=== PATIENT | female | born 1965 | race Caucasian/White ===

== ENCOUNTER → 2017-09-04 | Outpatient (CLI) | payer OTHER ==
[~2017-09-04] MED LIST: AMLO-114 PO; CALC-51 PO; CHLORTRIMETON PO; CINN1CAP2 PO; COEN1CAP28 PO; FLAX10007 PO; LISI-787 PO; MELATAB2 PO; MISCCAP80 PO
--- NOTE | 2017-09-04 15:34 | DIAGNOSTIC IMAGING REPORT ---
SCOLIOSIS STUDY CLINICAL HISTORY: Gait disorder. FINDINGS: AP and lateral views of the spine from a scoliosis study are correlated with abdominal CT dated 09/05/2016. The skeletal structures appear osteopenic. There is a mild superior endplate compression deformity of L2, which is unchanged from 09/05/2016. No retropulsed fragments are identified. Vertebral body height is otherwise maintained throughout the spine. Alignment is preserved. There is mild S-shaped thoracolumbar scoliosis. Thoracic dextrocurvature measures 11 degrees as calculated from the inferior endplate of T3 to the superior endplate of T7. Lumbar levocurvature measures approximate 7 degrees as measured from the inferior endplate of T11 to the superior endplate of L4. There is preservation of the cervical lordosis, the thoracic kyphosis, the lumbar lordosis, and the sacral kyphosis. Cholecystectomy clips are noted. The lungs are grossly clear as imaged. There is a nonobstructed abdominal bowel gas pattern. IMPRESSION: 1. A mild chronic superior endplate compression deformity of L2 is similar to previous. 2. Mild S-shaped thoracolumbar scoliosis as above. Electronically signed by: Jesus Conde M.D. 09/04/2017 3:32 PM Dictated Date/Time: 09/04/2017 3:28 PM
== END | disposition home or self-care (01) ==
LOC: C.RAD 14:46
PROVIDERS: ATTEND Physician Assistant
DX: R26.9 Unspecified abnormalities of gait and mobility (principal)

== ENCOUNTER 2017-11-02 21:52 | Emergency (ER) | payer OTHER ==
[~2017-11-02] VITALS: Ht 170.2 cm; Wt 86.7 kg
[~2017-11-02 21:52] MED LIST changes: -AMLO-114 PO; +AMLO10TA3 PO
[2017-11-02 21:55] VITALS: TEMP 36.3; Ht 170.2 cm; Wt 86.7 kg
[2017-11-02] MEDS ORDERED: CEFTRIAXONE SOD INJ 1 GM ADDVIAL IV STA (22:30)
[2017-11-02 22:43] LABS: BASO % 0.6 %; BASO ABS # 0.05 K/uL (0-0.2); EOS % 1.3 %; EOS ABS # 0.11 K/uL (0-0.5); HEMOGLOBIN 16.4 g/dL (12.0-16.0); IG# 0.05 K/uL (0.00-0.02); LYMPH % 33.6 %; LYMPH ABS # 2.78 K/uL (1.2-3.4); MEAN CELL VOLUME 101.7 fL (80-100); MEAN CORPUSCULAR HEMOGLOBIN 35.5 pg (25-34); MEAN CORPUSCULAR HGB CONC 34.9 g/dl (32-36); MEAN PLATELET VOLUME 10.1 fL (7.4-10.4); MONO % 8.2 %; MONO ABS # 0.68 K/uL (0.11-0.59); NEUT % 55.7 %; PLATELET COUNT 173 K/uL (130-400); RED CELL DISTRIBUTION WIDTH CV 13.1 % (11.5-14.5); RED CELL DISTRIBUTION WIDTH SD 48.2 fL (36.4-46.3); WHITE BLOOD COUNT 8.27 K/uL (4.8-10.8)
--- NOTE | 2017-11-02 23:00 | EMERGENCY ROOM VISIT NOTE ---
History First contact with patient: 22:17 Chief Complaint: OTHER COMPLAINT Stated Complaint: REDNESS AND SWELLING A RECENT CUT History of Present Illness The patient is a 52 year old female who presents to the Emergency Room with complaints of redness and swelling of her left elbow. The patient states that she fell one week ago and had a small laceration to the elbow. She cleaned the laceration out afterward. She states that over the past 3 days, she has had worsening redness and swelling of the elbow and surrounding area. She has full range of motion of the elbow. She rates the discomfort a 2/10. Her mother is a nurse and told her that she should come here due to infection. She denies any fevers/chills. Review of Systems A complete 10 point review of systems was reviewed with the patient with pertinent positives and negatives as per history of present illness. All else were negative. Past Medical/Surgical History Medical Problems: (1) Bronchitis (2) Diabetes (3) Hypertension Surgical Problems: (1) Previous section (2) S/P sinus surgery (3) S/P tonsillectomy Family History Cancer Diabetes mellitus Heart disease Hypertension Social History Smoking Status: Never Smoker Alcohol Use: occasionally Marital Status: Housing Status: lives with family Current/Historical Medications Scheduled Cephalexin Monohydrate (Keflex), 500 MG PO QID Cinnamon (Cinnamon), 500 MG PO BID Coenzyme Q10 (Ubidecarenone) (Co Q10), 50 MG PO DAILY Flaxseed (Linseed) (Flax Seed Oil), 1,000 MG PO BID Melatonin (Melatonin Maximum Strengt), 1 TAB PO HS Probiotic Product (Probiotic), 1 TAB PO QAM Sulfa/Trimethoprim (Bactrim Ds 800MG/160MG), 1 TAB PO BID [Calcium], 1,200 MG PO BID Scheduled PRN [Chlortrimeton], 1 TAB PO BID PRN for Seasonal Allergies Physical Exam Vital Signs Date Time Temp Pulse Resp B/P (MAP) Pulse Ox O2 Delivery O2 Flow Rate FiO2 11/02/17 23:30 78 20 130/72 98 Room Air 11/02/17 21:55 36.3 96 20 189/95 97 Room Air Physical Exam VITALS: Vitals are noted on the nurse's note and reviewed by myself. Vital signs stable. GENERAL: This is a 52-year-old female, in no acute distress, nondiaphoretic, well-developed well-nourished. SKIN: There is a small crusted 1 cm laceration over the left olecranon process. There is surrounding erythema which extends midway down the forearm. The olecranon bursa is slightly swollen and erythematous. There is no fluctuance. Patient has full range of motion of the elbow. HEART: Regular rate and rhythm without murmurs gallops or rubs. LUNGS: Clear to auscultation bilaterally without wheezes, rales or rhonchi. MUSCULOSKELETAL: Full range of motion of the left elbow. NEURO: Patient was alert and oriented to person place and time. Medical Decision & Procedures Laboratory Results 11/02/17 22:35 Red Blood Count 4.62, Mean Corpuscular Volume 101.7, Mean Corpuscular Hemoglobin 35.5, Mean Corpuscular Hemoglobin Concent 34.9, Mean Platelet Volume 10.1, Neutrophils (%) (Auto) 55.7, Lymphocytes (%) (Auto) 33.6, Monocytes (%) ( Auto) 8.2, Eosinophils (%) (Auto) 1.3, Basophils (%) (Auto) 0.6, Neutrophils # ( Auto) 4.60, Lymphocytes # (Auto) 2.78, Monocytes # (Auto) 0.68, Eosinophils # ( Auto) 0.11, Basophils # (Auto) 0.05 11/02/17 22:35 Test 11/02/17 22:35 White Blood Count 8.27 K/uL (4.8-10.8) Red Blood Count 4.62 M/uL (4.2-5.4) Hemoglobin 16.4 g/dL (12.0-16.0) Hematocrit 47.0 % (37-47) Mean Corpuscular Volume 101.7 fL (80-100) Mean Corpuscular Hemoglobin 35.5 pg (25-34) Mean Corpuscular Hemoglobin Concent 34.9 g/dl (32-36) Platelet Count 173 K/uL (130-400) Mean Platelet Volume 10.1 fL (7.4-10.4) Neutrophils (%) (Auto) 55.7 % Lymphocytes (%) (Auto) 33.6 % Monocytes (%) (Auto) 8.2 % Eosinophils (%) (Auto) 1.3 % Basophils (%) (Auto) 0.6 % Neutrophils # (Auto) 4.60 K/uL (1.4-6.5) Lymphocytes # (Auto) 2.78 K/uL (1.2-3.4) Monocytes # (Auto) 0.68 K/uL (0.11-0.59) Eosinophils # (Auto) 0.11 K/uL (0-0.5) Basophils # (Auto) 0.05 K/uL (0-0.2) RDW Standard Deviation 48.2 fL (36.4-46.3) RDW Coefficient of Variation 13.1 % (11.5-14.5) Immature Granulocyte % (Auto) 0.6 % Immature Granulocyte # (Auto) 0.05 K/uL (0.00-0.02) Anion Gap 10.0 mmol/L (3-11) Est Creatinine Clear Calc Drug Dose 75.8 ml/min Estimated GFR () 77.7 Estimated GFR (Non- 67.0 BUN/Creatinine Ratio 21.7 (10-20) Calcium Level 9.9 mg/dl (8.5-10.1) Medications Administered Medications (Trade) Dose Ordered Sig/Dominic Route Start Time Stop Time Status Last Admin Dose Admin Ceftriaxone Sodium (Rocephin Inj) 1 gm NOW STAT IV 11/02/17 22:30 11/02/17 22:31 DC 11/02/17 22:41 1 GM Trimethoprim/ Sulfamethoxazole (Septra Ds 800/ 160MG Tab) 1 tab NOW STAT PO 11/02/17 23:22 11/02/17 23:23 DC 11/02/17 23:25 1 TAB Medical Decision Differential diagnosis includes olecranon bursitis, cellulitis, abscess, septic joint, among others. The patient is a 52-year-old female who presents today complaining of elbow redness and swelling after a laceration. Labs revealed no leukocytosis or other significant findings. His exam is consistent with a mild olecranon bursitis with surrounding cellulitis. The patient was given a dose of Rocephin. She will be placed on Keflex and Bactrim. I gave her information for orthopedic follow-up and she may follow up as an outpatient. There is no evidence of a septic joint at this time. She has full range of motion of the elbow. The area of redness was outlined with a skin marker prior to discharge. She was instructed to return here with significantly worsening redness/ swelling, fevers, difficulty moving the elbow joint or other new/concerning symptoms. Based on the patient's presentation and work up, I feel the patient is stable for outpatient treatment. The patient was educated to return to the emergency department for any worsening of their current condition or new/concerning symptoms. She will follow up with orthopedics as needed. Medication Reconcilliation Current Medication List: was personally reviewed by me Blood Pressure Screening Patient's blood pressure: Normal blood pressure Impression Primary Impression: Olecranon bursitis, left elbow Additional Impression: Cellulitis of left elbow Departure Information Dispostion Home / Self-Care Condition GOOD Prescriptions Sulfa/Trimethoprim (Bactrim Ds 800MG/160MG) Tab 1 TAB PO BID for 10 Days, #20 TAB Prov: Karen Garcia PA-C 11/02/17 Cephalexin Monohydrate (Keflex) 500 Mg Cap 500 MG PO QID for 10 Days, #40 CAP Prov: Karen Garcia PA-C 11/02/17 Referrals Tommy Saab M.D. (PCP) Umair Fuentes D.O. Patient Instructions My [facility] Additional Instructions You were prescribed Keflex to be taken 4 times daily for 10 days. This is an antibiotic. All antibiotics have the potential to cause diarrhea. Stop this medication and contact a medical provider if you were to develop any significant adverse side effects including: wheezing, shortness of breath, passing out, vomiting, or a diffuse rash. Always take antibiotics as directed and COMPLETE the ENTIRE course regardless of the improvement of your symptoms. You were prescribed Bactrim to be taken twice daily for 10 days. This is an antibiotic. All antibiotics have the potential to cause diarrhea. Stop this medication and contact a medical provider if you were to develop any significant adverse side effects including: wheezing, shortness of breath, passing out, vomiting, or a diffuse rash. Always take antibiotics as directed and COMPLETE the ENTIRE course regardless of the improvement of your symptoms. For pain control, you can use the following [id number] medicines (if >12 yo): - Regular strength (325mg/tab) Tylenol (acetaminophen) 2 tabs every 4-6 hours as needed. Do not exceed 12 tablets in a 24 hour period. Avoid taking more than 4 grams (4000 mg) of Tylenol per day. This includes any other sources of acetaminophen you may take on a regular basis. - Regular strength (200 mg/tab) Advil (ibuprofen) 1-2 tabs every 4-6 hours as needed. Do not exceed a dose of 3200 mg per day. You may apply a warm compress to the elbow for relief. Contact orthopedics to schedule a follow-up appointment within one week. Return to the emergency department with worsening pain, worsening redness/ swelling, fevers, difficulty moving the elbow or any other new/concerning symptoms. Problem Qualifiers
[2017-11-02 23:04] LABS: CALCIUM 9.9 mg/dl (8.5-10.1); CREATININE 0.96 mg/dl (0.60-1.20); POTASSIUM 3.9 mmol/L (3.5-5.1)
[2017-11-02] MEDS ORDERED: SULFAMETHOXAZOLE/TRIMETHOPRIM DS 800/160MG TAB PO STA (23:22)
[2017-11-02] MEDS ORDERED: SULF800T23 PO (23:26)
[2017-11-02] MEDS ORDERED: CEPH500C PO (23:26)
[2017-11-02 23:30] VITALS: BP 130/72; PULSE 78; O2SAT 98
== END 2017-11-02 23:41 | disposition home or self-care (01) ==
LOC: C.EDB 21:53 → C.EDC 23:41
DX: M70.22 Olecranon bursitis, left elbow (principal); L03.90 Cellulitis, unspecified; E11.9 Type 2 diabetes mellitus without complications; I10 Essential (primary) hypertension; Z83.3 Family history of diabetes mellitus; Z82.49 Family history of ischemic heart disease and other diseases of the circulatory system

== ENCOUNTER 2023-04-21 20:41 | Inpatient (IN) ==
--- NOTE | 2023-04-21 22:26 | Emergency Department Note ---
Impression & Plan Acute confusion, Hyperglycemia, Hypomagnesemia ED Provider Note HISTORY OF PRESENT ILLNESS: Patient is a 57-year-old female presenting with episode of confusion. Family member at bedside helps provide history. Reports that the patient was reportedly having some slurred speech and confusion on the phone with her sons today. Her sons live a number of hours away and called him to check in on the patient. He went to her house this evening and found her to be very "discombobulated." He reports the patient was holding up her phone scratcher pretending it was her phone and was having difficulties checking her blood sugar on her home glucose monitor. Given her confusion, he brought her to the ER. On arrival, patient is reportedly back to her normal self. Denies any chest pain or shortness of breath. Denies any recent head injuries or chiropractic manipulation of her neck. Denies any abdominal pain, nausea or vomiting. Denies any recent dysuria or hematuria. She reports she feels back to her normal baseline at this time. She has a history of diabetes is on metformin and Lantus. She is amnestic to most of the events of this evening, but does report having intermittent episodes of confusion throughout the day. ROS: as above PHYSICAL EXAM: Constitutional: Patient appears in no acute distress. HENT: Head: Normocephalic and atraumatic. Eyes: EOMI, PERRL Mouth/Throat: Mucous membranes moist. Neck: Trachea midline. Neck supple. Cardiovascular: RRR, No murmurs, rubs or gallops. Intact distal pulses. Pulmonary/Chest: No respiratory distress. Breath sounds clear and equal bilaterally. No wheezes or rales. Abdominal: BS +. Abdomen soft, no tenderness, rebound or guarding. Musculoskeletal: No edema, tenderness or deformity noted. Skin: Warm and dry. No rash, erythema, pallor or cyanosis Psychiatric: Appropriate mood and affect for situation. Neurological: Alert and keenly responsive. Facies symmetric. Able to raise eyebrows, close eyes, smile, puff mouth, stick out tongue, move tongue left and right and raise palate symmetrically. Able to shrug shoulders. PERRLA. SILT to forehead below eye and at jawline. Can hear soft nose bilaterally. Good finger to nose. Strength 5/5 in bilateral upper and lower extremities. SILT throughout bilateral upper and lower extremities. MDM: - Vitals signs showed tachycardia. - History obtained via patient and patient's family member, given patient's amnesia to the afternoon events. Patient presents with confusion. Family reports that the patient had some slurred speech and confusion earlier today. Reports that she was not acting her normal self and was having difficulties checking her blood glucose. She has a history of diabetes. On arrival to the ER, the patient does not remember the events of the evening but remembers being more confused than normal. - Chronic conditions affecting care: DM-2; HTN - Differential diagnoses include, but are not limited to: Intracranial bleed vs mass; stroke; seizures; electrolyte abnormality; UTI; pneumonia; trauma; hypoglycemia/hyperglycemia - Order placed for continuous cardiac monitoring. At this time, monitor showed rate of 105 bpm with normal sinus rhythm, per my interpretation. - External medical records reviewed. - EKG reviewed by myself showed normal sinus rhythm. Rate tachycardic at 108. QTc 444. No acute ischemic changes. - Laboratory workup interpreted by myself showed normal WBC; normal sodium; normal potassium; elevated anion gap (14); normal creatinine; hyperglycemia (glucose 317); hypomagnesemia (Mg 1.5); normal troponin; negative procalcitonin - CXR negative for pneumonia, per my interpretation. - COVID negative - CT head wo contrast negative for acute intracranial pathology. - Patient given 1L NS, 5 units IV insulin and 1g IV magnesium in ER. - Discussion was had with psychiatric social worker about patient's case and need for admission. - Hospitalist, Dr. Anderson, consulted for admission. - [facility] ASSESSMENT AND PLAN: Diagnosis: hyperglycemia; elevated anion gap; hypomagnesemia; confusion Plan: admit Past Med/Surg History Medical History (Updated 04/22/23 @ 01:00 by Talisha Gasca MD) Diabetes Hypertension No significant past medical history Family History Other Family history non-contributory Social History Smoking Status: Never smoker Second Hand Exposure: No; Do You Dip or Chew Tobacco: No; Hx Alcohol Use: Yes Alcohol type: hard liquor Hx Substance Use: No Preferred Language: Peruvian Communication Ability: Impaired Logging Assistant Required: No Beliefs That Will Affect Care: None Current Living Situation: Family Feels Safe at Home: Yes Assistive Devices: None Allergies Allergies Allergy/AdvReac Type Severity Reaction Status Date / Time benzoyl peroxide Allergy Unknown SKIN RED Verified 10/11/18 22:53 AND IRRITATED No Known Drug Allergies Allergy Unknown NONE Verified 08/29/16 08:10 Home Meds Home Medications Medication Instructions Recorded Confirmed calcium carbonate 500 mg calcium 500 mg PO TID 10/11/18 10/11/18 (1,250 mg) tablet (Calcium 500) cholestyramine (with sugar) 4 gram 4 g PO BID 10/11/18 10/11/18 oral powder chromium picolinate 1,000 mcg 1,000 mcg PO DAILY 10/11/18 10/11/18 tablet cinnamon bark 500 mg capsule 500 mg PO DAILY 10/11/18 10/11/18 (Cinnamon) lactobacillus combination no.4 3 3,000 mmu cells PO DAILY 10/11/18 10/11/18 billion cell capsule (Probiotic) magnesium 250 mg tablet 250 mg PO DAILY 10/11/18 10/11/18 melatonin 10 mg tablet 10 mg PO HS PRN Sleep 10/11/18 10/11/18 mirtazapine 7.5 mg tablet 7.5 mg PO DAILY 10/11/18 10/11/18 omega 0-keo-rtd-fish oil 1,000 mg 1,000 mg PO DAILY 10/11/18 10/11/18 (120 mg-180 mg) capsule (Fish Oil) ondansetron 8 mg disintegrating 8 mg PO DAILY 10/11/18 10/11/18 tablet simethicone 80 mg chewable tablet 80 mg PO BID PRN Gi Upset 10/11/18 10/11/18 Previous Rx's Medication Instructions Recorded blood sugar diagnostic #10 ea 10/18/18 folic acid 1 mg tablet 1 mg PO QAM #30 tabs 10/18/18 insulin aspart U-100 100 unit/mL 5 unit (0.05 mL) SC AC #1 pen 10/18/18 (3 mL) subcutaneous pen (Novolog FlexPen U-100 Insulin aspart) insulin glargine 100 unit/mL (3 20 units (0.2 mL) subcut BID #15 mL 10/18/18 mL) subcutaneous pen lancets #50 ea 10/18/18 loratadine 10 mg tablet (Allergy 10 mg PO QAM PRN Allergy Symptoms 10/18/18 Relief (loratadine)) #10 tabs metformin 500 mg tablet 500 mg PO BIDM #30 tabs 10/18/18 (Glucophage) multivitamin (Daily-Breanna tablet) 1 tab PO QAM #30 tabs 10/18/18 nitrofurantoin 100 mg PO BID #9 caps 10/18/18 monohydrate/macrocrystals 100 mg capsule pantoprazole 40 mg tablet,delayed 40 mg PO QAM #30 tabs 10/18/18 release pen needle, diabetic 29 gauge #90 ea 10/18/18 thiamine HCl (vitamin B1) 100 mg 100 mg PO QAM #30 tabs 10/18/18 tablet (Vitamin B-1) Results & Data (ED) Vital Signs Vital Signs - 24 hr 04/21/23 20:53 04/21/23 22:47 04/21/23 23:05 Temperature 37.1 C Temperature Source Temporal Artery Scan Pulse Rate 131 H 108 H Pulse Rate [Apical] 116 H Pulse Rate from SpO2 Sensor 110 H Pulse Rhythm [Apical] Regular Respiratory Rate 18 18 12 Respiratory Effort / Characteristics Non-Labored Spontaneous Non-Labored Spontaneous Respiratory Depth Normal Normal Respiratory Pattern Regular Regular Blood Pressure 128/84 Blood Pressure [Right Arm] 131/91 Blood Pressure Mean 98 Blood Pressure Mean [Right Arm] 104 Blood Pressure Position Sitting Pulse Oximetry 94 95 96 Oxygen Delivery Method Room Air Room Air Sepsis Recent Fever Within 48 Hours No Sepsis New/Unexplained Change in Mental Status N/A Sepsis Action Taken by Nursing No Action Required 04/21/23 23:10 04/21/23 23:29 04/21/23 23:30 Temperature Temperature Source Pulse Rate 119 H 111 H 104 H Pulse Rate [Apical] Pulse Rate from SpO2 Sensor 119 H 104 H Pulse Rhythm [Apical] Respiratory Rate 15 14 13 Respiratory Effort / Characteristics Respiratory Depth Respiratory Pattern Blood Pressure 132/96 Blood Pressure [Right Arm] Blood Pressure Mean 108 Blood Pressure Mean [Right Arm] Blood Pressure Position Pulse Oximetry 98 96 Oxygen Delivery Method Sepsis Recent Fever Within 48 Hours Sepsis New/Unexplained Change in Mental Status Sepsis Action Taken by Nursing Laboratory Data 04/21/23 23:02 04/21/23 23:02 Lab Results 06/16/23 06/16/23 06/16/23 Range/Units 20:55 23:02 23:02 WBC 7.20 (4.8-10.8) K/ul RBC 4.68 (4.20-5.40) M/uL Hgb 16.1 H (12.0-16.0) g/dl Hct 44.4 (37.0-47.0) % MCV 94.9 (80.0-100.0) fL MCH 34.4 H (25.0-34.0) pg MCHC 36.3 H (32.0-36.0) g/dL RDW Std Deviation 41.1 (36.4-46.3) fL RDW Coeff of Eli 11.8 (11.5-14.5) % Plt Count 206 (130-400) K/uL MPV 10.0 (9.4-12.4) fL Immature Gran % (Auto) 0.7 % Neut % (Auto) 64.9 % Lymph % (Auto) 28.8 % [place] % (Auto) 4.0 % Eos % (Auto) 1.0 % Baso % (Auto) 0.6 % Neut # (Auto) 4.68 (1.40-6.50) K/uL Lymph # (Auto) 2.07 (1.2-3.4) K/uL [place] # (Auto) 0.29 (0.11-0.59) K/uL Eos # (Auto) 0.07 (0-0.50) K/uL Baso # (Auto) 0.04 (0-0.2) K/uL Immature Gran # (Auto) 0.05 (0.01-0.20) K/uL Sodium 141 (136-145) mmol/L Potassium 3.8 (3.5-5.1) mmol/L Chloride 104 (98-107) mmol/L Carbon Dioxide 23 (21-32) mmol/L Anion Gap 14 H (3-11) BUN 12 (6-23) mg/dl Creatinine 0.64 (0.6-1.2) mg/dl Est Cr Clr Drug Dosing 93.8 ml/min Est GFR ( Amer) 113.2 ml/min Est GFR (Non-Af Amer) 97.7 ml/min BUN/Creatinine Ratio 18.8 (10-20) Glucose 317 H* (70-99(Fasting)) mg/dl POC Glucose 294 H (70-99) mg/dl Calcium 9.7 (8.6-10.3) mg/dl Magnesium 1.5 L (1.7-2.4) mg/dl Total Bilirubin 0.3 (0.2-1.0) mg/dl AST 19 (13-39) U/L ALT 40 (7-52) U/L Alkaline Phosphatase 118 H (34-104) U/L Troponin I High Sens 3.4 (0-14) pg/ml Total Protein 6.8 (6.0-8.3) gm/dl Albumin 4.2 (3.4-5.0) gm/dl Globulin 2.6 (2.5-4.0) gm/dl Albumin/Globulin Ratio 1.6 (0.9-2) Procalcitonin (0-0.5) ng/ml SARS-CoV-2 (PCR) (Negative) Influenza Type A (PCR) (Neg) Influenza Type B (PCR) (Neg) RSV (RT-PCR) (Neg) 04/21/23 04/21/23 04/22/23 Range/Units 23:02 23:02 00:37 WBC (4.8-10.8) K/ul RBC (4.20-5.40) M/uL Hgb (12.0-16.0) g/dl Hct (37.0-47.0) % MCV (80.0-100.0) fL MCH (25.0-34.0) pg MCHC (32.0-36.0) g/dL RDW Std Deviation (36.4-46.3) fL RDW Coeff of Eli (11.5-14.5) % Plt Count (130-400) K/uL MPV (9.4-12.4) fL Immature Gran % (Auto) % Neut % (Auto) % Lymph % (Auto) % [place] % (Auto) % Eos % (Auto) % Baso % (Auto) % Neut # (Auto) (1.40-6.50) K/uL Lymph # (Auto) (1.2-3.4) K/uL [place] # (Auto) (0.11-0.59) K/uL Eos # (Auto) (0-0.50) K/uL Baso # (Auto) (0-0.2) K/uL Immature Gran # (Auto) (0.01-0.20) K/uL Sodium (136-145) mmol/L Potassium (3.5-5.1) mmol/L Chloride (98-107) mmol/L Carbon Dioxide (21-32) mmol/L Anion Gap (3-11) BUN (6-23) mg/dl Creatinine (0.6-1.2) mg/dl Est Cr Clr Drug Dosing ml/min Est GFR ( Amer) ml/min Est GFR (Non-Af Amer) ml/min BUN/Creatinine Ratio (10-20) Glucose (70-99(Fasting)) mg/dl POC Glucose 282 H (70-99) mg/dl Calcium (8.6-10.3) mg/dl Magnesium (1.7-2.4) mg/dl Total Bilirubin (0.2-1.0) mg/dl AST (13-39) U/L ALT (7-52) U/L Alkaline Phosphatase (34-104) U/L Troponin I High Sens (0-14) pg/ml Total Protein (6.0-8.3) gm/dl Albumin (3.4-5.0) gm/dl Globulin (2.5-4.0) gm/dl Albumin/Globulin Ratio (0.9-2) Procalcitonin < 0.05 (0-0.5) ng/ml SARS-CoV-2 (PCR) NEGATIVE (Negative) Influenza Type A (PCR) Negative (Neg) Influenza Type B (PCR) Negative (Neg) RSV (RT-PCR) Negative (Neg) 04/22/23 Range/Units 01:08 WBC (4.8-10.8) K/ul RBC (4.20-5.40) M/uL Hgb (12.0-16.0) g/dl Hct (37.0-47.0) % MCV (80.0-100.0) fL MCH (25.0-34.0) pg MCHC (32.0-36.0) g/dL RDW Std Deviation (36.4-46.3) fL RDW Coeff of Eli (11.5-14.5) % Plt Count (130-400) K/uL MPV (9.4-12.4) fL Immature Gran % (Auto) % Neut % (Auto) % Lymph % (Auto) % [place] % (Auto) % Eos % (Auto) % Baso % (Auto) % Neut # (Auto) (1.40-6.50) K/uL Lymph # (Auto) (1.2-3.4) K/uL [place] # (Auto) (0.11-0.59) K/uL Eos # (Auto) (0-0.50) K/uL Baso # (Auto) (0-0.2) K/uL Immature Gran # (Auto) (0.01-0.20) K/uL Sodium (136-145) mmol/L Potassium (3.5-5.1) mmol/L Chloride (98-107) mmol/L Carbon Dioxide (21-32) mmol/L Anion Gap (3-11) BUN (6-23) mg/dl Creatinine (0.6-1.2) mg/dl Est Cr Clr Drug Dosing ml/min Est GFR ( Amer) ml/min Est GFR (Non-Af Amer) ml/min BUN/Creatinine Ratio (10-20) Glucose (70-99(Fasting)) mg/dl POC Glucose 219 H (70-99) mg/dl Calcium (8.6-10.3) mg/dl Magnesium (1.7-2.4) mg/dl Total Bilirubin (0.2-1.0) mg/dl AST (13-39) U/L ALT (7-52) U/L Alkaline Phosphatase (34-104) U/L Troponin I High Sens (0-14) pg/ml Total Protein (6.0-8.3) gm/dl Albumin (3.4-5.0) gm/dl Globulin (2.5-4.0) gm/dl Albumin/Globulin Ratio (0.9-2) Procalcitonin (0-0.5) ng/ml SARS-CoV-2 (PCR) (Negative) Influenza Type A (PCR) (Neg) Influenza Type B (PCR) (Neg) RSV (RT-PCR) (Neg) Administered Medications Magnesium Sulfate/Dextrose (Magnesium Sulfate / D5w) 1 gm in 100 mls @ 100 mls/hr IV NOW STA Stop: 04/22/23 01:33 Last Admin: 04/22/23 00:39 Dose: 100 mls/hr Documented By: TRACE Discontinued Medications Sodium Chloride (Nss 1000ml) 1,000 mls @ 999 mls/hr IV .Q1H1M ONE Stop: 04/22/23 01:15 Last Admin: 04/22/23 00:39 Dose: 999 mls/hr Documented By: TRACE Insulin Human Regular (Novolin-R Insulin Per Unit Charge) 5 units IV NOW STA Stop: 04/22/23 00:27 Last Admin: 04/22/23 00:37 Dose: 5 units Documented By: TRACE Co-signed By: CAROLA Magnesium Sulfate (Mag Sulfate 50% 1gm/2ml Vial) 1 gm IV ONCE ONE Stop: 04/22/23 00:17 Last Admin: 04/22/23 00:40 Dose: Not Given Documented By: TRACE Imaging Data Radiologist's Impression: Head CT 04/21/23 22:21 Exam(s): CT HEAD Without Contrast EXAM: CT Head Without Intravenous Contrast CLINICAL HISTORY: Reason for exam: episode of confusion. TECHNIQUE: Axial computed tomography images of the head/brain without intravenous contrast. Automated exposure control was utilized for the study. A dose lowering technique was utilized adhering to the principles of ALARA. COMPARISON: No relevant prior studies available. FINDINGS: No acute intracranial hemorrhage. No midline shift or mass effect. The territorial quinones-white matter differentiation is maintained throughout. Age-related cerebral volume loss. Periventricular and subcortical white matter hypoattenuation, consistent with chronic microangiopathy. The visualized orbits appear grossly unremarkable. The calvarium is intact. The visualized paranasal sinuses and mastoid air cells are grossly clear. IMPRESSION: No acute intracranial hemorrhage, midline shift, or mass effect. Electronically signed by: Kraig Wharton MD 04/22/23 00:42 AM Discharge Plan Visit Data Chief Complaint: Hyperglycemia Stated Complaint: HIGH BLOOD SUGAR, ED Provider: Talisha Gasca Discharge Problem: Acute confusion, Hyperglycemia, Hypomagnesemia Forms Stand Alone Forms: My [facility] [employer] Prescriptions Prescriptions: No Action ondansetron 8 mg tablet,disintegrating 8 mg PO DAILY calcium carbonate [Calcium 500] 500 mg calcium (1,250 mg) Tablet 500 mg PO TID magnesium 250 mg Tablet 250 mg PO DAILY simethicone 80 mg Tablet,Chewable 80 mg PO BID PRN (Reason: Gi Upset) cholestyramine (with sugar) 4 gram Powder 4 g PO BID mirtazapine 7.5 mg Tablet 7.5 mg PO DAILY cinnamon bark [Cinnamon] 500 mg Capsule 500 mg PO DAILY omega 5-ups-ves-fish oil [Fish Oil] 1,000 mg (120 mg-180 mg) Capsule 1,000 mg PO DAILY melatonin 10 mg Tablet 10 mg PO HS PRN (Reason: Sleep) chromium picolinate 1,000 mcg Tablet 1,000 mcg PO DAILY lactobacillus combination no.4 [Probiotic] 3 billion cell Capsule 3,000 mmu cells PO DAILY metformin [Glucophage] 500 mg Tablet 500 mg PO BIDM Qty: 30 0RF pantoprazole 40 mg Tablet,Delayed Release (Dr/Ec) 40 mg PO QAM Qty: 30 0RF loratadine [Allergy Relief (loratadine)] 10 mg Tablet 10 mg PO QAM PRN (Reason: Allergy Symptoms) Qty: 10 0RF insulin aspart U-100 [Novolog FlexPen U-100 Insulin] 100 unit/mL Insulin Pen 5 unit SC AC Qty: 1 0RF nitrofurantoin monohyd/m-cryst 100 mg Capsule 100 mg PO BID Qty: 9 0RF insulin glargine 100 unit/mL (3 mL) insulin pen 20 units SQ BID Qty: 15 0RF multivitamin [Daily-Breanna] Tablet 1 tab PO QAM Qty: 30 0RF thiamine HCl (vitamin B1) [Vitamin B-1] 100 mg Tablet 100 mg PO QAM Qty: 30 0RF folic acid 1 mg Tablet 1 mg PO QAM Qty: 30 0RF (DME) pen needle, diabetic 29 gauge needle See Dose Instructions .ROUTE .MEDSUPPLY Qty: 90 0RF Dose Instruction: As directed Rx Instructions: As directed (DME) blood sugar diagnostic strip See Dose Instructions .ROUTE .MEDSUPPLY Qty: 10 0RF Dose Instruction: As directed Rx Instructions: As directed (DME) lancets misc See Dose Instructions .ROUTE .MEDSUPPLY Qty: 50 0RF Dose Instruction: As directed Rx Instructions: As directed Referrals Referrals: Tommy Saab MD [Primary Care Provider] -
[2023-04-21 23:18] LABS: Basophils # (auto) 0.04 K/uL (0-0.2); Basophils % (auto) 0.6 %; Eosinophils # (auto) 0.07 K/uL (0-0.50); Hematocrit (blood only) 44.4 % (37.0-47.0); Hemoglobin 16.1 g/dl (12.0-16.0); Immature Granulocytes # (auto) 0.05 K/uL (0.01-0.20); Immature Granulocytes % (auto) 0.7 %; Lymphocytes # (auto) 2.07 K/uL (1.2-3.4); Lymphocytes % (auto) 28.8 %; Mean Corpuscular Hemoglobin 34.4 pg (25.0-34.0); Mean Corpuscular Hgb Conc 36.3 g/dL (32.0-36.0); Mean Corpuscular Volume 94.9 fL (80.0-100.0); Monocytes # (auto) 0.29 K/uL (0.11-0.59); Neutrophils # (auto) 4.68 K/uL (1.40-6.50); Neutrophils % (auto) 64.9 %; Platelet Count 206 K/uL (130-400); RDW Coefficient of Variation 11.8 % (11.5-14.5); RDW Standard Deviation 41.1 fL (36.4-46.3); Red Blood Count 4.68 M/uL (4.20-5.40)
[2023-04-21 23:40] LABS: Albumin Globulin Ratio 1.6 (0.9-2); Albumin Level 4.2 gm/dl (3.4-5.0); BUN Creatinine Ratio 18.8 (10-20); Bilirubin,Total 0.3 mg/dl (0.2-1.0); Calcium 9.7 mg/dl (8.6-10.3); Creatinine Clr Calc Pharmacy 93.8 ml/min; Est GFR (African American) 113.2 ml/min; Est GFR (Non-African American) 97.7 ml/min; Globulin 2.6 gm/dl (2.5-4.0); Magnesium 1.5 mg/dl (1.7-2.4); Potassium 3.8 mmol/L (3.5-5.1); Total Protein 6.8 gm/dl (6.0-8.3); Troponin I High Sensitivity 3.4 pg/ml (0-14)
[2023-04-21 23:59] LABS: Influenza A virus by PCR Negative (Neg); Influenza B virus by PCR Negative (Neg); RSV by PCR Negative (Neg); SARS CoV2 RNA(COVID-19) Ceph NEGATIVE (Negative)
[2023-04-22] MEDS ORDERED: SODIUM CHLORIDE 0.9% 1000ML 1,000 ML IV ONE (00:15)
[2023-04-22] MEDS ORDERED: MAG SULFATE 50% 1GM/2ML VIAL IV ONE (00:16)
[2023-04-22] MEDS ORDERED: NovoLIN-R INSULIN PER UNIT CHARGE IV STA (00:26)
[2023-04-22] MEDS ORDERED: MAGNESIUM SULFATE / D5W 1 GM/100 ML BAG IV STA (00:34)
--- NOTE | 2023-04-22 00:43 | CT Scan Report ---
Exam(s): CT HEAD Without Contrast EXAM: CT Head Without Intravenous Contrast CLINICAL HISTORY: Reason for exam: episode of confusion. TECHNIQUE: Axial computed tomography images of the head/brain without intravenous contrast. Automated exposure control was utilized for the study. A dose lowering technique was utilized adhering to the principles of ALARA. COMPARISON: No relevant prior studies available. FINDINGS: No acute intracranial hemorrhage. No midline shift or mass effect. The territorial quinones-white matter differentiation is maintained throughout. Age-related cerebral volume loss. Periventricular and subcortical white matter hypoattenuation, consistent with chronic microangiopathy. The visualized orbits appear grossly unremarkable. The calvarium is intact. The visualized paranasal sinuses and mastoid air cells are grossly clear. IMPRESSION: No acute intracranial hemorrhage, midline shift, or mass effect. Electronically signed by: Kraig Wharton MD 04/22/23 00:42 AM
[2023-04-22] MEDS ORDERED: POTASSIUM CHLORIDE CRTAB 20 MEQ TABCR PO STA (01:16)
[2023-04-22] MEDS ORDERED: LANTUS PER UNIT CHARGE SQ STA ×2 (01:21→01:57)
[2023-04-22] MEDS ORDERED: LACTATED RINGER'S 1,000 ML IV ONE (01:23)
[2023-04-22 01:42] LABS: Base Excess VBG -0.2 mEq/L; HCO3 VBG 25 mmol/L; Oxygen Saturation VBG < 60.0 %; PCO2 VBG 44 mmHg (38-50); PO2 VBG 26 mmHg; pH VBG 7.37 (7.36-7.41)
[2023-04-22] MEDS ORDERED: MAGNESIUM SULFATE / D5W 1 GM/100 ML BAG IV ONE (01:45)
[2023-04-22 02:03] LABS: BUN Creatinine Ratio 19.3 (10-20); Calcium 8.9 mg/dl (8.6-10.3); Creatinine Clr Calc Pharmacy 105.3 ml/min; Est GFR (African American) 117.6 ml/min; Est GFR (Non-African American) 101.5 ml/min; Potassium 3.6 mmol/L (3.5-5.1)
[2023-04-22] MEDS ORDERED: THIAMINE HCL 100 MG in SYRINGE 9 ML IV STA (02:33)
--- NOTE | 2023-04-22 02:51 | History & Physical Report ---
Date of Service April 22, 2023 Assessment & Plan (1) Encephalopathy acute: Plan: Transient encephalopathy Patient mentation back to baseline after initial intervention at the ER. Multifactorial: Mild DKA, DM 2 insulin requiring, suboptimal control as of recent hemoglobin A1c of 13.6 at the February 2023 alcohol abuse as per records Home neuropsychotropic medications contributory HTN, slight elevated, patient not on maintenance medications Hypomagnesemia overwhelming anxiety hx mood disorder. Medical telemetry IVF Basal bolus insulin, ISS BG goal 1 10-1 40, carb count coverage Diabetic education consult Re: Poorly controlled DM2 DT precautions; JUSTO S if with signs of alcohol withdrawal Hold parameters for sedation confusion for neuropsychotropic medications Replace magnesium Psych consult re: overwhelming anxiety DVT prophylaxis. Lovenox subcu Full code Text document was generated using [employer] voice recognition software. It may contain grammatical or spelling errors. Kindly contact undersigned for clarification of any documentation item in question. History of Present Illness Chief Complaint: Confusion as per records Primary Care Provider: Tommy Saab MD History obtained from patient, family, and records. Medical history significant for hypertension, DM 2 insulin requiring, alcohol abuse as per records, mood disorder. Last confinement 2017 for DKA, newly diagnosed DM2 and alcoholic pancreatitis. Patient discharged on insulin and metformin home medications. Patient undergoing a lot of stress mostly from work the last few weeks. Denies suicidality. Having trouble sleeping. Patient noted to be confused and have slurred speech on the phone today. Last ETOH drink was yesterday. Patient denies headache, chest pain, SOB, abdominal pain. Does not check blood sugars daily despite insulin administration. Appetite not too good. BSG 300s upon arrival at the ER. IVF, IV insulin administered at the ER. Patient currently feeling much better and more awake. 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 Allergies Allergy/AdvReac Type Severity Reaction Status Date / Time benzoyl peroxide Allergy Unknown SKIN RED Verified 04/22/23 02:23 AND IRRITATED No Known Drug Allergies Allergy Unknown NONE Verified 04/22/23 02:23 Home Medications Medication Instructions Recorded Confirmed Type cinnamon bark 500 mg capsule 500 mg PO QAM 10/11/18 04/22/23 History (Cinnamon) lactobacillus combination no.4 3 3,000 mmu cells PO QAM 10/11/18 04/22/23 History billion cell capsule (Probiotic) magnesium 250 mg tablet 250 mg PO HS 10/11/18 04/22/23 History blood sugar diagnostic #10 ea 10/18/18 04/22/23 Rx lancets #50 ea 10/18/18 04/22/23 Rx pen needle, diabetic 29 gauge #90 ea 10/18/18 04/22/23 Rx azelastine 137 mcg (0.1 %) nasal 1 spray intranasal AMHS 04/22/23 04/22/23 History spray aerosol buspirone 10 mg tablet 10 mg PO TID 04/22/23 04/22/23 History calcium carbonate 600 mg-vitamin 1 tab PO DAILY 04/22/23 04/22/23 History D3 5 mcg (200 unit) tablet (Calcium 600 + D(3)) flaxseed oil 1,300 mg-omega 3,6,9 1 cap PO QAM 04/22/23 04/22/23 History 845 mg-117 mg-117 mg capsule gabapentin 300 mg capsule 900 mg PO HS 04/22/23 04/22/23 History insulin glargine 100 unit/mL (3 10 units subcut HS 04/22/23 04/22/23 History mL) subcutaneous pen loratadine 10 mg tablet (Allergy 10 mg PO QAM 04/22/23 04/22/23 History Relief (loratadine)) metformin 500 mg tablet,extended 2,000 mg PO QAM 04/22/23 04/22/23 History release 24 hr semaglutide 1 mg/dose (4 mg/3 mL) 1 mg subcut WK 04/22/23 04/22/23 History subcutaneous pen injector (Ozempic) zolpidem 5 mg tablet 5 mg PO HS 04/22/23 04/22/23 History Past Med/Surg History Medical History (Updated 04/22/23 @ 09:55 by Kurtis Anderson MD) Diabetes Hypertension No significant past medical history Family History Other Family history non-contributory Social History Smoking Status: Never smoker Second Hand Exposure: No; Do You Dip or Chew Tobacco: No; Hx Alcohol Use: Yes Alcohol type: other Hx Substance Use: No Preferred Language: Greenlandic Communication Ability: Effective Decision Support Manager Required: No Beliefs That Will Affect Care: None Current Living Situation: Alone Other Information That Helps Us Care for You: No Feels Safe at Home: Yes Safety Concerns: Feels Safe At This Time Assistive Devices: None Review of Systems Review of Systems: As per HPI, all other systems reviewed and negative Physical Exam Physical Exam: GENERAL: uncomfortable, slightly anxious, no respiratory distress, alcoholic fetor SKIN: Normal color, warm HEENT: [place] palpebral conjunctivae, no ptosis, dry buccal mucosa NECK : Supple, short neck, no tenderness CHEST : CTA, no tenderness HEART : Tachycardic, no obvious murmurs ABDOMEN: Some distention, no tenderness EXTREMITIES : No LE swelling/tenderness, no other conspicuous deformities noted NEUROLOGIC : Coherent, no facial asymmetry, gait and stance not assessed Results & Data Results & Data Vital Signs (Past 12 Hours) Vital Signs Temp Pulse Pulse Resp BP BP Pulse Ox 04/21/23 23:30 104 H 13 132/96 96 04/21/23 23:29 111 H 14 04/21/23 23:10 119 H 15 98 04/21/23 23:05 108 H 12 96 04/21/23 22:47 116 H 18 131/91 95 04/21/23 20:53 37.1 C 131 H 18 128/84 94 O2 Del Method 04/21/23 23:30 04/21/23 23:29 04/21/23 23:10 04/21/23 23:05 04/21/23 22:47 Room Air 04/21/23 20:53 Room Air Laboratory Results Laboratory Results WBC 7.20 K/ul (4.8-10.8) 04/21/23 23:02 RBC 4.68 M/uL (4.20-5.40) 04/21/23 23:02 Hgb 16.1 g/dl (12.0-16.0) H 04/21/23 23:02 Hct 44.4 % (37.0-47.0) 04/21/23 23:02 MCV 94.9 fL (80.0-100.0) 04/21/23 23:02 MCH 34.4 pg (25.0-34.0) H 04/21/23 23:02 MCHC 36.3 g/dL (32.0-36.0) H 04/21/23 23:02 RDW Std Deviation 41.1 fL (36.4-46.3) 04/21/23 23:02 RDW Coeff of Eli 11.8 % (11.5-14.5) 04/21/23 23: Plt Count 206 K/uL (130-400) 04/21/23 23:02 MPV 10.0 fL (9.4-12.4) 04/21/23 23:02 Immature Gran % (Auto) 0.7 % 04/21/23 23:02 Neut % (Auto) 64.9 % 04/21/23 23:02 Lymph % (Auto) 28.8 % 04/21/23 23:02 Ness % (Auto) 4.0 % 04/21/23 23:02 Eos % (Auto) 1.0 % 04/21/23 23:02 Baso % (Auto) 0.6 % 04/21/23 23:02 Neut # (Auto) 4.68 K/uL (1.40-6.50) 04/21/23 23:02 Lymph # (Auto) 2.07 K/uL (1.2-3.4) 04/21/23 23:02 Ness # (Auto) 0.29 K/uL (0.11-0.59) 04/21/23 23:02 Eos # (Auto) 0.07 K/uL (0-0.50) 04/21/23 23:02 Baso # (Auto) 0.04 K/uL (0-0.2) 04/21/23 23:02 Immature Gran # (Auto) 0.05 K/uL (0.01-0.20) 04/21/23 23:02 VBG pH 7.37 (7.36-7.41) 04/22/23 01:20 VBG pCO2 44 mmHg (38-50) 04/22/23 01:20 VBG pO2 26 mmHg 04/22/23 01:20 VBG HCO3 25 mmol/L 04/22/23 01:20 VBG O2 Saturation < 60.0 % 04/22/23 01:20 VBG Base Excess -0.2 mEq/L 04/22/23 01:20 Sodium 141 mmol/L (136-145) 04/22/23 01:34 Potassium 3.6 mmol/L (3.5-5.1) 04/22/23 01:34 Chloride 107 mmol/L (98-107) 04/22/23 01:34 Carbon Dioxide 25 mmol/L (21-32) 04/22/23 01:34 Anion Gap 9 (3-11) 04/22/23 01:34 BUN 11 mg/dl (6-23) 04/22/23 01:34 Creatinine 0.57 mg/dl (0.6-1.2) L 04/22/23 01:34 Est Cr Clr Drug Dosing 105.3 ml/min 04/22/23 01:34 Est GFR ( Amer) 117.6 ml/min 04/22/23 01:34 Est GFR (Non-Af Amer) 101.5 ml/min 04/22/23 01:34 BUN/Creatinine Ratio 19.3 (10-20) 04/22/23 01:34 Glucose 215 mg/dl (70-99(Fasting)) H 04/22/23 01:34 POC Glucose 219 mg/dl (70-99) H 04/22/23 01:08 Calcium 8.9 mg/dl (8.6-10.3) 04/22/23 01:34 Magnesium 1.5 mg/dl (1.7-2.4) L 04/21/23 23:02 Total Bilirubin 0.3 mg/dl (0.2-1.0) 04/21/23 23:02 AST 19 U/L (13-39) 04/21/23 23:02 ALT 40 U/L (7-52) 04/21/23 23:02 Alkaline Phosphatase 118 U/L (34-104) H 04/21/23 23:02 Ammonia 25.0 umol/L (18-72) 04/22/23 01:34 Troponin I High Sens 3.4 pg/ml (0-14) 04/21/23 23:02 Total Protein 6.8 gm/dl (6.0-8.3) 04/21/23 23:02 Albumin 4.2 gm/dl (3.4-5.0) 04/21/23 23:02 Globulin 2.6 gm/dl (2.5-4.0) 04/21/23 23:02 Albumin/Globulin Ratio 1.6 (0.9-2) 04/21/23 23:02 Procalcitonin < 0.05 ng/ml (0-0.5) 04/21/23 23:02 SARS-CoV-2 (PCR) NEGATIVE (Negative) 04/21/23 23:02 Influenza Type A (PCR) Negative (Neg) 04/21/23 23:02 Influenza Type B (PCR) Negative (Neg) 04/21/23 23:02 RSV (RT-PCR) Negative (Neg) 04/21/23 23:[address] 04/21/23 22:21 Exam(s): CT HEAD Without Contrast EXAM: CT Head Without Intravenous Contrast CLINICAL HISTORY: Reason for exam: episode of confusion. TECHNIQUE: Axial computed tomography images of the head/brain without intravenous contrast. Automated exposure control was utilized for the study. A dose lowering technique was utilized adhering to the principles of ALARA. COMPARISON: No relevant prior studies available. FINDINGS: No acute intracranial hemorrhage. No midline shift or mass effect. The territorial quinones-white matter differentiation is maintained throughout. Age-related cerebral volume loss. Periventricular and subcortical white matter hypoattenuation, consistent with chronic microangiopathy. The visualized orbits appear grossly unremarkable. The calvarium is intact. The visualized paranasal sinuses and mastoid air cells are grossly clear. IMPRESSION: No acute intracranial hemorrhage, midline shift, or mass effect. Electronically signed by: Kraig Wharton MD 04/22/23 00:42 AM Diagnostic Findings EKG as per my interpretation :Rate 110, sinus tachycardia, LAD, LAFB, no ischemia
[2023-04-22] MEDS ORDERED: ACETAMINOPHEN 500 MG TAB PO PRN (02:58)
[2023-04-22] MEDS ORDERED: PROMETHAZINE HCL 6.25 MG in SODIUM CHLORIDE 0.9% 50 ML IV PRN (02:58)
[2023-04-22 03:57] LABS: Appearance Urine Clear (Clear); Bacteria Urine Automated Negative (Negative); Bilirubin Urine Negative (Negative); Blood Urine Negative (Negative); Color Urine Yellow; Epithelial Cell Urine Auto 20-30 /lpf (0-5); Glucose Urine UA 3+ (Negative); Ketones Urine 2+ (Negative); Leukocyte Esterase Urine Negative (Negative); Nitrite Urine Negative (Negative); Protein Urine 1+ (Negative); RBC Urine Automated 0-4 /hpf (0-4); Specific Gravity Urine 1.029 (1.000-1.030); Urobilinogen Urine Negative (Negative); pH Urine 5.5 (4.5-7.5)
[2023-04-22 04:10] LABS: Calcium Oxalate Crystals Urine Present (None Prsent)
[2023-04-22 04:17] LABS: Amphetamines+Metham, Urine Neg (Neg); Barbiturates, Urine Neg (Neg); Benzodiazepine, Urine Neg (Neg); Cocaine, Urine Neg (Neg); MDMA (Ecstacy), Urine Neg (Neg); Methadone, Urine Neg (Neg); Opiate, Urine Neg (Neg); Phencyclidine, Urine Neg (Neg)
[2023-04-22] MEDS ORDERED: GLUCAGON FOR INJ 1 MG VIAL SQ PRN (04:54)
[2023-04-22] MEDS ORDERED: GLUCOSE 40% GEL 15 GM TUBE PO PRN (04:54)
[2023-04-22] MEDS ORDERED: ZOLPIDEM TARTRATE 5 MG TAB PO PRN (04:54)
[2023-04-22] MEDS ORDERED: CARBOHYDRATES FOR HYPOGLYCEMIA PO PRN (04:54)
[2023-04-22] MEDS ORDERED: DEXTROSE 50% 50 ML SYRINGE IV PRN (04:54)
[2023-04-22] MEDS ORDERED: LORazepam 2 MG/1 ML VIAL IV PRN (04:54)
[2023-04-22] MEDS ORDERED: GLUCOSE 10 TAB/TUBE PO PRN (04:54)
[2023-04-22] MEDS: INSULIN ASPART PER UNIT CHARGE SC SCH ×2 (05:30→11:34)
[2023-04-22 05:55] LABS: Basophils # (auto) 0.05 K/uL (0-0.2); Basophils % (auto) 0.5 %; Eosinophils # (auto) 0.09 K/uL (0-0.50); Hematocrit (blood only) 39.4 % (37.0-47.0); Hemoglobin 14.5 g/dl (12.0-16.0); Immature Granulocytes # (auto) 0.03 K/uL (0.01-0.20); Immature Granulocytes % (auto) 0.3 %; Lymphocytes # (auto) 2.54 K/uL (1.2-3.4); Mean Corpuscular Hemoglobin 34.7 pg (25.0-34.0); Mean Corpuscular Hgb Conc 36.8 g/dL (32.0-36.0); Mean Corpuscular Volume 94.3 fL (80.0-100.0); Mean Platelet Volume 9.9 fL (9.4-12.4); Monocytes % (auto) 7.4 %; Neutrophils # (auto) 6.01 K/uL (1.40-6.50); Neutrophils % (auto) 63.8 %; Platelet Count 185 K/uL (130-400); RDW Coefficient of Variation 11.8 % (11.5-14.5); RDW Standard Deviation 40.5 fL (36.4-46.3); Red Blood Count 4.18 M/uL (4.20-5.40); White Blood Count 9.42 K/ul (4.8-10.8)
[2023-04-22 06:08] LABS: BUN Creatinine Ratio 23.5 (10-20); Calcium 8.8 mg/dl (8.6-10.3); Creatinine Clr Calc Pharmacy 115.5 ml/min; Est GFR (Non-African American) 105.3 ml/min; Magnesium 1.7 mg/dl (1.7-2.4); Potassium 3.8 mmol/L (3.5-5.1)
[2023-04-22] MEDS: busPIRone 5 MG TAB PO SCH ×2 (08:05→13:35)
--- NOTE | 2023-04-22 08:57 | XRay Report ---
SINGLE VIEW CHEST CLINICAL HISTORY: Change in mental status. FINDINGS: An AP, portable, upright chest radiograph is compared to study dated 10/11/2018. The cardiom ediastinal silhouette is unremarkable noting atherosclerotic calcification of the thoracic aorta. Chr onic interstitial thickening is similar to previous. There is bibasilar scarring/atelectasis. No airs pace consolidation or large pleural effusion is identified. No pneumothorax is seen. The skeletal str uctures are osteopenic. The bony thorax is grossly intact. IMPRESSION: No active disease in the chest. ACT 112: Negative or not required by law. Electronically signed by: Jesus Conde M.D. 04/22/2023 8:56 AM
[2023-04-22] MEDS ORDERED: LORATADINE 10 MG TAB PO SCH (09:00)
[2023-04-22] MEDS ORDERED: MULTIVITAMIN TAB PO SCH (09:00)
[2023-04-22] MEDS ORDERED: FOLIC ACID 1 MG TAB PO SCH (09:00)
[2023-04-22] MEDS ORDERED: AZELASTINE HCL 0.1% NASAL 200 SPRAYS/27,400 MCG BTL SCH (09:00)
[2023-04-22] MEDS ORDERED: ADVANCED PROBIOTIC 1250 MG CAPSULE PO SCH (09:00)
[2023-04-22] MEDS ORDERED: ENOXAPARIN INJ 30 MG/0.3 ML SYR SQ SCH (09:00)
[2023-04-22] MEDS ORDERED: LANTUS PER UNIT CHARGE SQ SCH (09:00)
--- NOTE | 2023-04-22 13:18 | Electrocardiogram Report ---
Test Reason : Blood Pressure : / mmHG Vent. Rate : 108 BPM Atrial Rate : 108 BPM P-R Int : 156 ms QRS Dur : 090 ms QT Int : 332 ms P-R-T Axes : 053 -49 032 degrees QTc Int : 444 ms Sinus tachycardia Left axis deviation Inferior infarct , age undetermined Abnormal ECG When compared with ECG of 13-OCT-2018 06:14, Inferior infarct is now Present Confirmed by Hudson Ford ([id number]) on 04/22/2023 1:17:40 PM Referred By: REFERRED SELF Confirmed By:Hudson Ford
--- NOTE | 2023-04-22 14:16 | Discharge Summary ---
Date of Service April 22, 2023 Admission HPI Per Admitting Provider History obtained from patient, family, and records. Medical history significant for hypertension, DM 2 insulin requiring, alcohol abuse as per records, mood disorder. Last confinement 2017 for DKA, newly diagnosed DM2 and alcoholic pancreatitis. Patient discharged on insulin and metformin home medications. Patient undergoing a lot of stress mostly from work the last few weeks. Denies suicidality. Having trouble sleeping. Patient noted to be confused and have slurred speech on the phone today. Last ETOH drink was yesterday. Patient denies headache, chest pain, SOB, abdominal pain. Does not check blood sugars daily despite insulin administration. Appetite not too good. BSG 300s upon arrival at the ER. IVF, IV insulin administered at the ER. Patient currently feeling much better and more awake. 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 palpebral conjunctivae, no ptosis, dry buccal mucosa NECK : Supple, short neck, no tenderness CHEST : CTA, no tenderness HEART : Tachycardic, no obvious murmurs ABDOMEN: Some distention, no tenderness EXTREMITIES : No LE swelling/tenderness, no other conspicuous deformities noted NEUROLOGIC : Coherent, no facial asymmetry, gait and stance not assessed Principal Diagnosis Acute metabolic encephalopathy, multifactorial. Poorly controlled diabetes mellitus, noncompliance with diabetic management and follow-up. Ongoing alcohol abuse Discharge Exam GENERAL: Alert and oriented x3. NAD, on RA. HEENT: No pallor, no icterus. Pupils equal, round and reactive to light. Oral mucosa moist. NECK: No JVD, no neck masses. HEART: S1 and S2 heard. Regular rate and rhythm. No murmur, no gallop. RESPIRATORY SYSTEM: Normal AP diameter. No accessory muscle use. No wheezing, no crackles. ABDOMEN: Soft, bowel sounds present, nontender, no distention. CENTRAL NERVOUS SYSTEM: No facial droop. Speech is clear. Obeys simple commands. Moves extremities. EXTREMITIES: No edema, no erythema seen. Discharge Data Allergies Allergy/AdvReac Type Severity Reaction Status Date / Time benzoyl peroxide Allergy Unknown SKIN RED Verified 04/22/23 02:23 AND IRRITATED No Known Drug Allergies Allergy Unknown NONE Verified 04/22/23 02:23 Consultations 04/22/23 01:15 ED Decision to Admit Stat 04/22/23 09:42 Consult Behavioral Health Liaison Routine Ordered Studies 04/21/23 22:21 CT head/brain wo con Stat Hospital Course (1) Encephalopathy acute: (2) Hyperglycemia: (3) DKA (diabetic ketoacidoses): Plan 57-year-old lady who presented with confusion on the background of likely developing DKA, ongoing alcohol abuse, poorly controlled diabetes immediately regained her mentation back to her baseline at the ED. Patient was noted to be anxious but was calm during my bedside exam, she reports that she already spoke with psychiatric liaison and is looking to follow-up with psychiatry as an outpatient. Patient reports that she has missed several diabetic clinic appointments after her elevated A1c in February 2023, patient also states that she has not been measuring her fingerstick glucose as she was supposed to. Patient counseled in detail regarding incorporating healthy diet and exercise regimen in her lifestyle. Patient counseled in detail regarding importance of long-term management of insulin and how it affects multitude of health aspects. Patient agreeable to increase insulin and agreeable to use sliding scale. Patient states that she has used sliding scale in the past and is aware of the sliding scale and reports that she has all the kits to measure her fingerstick glucose at home and would only need NovoLog. Patient was counseled regarding alcohol cessation, states she will consider. Patient reports feeling fine/back to her baseline self and would like to go home. She is hemodynamically stable. Patient being discharged with following instruction at the point of discharge: Follow-up with your primary care physician within a week time and likely you will need labs CBC/CMP/magnesium/phosphorus. Follow-up with the diabetic clinic in 1 weeks upon discharge for close monitoring/long-term management of your diabetes. As discussed with you while in hospital, your A1c has been poorly controlled since last few months, recommend to maintain follow-up with diabetic clinic. Continue your Ozempic and metformin as prior. You can increase the Lantus to 12 units from current 10 units. Maintain carbohydrate consistent diet. Incorporate regular exercise regimen in your lifestyle as discussed in detail at bedside. Measure your fingerstick glucose before meals and before bedtime, and you will use the following sliding scale with NovoLog: Preprandial fingerstick blood glucose level units of NovoLog to be used before meals and at bedtime 61-150 0 151-200 3 201-250 5 251-300 8 301-350 10 351-400 12 >400 15 & contact diabetic clinic or your physician Please make sure that you are able to get your medications today by calling your pharmacy before you leave the hospital so that your treatment continuity is not broken. Home Health Attestation I certify that this patient is under my care and that I, or a physicians news assistant working with me, had a face to-face encounter that meets the home health [id number] encounter requirements with this patient. The encounter with the patient was in whole, or in part, for the following medical condition, which is the primary reason for home health care (list medical condition): I certify that, based on my findings, the following services are medically necessary home health services: My clinical findings support the need for the above services because: Further, I certify that my clinical findings support that this patient is homebound (i.e. absences from home require considerable and taxing effort and are for medical reasons or cheondoism services or infrequently or of short duration when for other reasons) because: Certification for Home Health Services: Based on the above findings, I certify that this patient is confined to the home and needs intermittent long-term care, physical therapy and/or speech therapy or continues to need occupational therapy. The patient is under my care, and I have initiated the establishment of the plan of care. This patient will be followed by a physician who will periodically review the plan of care. Total Time Total Time Spent Total Time Spent (In Minutes): 55 Discharge Plan Discharge Items Patient Disposition: Home - Self-Care Reason For Visit: HYPOMAGNESEMIA, TRANSIENT AMS Discharge Diagnosis: Acute metabolic encephalopathy History of poorly controlled diabetes mellitus type 2 Alcohol abuse Activity: Resume your previous activity Non-emergency contact: Primary Care Provider Call non-emergency contact if: you have any medication questions, your symptoms worsen and your temperature is above 101 Follow-up/Referrals: Tommy Saab MD [Primary Care Provider] - Diet: Carb Consistent or DM2 Addtl Attending Provider Instructions: Follow-up with your primary care physician within a week time and likely you will need labs CBC/CMP/magnesium/phosphorus. Follow-up with the diabetic clinic in 1 weeks upon discharge for close monitoring/long-term management of your diabetes. As discussed with you while in hospital, your A1c has been poorly controlled since last few months, recommend to maintain follow-up with diabetic clinic. Continue your Ozempic and metformin as prior. You can increase the Lantus to 12 units from current 10 units. Maintain carbohydrate consistent diet. Incorporate regular exercise regimen in your lifestyle as discussed in detail at bedside. Measure your fingerstick glucose before meals and before bedtime, and you will use the following sliding scale with NovoLog: Preprandial fingerstick blood glucose level units of NovoLog to be used before meals and at bedtime 61-150 0 151-200 3 201-250 5 251-300 8 301-350 10 351-400 12 >400 15 & contact diabetic clinic or your physician Please make sure that you are able to get your medications today by calling your pharmacy before you leave the hospital so that your treatment continuity is not broken. Pending Studies at Discharge: No Stand-Alone Forms: [facility] Medications and DC Order Prescriptions: New insulin aspart U-100 [Novolog U-100 Insulin aspart] 100 unit/mL Solution 5 unit SC ACHS Qty: 10 0RF folic acid 1 mg Tablet 1 mg PO QAM Qty: 30 0RF multivitamin with folic acid [Daily-Breanna (with folic acid)] 400 mcg Tablet 1 tab PO QAM Qty: 30 0RF thiamine HCl (vitamin B1) 100 mg Tablet 100 mg PO QAM Qty: 15 0RF Continued magnesium 250 mg Tablet 250 mg PO HS Probiotic 3 billion cell Capsule 3,000 mmu cells PO QAM (DME) pen needle, diabetic 29 gauge needle See Dose Instructions .ROUTE .MEDSUPPLY Qty: 90 0RF Dose Instruction: As directed Rx Instructions: As directed (DME) blood sugar diagnostic strip See Dose Instructions .ROUTE .MEDSUPPLY Qty: 10 0RF Dose Instruction: As directed Rx Instructions: As directed (DME) lancets misc See Dose Instructions .ROUTE .MEDSUPPLY Qty: 50 0RF Dose Instruction: As directed Rx Instructions: As directed gabapentin 300 mg capsule 900 mg PO HS Ozempic 1 mg/dose (4 mg/3 mL) pen injector 1 mg SUBCUT WK Rx Instructions: monday zolpidem 5 mg tablet 5 mg PO HS Rx Instructions: ordered as needed but takes every night calcium carbonate-vitamin D3 [Calcium 600 + D(3)] 600 mg-5 mcg (200 unit) Tablet 1 tab PO DAILY loratadine [Allergy Relief (loratadine)] 10 mg tablet 10 mg PO QAM metformin 500 mg tablet extended release 24 hr 2,000 mg PO QAM buspirone 10 mg tablet 10 mg PO TID azelastine 137 mcg (0.1 %) aerosol,spray 1 spray INTRANASAL AMHS Changed insulin glargine 100 unit/mL (3 mL) insulin pen 12 units SQ HS Qty: 15 0RF Discontinued cinnamon bark [Cinnamon] 500 mg Capsule 500 mg PO QAM flaxseed oil-omega 3,6,9 1,300 mg-845 mg -117 mg-117 mg Capsule 1 cap PO QAM Discharge Orders: Discharge Order (Routine); Ordered 04/22/23 Ordered By: Gladys Morris Admission Data Admit Date/Time: 04/22/23 02:54 Attending Provider: Gladys Morris Admit Provider: Kurtis Anderson Primary Care Provider: Tommy Saab Other Providers: Kurtis Anderson
[2023-04-22] MEDS ORDERED: GABAPENTIN 300 MG CAP PO SCH (21:00)
[2023-04-23] MEDS ORDERED: THIAMINE HCL 100 MG TAB PO SCH (09:00)
== END 2023-04-22 14:55 | disposition home or self-care (01) | DRG 637 ==
LOC: ED 20:41 → 1E 04-22 02:54

== ENCOUNTER 2023-12-20 16:35 | Inpatient (IN) ==
[2023-12-20 17:50] LABS: Basophils # (auto) 0.05 K/uL (0.00-0.20); Basophils % (auto) 0.5 %; Eosinophils % (auto) 1.1 %; Hematocrit (blood only) 44.4 % (37.0-47.0); Hemoglobin 15.1 g/dl (12.0-16.0); Immature Granulocytes # (auto) 0.03 K/uL (0.01-0.20); Immature Granulocytes % (auto) 0.3 %; Lymphocytes # (auto) 1.74 K/uL (1.20-3.40); Lymphocytes % (auto) 18.7 %; Mean Corpuscular Hemoglobin 34.8 pg (25.0-34.0); Mean Corpuscular Volume 102.3 fL (80.0-100.0); Mean Platelet Volume 10.3 fL (9.4-12.4); Monocytes # (auto) 0.62 K/uL (0.11-0.59); Monocytes % (auto) 6.7 %; Neutrophils # (auto) 6.75 K/uL (1.40-6.50); Neutrophils % (auto) 72.7 %; Platelet Count 176 K/uL (130-400); RDW Coefficient of Variation 13.2 % (11.5-14.5); RDW Standard Deviation 50.2 fL (36.4-46.3); Red Blood Count 4.34 M/uL (4.20-5.40); White Blood Count 9.29 K/ul (4.8-10.8)
[2023-12-20 17:59] LABS: Albumin Globulin Ratio 1.3 (0.9-2); Albumin Level 4.1 gm/dl (3.4-5.0); Bilirubin,Total 0.6 mg/dl (0.2-1.0); Calcium 9.8 mg/dl (8.6-10.3); Creatinine Clr Calc Pharmacy 110.5 ml/min; Est GFR (African American) 116.1 ml/min; Est GFR (Non-African American) 100.2 ml/min; Globulin 3.2 gm/dl (2.5-4.0); Potassium 3.1 mmol/L (3.5-5.1); Total Protein 7.3 gm/dl (6.0-8.3)
[2023-12-20 18:14] LABS: Partial Thromboplastin Ratio 1.1; Partial Thromboplastin Time 30 Seconds (21-31); Prothrombin Time 10.8 Seconds (9.0-12.0)
--- NOTE | 2023-12-20 19:07 | Emergency Department Note ---
Impression & Plan Infection of right foot, Diabetes ED Provider Note CHIEF COMPLAINT: Right foot infection HISTORY OF PRESENTING ILLNESS: This 58-year-old female patient presents to the emergency department for evaluation of pain, swelling, and redness of the right foot. The patient started with a blister to the right foot 6 days ago. She is not sure what started the blister. Was wearing her normal socks and shoes with no injury or trauma. The patient has a history of diabetes. Her blood sugars have been relatively stable despite the infection. Has mild seepage from the area. Denies any known fevers. She was seen by [facility] today and referred to the ER to rule out osteomyelitis or other significant infection. Has not been seen by anyone prior to today. She has not been on any antibiotics, but has been using OTC antibiotic ointment. Has to walk with a cane because of the pain. She rates her discomfort as 8/10. Took Naproxen last night without much improvement. Denies chest pain, SOB, abdominal pain, nausea, or vomiting. REVIEW OF SYSTEMS: See HPI for pertinent positives and pertinent negatives. ALLERGIES: Benzoyl peroxide MEDICATIONS: See below PAST MEDICAL HISTORY: See below PHYSICAL EXAM: VITALS: Vitals are noted on the nurse's note and reviewed by myself. GENERAL: Non toxic, no acute distress, non-diaphoretic. SKIN: The patient has erythema, edema, and warmth of the right foot extending up the right lower leg consistent with a cellulitis. The patient has significant ulceration and blistering to the dorsal and lateral aspect of the right foot. There is foul-smelling purulent discharge from the ulcerated areas as well. No obvious fluctuance or abscess to drain at this time. The infection does extend to the toes as well. The patient is significantly tender to palpation over the entire right foot and dorsal aspect of the right lower extremity. Capillary refill <2 sec. EYES: PERRLA. EOMI. Conjunctivae without injection, sclerae without icterus. NOSE: Patent without discharge. MOUTH: Mucous membranes moist. Uvula midline. Airway patent. NECK: Supple without nuchal rigidity. HEART: Regular rate and rhythm without murmurs gallops or rubs. LUNGS: Clear to auscultation bilaterally without wheezes, rales or rhonchi. No retractions or accessory muscle use. MUSCULOSKELETAL: See skin exam. The patient is significantly tender to palpation over the right foot, right ankle, and dorsal aspect of the right tib- fib secondary to the infection. Decreased range of motion of the toes of the right foot as well as the right ankle due to pain. The patient is barely able to place any weight on the right lower extremity due to pain. Peripheral pulses of the right foot were somewhat difficult to find due to the infection, but were present. NEURO: Patient was alert and oriented. Normal sensation to light and sharp touch of the right lower extremity no focal neurological deficits. DIFFERENTIAL DIAGNOSIS: Differential diagnosis includes cellulitis, abscess, diabetic ulcer, pressure ulcer, necrotizing fasciitis, osteomyelitis, septic arthritis, sepsis, or others. ED COURSE AND MEDICAL DECISION MAKING: MEDICATIONS GIVEN: 1 L normal saline solution bolus. Tylenol 1000 mg IV. Zosyn 4.5 g IV. INTERPRETATION OF LABS: I interpreted the labs with full lab results as below in the lab section of this note. White blood cell count normal at 9.29. Hemoglobin normal at 15.1. Platelet count normal at 176. Coags were normal. Potassium low at 3.1 and alk phos elevated at 142, but CMP otherwise without significant abnormalities. Lactate and procalcitonin were normal. Blood cultures are pending. Wound culture is pending. INTERPRETATION OF IMAGING: X-rays of the right foot were interpreted by myself as negative for any obvious acute abnormalities to the bony aspect of the right foot. Radiology report still pending. MRI of the right ankle and foot without contrast was reviewed by myself and read by radiology as below and shows extensive dorsal subcutaneous edema which is potentially secondary to cellulitis. No evidence of osteomyelitis. There was a partial-thickness interstitial tear of the flexor hallucis longus tendon. CONSULTATIONS: On-call hospitalist MDM SUMMARY: The patient was seen during a time of extreme volume and extreme acuity. Nursing triage protocols were initiated with IV lock, labs, and/or imaging studies conducted by protocol in the triage area. The patient was initially evaluated in a subwaiting room and then re-examined once they were taken back to an exam room. The patient has extensive cellulitis and ulceration of the right foot extending into the right ankle and right lower leg. The patient stated that she started with a blister 6 days ago and it has been getting progressively worse. She has a history of diabetes. Having difficulty ambulating due to the pain. White blood cell count was normal. Lactate and procalcitonin were normal. The remainder of the labs as above. Blood cultures and wound culture of the discharge are still pending. The patient was given 1 L normal saline solution bolus. She was medicated with Tylenol 1000 mg IV. She was given Zosyn 4.5 g IV. X-rays of the right foot as interpreted by myself are negative for obvious bony abnormalities, but radiology report is still pending. MRI of the right ankle and foot without contrast showed evidence for cellulitis, but no osteomyelitis. There was also a partial-thickness interstitial tear of the flexor hallucis longus tendon. The patient will require admission for IV antibiotics due to the extent of the infection. She may also require intervention by orthopedics and/or wound management. I spoke with the on-call hospitalist who agreed to admit the patient for further evaluation and treatment. Please refer to his dictation for further details. The patient's care was transferred in stable condition. DIAGNOSIS: Cellulitis and ulceration of the right foot and right lower extremity Diabetes Past Med/Surg History Medical History (Updated 12/21/23 @ 01:41 by Isaura Crawley PA-C) No significant past medical history Hypertension Diabetes Family History Other Family history non-contributory Social History Smoking Status: Never smoker Second Hand Exposure: No; Do You Dip or Chew Tobacco: No; Hx Alcohol Use: Yes Alcohol type: other Hx Substance Use: No Preferred Language: Korean Communication Ability: Effective Airport Screener Required: No Beliefs That Will Affect Care: None Current Living Situation: Alone Feels Safe at Home: Yes Assistive Devices: None Allergies Allergies Allergy/AdvReac Type Severity Reaction Status Date / Time benzoyl peroxide Allergy Unknown SKIN RED Verified 12/20/23 23:04 AND IRRITATED No Known Drug Allergies Allergy Unknown NONE Verified 12/20/23 23:04 Home Meds Home Medications Medication Instructions Recorded Confirmed lactobacillus combination no.4 3 3,000 mmu cells PO QAM 10/11/18 12/20/23 billion cell capsule (Probiotic) magnesium 250 mg tablet 250 mg PO HS 10/11/18 12/20/23 buspirone 10 mg tablet 10 mg PO TID 04/22/23 12/20/23 calcium carbonate 600 mg-vitamin 1 tab PO DAILY 04/22/23 12/20/23 D3 5 mcg (200 unit) tablet (Calcium 600 + D(3)) gabapentin 300 mg capsule 900 mg PO HS 04/22/23 12/20/23 metformin 500 mg tablet,extended 2,000 mg PO QAM 04/22/23 12/20/23 release 24 hr atorvastatin 20 mg tablet 20 mg PO HS 12/20/23 12/20/23 insulin aspart U-100 100 unit/mL 7 unit SC ACHS 12/20/23 12/20/23 subcutaneous solution (Novolog U-100 Insulin aspart) insulin glargine 100 unit/mL (3 30 units subcut HS 12/20/23 12/20/23 mL) subcutaneous pen lemborexant 10 mg tablet (Dayvigo) 10 mg PO HS 12/20/23 12/20/23 Previous Rx's Medication Instructions Recorded blood sugar diagnostic #10 ea 10/18/18 lancets #50 ea 10/18/18 pen needle, diabetic 29 gauge #90 ea 10/18/18 thiamine HCl (vitamin B1) 100 mg 100 mg PO QAM #15 tabs 04/22/23 tablet Results & Data (ED) Vital Signs Vital Signs - 24 hr 12/20/23 16:44 12/20/23 22:22 12/21/23 00:00 Temperature 36.9 C Temperature Source Temporal Artery Scan Pulse Rate 95 H Pulse Rate [Finger] 79 84 Respiratory Rate 19 18 18 Respiratory Effort / Characteristics Non-Labored Spontaneous Non-Labored Spontaneous Non-Labored Respiratory Depth Normal Normal Normal Respiratory Pattern Regular Blood Pressure 150/87 H Blood Pressure [Right Arm] 149/95 H Blood Pressure Mean 108 Blood Pressure Mean [Right Arm] 113 Blood Pressure Position [Right Arm] Semi-fowlers Pulse Oximetry 96 99 97 Oxygen Delivery Method Room Air Room Air Room Air Sepsis Recent Fever Within 48 Hours No Sepsis New/Unexplained Change in Mental Status No Sepsis Action Taken by Nursing No Action Required Laboratory Data 12/20/23 17:03 12/20/23 17:03 Lab Results 12/20/23 12/20/23 Range/Units 17:03 20:19 WBC 9.29 (4.8-10.8) K/ul RBC 4.34 (4.20-5.40) M/uL Hgb 15.1 (12.0-16.0) g/dl Hct 44.4 (37.0-47.0) % MCV 102.3 H (80.0-100.0) fL MCH 34.8 H (25.0-34.0) pg MCHC 34.0 (32.0-36.0) g/dL RDW Std Deviation 50.2 H (36.4-46.3) fL RDW Coeff of Eli 13.2 (11.5-14.5) % Plt Count 176 (130-400) K/uL MPV 10.3 (9.4-12.4) fL Immature Gran % (Auto) 0.3 % Neut % (Auto) 72.7 % Lymph % (Auto) 18.7 % [place] % (Auto) 6.7 % Eos % (Auto) 1.1 % Baso % (Auto) 0.5 % Neut # (Auto) 6.75 H (1.40-6.50) K/uL Lymph # (Auto) 1.74 (1.20-3.40) K/uL [place] # (Auto) 0.62 H (0.11-0.59) K/uL Eos # (Auto) 0.10 (0.00-0.50) K/uL Baso # (Auto) 0.05 (0.00-0.20) K/uL Immature Gran # (Auto) 0.03 (0.01-0.20) K/uL PT 10.8 (9.0-12.0) Seconds INR 1.0 (0.9-1.1) APTT 30 (21-31) Seconds PTT Ratio 1.1 Sodium 139 (136-145) mmol/L Potassium 3.1 L (3.5-5.1) mmol/L Chloride 101 (98-107) mmol/L Carbon Dioxide 28 (21-32) mmol/L Anion Gap 10 (3-11) BUN 11 (6-23) mg/dl Creatinine 0.58 L (0.6-1.2) mg/dl Est Cr Clr Drug Dosing 110.5 ml/min Est GFR ( Amer) 116.1 ml/min Est GFR (Non-Af Amer) 100.2 ml/min BUN/Creatinine Ratio 19.0 (10-20) Glucose 75 (70-99(Fasting)) mg/dl Lactate 1.3 (0.4-2.0) mmol/L Calcium 9.8 (8.6-10.3) mg/dl Total Bilirubin 0.6 (0.2-1.0) mg/dl AST 24 (13-39) U/L ALT 25 (7-52) U/L Alkaline Phosphatase 142 H (34-104) U/L Total Protein 7.3 (6.0-8.3) gm/dl Albumin 4.1 (3.4-5.0) gm/dl Globulin 3.2 (2.5-4.0) gm/dl Albumin/Globulin Ratio 1.3 (0.9-2) Procalcitonin 0.04 (0-0.5) ng/ml Administered Medications Discontinued Medications Sodium Chloride (Nss) 1,000 mls @ 999 mls/hr IV .Q1H1M ONE Stop: 12/20/23 20:24 Last Infusion: 12/21/23 00:09 Dose: Infused Documented By: Admin: 12/20/23 22:24 Dose: 999 mls/hr Documented By: Acetaminophen (Ofirmev) 1,000 mg in 100 mls @ 400 mls/hr IV NOW STA Stop: 12/20/23 19:38 Last Infusion: 12/20/23 22:41 Dose: Infused Documented By: Admin: 12/20/23 22:23 Dose: 400 mls/hr Documented By: Piperacillin Sod/Tazobactam Sod (Zosyn) 4.5 gm in 100 mls @ 200 mls/hr IV NOW ONE Stop: 12/20/23 19:53 Last Infusion: 12/21/23 00:08 Dose: Infused Documented By: Admin: 12/20/23 22:25 Dose: 200 mls/hr Documented By: Potassium Chloride (Potassium Chloride Crtab 20 Meq Tabcr) 40 meq PO NOW STA Stop: 12/20/23 23:02 Last Admin: 12/21/23 00:08 Dose: 40 meq Documented By: KERRIE Imaging Data Radiologist's Impression: Ankle MRI 12/20/23 19:24 Exam(s): MRI RIGHT ANKLE Without Contrast EXAM: MR Right Lower Extremity Without Intravenous Contrast, Ankle CLINICAL HISTORY: Reason for exam: eval osteomyelitis. TECHNIQUE: Multiplanar magnetic resonance images of the right ankle without intravenous contrast. COMPARISON: No relevant prior studies available. FINDINGS: There is no acute fracture or dislocation. There is no osteochondral lesion of the talar dome. There is a small tibiotalar joint effusion. There is no evidence of septic arthritis or acute osteomyelitis. Sinus tarsi appears normal. Achilles tendon and plantar aponeurosis are intact. Peroneal tendons and anterior extensor tendons are intact. There is a partial-thickness interstitial tear of the flexor hallucis longus tendon with fluid distending the region of tear. Flexor digitorum longus and tibialis posterior tendons are intact. Syndesmotic ligaments, lateral ankle ligaments, and deltoid ligament complex are intact. There is diffuse subcutaneous edema. IMPRESSION: 1. Diffuse subcutaneous edema, potentially cellulitis. 2. No evidence of acute osteomyelitis. 3. Partial-thickness interstitial tear of the flexor hallucis longus tendon. Electronically signed by: Kari Don M.D. 12/20/23 22:22 PM Foot MRI 12/20/23 19:24 Exam(s): MRI RIGHT FOOT Without Contrast EXAM: MR Right Lower Extremity Without Intravenous Contrast, Foot CLINICAL HISTORY: Reason for exam: eval osteomyelitis. TECHNIQUE: Multiplanar magnetic resonance images of the right foot without intravenous contrast. COMPARISON: No relevant prior studies available. FINDINGS: There is extensive dorsal subcutaneous edema. There are possible cutaneous blisters along the lateral aspects of the second and third toes. There is mild osteoarthritis of the first MTP joint. There is no fracture or dislocation. There are no characteristic marrow signal changes to suggest osteomyelitis. Visualized tendons appear unremarkable. Intrinsic muscles of the foot appear normal. IMPRESSION: 1. Extensive dorsal subcutaneous edema, potentially cellulitis. 2. No evidence of osteomyelitis. Electronically signed by: Kari Don M.D. 12/20/23 22:34 PM Discharge Plan Visit Data Chief Complaint: Infection Stated Complaint: RT FOOT INFECTION, SWOLLEN/RED, PAINFUL ED Provider: Priscilla Brooks ED Midlevel Provider: Isaura Crawley Discharge Problem: Infection of right foot, Diabetes Patient Disposition: Admitted As Inpatient Condition: Good Forms Stand Alone Forms: My [employer] Prescriptions Prescriptions: No Action magnesium 250 mg Tablet 250 mg PO HS Probiotic 3 billion cell Capsule 3,000 mmu cells PO QAM (DME) pen needle, diabetic 29 gauge needle See Dose Instructions .ROUTE .MEDSUPPLY Qty: 90 0RF Dose Instruction: As directed Rx Instructions: As directed (DME) blood sugar diagnostic strip See Dose Instructions .ROUTE .MEDSUPPLY Qty: 10 0RF Dose Instruction: As directed Rx Instructions: As directed (DME) lancets misc See Dose Instructions .ROUTE .MEDSUPPLY Qty: 50 0RF Dose Instruction: As directed Rx Instructions: As directed gabapentin 300 mg capsule 900 mg PO HS calcium carbonate-vitamin D3 [Calcium 600 + D(3)] 600 mg-5 mcg (200 unit) Tablet 1 tab PO DAILY metformin 500 mg tablet extended release 24 hr 2,000 mg PO QAM buspirone 10 mg tablet 10 mg PO TID thiamine HCl (vitamin B1) 100 mg Tablet 100 mg PO QAM Qty: 15 0RF Dayvigo 10 mg Tablet 10 mg PO HS insulin aspart U-100 [Novolog U-100 Insulin aspart] 100 unit/mL solution 7 unit SC ACHS insulin glargine 100 unit/mL (3 mL) insulin pen 30 units SQ HS atorvastatin 20 mg tablet 20 mg PO HS Referrals Referrals: Tommy Saab MD [Primary Care Provider] -
[2023-12-20] MEDS: ACETAMINOPHEN 1,000 MG/100 ML VIAL IV STA (22:23)
--- NOTE | 2023-12-20 22:23 | Magnetic Resonance Report ---
Exam(s): MRI RIGHT ANKLE Without Contrast EXAM: MR Right Lower Extremity Without Intravenous Contrast, Ankle CLINICAL HISTORY: Reason for exam: eval osteomyelitis. TECHNIQUE: Multiplanar magnetic resonance images of the right ankle without intravenous contrast. COMPARISON: No relevant prior studies available. FINDINGS: There is no acute fracture or dislocation. There is no osteochondral lesion of the talar dome. There is a small tibiotalar joint effusion. There is no evidence of septic arthritis or acute osteomyelitis. Sinus tarsi appears normal. Achilles tendon and plantar aponeurosis are intact. Peroneal tendons and anterior extensor tendons are intact. There is a partial-thickness interstitial tear of the flexor hallucis longus tendon with fluid distending the region of tear. Flexor digitorum longus and tibialis posterior tendons are intact. Syndesmotic ligaments, lateral ankle ligaments, and deltoid ligament complex are intact. There is diffuse subcutaneous edema. IMPRESSION: 1. Diffuse subcutaneous edema, potentially cellulitis. 2. No evidence of acute osteomyelitis. 3. Partial-thickness interstitial tear of the flexor hallucis longus tendon. Electronically signed by: Kari Don M.D. 12/20/23 22:22 PM
[2023-12-20] MEDS: SODIUM CHLORIDE 0.9% 1,000 ML IV ONE (22:24)
[2023-12-20] MEDS: PIPERACILLIN/TAZOBACTAM 4.5 GM/100 ML BAG IV ONE (22:25)
--- NOTE | 2023-12-20 22:35 | Magnetic Resonance Report ---
Exam(s): MRI RIGHT FOOT Without Contrast EXAM: MR Right Lower Extremity Without Intravenous Contrast, Foot CLINICAL HISTORY: Reason for exam: eval osteomyelitis. TECHNIQUE: Multiplanar magnetic resonance images of the right foot without intravenous contrast. COMPARISON: No relevant prior studies available. FINDINGS: There is extensive dorsal subcutaneous edema. There are possible cutaneous blisters along the lateral aspects of the second and third toes. There is mild osteoarthritis of the first MTP joint. There is no fracture or dislocation. There are no characteristic marrow signal changes to suggest osteomyelitis. Visualized tendons appear unremarkable. Intrinsic muscles of the foot appear normal. IMPRESSION: 1. Extensive dorsal subcutaneous edema, potentially cellulitis. 2. No evidence of osteomyelitis. Electronically signed by: Kari Don M.D. 12/20/23 22:34 PM
[2023-12-21] MEDS: POTASSIUM CHLORIDE CRTAB 20 MEQ TABCR PO STA (00:08)
--- NOTE | 2023-12-21 00:37 | History & Physical Report ---
Date of Service December 21, 2023 Assessment & Plan (1) Infection of right foot: Plan: 58-year-old female with past medical history significant for chronic pancreatitis, type 2 diabetes, hyperlipidemia, obstructive sleep apnea, hypertension, chronic insomnia presents with right foot infection. Patient states she noticed pain in the right foot last . And on last Monday she noticed a big blister on the right foot which eventually popped up. And she has open wound in the right foot. And some erythema surrounding. Having pain while ambulating. Denies any fevers. No injury to the foot. Currently resting comfortably and hemodynamically stable. Denies any chest pain or shortness of breath ,no nausea or vomiting. No abdominal pain. No headache. No dizziness. She has chronic runny nose. No sore throat or cough. Appetite is okay. No dif ficulty swallowing. Normal bowel and bladder movements. Right foot infection Had a big blister which popped up No injury Diabetes MRI scan no osteomyelitis Empirically started on Zosyn and Doxy Wound care Ortho consult for MRI ankle findings Monitor for response Diabetes Continue home Lantus Sliding scale Will monitor Sleep apnea CPAP Hyperlipidemia On statin Insomnia On Dayvigo DVT prophylaxis Lovenox Disposition Medical floor Full code History of Present Illness Chief Complaint: Right foot infection Primary Care Provider: Tommy Saab MD 58-year-old female with past medical history significant for chronic pancre atitis, type 2 diabetes, hyperlipidemia, obstructive sleep apnea, hypertension, chronic insomnia presents with right foot infection. Patient states she noticed pain in the right foot last . And on last Monday she noticed a big blister on the right foot which eventually popped up. And she has open wound in the right foot. And some erythema surrounding. Having pain while ambulating. Denies any fevers. No injury to the foot. Currently resting comfortably and hemodynamically stable. Denies any chest pain or shortness of breath ,no nausea or vomiting. No abdominal pain. No headache. No dizziness. She has chronic runny nose. No sore throat or cough. Appetite is okay. No difficulty swallowing. Normal bowel and bladder movements. Past medical history. As mentioned above Past surgical history. . Colonoscopy. EGD with endoscopic ultrasound. Tonsillectomy. Cataracts bilateral. Sinus surgery. Uterine fibroid embolization. Social history. . No smoking. Alcohol occasional. No drug use. Family history. Mother had arthritis. Skin cancer. Father had skin cancer. Colon cancer. Diabetes. Parkinsonism. Brother has arthritis. Allergies Allergy/AdvReac Type Severity Reaction Status Date / Time benzoyl peroxide Allergy Unknown SKIN RED Verified 12/20/23 23:04 AND IRRITATED No Known Drug Allergies Allergy Unknown NONE Verified 12/20/23 23:04 Home Medications Medication Instructions Recorded Confirmed Type lactobacillus combination no.4 3 3,000 mmu cells PO QAM 10/11/18 12/20/23 History billion cell capsule (Probiotic) magnesium 250 mg tablet 250 mg PO HS 10/11/18 12/20/23 History blood sugar diagnostic #10 ea 10/18/18 12/20/23 Rx lancets #50 ea 10/18/18 12/20/23 Rx pen needle, diabetic 29 gauge #90 ea 10/18/18 12/20/23 Rx buspirone 10 mg tablet 10 mg PO TID 04/22/23 12/20/23 History calcium carbonate 600 mg-vitamin 1 tab PO DAILY 04/22/23 12/20/23 History D3 5 mcg (200 unit) tablet (Calcium 600 + D(3)) gabapentin 300 mg capsule 900 mg PO HS 04/22/23 12/20/23 History metformin 500 mg tablet,extended 2,000 mg PO QAM 04/22/23 12/20/23 History release 24 hr thiamine HCl (vitamin B1) 100 mg 100 mg PO QAM #15 tabs 04/22/23 12/20/23 Rx tablet atorvastatin 20 mg tablet 20 mg PO HS 12/20/23 12/20/23 History insulin aspart U-100 100 unit/mL 7 unit SC ACHS 12/20/23 12/20/23 History subcutaneous solution (Novolog U-100 Insulin aspart) insulin glargine 100 unit/mL (3 30 units subcut HS 12/20/23 12/20/23 History mL) subcutaneous pen lemborexant 10 mg tablet (Dayvigo) 10 mg PO HS 12/20/23 12/20/23 History Past Med/Surg History Medical History (Updated 12/21/23 @ 01:41 by Iasura Crawley PA-C) No significant past medical history Hypertension Diabetes Family History Other Family history non-contributory Social History Smoking Status: Never smoker Second Hand Exposure: Yes (as child); Do You Dip or Chew Tobacco: No; Hx Alcohol Use: Yes Alcohol type: wine and hard liquor Hx Substance Use: No Preferred Language: [place] Communication Ability: Effective Luggage Attendant Required: No Beliefs That Will Affect Care: None Current Living Situation: Alone Other Information That Helps Us Care for You: No Feels Safe at Home: Yes Safety Concerns: Feels Safe At This Time Assistive Devices: Cane and CPAP Assistive Devices Comment: cane with patient Review of Systems Review of Systems: All systems reviewed & are unremarkable except as noted in HPI & below Physical Exam Physical Exam: General- Not in distress Head- atraumatic Eyes- PERRL. ENT- oropharynx clear Neck- supple, no JVD. Lungs- clear to auscultation no wheezing or crackles. Heart- regular rhythm; no murmur, no gallop. Abdomen- normal bowel sounds, soft, nontender, no distension. Extremities- right foot open wound seen involving most of the mid to lateral aspect of right foot dorsal aspect Neuro- alert, oriented x 3; PERRL, no facial palsy; no dysarthria; moves extremities. Skin- warm & dry Results & Data Results & Data Vital Signs (Past 12 Hours) Vital Signs Temp Pulse Pulse Resp BP BP Pulse Ox 12/20/23 22:22 79 18 149/95 H 99 12/20/23 16:44 36.9 C 95 H 19 150/87 H 96 O2 Del Method 12/20/23 22:22 Room Air 12/20/23 16:44 Room Air Diagnostic Findings Laboratory Results WBC 9.29 K/ul (4.8-10.8) 12/20/23 17:03 RBC 4.34 M/uL (4.20-5.40) 12/20/23 17:03 Hgb 15.1 g/dl (12.0-16.0) 12/20/23 17:03 Hct 44.4 % (37.0-47.0) 12/20/23 17:03 MCV 102.3 fL (80.0-100.0) H 12/20/23 17:03 MCH 34.8 pg (25.0-34.0) H 12/20/23 17:03 MCHC 34.0 g/dL (32.0-36.0) 12/20/23 17:03 RDW Std Deviation 50.2 fL (36.4-46.3) H 12/20/23 17:03 RDW Coeff of Eli 13.2 % (11.5-14.5) 12/20/23 17:03 Plt Count 176 K/uL (130-400) 12/20/23 17:03 MPV 10.3 fL (9.4-12.4) 12/20/23 17:03 Immature Gran % (Auto) 0.3 % 12/20/23 17:03 Neut % (Auto) 72.7 % 12/20/23 17:03 Lymph % (Auto) 18.7 % 12/20/23 17:03 [place] % (Auto) 6.7 % 12/20/23 17:03 Eos % (Auto) 1.1 % 12/20/23 17:03 Baso % (Auto) 0.5 % 12/20/23 17:03 Neut # (Auto) 6.75 K/uL (1.40-6.50) H 12/20/23 17:03 Lymph # (Auto) 1.74 K/uL (1.20-3.40) 12/20/23 17:03 [place] # (Auto) 0.62 K/uL (0.11-0.59) H 12/20/23 17:03 Eos # (Auto) 0.10 K/uL (0.00-0.50) 12/20/23 17:03 Baso # (Auto) 0.05 K/uL (0.00-0.20) 12/20/23 17:03 Immature Gran # (Auto) 0.03 K/uL (0.01-0.20) 12/20/23 17:03 PT 10.8 Seconds (9.0-12.0) 12/20/23 17:03 INR 1.0 (0.9-1.1) 12/20/23 17:03 APTT 30 Seconds (21-31) 12/20/23 17:03 PTT Ratio 1.1 12/20/23 17:03 Sodium 139 mmol/L (136-145) 12/20/23 17:03 Potassium 3.1 mmol/L (3.5-5.1) L 12/20/23 17:03 Chloride 101 mmol/L (98-107) 12/20/23 17:03 Carbon Dioxide 28 mmol/L (21-32) 12/20/23 17:03 Anion Gap 10 (3-11) 12/20/23 17:03 BUN 11 mg/dl (6-23) 12/20/23 17:03 Creatinine 0.58 mg/dl (0.6-1.2) L 12/20/23 17:03 Est Cr Clr Drug Dosing 110.5 ml/min 12/20/23 17:03 Est GFR ( Amer) 116.1 ml/min 12/20/23 17:03 Est GFR (Non-Af Amer) 100.2 ml/min 12/20/23 17:03 BUN/Creatinine Ratio 19.0 (10-20) 12/20/23 17:03 Glucose 75 mg/dl (70-99(Fasting)) 12/20/23 17:03 Lactate 1.3 mmol/L (0.4-2.0) 12/20/23 20:19 Calcium 9.8 mg/dl (8.6-10.3) 12/20/23 17:03 Total Bilirubin 0.6 mg/dl (0.2-1.0) 12/20/23 17:03 AST 24 U/L (13-39) 12/20/23 17:03 ALT 25 U/L (7-52) 12/20/23 17:03 Alkaline Phosphatase 142 U/L (34-104) H 12/20/23 17:03 Total Protein 7.3 gm/dl (6.0-8.3) 12/20/23 17:03 Albumin 4.1 gm/dl (3.4-5.0) 12/20/23 17:03 Globulin 3.2 gm/dl (2.5-4.0) 12/20/23 17:03 Albumin/Globulin Ratio 1.3 (0.9-2) 12/20/23 17:03 Procalcitonin 0.04 ng/ml (0-0.5) 12/20/23 20:19 Impressions Ankle MRI 12/20/23 19:24 Exam(s): MRI RIGHT ANKLE Without Contrast EXAM: MR Right Lower Extremity Without Intravenous Contrast, Ankle CLINICAL HISTORY: Reason for exam: eval osteomyelitis. TECHNIQUE: Multiplanar magnetic resonance images of the right ankle without intravenous contrast. COMPARISON: No relevant prior studies available. FINDINGS: There is no acute fracture or dislocation. There is no osteochondral lesion of the talar dome. There is a small tibiotalar joint effusion. There is no evidence of septic arthritis or acute osteomyelitis. Sinus tarsi appears normal. Achilles tendon and plantar aponeurosis are intact. Peroneal tendons and anterior extensor tendons are intact. There is a partial-thickness interstitial tear of the flexor hallucis longus tendon with fluid distending the region of tear. Flexor digitorum longus and tibialis posterior tendons are intact. Syndesmotic ligaments, lateral ankle ligaments, and deltoid ligament complex are intact. There is diffuse subcutaneous edema. IMPRESSION: 1. Diffuse subcutaneous edema, potentially cellulitis. 2. No evidence of acute osteomyelitis. 3. Partial-thickness interstitial tear of the flexor hallucis longus tendon. Electronically signed by: Kari Don M.D. 12/20/23 22:22 PM Foot MRI 12/20/23 19:24 Exam(s): MRI RIGHT FOOT Without Contrast EXAM: MR Right Lower Extremity Without Intravenous Contrast, Foot CLINICAL HISTORY: Reason for exam: eval osteomyelitis. TECHNIQUE: Multiplanar magnetic resonance images of the right foot without intravenous contrast. COMPARISON: No relevant prior studies available. FINDINGS: There is extensive dorsal subcutaneous edema. There are possible cutaneous blisters along the lateral aspects of the second and third toes. There is mild osteoarthritis of the first MTP joint. There is no fracture or dislocation. There are no characteristic marrow signal changes to suggest osteomyelitis. Visualized tendons appear unremarkable. Intrinsic muscles of the foot appear normal. IMPRESSION: 1. Extensive dorsal subcutaneous edema, potentially cellulitis. 2. No evidence of osteomyelitis. Electronically signed by: Kari Don M.D. 12/20/23 22:34 PM Code Status & VTE Plan VTE Prophylaxis Plan VTE Prophylaxis will be ordered: Yes
[2023-12-21] MEDS ORDERED: GLUCOSE 10 TAB/TUBE PO PRN (02:10)
[2023-12-21] MEDS ORDERED: CARBOHYDRATES FOR HYPOGLYCEMIA PO PRN (02:10)
[2023-12-21] MEDS ORDERED: GLUCOSE 40% GEL 15 GM TUBE PO PRN (02:10)
[2023-12-21] MEDS ORDERED: POLYETHYLENE (MIRALAX) 17 GM PACK PO PRN (02:10)
[2023-12-21] MEDS ORDERED: GLUCAGON FOR INJ 1 MG VIAL SQ PRN (02:10)
[2023-12-21] MEDS ORDERED: DEXTROSE 50% 50 ML SYRINGE IV PRN (02:10)
[2023-12-21] MEDS: SODIUM CHLORIDE 0.9% 1,000 ML IV SCH (02:55)
[2023-12-21] MEDS: traMADol HCL 50 MG TABLET PO PRN (02:55)
[2023-12-21] MEDS: GABAPENTIN 300 MG CAP PO SCH (03:54)
[2023-12-21] MEDS: DOXYCYCLINE HYCLATE 100 MG in DEXTROSE 5% MINI-B 100 ML IV SCH (03:54)
[2023-12-21] MEDS: ZOLPIDEM TARTRATE 5 MG TAB PO PRN (04:16)
[2023-12-21] MEDS: PIPERACILLIN/TAZOBACTAM 4.5 GM in DEXTROSE 5% MINI-B 100 ML IV SCH (05:41)
[2023-12-21 07:38] LABS: Basophils # (auto) 0.05 K/uL (0.00-0.20); Basophils % (auto) 0.6 %; Eosinophils # (auto) 0.12 K/uL (0.00-0.50); Eosinophils % (auto) 1.4 %; Hematocrit (blood only) 39.7 % (37.0-47.0); Hemoglobin 13.4 g/dl (12.0-16.0); Immature Granulocytes # (auto) 0.03 K/uL (0.01-0.20); Immature Granulocytes % (auto) 0.4 %; Lymphocytes % (auto) 26.2 %; Mean Corpuscular Hgb Conc 33.8 g/dL (32.0-36.0); Mean Corpuscular Volume 103.7 fL (80.0-100.0); Mean Platelet Volume 10.1 fL (9.4-12.4); Monocytes # (auto) 0.63 K/uL (0.11-0.59); Monocytes % (auto) 7.5 %; Neutrophils # (auto) 5.38 K/uL (1.40-6.50); Neutrophils % (auto) 63.9 %; Platelet Count 139 K/uL (130-400); RDW Coefficient of Variation 13.4 % (11.5-14.5); RDW Standard Deviation 51.2 fL (36.4-46.3); Red Blood Count 3.83 M/uL (4.20-5.40); White Blood Count 8.41 K/ul (4.8-10.8)
[2023-12-21 07:46] LABS: Estimated Average Glucose 146 mg/dl; Hemoglobin A1C 6.7 % (4.5-5.6)
--- NOTE | 2023-12-21 07:55 | XRay Report ---
XR foot RT 2V CLINICAL HISTORY: Redness COMPARISON: None FINDINGS: Alignment of the right foot is anatomic. Tarsometatarsal joints are intact. There is no ac ricky fracture. No bony erosions are present. Posterior and plantar calcaneal spurs are noted. There is moderate to severe osteoarthritis of the right first metatarsophalangeal joint. IMPRESSION: 1. No acute fractures within the right foot. 2. No evidence for acute osteomyelitis. 3. 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 ACT 112: Negative or not required by law. Electronically signed by: Reynold Corrigan M.D. 12/21/2023 7:54 AM
[2023-12-21 07:56] LABS: BUN Creatinine Ratio 17.2 (10-20); Calcium 8.9 mg/dl (8.6-10.3); Creatinine Clr Calc Pharmacy 110.1 ml/min; Est GFR (African American) 116.1 ml/min; Est GFR (Non-African American) 100.2 ml/min; Magnesium 1.5 mg/dl (1.7-2.4); Potassium 3.1 mmol/L (3.5-5.1)
[2023-12-21] MEDS: ADVANCED PROBIOTIC 1250 MG CAPSULE PO SCH (08:13)
[2023-12-21] MEDS: busPIRone 5 MG TAB PO SCH (08:13)
--- OUTSIDE RECORDS SUMMARY | 2023-12-21 08:13 | External Medical Summary | Summary of Care ---
Author Name Unknown Organization [facility] Address [address] [place] [address] Phone [phone] Care Team Providers Care Top Lift Trimmer Name Role Phone Tommy Saab MD Primary Care Provider [phone] Reason for Visit * Reason Comments Appointment Encounter Details Date Type Department Care Team (Late st Contact Info) Description 11/15/2023 6:10 PM [facility] Pharmacy, [place] [address] [place] [address] [facility] [address] [place] [address] Type 2 diabetes mellitus with hemoglobin A1c goal of less than 8.0% ([facility])* Allergies No known active allergiesdocumented as of this encounter (statuses as of 11/15/2023) Medications Medication Sig Dispensed Refills Start Date End Date Status Calcium Carbonate-Vitamin D 500-125 MG-UNIT Oral Tablet Take 1 Tab by mouth 2 times a day. 1 Tab 0 12/29/2016 Active coenzyme Q-10 100 MG Capsule Take 1 Capsule by mouth in the morning and 1 Capsule before bedtime. 1 Cap 0 12/29/2016 Active fish oil concentrate (OMEGA-3) 1000 MG CAPS Take 1 Capsule by mouth in the morning and 1 Capsule before bedtime. 1 Cap 0 12/29/2016 Active Probiotic Product (PROBIOTIC ADVANCED) CAPS Take 1 Cap by mouth once for 1 dose. 1 Cap 0 12/29/2016 Active ONETOUCH DELICA LANCETS 33G MISC Use to test blood sugar up to 4 times daily dx e11.9 100 Each 5 12/10/2018 Active CPAP every night at bedtime . 0 Active busPIRone HCl 10 MG Oral Tablet (Buspar) take 1 tablet by mouth three times a day 270 Tablet 3 02/06/2023 Active metFORMIN HCl ER 500 MG Oral Tablet Extended Release 24 Hour (Glucophage XR) take 2 tablets by mouth twice a day 360 Tablet 3 02/06/2023 Active Azelastine HCl 0.1 % Nasal Solution (Astelin) Administer 1 [place] into nostril in the morning and 1 [place] before bedtime. 30 mL 12 02/10/2023 Active Additional Information Patient not taking.Reported on 08/08/2023 Folic Acid 1 MG Oral Tablet Take 1 Tablet by mouth in the morning. 0 Active Solitario Multivitamin for Women Oral Tablet Take 1 Tablet by mouth in the morning. 0 Active Thiamine HCl 100 MG Oral Tablet (vitamin B-1) Take 1 Tablet by mouth in the morning. 0 Active Loratadine 10 MG Oral Tablet (Claritin) Take 1 Tablet by mouth in the morning. 0 Active Dexcom G7 SensorIndications:T ype 2 diabetes mellitus with hemoglobin A1c goal of less than 8.0% (HCC) Change sensor every 10 days 3 Each 3 04/25/2023 Active Additional Information Patient not taking.Reported on 08/08/2023 Atorvastatin Calcium 20 MG Oral Tablet (Lipitor)Indication s:Type 2 diabetes mellitus with hemoglobin A1c goal of less than 8.0% (HCC),Dyslipidemia, goal LDL below 70 Take 1 Tablet by mouth in the morning. 90 Tablet 3 05/01/2023 Active Gabapentin 300 MG Oral Capsule (Neurontin) take 3 capsule by mouth at bedtime 90 Capsule 3 05/23/2023 Active BD Pen Needle Guillermina U/F 32G X 4 MM (Insulin Pen Needle)Indications: Type 2 diabetes mellitus with hemoglobin A1c goal of less than 8.0% (HCC) Use with insulin 4 times daily 400 Each 3 05/31/2023 Active OneTouch Verio In Vitro Strip TEST BLOOD SUGARS BEFORE MEALS AND AT BEDTIME 400 Strip 3 07/29/2023 Active DayVigo 5 MG Oral Tablet (Lemborexant) Take 5 mg by mouth every night at bedtime. 30 Tablet 3 08/08/2023 Active Insulin Glargine Solostar 100 UNIT/ML Subcutaneous Solution Pen-injector (Basaglar KwikPen)Indications :Type 2 diabetes mellitus with hemoglobin A1c goal of less than 8.0% ([facility]) Inject 30 units under the skin once daily 30 mL 3 09/13/2023 Active Insulin Lispro (1 Unit Dial) 100 UNIT/ML Subcutaneous Solution Pen-injector (HumaLOG KwikPen)Indications :Type 2 diabetes mellitus with hemoglobin A1c goal of less than 8.0% ([facility]) Inject 7 units with breakfast and supper, and 5 units with snacks 30 mL 3 09/13/2023 Active documented as of this encounter (statuses as of 11/15/2023) Active Problems Problem Noted Date Diagnosed Date Dyslipidemia, goal LDL below 70 05/01/2023 FERNANDO (obstructive sleep apnea) 05/06/2019 Chronic insomnia 05/06/2019 Type 2 diabetes mellitus wit h hemoglobin A1c goal of less than 8.0% 11/25/2018 Chronic pancreatitis 09/01/2016 Essential hypertension with goal blood pressure less than 140/90 09/01/2016 documented as of this encounter (statuses as of 11/15/2023) Resolved Problems Problem Noted Date Diagnosed Date Resolved Date Reaction, situational, acute, to stress 05/06/2019 09/29/2020 Leg length discrepancy 04/11/201811/25 Elevated glucose 09/01/2016 11/25/2018 documented as of this encounter (statuses as of 11/15/2023) Immunizations Name Administration Dates Next Due PPD 09/28/2016 Pneumococcal Polysaccharide PPV23 (Pneumovax) 02/04/2019 Seasonal Influenza, PF, 6 M & above, IM , (FluLaval or Fluzone) 08/15/2023,09/23/2022,08/11/2021,07/29,10/14/2019,07/18/2018 TDAP (age 10 and older)(Boostrix) 12/29/2016 Zoster Vaccine Recombinant (Shingrix) 11/19/2018 ,07/18/2018 documented as of this encounter Social History Tobacco Use Types Packs/Day Years Used Date Smoking Tobacco: Never Smokeless Tobacco: Never Alcohol Use Standard Drinks/Week Comments Yes 0 (1 standard drink = 0.6 oz pur e alcohol) occasional PHQ-2 Answer Date Recorded PHQ Adult Total Score 0 02/10/2023 Hunger Vital Sign Answer Date Recorded Within the past 12 months, y ou worried that your food would run out before you got the money to buy more. Never true 05/05/20 23 Within the past 12 months, t he food you bought just didn't last and you didn't have money to get more. Never true 05/05/2023 Sex and Gender Information Value Date Recorded Sex Assigned at Not on file Gender Identity Not on file Sexual Orientation Not on file Job Start Date Occupation Industry Not on file Not on file Not on file documented as of this encounter Progress Notes * Eleni Azar PHARM Tech - 11/15/2023 10:37 AM EST Patient Phone Numbers Spoke with patient to schedule [facility] appointment for diabetes management. Appointment scheduled as noted below. 12/15/2023 Thank you, Eleni Azar Metal Caster [facility] ([facility]) [phone] 11/15/2023,10:38 AM documented in this encounter Plan of Treatment Upcoming Encounters Date Type Department Care Team (Late st Contact Info) Description 12/05/2023 1:20 PM EST Office Visit [facility] [address] [facility] [place] [id number] Natali Hadley, [address] [facility] [place] [address] 12/15/2023 2:30 PM EST Pharmacy Pharmacy, [place] [address] [address] [place], [facility] [address] [address] 08/22/2024 2:30 PM EDT Imaging Radiology [address] [facility] [place] [address] Scheduled Procedures Name Priority Associated Diagnoses Date/Ti me COLONOSCOPY FLEXIBLE PROXIMA L DIAGNOSTIC Recall Encounter for screening colonoscopy Health Maintenance Due Date Last Done Comments HIV Screening 1978 Hepatitis C Screening 1981 HPV/Co-Test 1993 Cologuard 2008 Fecal Occult Blood Test 2008 Sigmoidoscopy 2008 Pneumococcal Vaccine: Pediatrics (0 to 5 Years) and At-Risk Patients (6 to 64 Years) (2 - PCV) 02/05/2020 02/04/2019 Diabetic Eye Exam 02/16/2022 02/16/2021 Diabetic Foot Exam 03/24/2022 03/24/2021, 02/04/2019 Cervical Cancer Screening 05/06/2023 Pap Smear 05/06/2023 05/06/2020, 12/08, 04/24/2002, Additional history exists COVID-19 Vaccine (3 - season) 2023 03/04/2021, 02/11/2021 Hepatitis B (1 of 3 - Risk 3-dose series) 2023 HbA1c 12/01/2023 05/31/2023, 04/0 03/2023, 09/07/2021, Additional history exists Albumin/Creatinine Ratio 02/09/2024 023, 03/17/2021, 08/19/2019 B-12 02/09/2024 02/08/2023, 03/06, 08/19/2019 GFR 02/09/2024 02/08/2023, 1112/2020, 03/17/2021, Additional history exists Depression Screening 02/11/2024 02/10/2023 Mammogram 08/21/2024 08/21/2023, 07/07, 07/13/2021, Additional history exists DTaP,Tdap,and Td Vaccines (2 - Td or Tdap) 12/29/2026 12/29/2016 Colonoscopy 02/28/2027 02/28/2017, 02/28/2017 Colorectal Cancer Screening 02/28/2027 Lipid Panel 02/09/2028 02/08/2023, 03/17/2021 Zoster Vaccines Completed 11/19/2018, 07/18/2018 Influenza Vaccine (FLU shot) Completed 08/2023, 09/23/2022, 08/11/2021, Additional history exists GARDASIL-HPV IMMUNIZATION SERIES Aged Out No longer eligible based on patient's age to complete this topic MENINGOCOCCAL (MENACTRA/MENVEO) Aged Out No longer eligible based on patient's age to complete this topic documented as of this encounter Medical Devices Implanted Type Area Irrigation Equipment Mechanic Device Identifier Shelf Expiration Date Model / Serial / Lot Lens 21.5 Mx60e - [id number] - [id number] Implanted:Qty: 1 on 08/14/2018 by Omer Hodges MD at OR [facility] Left: Eye [employer] 03/05/2021 [id number]-27.5 / [id number] / [id number] Lens 22.0 Mx60e - [id number] - [id number] Implanted:Qty: 1 on 08/30/2018 by Omer Hodges MD at OR [facility] Right: Eye [employer]OM[employer] 06/05/2021 [id number]-10.0 / [id number] / documented as of this encounter Visit Diagnoses Diagnosis Type 2 diabetes mellitus with hemoglobin A1c goal of less than 8.0% ([facility])- Primary documented in this encounter Advance Directives Documents on File Type Date Recorded Patient Braille Coder Expl anation Advance Directives and Livin g Will 10/24/2018 LIVING WILL Power of Fisheries Technician 10/24/2018 POWER OF A TTORNEY Latest Code Status on File Code Status Date Activated Date Inactivated Comments Full Code 08/30/2018 11:51 AM 08/30/2018 5:47 PM Th is order reflects the patients wishes and were consensually agreed upon. Code Status History Code Status Date Activated Date Inactivated Comments Full Code 08/14/2018 1:35 PM 08/14/2018 7:33 PM This order reflects the patients wishes and were consensually agreed upon. Care Teams Top Lift Trimmer Relationship Specialty Start Date End Date Tommy Saab MD [address] [place] [address] PCP - General Family Medicine 07/13/16 documented as of this encounter
--- OUTSIDE RECORDS SUMMARY | 2023-12-21 08:13 | External Medical Summary | Summary of Care ---
Author Name Unknown Organization [facility] Address [address] [place] [address] Phone [phone] Care Team Providers Care Junior Qa Analyst Name Role Phone Tommy Saab MD Primary Care Provider +1- [phone] Reason for Visit * Reason Onset Date Comments Letter Requests 10/27/2023 Encounter Details Date Type Department Care Team (Late st Contact Info) Description 10/27/2023 Telephone [facility] [address] [facility] [address] Natali Hadley DO [address] [facility][1][place] [address] Letter Requests Allergies No known active allergiesdocumented as of this encounter (statuses as of 10/27/2023) Medications Medication Sig Dispensed Refills Start Date [...] 0.1 % Nasal Solution (Astelin) Administer 1 [place] into nostril in the morning and 1 [place] before bedtime. 30 mL 12 02/10/2023 Active [...] hemoglobin A1c goal of less than 8.0% ([facility]) Inject 30 units under the skin once daily 30 mL 3 09/13/2023 Active Insulin Lispro (1 Unit Dial) 100 UNIT/ML Subcutaneous Solution Pen-injector (HumaLOG KwikPen)Indications :Type 2 diabetes mellitus with hemoglobin A1c goal of less than 8.0% (HCC) Inject 7 units with breakfast and supper, and 5 units with snacks 30 mL 3 09/13/2023 Active documented as of this encounter (statuses as of 10/27/2023) Active Problems Problem Noted Date Diagnosed Date Dyslipidemia, goal LDL below 70 05/01/2023 FERNANDO (obstructive sleep apnea) 05/06/2019 Chronic insomnia 05/06/2019 Type 2 diabetes mellitus wit h hemoglobin A1c goal of less than 8.0% 11/25/2018 Chronic pancreatitis 09/01/2016 Essential hypertension with goal blood pressure less than 140/90 09/01/2016 documented as of this encounter (statuses as of 10/27/2023) Resolved Problems Problem Noted Date Diagnosed Date Resolved Date Reaction, situational, acute, to stress 05/06/2019 09/29/2020 Leg length discrepancy 04/11/201811/25 Elevated glucose 09/01/2016 11/25/2018 documented as of this encounter (statuses as of 10/27/2023) Immunizations Name Administration Dates Next Due PPD [...] on file documented as of this encounter Miscellaneous Notes * Telephone Encounter - Ellen Marti LPN - 10/27/2023 9:50 AM EST Letter written has been mailed to the pt documented in this encounter Plan of Treatment Upcoming Encounters Date Type Department Care Team (Late st Contact Info) Description 11/10/2023 2:00 PM EST Office Visit Family [facility], [place] [address] [facility] [phone] Arelis Emery PA-C [address] [facility] [place] [address] 11/15/2023 6:10 PM EST Scheduled Telephone Pharmacy, [place] [address] [facility] [address] [facility] [address] [place] [address] 12/05/2023 1:20 PM EST Office Visit Sleep Disorders Ctr [facility] [address] [place] [phone] Natali Hadley DO [address] [place] [address] 08/22/2024 2:30 PM EDT Imaging Radiology [address], [place] [address] [place] [address] Scheduled Procedures Name Priority Associated Diagnoses Date/Ti [...] Additional history exists COVID-19 Vaccine (3 - 2022- season) 2023 03/04/2021, 02/11/2021 Hepatitis B (1 of 3 - Risk 3-dose series) 2023 HbA1c 12/01/2023 05/31/2023, 04/0 03/2023, 09/07/2021, Additional history exists Albumin/Creatinine Ratio 02/09/2024 023, 03/17/2021, 08/19/2019 B-12 02/09/2024 02/08/2023, 03/06, 08/19/2019 GFR 02/09/2024 02/08/2023, 11/0 12/2020, 03/17/2021, Additional history exists Depression Screening 02/11/2024 [...] this encounter Medical Devices Implanted Type Area Team Leader/Research Psychologist Device Identifier Shelf Expiration Date Model / Serial / Lot Lens 21.5 Mx60e - [id number] - [id number] Implanted:Qty: 1 on 08/14/2018 by Omer Hodges MD at OR [facility] Left: Eye [employer] LOMB 03/05/2021 [id number]-05.5 / [id number] / [id number] Lens 22.0 Mx60e - [id number] - [id number] Implanted:Qty: 1 on 08/30/2018 by Omer Hodges MD at OR [facility] Right: Eye [employer]USCH [employer] LOMB 06/05/2021 [id number]-69.0 / [id number] / documented as of this encounter Advance Directives Documents on File Type Date Recorded 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 Care Teams Junior Qa Analyst Relationship Specialty Start Date End Date Tommy Saab MD [address] [place] [facility] [place] [address] PCP - General Family Medicine 07/13/16 documented as of this encounter
--- OUTSIDE RECORDS SUMMARY | 2023-12-21 08:13 | External Medical Summary | Summary of Care ---
Author Name Unknown Organization [facility] Address [address] [place] [address] Phone [phone] Care Team Providers Care Director Clinical Applications Name Role Phone Tommy Saab MD Primary Care Provider +1- [phone] Reason for Visit * Reason Onset Date Comments Advice 11/08/2023 Encounter Details Date Type Department Care Team (Late st Contact Info) Description 11/08/2023 Telephone [facility] [address] [place] [address] Tommy Saab MD [address] [place] [address] Advice Allergies No known active allergiesdocumented as of [...] 0.1 % Nasal Solution (Astelin) Administer 1 [place] into nostril in the morning and 1 [place] before bedtime. 30 mL 12 02/10/2023 Active [...] goal of less than 8.0% (HCC) Inject 30 units under the skin once [...] above, IM , (FluLaval or Fluzone) 08/15/2023,09/23/2022,08/11/2021,07/29,10/14/2019,07/18/2018 Seasonal Influenza, Split, I IV3, With Preserve, Inj 11/10/2000 TDAP (age 10 and older)(Boostrix) 12/29/2016 Zoster [...] encounter Miscellaneous Notes * Telephone Encounter - Elvi Steen OSA - 11/15/2023 12:48 PM EST Scheduled. Patient's son chose as that is a day that has off. 11/15/2023 * Telephone Encounter - Adeline Main OSA - 11/08/2023 3:26 PM EST No Appointments Available Patient declined appointments?: No What Visit Type is needed? Acute If Acute Visit Type is needed, were surrounding clinics offered to patient (Yes/No)? N/A Was patient offered appointments with other available providers (Yes/No)? N/A See Call Details? (Yes or No): Yes documented in this encounter Plan of Treatment Upcoming Encounters Date Type Department Care Team (Late st Contact Info) Description 11/15/2023 6:10 PM EST Pharmacy Pharmacy, [place] [address] [place] [address] [address] [facility] [address] [facility] [place] [address] Type 2 diabetes mellitus with hemoglobin A1c goal of less than 8.0% (FORMER[facility])* 12/05/2023 1:20 PM EST Office Visit Sleep Disorders Ctr [facility] [address] [facility] [place] [phone] Natali Hadley, [address] [place] [address] 12/15/2023 2:30 PM EST Pharmacy Pharm[facility], [place] [address] [facility] [address] [facility] [address] [facility] [address] 12/25/2023 3:20 PM EST Office Visit Family Practice, [place] [address] [facility] [phone] Arelis Emery PA-C [address] [facility] [address] 08/22/2024 2:30 PM EDT Imaging Radiology [address] [place] [address] Scheduled Procedures Name Priority Associated Diagnoses Date/Ti [...] Risk 3-dose series) 2023 HbA1c 12/01/2023 05/31/2023, 03/2023, 09/07/2021, Additional history exists Albumin/Creatinine Ratio 02/09/2024 023, 03/17/2021, 08/19/2019 B-12 02/09/2024 02/08/2023, 03/06, 08/19/2019 GFR 02/09/2024 02/08/2023, 12/2020, 03/17/2021, Additional history exists Depression Screening [...] this encounter Medical Devices Implanted Type Area Secondary Social Studies Teacher Device Identifier Shelf Expiration Date Model / Serial / Lot Lens 21.5 Mx60e - [id number] - [id number] Implanted:Qty: 1 on 08/14/2018 by Omre Hodges MD at OR [facility] Left: Eye [employer]CH [employer] LOMB 03/05/2021 [id number]-39.5 / [id number] / [id number] Lens 22.0 Mx60e - [id number] - [id number] Implanted:Qty: 1 on 08/30/2018 by Omer Hodges MD at OR [facility] Right: Eye BAUSCH & LOMB 06/05/2021 [id number]-84.0 / [id number] / documented as of this encounter Advance Directives Documents on File Type Date Recorded Patient Camp Boss Expl anation Advance Directives and Livin g Will 10/24/2018 LIVING WILL Power of Remote Sensing Surveyor 10/24/2018 POWER OF A TTORNEY Latest Code [...] and were consensually agreed upon. Care Teams Director Clinical Applications Relationship Specialty Start Date End Date Tommy Saab MD [address] [place] [address] PCP - General Family Medicine 07/13/16 documented as of this encounter
--- OUTSIDE RECORDS SUMMARY | 2023-12-21 08:13 | External Medical Summary | Summary of Care ---
Author Name Unknown Organization [facility] Address [address] [place] [address] Phone [phone] Care Team Providers Care Cleaning And Maintenance Worker Name Role Phone Tommy Saab MD Primary Care Provider +1- [phone] Reason for Visit * Reason Onset Date Comments Advice 11/08/2023 Encounter Details Date Type Department Care Team (Late st Contact Info) Description 11/08/2023 Telephone [facility] [address] [place] [address] Tommy Saab MD [address] [place] [address] Advice Allergies No known active [...] 0.1 % Nasal Solution (Astelin) Administer 1 [place] into nostril in the morning and 1 [place] before bedtime. 30 mL 12 02/10/2023 Active [...] Description 11/15/2023 6:10 PM EST Pharmacy Pharmacy, [place] [address] [place] [address] [address] [facility] [address] [facility] [place] [address] Type 2 diabetes mellitus with hemoglobin A1c goal of less than 8.0% ([facility])* 12/05/2023 1:20 PM EST Office Visit Sleep Disorders Ctr [facility] [address] [facility] [place] [phone] Natali Hadley, [address] [place] [address] 12/15/2023 2:30 PM EST Pharmacy [facility] [place] [address] [facility] [address] [facility] [address] [facility] [address] 12/25/2023 3:20 PM EST Office Visit Family [facility], [place] [address] [facility] [phone] Arelis Emery PA-C [address] [facility] [address] 08/22/2024 2:30 PM EDT Imaging Radiology [address] [place] [address] Scheduled Procedures Name Priority Associated Diagnoses Date/Ti [...] this encounter Medical Devices Implanted Type Area Fisher Net Device Identifier Shelf Expiration Date Model / Serial / Lot Lens 21.5 Mx60e - [id number] - [id number] Implanted:Qty: 1 on 08/14/2018 by Omer Hodges MD at OR [facility] Left: Eye [employer]USCH [employer] LOMB 03/05/2021 [id number]-98.5 / [id number] / [id number] Lens 22.0 Mx60e - [id number] - [id number] Implanted:Qty: 1 on 08/30/2018 by Omer Hodges MD at OR [facility] Right: Eye BAUSCH & LOMB 06/05/2021 [id number]-84.0 / [id number] / documented as of this encounter Advance Directives Documents on File Type Date Recorded Patient Direct Of Real Estate Expl anation Advance Directives and Livin g Will 10/24/2018 LIVING WILL Power of Finish Carpenter 10/24/2018 POWER OF A TTORNEY Latest Code [...] and were consensually agreed upon. Care Teams Cleaning And Maintenance Worker Relationship Specialty Start Date End Date Tommy Saab MD [address] [place] [address] PCP - General Family Medicine 07/13/16 documented as of this encounter
--- OUTSIDE RECORDS SUMMARY | 2023-12-21 08:13 | External Medical Summary | Summary of Care ---
Author Name Unknown Organization [facility] Address [address] [place] [address] Phone [phone] Care Team Providers Care Neurology Epilepsy Physician Name Role Phone Tommy Saab MD Primary Care Provider [phone]- [phone] Reason for Visit * Reason Comments Follow Up Sleep Apnea Encounter Details Date Type Department Care Team (Late st Contact Info) Description 12/05/2023 1:20 PM EST Office Visit [facility] Disorders Ctr [facility] [place] [address] [facility] [phone] Natali Hadley DO [address] [facility], [place], [place] [address] FERNANDO (obstructive sleep apnea)*; Insomnia, unspecified type; Nocturnal hypoxemia; Inadequate sleep hygiene Allergies No known active allergiesdocumented as of this encounter (statuses as of 12/05/2023) Medications Medication Sig Dispensed Refills Start Date [...] 0.1 % Nasal Solution (Astelin) Administer 1 [place] into nostril in the morning and 1 [place] before bedtime. 30 mL 12 02/10/2023 Active Folic Acid 1 MG Oral Tablet Take [...] in the morning. 0 Active Dexcom G7 SensorIndications :Type 2 diabetes mellitus with hemoglobin A1c goal of less than 8.0% (HCC) Change sensor every 10 days 3 Each 3 04/25/2023 Active Atorvastatin Calcium 20 MG Oral Tablet (Lipitor)Indicati ons:Type 2 diabetes mellitus with hemoglobin A1c goal of less than 8.0% (HCC),Dyslipidemi a, goal LDL below 70 Take 1 Tablet by mouth in the morning. 90 Tablet 3 05/01/2023 Active Gabapentin 300 MG Oral Capsule (Neurontin) take 3 capsule by mouth at bedtime 90 Capsule 3 05/23/2023 Active Additional Information Patient not taking.Reported on 12/05/2023 BD Pen Needle Guillermina U/F 32G X 4 MM (Insulin Pen Needle)Indication s:Type 2 diabetes mellitus with hemoglobin A1c goal of less than 8.0% (HCC) Use with insulin 4 times daily 400 Each 3 05/31/2023 Active OneTouch Verio In Vitro Strip TEST BLOOD SUGARS BEFORE MEALS AND AT BEDTIME 400 Strip 3 07/29/2023 Active Insulin Glargine Solostar 100 UNIT/ML Subcutaneous Solution Pen-injector (Dolores Esparza)Indicatio ns:Type 2 diabetes mellitus with hemoglobin A1c goal of less than 8.0% (HCC) Inject 30 units under the skin once daily 30 mL 3 09/13/2023 Active Insulin Lispro (1 Unit Dial) 100 UNIT/ML Subcutaneous Solution Pen-injector (HumaLOG KwikPen)Indicatio ns:Type 2 diabetes mellitus with hemoglobin A1c goal of less than 8.0% (HCC) Inject 7 units with breakfast and supper, and 5 units with snacks 30 mL 3 09/13/2023 Active DayVigo 10 MG Oral Tablet (Lemborexant) Take 10 mg by mouth every night at bedtime. 60 Tablet 3 12/05/2023 Active DayVigo 5 MG Oral Tablet (Lemborexant) Take 5 mg by mouth every night at bedtime. 30 Tablet 3 08/08/2023 12/05/19 24 Discontinued documented as of this encounter (statuses as of 12/05/2023) Active Problems Problem Noted Date Diagnosed Date Dyslipidemia, goal LDL below 70 05/01/2023 FERNANDO (obstructive sleep apnea) 05/06/2019 Chronic insomnia 05/06/2019 Type 2 diabetes mellitus wit h hemoglobin A1c goal of less than 8.0% 11/25/2018 Chronic pancreatitis 09/01/2016 Essential hypertension with goal blood pressure less than 140/90 09/01/2016 documented as of this encounter (statuses as of 12/05/2023) Resolved Problems Problem Noted Date Diagnosed Date Resolved Date Reaction, situational, acute, to stress 05/06/2019 09/29/2020 Leg length discrepancy 04/11/201811/25 Elevated glucose 09/01/2016 11/25/2018 documented as of this encounter (statuses as of 12/05/2023) Immunizations Name Administration Dates Next Due PPD 09/28/2016 Pneumococcal Polysaccharide PPV23 (Pneumovax) 02/04/2019 Seasonal Influenza, PF, 6 M & above, IM , (FluLaval or Fluzone) 08/15/2023,09/23/2022,08/11/2021,07/29,10/14/2019,07/18/2018 TDAP (age 10 and older)(Boostrix) 12/29/2016 Zoster Vaccine Recombinant (Shingrix) 11/19/2018 ,07/18/2018 documented as of this encounter Social History Tobacco Use Types Packs/Day Years Used Date Smoking Tobacco: Never Smokeless Tobacco: Never Tobacco Cessation:Counseling Given: Not Answered Alcohol Use Standard Drinks/Week Comments Yes 0 [...] on file documented as of this encounter Last Filed Vital Signs Vital Sign Reading Time Taken Comments Blood Pressure 124/60 12/05/2023 1:32 PM EST Pulse 68 12/05/2023 1:32 PM EST Temperature 35.6 C (96 F) 12/05/2023 1:32 PM EST Respiratory Rate 16 12/05/2023 1:32 PM EST Oxygen Saturation 98% 12/05/2023 1:32 PM EST Inhaled Oxygen Concentration - - Weight 76.7 kg (169 lb) 12/05/2023 1:32 PM EST Height 171.5 cm (5' 7.5") 12/05/2023 1:32 PM EST Body Mass Index 26.08 12/05/2023 1:32 PM EST documented in this encounter Progress Notes * Natali Hadley, - 12/05/2023 1:49 PM EST Sleep Medicine Follow-Up Clinic Note HISTORY: Ms. Parris Gonzalez is a 58 year old female w/ a pmh of HTN or DM who is in clinic today for follow up of Obstructive Sleep Apnea and chronic insomnia. Since she was last seen, Ms. Gonzalez has been able to taper off of Ambien and start Dayvigo 5mg qhs with improvement in her sleep. Denies any unwanted side effects of Dayvigo. She has run out of gabapentin and feels without it she is no longer sleeping well through the night. She continues to sleep in the recliner much of the night. Her bedtime schedule also continues to be irregular which is related to her irregular work schedule. Home Sleep Apnea Test (HSAT) 12/04/18: CHANTELLE 5.3 O2 Stan 84 % <89% O2 5.6 mins Attempted treatments: Melatonin 10 ER - has not noted an improvement (has been on it for years) Gabapentin 600mg qhs - works to get her 5 hours of good sleep Doxepin 25mg - 1 week without improvement Remeron - 1 week without improvement Temazepam - no improvement Trazodone 100mg - no improvement Belsomra 10mg - no improvement Lunesta 3mg Amitriptyline 25mg Ambien 5mg - improvement but sleep maintenance in the latter part of sleep was an issue Ambien 6.25mg - ineffective CBT-I - not yet trialed because of connection issues Woodward Sleepiness Scale Question 12/05/2023 1:34 PM EST - Filed by Ellen Marti LPN What is the chance you will doze off in the following situation? Sitting and reading No chance of dozing Watching TV Slight chance of dozing Sitting inactive in a public place, such as a theater or meeting No chance of dozing As a passenger in a car for an hour without a break Slight chance of dozing Lying down to rest in the afternoon when circumstances permit No chance of dozing When sitting and talking to someone No chance of dozing When sitting quietly after lunch without alcohol No chance of dozing In a car, while stopped for a few minutes in traffic No chance of dozing Score (range: 0 - 24) 2 PAP Compliance: Report date: 09/08/23 to 12/02/23 % total days used: 16.7% % days used > 4 hours: 1.1% Average hours a day: 1 hours 54 mins Large leak: 2 min AHI: 3.5/hr 90% pressure: 9.5 cmH20 Equipment: DME Provider is Lemon 8-15 cmH20. Patient Active Problem List Diagnosis Code Chronic pancreatitis ([facility]) K86.1 Essential hypertension with goal blood pressure less than 140/90 I10 Type 2 diabetes mellitus with hemoglobin A1c goal of less than 8.0% ([facility]) E11.9 FERNANDO (obstructive sleep apnea) G47.33 Chronic insomnia F51.04 Dyslipidemia, goal LDL below 70 E78.5 Outpatient Medications Marked as Taking for the 12/05/23 encounter (Office Visit) with Natali Hadley, DO Medication Sig Insulin Glargine Solostar 100 UNIT/ML Subcutaneous Solution Pen-injector (Basaglar KwikPen) Inject 30 units under the skin once daily Insulin Lispro (1 Unit Dial) 100 UNIT/ML Subcutaneous Solution Pen-injector (HumaLOG KwikPen) Inject 7 units with breakfast and supper, and 5 units with snacks DayVigo 5 MG Oral Tablet (Lemborexant) Take 5 mg by mouth every night at bedtime. OneTouch Verio In Vitro Strip TEST BLOOD SUGARS BEFORE MEALS AND AT BEDTIME BD Pen Needle Guillermina U/F 32G X 4 MM (Insulin Pen Needle) Use with insulin 4 times daily Atorvastatin Calcium 20 MG Oral Tablet (Lipitor) Take 1 Tablet by mouth in the morning. Dexcom G7 Sensor Change sensor every 10 days Folic Acid 1 MG Oral Tablet Take 1 Tablet by mouth in the morning. Loratadine 10 MG Oral Tablet (Claritin) Take 1 Tablet by mouth in the morning. Solitario Multivitamin for Women Oral Tablet Take 1 Tablet by mouth in the morning. Thiamine HCl 100 MG Oral Tablet (vitamin B-1) Take 1 Tablet by mouth in the morning. Azelastine HCl 0.1 % Nasal Solution (Astelin) Administer 1 [place] into nostril in the morning and 1 [place] before bedtime. busPIRone HCl 10 MG Oral Tablet (Buspar) take 1 tablet by mouth three times a day metFORMIN HCl ER 500 MG Oral Tablet Extended Release 24 Hour (Glucophage XR) take 2 tablets by mouth twice a day CPAP every night at bedtime . ONETOUCH DELICA LANCETS 33G [facility] Use to test blood sugar up to 4 times daily dx e11.9 Calcium Carbonate-Vitamin D 500-125 MG-UNIT Oral Tablet Take 1 Tab by mouth 2 times a day. coenzyme Q-10 100 MG Capsule Take 1 Capsule by mouth in the morning and 1 Capsule before bedtime. fish oil concentrate (OMEGA-3) 1000 MG CAPS Take 1 Capsule by mouth in the morning and 1 Capsule before bedtime. Probiotic Product (PROBIOTIC ADVANCED) CAPS Take 1 Cap by mouth once for 1 dose. PHYSICAL EXAM: BP 124/60 | Pulse 68 | Temp 35.6 C (96 F) (Tympanic) | Resp 16 | Ht 1.715 m (5' 7.5") | Wt 76.7kg (169 lb) | SpO2 98% | BMI 26.08 kg/m | BSA 1.91 m Constitutional: Alert, oriented in no acute distress Skin: no markings on face where mask fits Chest: Normal respiratory effort at rest Neuro: Normal speech and comprehension Psych: Appropriate mood and affect ASSESSMENT/PLAN: Obstructive Sleep Apnea Chronic Insomnia w/ inadequate sleep hygiene Nocturnal Hypoxemia Encouraged continued use of PAP every night, all night and for naps. Either more the PAP to the recliner or set an alarm to awaken from the recliner and go to bed where the PAP is. Submit letter to HR/administration re: need for regular scheduling Increase Wakix from 5mg to 10mg qhs May consider addition of gabapentin if needed in future Strenuous exercise, which activates the sympathetic nervous system (adrenaline system) not only helps with weight loss, glucose, and mood, but also improves sleep quality, and upper respiratory muscle tone during sleep. Avoid driving, operating heavy machinery or engaging in any activity that requires full alertness if feeling sleepy, drowsy or otherwise impaired. Obtain overnight oximetry after PAP therapy tolerated and Obstructive Sleep Apnea adequately treated Consider referring for CBT-I when patient is at a more steady state with life transitions Follow-up with Sleep Medicine in 3 months. Natali Hadley DO I spent a total of 30-39 minutes (exact time 30 mins) on the date of service in preparation, delivery, and documentation of the care provided to Parris Gonzalez excluding any time spent in the performance of separately billed services. documented in this encounter Nursing Notes * Ellen Marti LPN - 12/05/2023 1:34 PM EST Chief Complaint Patient presents with Follow Up Sleep Apnea Cpap DME: [employer] Woodward Sleepiness Scale Question 12/05/2023 1:34 PM EST - Filed by Ellen Marti LPN What is the chance you will doze off in the following situation? Sitting and reading No chance of dozing Watching TV Slight chance of dozing Sitting inactive in a public place, such as a theater or meeting No chance of dozing As a passenger in a car for an hour without a break Slight chance of dozing Lying down to rest in the afternoon when circumstances permit No chance of dozing When sitting and talking to someone No chance of dozing When sitting quietly after lunch without alcohol No chance of dozing In a car, while stopped for a few minutes in traffic No chance of dozing Score (range: 0 - 24) 2 documented in this encounter Plan of Treatment Upcoming Encounters Date Type Department Care Team (Late st Contact Info) Description 12/15/2023 2:30 PM EST Pharmacy Pharmacy, [place] [address] [place] [address] [facility] [address] [place] [address] 12/25/2023 3:20 PM EST Office Visit [facility] [place] [address] [facility] [phone] Arelis Emery PA-C [address] [place] [address] 03/05/2024 3:00 PM EDT Office Visit Sleep Disorders Ctr [facility] [address] [place] [phone] Natali Hadley DO [address] [place] [address] 08/22/2024 2:30 PM EDT Imaging Radiology [address] [place] [address] Scheduled Procedures Name Priority Associated Diagnoses Date/Ti [...] 12/08, 04/24/2002, Additional history exists COVID-19 Vaccine ( season) 2023 03/04/2021, 02/11/2021 Hepatitis B (1 of 3 - Risk 3-dose series) 2023 HbA1c 12/01/2023 05/31/2023, 03/2023, 09/07/2021, Additional history exists Albumin/Creatinine Ratio 02/09/2024 023, 03/17/2021, 08/19/2019 B-12 02/09/2024 02/08/2023, 03/06, 08/19/2019 GFR 02/09/2024 02/08/2023, 12/2020, 03/17/2021, Additional history exists Depression Screening 02/11/2024 02/10/2023 Mammogram 08/21/2024 08/21/2023, 07/07, 07/22/2022, Additional history exists DTaP,Tdap,and Td Vaccines (2 [...] this encounter Medical Devices Implanted Type Area Core Analyst Device Identifier Shelf Expiration Date Model / Serial / Lot Lens 21.5 Mx60e - [id number] - [id number] Implanted:Qty: 1 on 08/14/2018 by Omer Hodges MD at OR [facility] Left: Eye [employer]OMB 03/05/2021 [id number]-17.5 / [id number] / [id number] Lens 22.0 Mx60e - [id number] - [id number] Implanted:Qty: 1 on 08/30/2018 by Omer Hodges MD at OR [facility] Right: Eye [employer]USCH & LOMB 06/05/2021 [id number]-89.0 / [id number] / documented as of this encounter Visit Diagnoses Diagnosis FERNANDO (obstructive sleep apnea)- Primary Obstructive sleep apnea (adult) (pediatric) Insomnia, unspecified type Nocturnal hypoxemia Hypoxemia Inadequate sleep hygiene Other specific disorder of sleep of nonorganic origin documented in this encounter Advance Directives Documents on File Type Date Recorded 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 Care Teams Neurology Epilepsy Physician Relationship Specialty Start Date End Date Tommy Saab MD [address] [place] [address] PCP - General Family Medicine 07/13/16 documented as of this encounter
[2023-12-21] MEDS: THIAMINE HCL 100 MG TAB PO SCH (08:14)
[2023-12-21] MEDS: CALCIUM 600MG + VIT D 400 IU TAB PO SCH (08:14)
--- OUTSIDE RECORDS SUMMARY | 2023-12-21 08:14 | External Medical Summary | Summary of Care ---
Author Name Unknown Organization [facility] Address [address] [place] [address] Phone [phone] Care Team Providers Care Robotics Testing Technician Name Role Phone Tommy Saab MD Primary Care Provider [phone]- [phone] Encounter Details Date Type Department Care Team (Late st Contact Info) Description 09/13/2023 Telephone [facility] [address] [place] [address] Tommy Saab MD [address] [place] [address] Allergies No known active allergiesdocumented as of this encounter (statuses as of 09/19/2023) Medications Medication Sig Dispensed Refills Start Date [...] 0.1 % Nasal Solution (Astelin) Administer 1 [place] into nostril in the morning and 1 [place] before bedtime. 30 mL 12 02/10/2023 Active [...] in the morning. 0 Active Dexcom G7 SensorIndications: Type 2 diabetes mellitus with hemoglobin A1c goal of less than 8.0% (HCC) Change sensor every 10 days 3 Each 3 04/25/2023 Active Additional Information Patient not taking.Reported on 08/08/2023 Atorvastatin Calcium 20 MG Oral Tablet (Lipitor)Indicatio ns:Type 2 diabetes mellitus with hemoglobin A1c goal of less than 8.0% (HCC),Dyslipidemia , goal LDL below 70 Take 1 Tablet by mouth in the morning. 90 Tablet 3 05/01/2023 Active Gabapentin 300 MG Oral Capsule (Neurontin) take 3 capsule by mouth at bedtime 90 Capsule 3 05/23/2023 Active BD Pen Needle Guillermina U/F 32G X 4 MM (Insulin Pen Needle)Indications :Type 2 diabetes mellitus with hemoglobin A1c [...] Solostar 100 UNIT/ML Subcutaneous Solution Pen-injector (Dolores Esparza)Indication s:Type 2 diabetes mellitus with hemoglobin A1c goal of less than 8.0% ([facility]) Inject 30 units under the skin once daily 30 mL 3 09/13/2023 Active Insulin Lispro (1 Unit Dial) 100 UNIT/ML Subcutaneous Solution Pen-injector (HumaLOG KwikPen)Indication s:Type 2 diabetes mellitus with hemoglobin A1c goal of less than 8.0% ([facility]) Inject 7 units with breakfast and supper, and 5 units with snacks 30 mL 3 09/13/2023 Active Insulin Aspart FlexPen 100 UNIT/ML Subcutaneous Solution Pen-injectorIndica tions:Type 2 diabetes mellitus with hemoglobin A1c goal of less than 8.0% ([facility]) Inject 7 units with breakfast and supper and 5 units with snacks 30 mL 5 08/18/2023 Discontinue d(End of Procedure) documented as of this encounter (statuses as of 09/19/2023) Active Problems Problem Noted Date Diagnosed Date Dyslipidemia, goal LDL below 70 05/01/2023 FERNANDO (obstructive sleep apnea) 05/06/2019 Chronic insomnia 05/06/2019 Type 2 diabetes mellitus wit h hemoglobin A1c goal of less than 8.0% 11/25/2018 Chronic pancreatitis 09/01/2016 Essential hypertension with goal blood pressure less than 140/90 09/01/2016 documented as of this encounter (statuses as of 09/19/2023) Resolved Problems Problem Noted Date Diagnosed Date Resolved Date Reaction, situational, acute, to stress 05/06/2019 09/29/2020 Leg length discrepancy 04/11/201811/25 Elevated glucose 09/01/2016 11/25/2018 documented as of this encounter (statuses as of 09/19/2023) Immunizations Name Administration Dates Next Due PPD 09/28/2016 Pneumococcal Polysaccharide PPV23 (Pneumovax) 02/04/2019 SEASONAL INFLUENZA, PF, 6 M & Above, IM , (FLULAVAL or FLUZONE) 08/15/2023,09/23/2022,08/11/2021,07/29,10/14/2019,07/18/2018 Seasonal Influenza, Split, I IV3, With [...] 02/10/2023 Hunger Vital Sign Answer Date Recorded Worried About Running Out of Food in the Last Ye ar Never true 10/14/2019 Ran Out of Food in the Last Year Never true 10/14/2019 Sex and Gender Information Value Date Recorded Sex Assigned at Not on file Gender Identity Not on file Sexual Orientation Not on file Job Start Date Occupation Industry Not on file Not on file Not on file documented as of this encounter Miscellaneous Notes * Telephone Encounter - Tommy Saab MD - 09/13/2023 3:19 PM EST Not in office today. Have not seen pt since February and not aware of need for leave of absence. Will review paperwork tomorrow - OV may be needed. * Telephone Encounter - Selena Washington LPN - 09/13/2023 3:17 PM EST On provider's desk * Telephone Encounter - Magda Conde - 09/13/2023 3:03 PM EST Paperwork was put in provider's mail bin on 09/13/23. * Telephone Encounter - Magda Conde - 09/13/2023 3:00 PM EST 09/13/23 Pt stopped by the javascript front end developer and dropped of paperwork from the [employer] for Medical Leave of Absence. When paperwork completed, please fax to [phone]. Pt does not need a copy of the paperwork. When paperwork is completed, it should also be sent to [facility] to be put in pts. Chart. Completed paperwork was successfully faxed to [facility] for the pt. The paperwork was also sent to [employer] to be put in the pts chart. documented in this encounter Plan of Treatment Upcoming Encounters Date Type Department Care Team (Late st Contact Info) Description 10/16/2023 3:00 PM EST Office Visit Pharmacy, [place] [address] [place] [address] [facility] [address] [place] [address] 11/10/2023 2:00 PM EST Office Visit [facility], [place] [address] [facility] [phone] Arelis Emery PA-C [address] [place] [address] 12/05/2023 1:20 PM EST Office Visit Sleep Disorders Ctr [facility] [address] [facility] [place] [phone] Natali Hadley DO [address] [place] [address] 08/22/2024 2:30 PM EDT Imaging Radiology [facility] [facility] [address] [facility] [place] [address] Scheduled Procedures Name Priority Associated Diagnoses Date/Ti [...] this encounter Medical Devices Implanted Type Area Backroom Associate Device Identifier Shelf Expiration Date Model / Serial / Lot Lens 21.5 Mx60e - [id number] - [id number] Implanted:Qty: 1 on 08/14/2018 by Omer Hodges MD at OR [facility] Left: Eye [employer]CH [employer] LOMB 03/05/2021 [id number]-60.5 / [id number] / [id number] Lens 22.0 Mx60e - [id number] - [id number] Implanted:Qty: 1 on 08/30/2018 by Omer Hodges MD at OR [facility] Right: Eye BAUSCH [employer] LOMB 06/05/2021 [id number]-56.0 / [id number] / documented as of this encounter Advance Directives Documents on File Type Date Recorded 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 Care Teams Robotics Testing Technician Relationship Specialty Start Date End Date Tommy Saab MD [address] [place] [address] PCP - General Family Medicine 07/13/16 documented as of this encounter
--- OUTSIDE RECORDS SUMMARY | 2023-12-21 08:14 | External Medical Summary | Summary of Care ---
Author Name Unknown Organization [facility] Address [address] [place] [address] Phone [phone] Care Team Providers Care Preventive Maintenance Engineer Name Role Phone Tommy Saab MD Primary Care Provider [phone]- [phone] Reason for Visit * Reason Comments Appointment No Show Encounter Details Date Type Department Care Team Description 08/14/2023 Pharmacy Pharmacy, [place] [address] [place] [address] [facility] [address] [place] [address] Type 2 diabetes mellitus with hemoglobin A1c goal of less than 8.0% ([facility])* Allergies No known active allergiesdocumented as of this encounter (statuses as of 08/14/2023) Medications Medication Sig Dispensed Refills Start Date [...] 0.1 % Nasal Solution (Astelin) Administer 1 [place] into nostril in the morning and 1 [place] before bedtime. 30 mL 12 02/10/2023 Active [...] by mouth in the morning. 0 Active Insulin Glargine 100 UNIT/ML Subcutaneous Solution (Lantus)Indication s:Type 2 diabetes mellitus with hemoglobin A1c goal of less than 8.0% (HCC) Inject 24 Units under the skin at bedtime. 1 Each 0 04/25/2023 Active Dexcom G7 SensorIndications: Type 2 diabetes [...] times daily 400 Each 3 05/31/2023 Active Insulin Aspart FlexPen 100 UNIT/ML Subcutaneous Solution Pen-injectorIndica tions:Type 2 diabetes mellitus with hemoglobin A1c goal of less than 8.0% ([facility]) Inject 5 units with each meal. MDD of 15 units daily 15 mL 5 06/07/2023 Active OneTouch Verio In Vitro Strip TEST BLOOD SUGARS BEFORE MEALS AND AT BEDTIME 400 Strip 3 07/29/2023 Active Ozempic (1 MG/DOSE) 4 MG/3ML Subcutaneous Solution Pen-injector (Semaglutide (1 MG/DOSE)) inject 1 milligram subcutaneously every week 3 mL 3 07/29/2023 Active DayVigo 5 MG Oral Tablet (Lemborexant) Take 5 mg by mouth every night at bedtime. 30 Tablet 3 08/08/2023 Active documented as of this encounter (statuses as of 08/14/2023) Active Problems Problem Noted Date Dyslipidemia, goal LDL below 70 05/01/20 FERNANDO (obstructive sleep apnea) 05/06/2019 Chronic insomnia 05/06/2019 Type 2 diabetes mellitus with hemoglobin A1c goal of less than 8.0% 11/25/2018 Chronic pancreatitis 09/01/2016 Essential hypertension with goal blood p ressure less than 140/90 09/01/2016 documented as of this encounter (statuses as of 08/14/2023) Resolved Problems Problem Noted Date Resolved Date Reaction, situational, acute, to stress 05/06/20 19 09/29/2020 Leg length discrepancy 04/11/2018 9 Elevated glucose 09/01/2016 11/25/2018 documented as of this encounter (statuses as of 08/14/2023) Immunizations Name Administration Dates Next Due PPD 09/28/2016 Pneumococcal Polysaccharide PPV23 (Pneumovax) 02/04/2019 SEASONAL INFLUENZA, PF, 6 M & Above, IM , (FLULAVAL or FLUZONE) 09/23/2022,08/11/2021,07/29/2020,10/14,07/18/2018 TDAP (age 10 and older)(Boostrix) 12/29/2016 Zoster Vaccine Recombinant (Shingrix) 11/19/2018 ,07/18/2018 documented as of this encounter Social History Tobacco Use Types Packs/Day Years Used Date Smoking Tobacco: Never Smokeless Tobacco: Never Alcohol Use Standard Drinks/Week Comments Yes 0 (1 standard drink = 0.6 oz pur e alcohol) occasional Food Insecurity Answer Date Recorded Within the past 12 months, y ou worried that your food would run out before you got money to buy more. Never true 10/14/2019 Within the past 12 months, t he food you bought just didn't last and you didn't have money to get more. Never true 10/14/2019 Sex Assigned at Date Recorded Not on file Job Start Date Occupation Industry Not on file Not on file Not on file documented as of this encounter Progress Notes * TENZIN Mcgarry - 08/14/2023 8:30 AM EDT Patient Phone Numbers Spoke with patient to schedule [facility] appointment for diabetes management. Appointment scheduled as noted below. 08/18/2023 Thank you, Lidia Hadley Management Recruiter [facility] 08/14/2023,8:30 AM documented in this encounter Plan of Treatment Upcoming Encounters Date Type Specialty Care Team Description 08/18/2023 Office Visit Pharmacy [place], [facility] [address] [place] [facility] [place] [id number] 08/21/2023 Imaging Radiology 12/05/2023 Office Visit Sleep Disorders Natali Hadley, DO [address] [place] [address] Scheduled Procedures Name Priority Associated Diagnoses Date/Ti me COLONOSCOPY FLEXIBLE PROXIMA L DIAGNOSTIC Recall Encounter for screening colonoscopy Health Maintenance Due Date Last Done Comments HIV Screening 1978 Hepatitis C Screening 1981 HPV/Co-Test 1993 Cologuard 2008 Fecal Occult Blood Test 2008 Sigmoidoscopy 2008 Pneumococcal Vaccine: Pediatrics (0 to 5 Years) and At-Risk Patients (6 to 64 Years) (2 - PCV) 02/05/2020 02/04/2019 DIABETES-EYE EXAM 02/16/2022 02/16/2021 Diabetic Foot Exam 03/24/2022 03/24/2021, 02/04/2019 Cervical Cancer Screening 05/06/2023 Pap Smear 05/06/2023 05/06/2020, 12/08, 04/24/2002, Additional history exists COVID-19 Vaccine ( season) 2023 03/04/2021, 02/11/2021 Influenza Vaccine (FLU shot) (#1) 2023 09/23/2022, 08/11/2021, 07/29/2020, Additional history exists Mammogram 07/22/2023 07/22/2022, 0 05/2021, 07/08/2020, Additional history exists HbA1c 12/01/2023 05/31/2023, 0 03/2023, 09/07/2021, Additional history exists Albumin/Creatinine Ratio 02/09/2024 023, 03/17/2021, 08/19/2019 B-12 02/09/2024 02/08/2023, 03/06, 08/19/2019 GFR 02/09/2024 02/08/2023, 12/2020, 03/17/2021, Additional history exists Depression Screening 02/11/2024 02/10/2023 DTaP,Tdap,and Td Vaccines (2 - Td or Tdap) 12/29/2026 12/29/2016 Colonoscopy 02/28/2027 02/28/2017, 02/28/2017 Colorectal Cancer Screening 02/28/2027 Lipid Panel 02/09/2028 02/08/2023, 03/17/2021 Zoster Vaccines Completed 11/19/2018, 07/18/2018 GARDASIL-HPV IMMUNIZATION SERIES Aged Out No longer eligible based on patient's age to complete this topic Hepatitis B Aged Out No longer eligi ble based on patient's age to complete this topic MENINGOCOCCAL (MENACTRA/MENVEO) Aged Out No longer eligible based on patient's age to complete this topic documented as of this encounter Medical Devices Implanted Type Area Ferry Operator Device Identifier Shelf Expiration Date Model / Serial / Lot Lens 21.5 Mx60e - [id number] - [id number] Implanted:Qty: 1 on 08/14/2018 by Omer Hodges MD at OR [facility] Left: Eye [employer] 03/05/2021 [id number]-56.5 / [id number] / [id number] Lens 22.0 Mx60e - [id number] - [id number] Implanted:Qty: 1 on 08/30/2018 by Omer Hodges MD at OR [facility] Right: Eye [employer]OMB 06/05/2021 [id number] / [id number] / documented as of this encounter Visit Diagnoses Diagnosis Type 2 diabetes mellitus with hemoglobin A1c goal of less than 8.0% ([facility])- Primary documented in this encounter Advance Directives Documents on File Type Date Recorded Patient Pie Cutter Expl anation Advance Directives and Livin g Will 10/24/2018 LIVING WILL Power of Extension Work Director 10/24/2018 POWER OF A TTORNEY Latest Code [...] and were consensually agreed upon. Care Teams Preventive Maintenance Engineer Relationship Specialty Start Date End Date Tommy Saab MD [address] [place], [place] [id number] PCP - General Family Medicine 07/13/16 documented as of this encounter
--- OUTSIDE RECORDS SUMMARY | 2023-12-21 08:14 | External Medical Summary | Summary of Care ---
Author Name Unknown Organization [facility] Address [address] [place] [address] Phone [phone] Care Team Providers Care Kosher Dietary Service Supervisor Name Role Phone Tommy Saab MD Primary Care Provider [phone]- [phone] Reason for Visit * Reason Comments Dosage Adjustment In Person (Anticoag Cl inic) Diabetes Follow-Up Encounter Details Date Type Department Care Team Description 08/18/2023 Office Visit Pharmacy, [address] [address] [facility] [address] [place], [place] [id number] Type 2 diabetes mellitus with hemoglobin A1c goal of less than 8.0% ([facility])* Allergies No known active allergiesdocumented as of this encounter (statuses as of 08/18/2023) Medications Medication Sig Dispensed Refills Start Date End Date Status Calcium Carbonate-Vitami n D 500-125 MG-UNIT Oral Tablet Take 1 Tab by mouth 2 times a day. 1 Tab 0 12/29/19 17 Active coenzyme Q-10 100 MG Capsule Take 1 Capsule by mouth in the morning and 1 Capsule before bedtime. 1 Cap 0 12/29/19 17 Active fish oil concentrate (OMEGA-3) 1000 MG CAPS Take 1 Capsule by mouth in the morning and 1 Capsule before bedtime. 1 Cap 0 12/29/19 17 Active Probiotic Product (PROBIOTIC ADVANCED) CAPS Take 1 Cap by mouth once for 1 dose. 1 Cap 0 12/29/19 Active ONETOUCH DELICA LANCETS 33G MISC Use to test blood sugar up to 4 times daily dx e11.9 100 Each 5 12/10/19 19 Active CPAP every night at bedtime . 0 Active busPIRone HCl 10 MG Oral Tablet (Buspar) take 1 tablet by mouth three times a day 270 Tablet 3 02/07/20 Active metFORMIN HCl ER 500 MG Oral Tablet Extended Release 24 Hour (Glucophage XR) take 2 tablets by mouth twice a day 360 Tablet 02/07/20 Active Azelastine HCl 0.1 % Nasal Solution (Astelin) Administer 1 [place] into nostril in the morning and 1 [place] before bedtime. 30 mL 12 02/11/20 Active Additional Information Patient not taking.Reported on [...] in the morning. 0 Active Dexcom G7 SensorIndication s:Type 2 diabetes mellitus with hemoglobin A1c goal of less than 8.0% (HCC) Change sensor every 10 days 3 Each 04/25/20 Active Additional Information Patient not taking.Reported on 08/08/2023 Atorvastatin Calcium 20 MG Oral Tablet (Lipitor)Indicat ions:Type 2 diabetes mellitus with hemoglobin A1c goal of less than 8.0% (HCC),Dyslipidem ia, goal LDL below 70 Take 1 Tablet by mouth in the morning. 90 Tablet 05/01/20 Active Gabapentin 300 MG Oral Capsule (Neurontin) take 3 capsule by mouth at bedtime 90 Capsule 05/23/20 Active BD Pen Needle Guillermina U/F 32G X 4 MM (Insulin Pen Needle)Indicatio ns:Type 2 diabetes mellitus with hemoglobin A1c goal of less than 8.0% (HCC) Use with insulin 4 times daily 400 Each 3 05/31/20 Active OneTouch Verio In Vitro Strip TEST BLOOD SUGARS BEFORE MEALS AND AT BEDTIME 400 Strip 07/29/20 Active DayVigo 5 MG Oral Tablet (Lemborexant) Take 5 mg by mouth every night at bedtime. 30 Tablet 3 08/08/20 Active Ozempic (2 MG/DOSE) 8 MG/3ML Subcutaneous Solution Pen-injector (Semaglutide (2 MG/DOSE))Indicat ions:Type 2 diabetes mellitus with hemoglobin A1c goal of less than 8.0% (HCC) Inject 2 mg under the skin once weekly. Dose increase 3 mL 11 08/18/20 Active Insulin Aspart FlexPen 100 UNIT/ML Subcutaneous Solution Pen-injectorIndi cations:Type 2 diabetes mellitus with hemoglobin A1c goal of less than 8.0% (HCC) Inject 7 units with breakfast and supper and 5 units with snacks 30 mL 5 08/18/20 Active Insulin Glargine 100 UNIT/ML Subcutaneous Solution (Lantus)Indicati ons:Type 2 diabetes mellitus with hemoglobin A1c goal of less than 8.0% (HCC) Inject 28 Units under the skin at bedtime. 30 mL 3 08/18/20 Active Insulin Glargine 100 UNIT/ML Subcutaneous Solution (Lantus)Indicati ons:Type 2 diabetes mellitus with hemoglobin A1c goal of less than 8.0% (HCC) Inject 24 Units under the skin at bedtime. 1 Each 0 04/25/20 23 023 Discontinued(Re fill) Insulin Aspart FlexPen 100 UNIT/ML Subcutaneous Solution Pen-injectorIndi cations:Type 2 diabetes mellitus with hemoglobin A1c goal of less than 8.0% (HCC) Inject 5 units with each meal. MDD of 15 units daily 15 mL 5 06/07/20 23 023 Discontinued(Re fill) Ozempic (1 MG/DOSE) 4 MG/3ML Subcutaneous Solution Pen-injector (Semaglutide (1 MG/DOSE)) inject 1 milligram subcutaneously every week 3 mL 3 07/29/20 23 023 Discontinued documented as of this encounter (statuses as of 08/18/2023) Active Problems Problem Noted Date Dyslipidemia, goal LDL below 70 05/01/20 FERNANDO (obstructive sleep apnea) 05/06/2019 Chronic insomnia 05/06/2019 Type 2 diabetes mellitus with hemoglobin A1c goal of less than 8.0% 11/25/2018 Chronic pancreatitis 09/01/2016 Essential hypertension with goal blood p ressure less than 140/90 09/01/2016 documented as of this encounter (statuses as of 08/18/2023) Resolved Problems Problem Noted Date Resolved Date Reaction, situational, acute, to stress 05/06/20 19 09/29/2020 Leg length discrepancy 04/11/2018 9 Elevated glucose 09/01/2016 11/25/2018 documented as of this encounter (statuses as of 08/18/2023) Immunizations Name Administration Dates Next Due PPD 09/28/2016 Pneumococcal Polysaccharide PPV23 (Pneumovax) 02/04/2019 SEASONAL INFLUENZA, PF, 6 M & Above, IM , (FLULAVAL or FLUZONE) 08/15/2023,09/23/2022,08/11/2021,07/29,10/14/2019,07/18/2018 TDAP (age 10 and older)(Boostrix) 12/29/2016 [...] as of this encounter Progress Notes * Kyung [place], [facility] - 08/18/2023 2:15 PM EDT Medication Therapy Disease [facility] - Diabetes Management Progress Note Parris Gonzalez, identified by name and date of , is a 58 year old female being seen for diabetesmanagement/education. Patient presents for return diabetic visit. DIABETES: Current diabetic medications: Metformin ER 2000 mg every morning Ozempic 1 mg weekly- Monday's Lantus 24 units daily Novolog 5 units before each meal eGFR > 90 mL/min as of 02/08/23 Medication Injection Site: Abdomen Lifestyle: Diet: unchanged Glucose Review/SMBG: Readings obtained from patient documented BG logbook Pre am Post am Pre Lunch Post Lunch Pre pm Post pm HS 207 189 218 125 184 146 173 192 102 192 321 194 117 115 220 226 203 136 164 337 178 217 297 109 203 148 314 137 215 162 160 165 149 162 117 110 152 174 184 116 195 227 247 141 153 134 182 140 159 104 132 168 Average 190 #DIV/0! #DIV/0! #DIV/0! 164 #DIV/0! #DIV/0! Hi 321 0 0 0 337 0 0 Lo 102 0 0 [phone] 0 0 0 159.375 0 0 Range 219 0 0 0 233 0 0 Hypoglycemia: Does your blood sugar go below 70 mg/dL? No Hyperglycemia symptoms present: none Recent Labs Units 05/31/23 1219 02/08/23 1631 09/07/21 1525 HEMOGLOBIN A1C - [facility] % 10.6* 13.6* 7.0* Recent Labs Units 02/08/23 1631 09/07/21 1525 ESTIMATED GLOMERULAR FILTRATION RATE - [facility] mL/min >90 >90 CREATININE - [facility] mg/dL 0.6 0.7 HYPERTENSION: Patient on ACEi/ARB: no, not indicated per UACR as of 02/08/23 BP Readings from Last 3 Encounters: 08/08/23 120/70 05/01/23 100/62 04/15/23 102/62 Blood pressure at goal: yes HYPERLIPIDEMIA: Patient is taking moderate or high intensity statin: yes HEALTH MAINTENANCE REVIEW: Health Maintenance Due Topic Date Due HIV Screening Never done Hepatitis C Screening Never done Pneumococcal Vaccine: Pediatrics (0 to 5 Years) and At-Risk Patients (6 to 64 Years) (2 - PCV) 02/05/2020 DIABETES-EYE EXAM 02/16/2022 Diabetic Foot Exam 03/24/2022 Cervical Cancer Screening 05/06/2023 COVID-19 Vaccine ( season) 2023 Mammogram 07/22/2023 ASSESSMENT & PLAN: ICD-10-CM 1. Type 2 diabetes mellitus with hemoglobin A1c goal of less than 8.0% (HCC) E11.9 Considerations: - hx of pancreatitis- patient reports has not had pancreatitis since had gallbladder out- Patient has been on GLP-1 for years without any issues. She is aware of s/sx of pancreatitis and prefers to continue on GLP-1 - Patient likes to make small changes at a time; Trulicity ineffective in the past so changed back to Ozempic. BG Readings - Blood sugars uncontrolled. Patient continues to have issues with dexcom sensor staying on. Suggested she try to wear it on her upper buttocks area, and then also use Skin Organ Tuner- sample provided. No low blood sugars reported. New invitation sent to patient to share dexcom data with clinic. Medications - Reviewed current regimen, patient is adherent to regimen. Agreeable to increase ozempic and insulin doses to provide better BG control. Scripts sents. Could consider jardiance, but would use extreme caution considering her low blood pressure. Still unable to get her novolog dose in with lunch time due to being at work. Diet, Exercise, Lifestyle - patient is doing everything in her control to keep her blood sugars down . Discussed with patient that she should continue with these efforts, as it will only help in addition to medications. Patient is agreeable to SMBG with Dexcom G7 time(s) daily. Patient aware to contact clinic if any hypoglycemia before next visit. MEDICATION CHANGES: yes, see below; preferred pharmacy: [facility] Medications: Metformin ER 2000 mg every morning INC Ozempic 2 mg weekly- Monday's INC Lantus 28 units daily INC Novolog 7 units with breakfast and supper, and 5 units with snacks eGFR > 90 mL/min as of 02/08/23 HEALTH MAINTENANCE INTERVENTIONS: Labs: ordered A1c Immunizations: Up to Date Foot Exam: due Eye Exam: due Annual Wellness Visit: N/A FOLLOW UP: Return to clinic in 5 weeks 09/13/2023 Kyung Mansfield RPh Clinical Pharmacist - Customer Professional Medication Therapy Management [facility] 08/18/2023, 2:15 PM documented in this encounter Plan of Treatment Upcoming Encounters Date Type Specialty Care Team Description 08/21/2023 Imaging Radiology 09/13/2023 Office Visit [facility] [address] [place] [id number] 12/05/2023 Office Visit Sleep Disorders Natali Hadley, DO [address] [place] [address] Scheduled Orders Name Type Priority Associated Diagnoses Orde r Schedule HEMOGLOBIN A1C Lab Routine Type 2 diabetes mellitus with hemoglobin A1c goal of less than 8.0% (HCC) Expected: 08/25/2023 (Approximate), Expires: 08/18/2024 Scheduled Procedures Name Priority Associated Diagnoses Date/Ti [...] COVID-19 Vaccine ( season) 2023 03/04/2021, 02/11/2021 Mammogram 07/22/2023 07/22/2022, 0905/2021, 07/08/2020, Additional history exists HbA1c 12/01/2023 05/31/2023, 040 03/2023, 09/07/2021, Additional history exists Albumin/Creatinine Ratio [...] this encounter Medical Devices Implanted Type Area Manager Inpatient Device Identifier Shelf Expiration Date Model / Serial / Lot Lens 21.5 Mx60e - [id number] - [id number] Implanted:Qty: 1 on 08/14/2018 by Omer Hodges MD at OR [facility] Left: Eye [employer]OM[employer] 03/05/2021 [id number] / [id number] / [id number] Lens 22.0 Mx60e - [id number] - [id number] Implanted:Qty: 1 on 08/30/2018 by Omer Hodges MD at OR [facility] Right: Eye BAUSCH [employer] LOMB 06/05/2021 [id number] / [id number] / documented as of this encounter Visit Diagnoses Diagnosis Type 2 diabetes mellitus with hemoglobin A1c goal of less than 8.0% (HCC)- Primary documented in this encounter Advance Directives Documents on File Type Date Recorded Patient Emotional Support Teacher Expl anation Advance Directives and Livin g Will 10/24/2018 LIVING WILL Power of Directional Survey Drafter 10/24/2018 POWER OF A TTORNEY Latest Code [...] and were consensually agreed upon. Care Teams Kosher Dietary Service Supervisor Relationship Specialty Start Date End Date Tommy Saab MD [address] [place] [facility] [place] [id number] PCP - General Family Medicine 07/13/16 documented as of this encounter
--- OUTSIDE RECORDS SUMMARY | 2023-12-21 08:14 | External Medical Summary | Summary of Care ---
Author Name Unknown Organization [facility] Address [address] [place] [address] Phone [phone] Care Team Providers Care Weaving Professor Name Role Phone Tommy Saab MD Primary Care Provider +1- [phone] Encounter Details Date Type Department Care Team (Late st Contact Info) Description 09/13/2023 Telephone [facility] [address] [place] [address] Tommy Saab MD [address] [place] [address] Allergies No known active allergiesdocumented as of this encounter (statuses as of 09/13/2023) Medications Medication Sig Dispensed Refills Start Date [...] 0.1 % Nasal Solution (Astelin) Administer 1 [place] into nostril in the morning and 1 [place] before bedtime. 30 mL 12 02/10/2023 Active [...] hemoglobin A1c goal of less than 8.0% ([facility]) Inject 30 units under the skin once daily 30 mL 3 09/13/2023 Active Insulin Lispro (1 Unit Dial) 100 UNIT/ML Subcutaneous Solution Pen-injector (HumaLOG KwikPen)Indication s:Type 2 diabetes mellitus with hemoglobin A1c goal of less than 8.0% ([facility]) Inject 7 units with breakfast and supper, and 5 units with snacks 30 mL 3 09/13/2023 Active Insulin Aspart FlexPen 100 UNIT/ML Subcutaneous Solution Pen-injectorIndica tions:Type 2 diabetes mellitus with hemoglobin A1c goal of less than 8.0% ([facility]) Inject 7 units with breakfast and supper and 5 units with snacks 30 mL 5 08/18/2023 Discontinue d(End of Procedure) documented as of this encounter (statuses as of 09/13/2023) Active Problems Problem Noted Date Diagnosed Date Dyslipidemia, goal LDL below 70 05/01/2023 FERNANDO (obstructive sleep apnea) 05/06/2019 Chronic insomnia 05/06/2019 Type 2 diabetes mellitus wit h hemoglobin A1c goal of less than 8.0% 11/25/2018 Chronic pancreatitis 09/01/2016 Essential hypertension with goal blood pressure less than 140/90 09/01/2016 documented as of this encounter (statuses as of 09/13/2023) Resolved Problems Problem Noted Date Diagnosed Date Resolved Date Reaction, situational, acute, to stress 05/06/2019 09/29/2020 Leg length discrepancy 04/11/201811/25 Elevated glucose 09/01/2016 11/25/2018 documented as of this encounter (statuses as of 09/13/2023) Immunizations Name Administration Dates Next Due PPD [...] encounter Miscellaneous Notes * Telephone Encounter - Selena Washington LPN - 09/13/2023 3:17 PM EST On provider's desk * Telephone Encounter - Magda Conde - 09/13/2023 3:03 PM EST Paperwork was put in provider's mail bin on 09/13/23. * Telephone Encounter - Magda Conde - 09/13/2023 3:00 PM EST 09/13/23 Pt stopped by the administrative assistant front desk and dropped of paperwork from the [employer] for Medical Leave of Absence. When paperwork completed, please fax to [phone]. Pt does not need a copy of the paperwork. When paperwork is completed, it should also be sent to [facility] to be put in pts. Chart. documented in this encounter Plan of Treatment Upcoming Encounters Date Type Department Care Team ([facility] st Contact Info) Description 10/16/2023 3:00 PM EST Office Visit Pharmacy [facility] Leta Hidalgo [place] [address] [facility] [address] [facility] [place] [address] 11/10/2023 2:00 PM EST Office Visit Family [facility] [place] [address] [facility] [place] [phone] Arelis Emery PA-C [address] [facility] [address] 12/05/2023 1:20 PM EST Office Visit Sleep Disorders Ctr [facility] [address] [place] [phone] Natali Hadley DO [address] [place] [address] 08/22/2024 2:30 PM EDT Imaging Radiology [facility] 1st [facility] [address] [facility] [place] [address] Scheduled Procedures Name Priority Associated Diagnoses Date/Ti [...] Risk 3-dose series) 2023 HbA1c 12/01/2023 05/31/2023, 040 03/2023, 09/07/2021, Additional history exists Albumin/Creatinine Ratio 02/09/2024 023, 03/17/2021, 08/19/2019 B-12 02/09/2024 02/08/2023, 03/06, 08/19/2019 GFR 02/09/2024 02/08/2023, 110 12/2020, 03/17/2021, Additional history exists Depression Screening [...] this encounter Medical Devices Implanted Type Area Telephonic Rn Device Identifier Shelf Expiration Date Model / Serial / Lot Lens 21.5 Mx60e - [id number] - [id number] Implanted:Qty: 1 on 08/14/2018 by Omer Hodges MD at OR [facility] Left: Eye BAUSCH & LOMB 03/05/2021 [id number]-45.5 / [id number] / [id number] Lens 22.0 Mx60e - [id number] - [id number] Implanted:Qty: 1 on 08/30/2018 by Omer Hodges MD at OR [facility] Right: Eye BAUSCH & LOMB 06/05/2021 [id number]-70.0 / [id number] / documented as of this encounter Advance Directives Documents on File Type Date Recorded Patient Labor Economist Expl jame Advance Directives and Alek christianson Will 10/24/2018 LIVING WILL Power of Care Technician 10/24/2018 POWER OF A TTORNEY Latest [...] and were consensually agreed upon. Care Teams Weaving Professor Relationship Specialty Start Date End Date Tommy Saab MD [address] [facility] [place] [address] PCP - General Family Medicine 07/13/16 documented as of this encounter
--- OUTSIDE RECORDS SUMMARY | 2023-12-21 08:14 | External Medical Summary | Summary of Care ---
Author Name Unknown Organization [facility] Address [address] [place] [address] Phone [phone] Care Team Providers Care Director Of Labor Relations Name Role Phone Tommy Saab MD Primary Care Provider +1- [phone] Encounter Details Date Type Department Care Team (Late st Contact Info) Description 09/13/2023 Telephone [facility] [address] [place] [address] Tommy Saab MD [address] [place] [address] Allergies No known active allergiesdocumented [...] 0.1 % Nasal Solution (Astelin) Administer 1 [place] into nostril in the morning and 1 [place] before bedtime. 30 mL 12 02/10/2023 Active [...] A1c goal of less than 8.0% ([facility]) Inject 30 units under the skin once daily 30 mL 3 09/13/2023 Active Insulin Lispro (1 Unit Dial) 100 UNIT/ML Subcutaneous Solution Pen-injector (HumaLOG KwikPen)Indication s:Type 2 diabetes mellitus with hemoglobin A1c goal of less than 8.0% ([facility]) Inject 7 units with breakfast and supper, and 5 units with snacks 30 mL 3 09/13/2023 Active Insulin Aspart FlexPen 100 UNIT/ML Subcutaneous Solution Pen-injectorIndica tions:Type 2 diabetes mellitus with hemoglobin A1c goal of less than 8.0% ([facility]) Inject 7 units with breakfast and [...] PM EST 09/13/23 Pt stopped by the front office clerk and dropped of paperwork from the [employer] for Medical Leave of Absence. When paperwork completed, please fax to [phone]. Pt does not need a copy of the paperwork. When paperwork is completed, it should also be sent to [facility] to be put in pts. Chart. documented in this encounter Plan of Treatment Upcoming Encounters Date Type Department Care Team (Late st Contact Info) Description 10/16/2023 3:00 PM EST Office [facility] [place] [address] [facility] [address] [place] [facility] [address] [place] [facility] [place] [address] 11/10/2023 2:00 PM EST Office Visit Family Practice, [place] [address] [facility] [phone] Arelis Emery PA-C [address] [facility] [address] 12/05/2023 1:20 PM EST Office Visit Sleep Disorders Ctr [facility] [address] [place] [address] Natali Hadley DO [address] [place] [address] 08/22/2024 2:30 PM EDT Imaging Radiology [address] [place] [address] Scheduled Procedures Name Priority Associated Diagnoses Date/Ti [...] this encounter Medical Devices Implanted Type Area Medical Clinic Manager Device Identifier Shelf Expiration Date Model / Serial / Lot Lens 21.5 Mx60e - [id number] - [id number] Implanted:Qty: 1 on 08/14/2018 by Omer Hodges MD at OR [facility] Left: Eye BAUSCH & LOMB 03/05/2021 [id number]-72.5 / [id number] / [id number] Lens 22.0 Mx60e - [id number] - [id number] Implanted:Qty: 1 on 08/30/2018 by Omer Hodges MD at OR [facility] Right: Eye BAUSCH & LOMB 06/05/2021 [id number]-82.0 / [id number] / documented as of this encounter Advance Directives Documents on File Type Date Recorded Patient Pcb Designer Expl anation Advance Directives and Livin g Will 10/24/2018 LIVING WILL Power of Software Engineer Web Applications 10/24/2018 POWER OF A TTORNEY Latest Code [...] were consensually agreed upon. Care Teams Director Of Labor Relations Relationship Specialty Start Date End Date Tommy Saab MD [address] [place] [facility] [place] [address] PCP - General Family Medicine 07/13/16 documented as of this encounter
--- OUTSIDE RECORDS SUMMARY | 2023-12-21 08:14 | External Medical Summary | Summary of Care ---
Author Name Unknown Organization [facility] Address [address] [place] [address] Phone [phone] Care Team Providers Care Shoe Cutter Name Role Phone Tommy Saab MD Primary Care Provider +1- [phone] Encounter Details Date Type Department Care Team (Late st Contact Info) Description 04/24/2023 Population Health External Data Unspecified Department Allergies No known active allergiesdocumented as of this encounter (statuses as of 09/18/2023) Medications Medication Sig Dispensed Refills Start Date [...] 0.1 % Nasal Solution (Astelin) Administer 1 [place] into nostril in the morning and 1 [place] before bedtime. 30 mL 12 02/10/2023 Active [...] by mouth in the morning. 0 Active documented as of this encounter (statuses as of 09/18/2023) Active Problems Problem Noted Date Diagnosed Date Dyslipidemia, goal LDL below 70 05/01/2023 FERNANDO (obstructive sleep apnea) 05/06/2019 Chronic insomnia 05/06/2019 Type 2 diabetes mellitus wit h hemoglobin A1c goal of less than 8.0% 11/25/2018 Chronic pancreatitis 09/01/2016 Essential hypertension with goal blood pressure less than 140/90 09/01/2016 documented as of this encounter (statuses as of 09/18/2023) Resolved Problems Problem Noted Date Diagnosed Date Resolved Date Reaction, situational, acute, to stress 05/06/2019 09/29/2020 Leg length discrepancy 04/11/201811/25 Elevated glucose 09/01/2016 11/25/2018 documented as of this encounter (statuses as of 09/18/2023) Immunizations Name Administration Dates Next Due PPD [...] on file documented as of this encounter Plan of Treatment Upcoming Encounters Date Type Department Care Team (Late st Contact Info) Description 10/16/2023 3:00 PM EST Office Visit Pharmacy, [place] [address] [place] [address] [place] [address] [place] [address] 11/10/2023 2:00 PM EST Office Visit [facility], [place] [address] [facility] [phone] Arelis Emery PA-C [address] [place] [address] 12/05/2023 1:20 PM EST Office Visit Sleep Disorders Ctr [facility] [address] [facility] [place] [address] Natali Hadley DO [address] [place] [address] 08/22/2024 2:30 PM EDT Imaging Radiology [facility] 1st [facility] [address] [place] [address] Scheduled Procedures Name Priority Associated Diagnoses Date/Ti [...] this encounter Medical Devices Implanted Type Area Data Services Developer Device Identifier Shelf Expiration Date Model / Serial / Lot Lens 21.5 Mx60e - [id number] - [id number] Implanted:Qty: 1 on 08/14/2018 by Omer Hodges MD at OR [facility] Left: Eye BAUSCH & LOMB 03/05/2021 [id number]-42.5 / [id number] / [id number] Lens 22.0 Mx60e - [id number] - [id number] Implanted:Qty: 1 on 08/30/2018 by Omer Hodges MD at OR [facility] Right: Eye BAUSCH & LOMB 06/05/2021 AM30W-55.0 / [id number] / documented as of this encounter Advance Directives Documents on File Type Date Recorded Patient Operating Room Aide Expl anation Advance Directives and Livin g Will 10/24/2018 LIVING WILL Power of Release And Technical Records Clerk 10/24/2018 POWER OF A TTORNEY Latest Code [...] and were consensually agreed upon. Care Teams Shoe Cutter Relationship Specialty Start Date End Date Tommy Saab MD [address] [place] [address] PCP - General Family Medicine 07/13/16 documented as of this encounter
--- OUTSIDE RECORDS SUMMARY | 2023-12-21 08:14 | External Medical Summary | Summary of Care ---
Author Name Unknown Organization [facility] Address [address] [place] [address] Phone [phone] Care Team Providers Care Tennis Ball Coverer Hand Name Role Phone Tommy Saab MD Primary Care Provider +1- [phone] Encounter Details Date Type Department Care Team (Late st Contact Info) Description 09/19/2023 Telephone [facility] [address] [place] [address] Tommy Saab MD [address] [place] [address] Allergies No known active allergiesdocumented as of this encounter (statuses as of 10/20/2023) Medications Medication Sig Dispensed Refills Start Date [...] 0.1 % Nasal Solution (Astelin) Administer 1 [place] into nostril in the morning and 1 [place] before bedtime. 30 mL 12 02/10/2023 Active [...] Solostar 100 UNIT/ML Subcutaneous Solution Pen-injector (Basaglar Isaias)Indications :Type 2 diabetes mellitus with hemoglobin A1c goal of less than 8.0% ([facility]) Inject 30 units under the skin once daily 30 mL 3 09/13/2023 Active Insulin Lispro (1 Unit Dial) 100 UNIT/ML Subcutaneous Solution Pen-injector (HumaLOG KwikPen)Indications :Type 2 diabetes mellitus with hemoglobin A1c goal of less than 8.0% ([facility]) Inject 7 units with breakfast and supper, and 5 units with snacks 30 mL 3 09/13/2023 Active documented as of this encounter (statuses as of 10/20/2023) Active Problems Problem Noted Date Diagnosed Date Dyslipidemia, goal LDL below 70 05/01/2023 FERNANDO (obstructive sleep apnea) 05/06/2019 Chronic insomnia 05/06/2019 Type 2 diabetes mellitus wit h hemoglobin A1c goal of less than 8.0% 11/25/2018 Chronic pancreatitis 09/01/2016 Essential hypertension with goal blood pressure less than 140/90 09/01/2016 documented as of this encounter (statuses as of 10/20/2023) Resolved Problems Problem Noted Date Diagnosed Date Resolved Date Reaction, situational, acute, to stress 05/06/2019 09/29/2020 Leg length discrepancy 04/11/201811/25 Elevated glucose 09/01/2016 11/25/2018 documented as of this encounter (statuses as of 10/20/2023) Immunizations Name Administration Dates Next Due PPD [...] Description 11/10/2023 2:00 PM EST Office Visit [facility] [address] [facility] [phone] Arelis Emery PA-C [address] [facility] [place] [address] 12/05/2023 1:20 PM EST Office Visit Sleep Disorders Ctr [facility] [address] [facility] [place] [address] Natali Hadley DO [address] [place] [address] 08/22/2024 2:30 PM EDT Imaging Radiology [address] [place] [address] Scheduled Procedures Name Priority Associated Diagnoses Date/Ti [...] this encounter Medical Devices Implanted Type Area Cnc Laser Operator Device Identifier Shelf Expiration Date Model / Serial / Lot Lens 21.5 Mx60e - [id number] - [id number] Implanted:Qty: 1 on 08/14/2018 by Omer Hodges MD at OR [facility] Left: Eye BAUSCH & LOMB 03/05/2021 [id number]-99.5 / [id number] / [id number] Lens 22.0 Mx60e - [id number] - [id number] Implanted:Qty: 1 on 08/30/2018 by Omer Hodges MD at OR [facility] Right: Eye BAUSCH & LOMB 06/05/2021 NV00K-10.0 / [id number] / documented as of this encounter Advance Directives Documents on File Type Date Recorded Patient Household Refrigerator Mechanic Expl anation Advance Directives and Livin g Will 10/24/2018 LIVING WILL Power of Fundraising Sale Representative 10/24/2018 POWER OF A TTORNEY Latest Code [...] and were consensually agreed upon. Care Teams Tennis Ball Coverer Hand Relationship Specialty Start Date End Date Tommy Saab MD [address] [place], [place] [phone] PCP - General Family Medicine 07/13/16 documented as of this encounter
--- OUTSIDE RECORDS SUMMARY | 2023-12-21 08:14 | External Medical Summary | Summary of Care ---
Author Name Unknown Organization [facility] Address [address] [place] [address] Phone [phone] Care Team Providers Care Captain/Check Airman Name Role Phone Tommy Saab MD Primary Care Provider +1- [phone] Encounter Details Date Type Department Care Team (Late st Contact Info) Description 05/05/2023 Population Health External Data Unspecified Department Allergies [...] 0.1 % Nasal Solution (Astelin) Administer 1 [place] into nostril in the morning and 1 [place] before bedtime. 30 mL 12 02/10/2023 Active [...] the morning. 90 Tablet 3 05/01/2023 Active documented as of this encounter (statuses [...] 10/16/2023 3:00 PM EST Office Visit Pharmacy, [place] [address] [place] [address] [facility] [address] [place] [address] 11/10/2023 2:00 PM EST Office Visit Family Practice, [place] [address] [facility] [place] [phone] Arelis Emery PA-C [address] [place] [address] 12/05/2023 1:20 PM EST Office Visit Sleep Disorders Ctr [facility] [address] [facility] [place] [phone] Natali Hadley DO [address] [place] [address] 08/22/2024 2:30 PM EDT Imaging Radiology [address] [place] [address] Scheduled Procedures Name Priority Associated Diagnoses Date/Ti [...] Risk 3-dose series) 2023 HbA1c 12/01/2023 05/31/2023, 0403/2023, 09/07/2021, Additional history exists Albumin/Creatinine Ratio 02/09/2024 [...] this encounter Medical Devices Implanted Type Area Respiratory Therapy Technician Device Identifier Shelf Expiration Date Model / Serial / Lot Lens 21.5 Mx60e - [id number] - [id number] Implanted:Qty: 1 on 08/14/2018 by Omer Hodges MD at OR [facility] Left: Eye BAUSCH & LOMB 03/05/2021 [id number]-77.5 / [id number] / [id number] Lens 22.0 Mx60e - [id number] - [id number] Implanted:Qty: 1 on 08/30/2018 by Omer Hodges MD at OR [facility] Right: Eye BAUSCH & LOMB 06/05/2021 JN83Q-78.0 / [id number] / documented as of this encounter Advance Directives Documents on File Type Date Recorded Patient Dinkey Engine Firer/Fireman Expl anation Advance Directives and Livin g Will 10/24/2018 LIVING WILL Power of Microelectronics Assembler 10/24/2018 POWER OF A TTORNEY Latest Code [...] and were consensually agreed upon. Care Teams Captain/Check Airman Relationship Specialty Start Date End Date Tommy Saab MD [address] [place] [address] PCP - General Family Medicine 07/13/16 documented as of this encounter
--- OUTSIDE RECORDS SUMMARY | 2023-12-21 08:14 | External Medical Summary | Summary of Care ---
Author Name Unknown Organization [facility] Address [address] [place] [address] Phone [phone] Care Team Providers Care Wool Brusher Name Role Phone Tommy Saab MD Primary Care Provider +1- [phone] Encounter Details Date Type Department Care Team (Late st Contact Info) Description 09/13/2023 Telephone [facility] [address] [place] [address] Tommy Saab MD [address] [place] [address] Allergies No known active allergiesdocumented [...] 0.1 % Nasal Solution (Astelin) Administer 1 [place] into nostril in the morning and 1 [place] before bedtime. 30 mL 12 02/10/2023 Active [...] hemoglobin A1c goal of less than 8.0% ([facility]) Inject 30 units under the skin once daily 30 mL 3 09/13/2023 Active Insulin Lispro (1 Unit Dial) 100 UNIT/ML Subcutaneous Solution Pen-injector (HumaLOG KwikPen)Indication s:Type 2 diabetes mellitus with hemoglobin A1c goal of less than 8.0% ([facility]) Inject 7 units with breakfast and supper, and 5 units with snacks 30 mL 3 09/13/2023 Active Insulin Aspart FlexPen 100 UNIT/ML Subcutaneous Solution Pen-injectorIndica tions:Type 2 diabetes mellitus with hemoglobin A1c goal of less than 8.0% ([facility]) Inject 7 units with breakfast and supper [...] EST 09/13/23 Pt stopped by the front desk associate and dropped of paperwork from the [employer] for Medical Leave of Absence. When paperwork completed, please fax to [phone]. Pt does not need a copy of the paperwork. When paperwork is completed, it should also be sent to [facility] to be put in pts. Chart. documented in this encounter Plan of Treatment Upcoming Encounters Date Type Department Care Team ([facility] st Contact Info) Description 10/16/2023 3:00 PM EST Office Visit Pharmacy [place] [facility] Leta Hidalgo [place] [address] [facility] [address] [facility] [place] [address] 11/10/2023 2:00 PM EST Office Visit Family [facility] [place] [address] [facility] [place] [phone] Arelis Emery PA-C [address] [facility] [address] 12/05/2023 1:20 PM EST Office Visit Sleep Disorders Ctr [facility] [address] [place] [phone] Natali Hadley DO [address] [place] [address] 08/22/2024 2:30 PM EDT Imaging Radiology [facility] [facility] [address] [facility] [place] [address] Scheduled Procedures Name Priority Associated Diagnoses Date/Ti [...] this encounter Medical Devices Implanted Type Area Ip Paralegal Device Identifier Shelf Expiration Date Model / Serial / Lot Lens 21.5 Mx60e - [id number] - [id number] Implanted:Qty: 1 on 08/14/2018 by Omer Hodges MD at OR [facility] Left: Eye BAUSCH & LOMB 03/05/2021 [id number]-44.5 / [id number] / [id number] Lens 22.0 Mx60e - [id number] - [id number] Implanted:Qty: 1 on 08/30/2018 by Omer Hodges MD at OR [facility] Right: Eye BAUSCH & LOMB 06/05/2021 NT70U-16.0 / [id number] / documented as of this encounter Advance Directives Documents on File Type Date Recorded Patient Digital Pre Press Operator Expl jame Advance Directives and Alek christianson Will 10/24/2018 LIVING WILL Power of Business Planning Director 10/24/2018 POWER OF A TTORNEY Latest [...] and were consensually agreed upon. Care Teams Wool Brusher Relationship Specialty Start Date End Date Tommy Saab MD [address] [facility] [place] [address] PCP - General Family Medicine 07/13/16 documented as of this encounter
--- OUTSIDE RECORDS SUMMARY | 2023-12-21 08:14 | External Medical Summary | Summary of Care ---
Author Name Unknown Organization [facility] Address [address] [place] [address] Phone [phone] Care Team Providers Care Associate Entertainment Editor Name Role Phone Tommy Saab MD Primary Care Provider [phone]- [phone] Reason for Visit * Reason Onset Date Comments Appointment 07/31/2023 Encounter Details Date Type Department Care Team Description 07/31/2023 Telephone Pharmacy Call Center [address] [facility] [place] [address] [facility] [address] [place] [address] Appointment Allergies No known active allergiesdocumented as of this encounter (statuses as of 07/31/2023) Medications Medication Sig Dispensed Refills Start Date [...] 0.1 % Nasal Solution (Astelin) Administer 1 Mcintosh into nostril in the morning and 1 Mcintosh before bedtime. 30 mL 12 02/10/2023 Active [...] Active Atorvastatin Calcium 20 MG Oral Tablet (Lipitor)Indicatio [...] with insulin 4 times daily 400 Each 05/31/2023 Active Zolpidem Tartrate 5 MG Oral Tablet (Ambien) take 1 tablet by mouth at bedtime if needed for sleep 30 TO 60 MINUTES PRIOR TO SLEEP 30 Tablet 2 06/01/2023 Active Insulin Aspart FlexPen 100 UNIT/ML Subcutaneous Solution Pen-injectorIndica tions:Type 2 diabetes mellitus with hemoglobin A1c goal of less than 8.0% ([facility]) Inject 5 units with each meal. MDD of 15 units daily 15 mL 5 06/07/2023 Active OneTouch Verio In Vitro Strip TEST BLOOD SUGARS BEFORE MEALS AND AT BEDTIME 400 Strip 3 07/29/2023 Active Ozempic (1 MG/DOSE) 4 MG/3ML Subcutaneous Solution Pen-injector (Semaglutide (1 MG/DOSE)) inject 1 milligram subcutaneously every week 3 mL 3 07/29/2023 Active documented as of this encounter (statuses as of 07/31/2023) Active Problems Problem Noted Date Dyslipidemia, goal LDL below 70 05/01/20 FERNANDO (obstructive sleep apnea) 05/06/2019 Chronic insomnia 05/06/2019 Type 2 diabetes mellitus with hemoglobin A1c goal of less than 8.0% 11/25/2018 Chronic pancreatitis 09/01/2016 Essential hypertension with goal blood p ressure less than 140/90 09/01/2016 documented as of this encounter (statuses as of 07/31/2023) Resolved Problems Problem Noted Date Resolved Date Reaction, situational, acute, to stress 05/06/20 19 09/29/2020 Leg length discrepancy 04/11/2018 9 Elevated glucose 09/01/2016 11/25/2018 documented as of this encounter (statuses as of 07/31/2023) Immunizations Name Administration Dates Next Due PPD 09/28/2016 Pneumococcal Polysaccharide PPV23 (Pneumovax) 02/04/2019 Seasonal Influenza, PF, 6 mo ns & Above, IM , (Flulaval) 09/23/2022,08/11/2021,07/29/2020,10/14,07/18/2018 TDAP (age 10 and older)(Boostrix) 12/29/2016 [...] encounter Miscellaneous Notes * Telephone Encounter - TENZIN Campos - 07/31/2023 11:02 AM EDT Patient Phone Numbers Attempted to reach pt, no answer / no VM, to schedule [facility] appointment for DM management. Jobbrer message sent - no Clinic will follow up again in 2 week(s). [Attempt # 1] Thank you, Harper [place] Attendant [facility] ([facility] (Formerly Telepharmacy) 07/31/2023, 11:02 AM documented in this encounter Plan of Treatment Upcoming Encounters Date Type Specialty Care Team Description 08/08/2023 Office Visit Sleep Disorders Natali Hadley, DO [address] [place] [address] 08/14/2023 Pharmacy Pharmacy [facility] [address] [place] [id number] 08/21/2023 Imaging Radiology Scheduled Procedures Name Priority Associated Diagnoses Date/Ti me COLONOSCOPY FLEXIBLE PROXIMA L DIAGNOSTIC Recall Encounter for screening colonoscopy Health Maintenance Due Date Last Done Comments Hepatitis B (1 of 3 - 3-dose series) 1963 HIV Screening 1978 Hepatitis C Screening 1981 HPV/Co-Test 1993 Cologuard 2008 Fecal Occult Blood Test 2008 Sigmoidoscopy 2008 Pneumococcal Vaccine: Pediatrics (0 to 5 Years) and At-Risk Patients (6 to 64 Years) (2 - PCV) 02/05/2020 02/04/2019 COVID-19 Vaccine (3 - Pfizer series) 04/29/2021 03/04/2021, 02/11/2021 DIABETES-EYE EXAM 02/16/2022 02/16/2021 Diabetic Foot Exam 03/24/2022 03/24/2021, 02/04/2019 Cervical Cancer Screening 05/06/2023 Pap Smear 05/06/2023 05/06/2020, 12/08, 04/24/2002, Additional history exists Influenza Vaccine (FLU shot) (#1) 2023 09/23/2022, [...] this encounter Medical Devices Implanted Type Area Surveyor Rod Helper Device Identifier Shelf Expiration Date Model / Serial / Lot Lens 21.5 Mx60e - [id number] - [id number] Implanted:Qty: 1 on 08/14/2018 by Omer Hodges MD at OR [facility] Left: Eye [employer]CH [employer] LOMB 03/05/2021 [id number]-81.5 / [id number] / [id number] Lens 22.0 Mx60e - [id number] - [id number] Implanted:Qty: 1 on 08/30/2018 by Omer Hodges MD at OR [facility] Right: Eye BAUSCH & LOMB 06/05/2021 [id number]-44.0 / [id number] / documented as of this encounter Advance Directives Documents on File Type Date Recorded Patient Leasing Machine Tender Expl anation Advance Directives and Livin g Will 10/24/2018 LIVING WILL Power of Revenue Liaison 10/24/2018 POWER OF A TTORNEY Latest Code [...] and were consensually agreed upon. Care Teams Associate Entertainment Editor Relationship Specialty Start Date End Date Tommy Saab MD [address] [place] [address] PCP - General Family Medicine 07/13/16 documented as of this encounter
--- OUTSIDE RECORDS SUMMARY | 2023-12-21 08:14 | External Medical Summary | Summary of Care ---
Author Name Unknown Organization [facility] Address [address] [place] [address] Phone [phone] Care Team Providers Care Bullet Maker Name Role Phone Tommy Saab MD Primary Care Provider [phone]- [phone] Reason for Visit * Reason Comments Dosage Adjustment In Person (Anticoag Cl inic) Diabetes Follow-Up Encounter Details Date Type Department Care Team (Late st Contact Info) Description 09/13/2023 2:00 PM EST Office Visit Pharmacy, [address] [address] [facility] [address] [place] [address] Type 2 diabetes mellitus with hemoglobin A1c goal of less than 8.0% ([facility])* Allergies No known active allergiesdocumented as of this encounter (statuses as of 09/13/2023) Medications Medication Sig Dispensed Refills Start Date End Date Status Calcium Carbonate-Vitami n D 500-125 MG-UNIT Oral Tablet Take 1 Tab by mouth 2 times a day. 1 Tab 0 7 Active coenzyme Q-10 100 MG Capsule Take 1 Capsule by mouth in the morning and 1 Capsule before bedtime. 1 Cap 0 7 Active fish oil concentrate (OMEGA-3) 1000 MG CAPS Take 1 Capsule by mouth in the morning and 1 Capsule before bedtime. 1 Cap 0 7 Active Probiotic Product (PROBIOTIC ADVANCED) CAPS Take 1 Cap by mouth once for 1 dose. 1 Cap 0 7 Active ONETOUCH DELICA LANCETS 33G MISC Use to test blood sugar up to 4 times daily dx e11.9 100 Each 5 9 Active CPAP every night at bedtime . 0 Active busPIRone HCl 10 MG Oral Tablet (Buspar) take 1 tablet by mouth three times a day 270 Tablet 3 3 Active metFORMIN HCl ER 500 MG Oral Tablet Extended Release 24 Hour (Glucophage XR) take 2 tablets by mouth twice a day 360 Tablet 3 3 Active Azelastine HCl 0.1 % Nasal Solution (Astelin) Administer 1 Harmony into nostril in the morning and 1 Harmony before bedtime. 30 mL 12 3 Active Additional Information Patient not taking.Reported on [...] sensor every 10 days 3 Each 3 3 Active Additional Information Patient not taking.Reported on 08/08/2023 Atorvastatin Calcium 20 MG Oral Tablet (Lipitor)Indicat ions:Type 2 diabetes mellitus with hemoglobin A1c goal of less than 8.0% (HCC),Dyslipidem ia, goal LDL below 70 Take 1 Tablet by mouth in the morning. 90 Tablet 3 3 Active Gabapentin 300 MG Oral Capsule (Neurontin) take 3 capsule by mouth at bedtime 90 Capsule 3 3 Active BD Pen Needle Guillermina U/F 32G X 4 MM (Insulin Pen Needle)Indicatio ns:Type 2 diabetes mellitus with hemoglobin A1c goal of less than 8.0% (HCC) Use with insulin 4 times daily 400 Each 3 3 Active OneTouch Verio In Vitro Strip TEST BLOOD SUGARS BEFORE MEALS AND AT BEDTIME 400 Strip 3 3 Active DayVigo 5 MG Oral Tablet (Lemborexant) Take 5 mg by mouth every night at bedtime. 30 Tablet 3 3 Active Insulin Glargine Solostar 100 UNIT/ML Subcutaneous Solution Pen-injector (Basaglar KwikPen)Indicati ons:Type 2 diabetes mellitus with hemoglobin A1c goal of less than 8.0% (HCC) Inject 30 units under the skin once daily 30 mL 3 3 Active Insulin Lispro (1 Unit Dial) 100 UNIT/ML Subcutaneous Solution Pen-injector (HumaLOG KwikPen)Indicati ons:Type 2 diabetes mellitus with hemoglobin A1c goal of less than 8.0% (HCC) Inject 7 units with breakfast and supper, and 5 units with snacks 30 mL 3 3 Active Ozempic (2 MG/DOSE) 8 MG/3ML Subcutaneous Solution Pen-injector (Semaglutide (2 MG/DOSE))Indicat ions:Type 2 diabetes mellitus with hemoglobin A1c goal of less than 8.0% (HCC) Inject 2 mg under the skin once weekly. Dose increase 3 mL 11 3 09/13/20 23 Discontinued(End of Procedure) Insulin Aspart FlexPen 100 UNIT/ML Subcutaneous Solution Pen-injectorIndi cations:Type 2 diabetes mellitus with hemoglobin A1c goal of less than 8.0% (HCC) Inject 7 units with breakfast and supper and 5 units with snacks 30 mL 5 3 09/13/20 23 Discontinued(End of Procedure) Insulin Glargine 100 UNIT/ML Subcutaneous Solution (Lantus)Indicati ons:Type 2 diabetes mellitus with hemoglobin A1c goal of less than 8.0% (HCC) Inject 28 Units under the skin at bedtime. 30 mL 3 3 09/13/20 23 Discontinued documented as of this encounter (statuses [...] this encounter Progress Notes * Kyung [place], [facility] - 09/13/2023 2:07 PM EST Patient does not currently have active insurance- no charging this visit Medication Therapy Disease Management Clinic - Diabetes Management Progress Note Parris Gonzalez, identified by name and date of , is a 58 year old female being seen for diabetesmanagement/education. Patient presents for return diabetic visit. DIABETES: Current diabetic medications: Metformin ER 2000 mg every morning INC Ozempic 2 mg weekly- Monday's INC Lantus 28 units daily INC Novolog 7 units with breakfast and supper, and 5 units with snacks eGFR > 90 mL/min as of 4/5/23 Medication Injection Site: Abdomen Lifestyle: Diet: unchanged Glucose Review/SMBG: Readings obtained from patient documented BG logbook Pre am Post am Pre Lunch Post Lunch Pre pm Post pm HS 255 123 152 157 81 239 205 112 106 109 164 108 122 178 142 235 230 152 106 189 115 94 112 285 148 117 153 164 304 122 Average 171 #DIV/0! #DIV/0! #DIV/0! 149 #DIV/0! 152 Hi 285 0 0 0 304 0 152 Lo 94 0 0 [address] 167[address]9167 0 0 0 142.154 0 152 Range 191 0 0 0 223 0 0 Hypoglycemia: Does your blood sugar go below 70 mg/dL? Yes, patient had an instance of severe hypoglycemia in which local EMT was called. Patient unable to discern how her blood sugar got so low- states that therewas nothing out of the ordinary that day Hyperglycemia symptoms present: none Recent Labs Units 05/31/23 1219 02/08/23 1631 HEMOGLOBIN A1C - [facility] % 10.6* 13.6* Recent Labs Units 02/08/23 1631 ESTIMATED GLOMERULAR FILTRATION RATE - [facility] mL/min >90 CREATININE - [facility] mg/dL 0.6 HYPERTENSION: Patient on ACEi/ARB: no, not indicated [...] to 64 Years) (2 - PCV) 02/05/2020 Diabetic Eye Exam 02/16/2022 Diabetic Foot Exam 03/24/2022 Cervical Cancer Screening 05/06/2023 COVID-19 Vaccine ( - 2022- season) 2023 Hepatitis B (1 of 3 - Risk 3-dose series) Never done ASSESSMENT & PLAN: ICD-10-CM 1. Type 2 diabetes mellitus with hemoglobin A1c goal of less than 8.0% (HCC) E11.9 Considerations: - hx of pancreatitis- patient reports has not had pancreatitis since had gallbladder out- Patient has been on GLP-1 for years without any issues. She is aware of s/sx of pancreatitis and prefers to continue on GLP-1 - Ozempic on backburner currently due to insurance - using coupons with Y[employer] made insulins BG Readings - Blood sugars uncontrolled. Improved averages overall. Patient continues to have issues and anxiety about dexcom falling off. She will continue with fingersticks for now- aware that [facility] may have cheapest option for blood sugar testing supplies. In regards to the instance of hypoglycemia, patient and MTM are unable to determine what might havecaused it. Patient notes that she was eating her usual amount that day, did not take a double dose of insulin, and was not more active than she is any other day. She is aware to contact MTM if this occurs again before next visit. We also reviewed the impact that stress can have on her blood sugars,as she had an instance of 397 after a stressful interaction with her spouse. Denies any symptoms ofhyperglycemia. She is due for an A1c, but currently does not have any active insurance, and so will not order it at this time. Medications - Reviewed current regimen, patient is adherent to regimen. She took her last dose of ozempic, and will be out until she is active again with insurance. Printed out coupons for patient to get yrn insulin for $35/month for basaglar and humalog. Made patient aware the [facility]. Will slightly increase basal insulin, as her AM sugars remain elevated above goal. Diet, Exercise, Lifestyle - No significant lifestyle changes since last visit. Discussed with patient. Patient is agreeable to SMBG 2-3 time(s) daily. Patient aware to contact clinic if any hypoglycemia before next visit. MEDICATION CHANGES: yes, see below; preferred pharmacy: [facility] Medications: Metformin ER 2000 mg every morning STOP Ozempic 2 mg weekly- Monday's due to cost INC Basaglar 30 units daily Humalog 7 units with breakfast and supper, and 5 units with snacks eGFR > 90 mL/min as of 02/08/23 HEALTH MAINTENANCE INTERVENTIONS: Labs: due for a1c Immunizations: due for pneumo Foot Exam: due Eye Exam: due Annual Wellness Visit: N/A FOLLOW UP: Return to clinic in 6 weeks 10/16/2023 Kyung Mansfield [facility] Clinical Pharmacist - Medical Office Secretary Medication Therapy Management Clinic 09/13/2023, 2:07 PM documented in this encounter Plan of Treatment Upcoming Encounters Date Type Department Care Team (Late st Contact Info) Description 10/16/2023 3:00 PM EST [facility] [place] [address] [facility] [address] [place] [address] [facility] [place] [address] 11/10/2023 2:00 PM EST Office Visit Family Practice, [place] [address] [facility] [phone] Arelis Emery [facility]-C [address] [facility] [address] 12/05/2023 1:20 PM EST Office Visit Sleep Disorders Ctr [facility] [address] [facility] [place] [address] Natali Hadley DO [address] [place] [address] 08/22/2024 2:30 PM EDT Imaging Radiology [address] [facility] [place] [address] Scheduled Procedures Name Priority Associated Diagnoses Date/Ti [...] this encounter Medical Devices Implanted Type Area Electrolysis Engineer Device Identifier Shelf Expiration Date Model / Serial / Lot Lens 21.5 Mx60e - [id number] - [id number] Implanted:Qty: 1 on 08/14/2018 by Omer Hodges MD at OR [facility] Left: Eye [employer] LOMB 03/05/2021 [id number] / [id number] / [id number] Lens 22.0 Mx60e - [id number] - [id number] Implanted:Qty: 1 on 08/30/2018 by Omer Hodges MD at OR [facility] Right: Eye BAUSCH & LOMB 06/05/2021 [id number]-74.0 / [id number] / documented as of this encounter Visit Diagnoses Diagnosis Type 2 diabetes mellitus with hemoglobin A1c goal of less than 8.0% ([facility])- Primary documented in this encounter Advance Directives Documents on File Type Date Recorded Patient Belt Sander Expl anation Advance Directives and Livin g Will 10/24/2018 LIVING WILL Power of Folder Machine Adjuster 10/24/2018 POWER OF A TTORNEY Latest Code [...] and were consensually agreed upon. Care Teams Bullet Maker Relationship Specialty Start Date End Date Tommy Saab MD [address] [place] [address] PCP - General Family Medicine 07/13/16 documented as of this encounter
--- OUTSIDE RECORDS SUMMARY | 2023-12-21 08:14 | External Medical Summary | Summary of Care ---
Author Name Unknown Organization [facility] Address [address] [place] [address] Phone [phone] Care Team Providers Care Ore Roaster Name Role Phone Tommy Saab MD Primary Care Provider [phone] Reason for Visit * Reason Onset Date Comments Follow Up Return FERNANDO. CPAP . Medication Administration 08/08/2023 Flu an d/or Pneumo Inj Medication Administration 08/15/2023 Flu an d/or Pneumo Inj Encounter Details Date Type Department Care Team Description 08/08/2023 Office Visit Sleep Disorders Ctr [facility] [address] [place] [phone] Natali Hadley DO [address] [place] [address] Need for prophylactic vaccination and inoculation against influenza*; FERNANDO (obstructive sleep apnea); Insomnia, unspecified type; Nocturnal hypoxemia; Inadequate sleep hygiene Allergies No known active allergiesdocumented as of this encounter (statuses as of 08/15/2023) Medications Medication Sig Dispensed Refills Start Date [...] 0.1 % Nasal Solution (Astelin) Administer 1 [place] into nostril in the morning and 1 [place] before bedtime. 30 mL 12 02/10/2023 Active [...] Active Insulin Glargine 100 UNIT/ML Subcutaneous Solution (Lantus)Indicatio ns:Type 2 diabetes mellitus with hemoglobin A1c goal of less than 8.0% (HCC) Inject 24 Units under the skin at bedtime. 1 Each 0 04/25/2023 Active Dexcom G7 SensorIndications :Type 2 diabetes mellitus with hemoglobin A1c goal of less than 8.0% (HCC) Change sensor every 10 days 3 Each 3 04/25/2023 Active Additional Information Patient not taking.Reported on 08/08/2023 Atorvastatin Calcium 20 MG Oral Tablet (Lipitor)Indicati [...] Insulin Aspart FlexPen 100 UNIT/ML Subcutaneous Solution Pen-injectorIndic ations:Type 2 diabetes mellitus with hemoglobin A1c goal [...] at bedtime. 30 Tablet 3 08/08/2023 Active Zolpidem Tartrate 5 MG Oral Tablet (Ambien) take 1 tablet by mouth at bedtime if needed for sleep 30 TO 60 MINUTES PRIOR TO SLEEP 30 Tablet 2 06/01/2023 08/08/20 23 Discontinu ed(Medicat ion/Dose Changed) documented as of this encounter (statuses as of 08/15/2023) Active Problems Problem Noted Date Dyslipidemia, goal LDL below 70 05/01/20 23 FERNANDO (obstructive sleep apnea) 05/06/2019 Chronic insomnia 05/06/2019 Type 2 diabetes mellitus with hemoglobin A1c goal of less than 8.0% 11/25/2018 Chronic pancreatitis 09/01/2016 Essential hypertension with goal blood p ressure less than 140/90 09/01/2016 documented as of this encounter (statuses as of 08/15/2023) Resolved Problems Problem Noted Date Resolved Date Reaction, situational, acute, to stress 05/06/20 19 09/29/2020 Leg length discrepancy 04/11/2018 9 Elevated glucose 09/01/2016 11/25/2018 documented as of this encounter (statuses as of 08/15/2023) Immunizations Name Administration Dates Next Due PPD [...] Sign Reading Time Taken Comments Blood Pressure 120/70 08/08/2023 1:51 PM EDT Pulse 82 08/08/2023 1:51 PM EDT Temperature 35.8 C (96.4 F) 08/08/2023 1:51 PM ED T Respiratory Rate 16 08/08/2023 1:51 PM EDT Oxygen Saturation 98% 08/08/2023 1:51 PM EDT Inhaled Oxygen Concentration - - Weight 77.2 kg (170 lb 3.1 oz) 08/08/2023 1:51 P M EDT Height 171.5 cm (5' 7.5") 08/08/2023 1:51 PM EDT Body Mass Index 26.26 08/08/2023 1:51 PM EDT documented in this encounter Patient Instructions * Patient Instructions* Natali Hadley, DO - 08/08/2023 2:00 PM EDT When you get the new sleep medication, don't take it with Ambien. For one week, take 1/2 tablet of Ambien then stop. Once you are done with the week of 2.5mg of Ambien, start your new medication and stop the Ambien. If you search in Google Scholar, you will find many articles explaining the dangers of zolpidem (Ambien); however, they often use the abbreviation of non- BzRAs to refer to the type of medication thatAmbien is (AKA Z-drugs). I will give you some salient excerpts from one such article. Review of Safety and Efficacy of Sleep Medicines in Older Adults Andra Saul PharmD, BCPS, CGP, Devin Killian PharmD, Maame Martin PharmD, Savana Spivey PharmD, Jonna Kirk PharmD, Monika Mei PharmD, BCACP and Savana Ramsay PharmD, BCPS [employer], 2016-09-06, Volume 38, Issue 11, Pages 2662-4650, Copyright 2016 "The future direction of insomnia treatment should have an emphasis on nonpharmacologic interventions, treating comorbid conditions, and focusing therapy on using benzodiazepines and non-BzRAs as last resorts." "Non-BzRAs are not benign agents. Evidence of harm according to observational studies has linked these medications with infrequent but serious adverse effects, including dementia, delirium, sleepwalking, serious injury, fractures, and increased cancer risk (zolpidem)." "The [place] [employer] 2015 Updated Beers Criteria for Potentially Inappropriate Medication Use in Older Adults strongly recommends avoiding non- BzRAs in elderly patients without consideration for duration of use due to their minimal efficacy in treating insomnia but significant risk for possible adverse effects." - The Beers Criteria speaks to the safety of medication used in the population over 65 yeas of age "The most frequent adverse events documented in postmarketing studies are headache, dizziness, drowsiness, nausea, and vomiting. 92 As long-term experience with zolpidem accumulated, more adverse effects were identified. There have been case reports of anterograde amnesia, hallucinations, and deliri um, along with unusual nighttime behaviors such as sleep-eating, sleep-sex, and sleep-driving." "Other potentially serious adverse effects associated with zolpidem in the older adult include balance impairment, memory impairment, driving impairment/motor vehicle crashes, increased risk of fracture, and higher risk of major injury requiring hospitalization." documented in this encounter Progress Notes * Samreen Paz LPN - 08/08/2023 1:55 PM EDT PRE - ADMINISTRATION DOCUMENTATION Are you experiencing any cold symptoms or fever? No Have you had Guillain-Huntley Syndrome (an illness that causes paralysis) within the last 6 weeks? No Have you had the flu shot in the past? YES Have you ever had a reaction to the flu shot? No Samreen Paz LPN, 08/08/2023 1:55 PM Immunization Administration Documentation Time Out Procedure Performed: Yes Patient Identified (Ask Name/Date of ): Yes Does the patient have a fever greater than 101 degrees today? No Patient allergic to latex? No VFC Stock: No Immunization(s) verified: Yes, Immunization Name: Flu, VIS Sheet(s) given: Yes Verified Side and Site: Yes Verified Shot(s) with Parent(s)/Patient: Yes * Natali Hadley DO - 08/08/2023 1:54 PM EDT Sleep Medicine Follow-Up Clinic Note HISTORY: Ms. Parris Gonzalez is a 57 year old female in clinic today for follow up of Obstructive Sleep Apnea, Nocturnal Hypoxemia, and chronic insomnia. Since Ms. Roper was last seen, she moved out of her home where her lives to her own apartment. She is pleased with this change overall. Just recently, she got a bed but has previously been sleeping in her chair without her PAP. She has had a change in her work schedule which makes keepinga regular sleep schedule difficult. In general, she's been taking her gabapentin and Ambien around [place] and going to sleep around 3-4 AM. Friend Sleepiness Scale Question 08/08/2023 1:55 PM EDT - Filed by Samreen Paz LPN What is the chance you will doze off in the following situation? Sitting and reading No chance of dozing Watching TV Moderate chance of dozing Sitting inactive in a [...] of dozing Score (range: 0 - 24) 3 Home Sleep Apnea Test (HSAT) 12/04/18: CHANTELLE 5.3 O2 Stan 84 % <89% O2 5.6 mins Insomnia Severity Index: 14.5 Attempted treatments: Melatonin 10 ER - has not noted an improvement (has been on it for years) Gabapentin 600mg qhs* - works to get her 5 hours of good sleep Doxepin 25mg - 1 week without improvement Remeron - 1 week without improvement Temazepam - no improvement Trazodone 100mg - no improvement Belsomra 10mg - no improvement Lunesta 3mg Amitriptyline 25mg Ambien 5mg* - improvement but sleep maintenance in the latter part of sleep was an issue Ambien 6.25mg - ineffective CBT-I - not yet trialed because of connection issues * Currently using PAP Compliance: Report date: 10/07/22 to 10/28/22 % total days used: 43% % days used > 4 hours: 10% Average hours a day: 2 hrs 16 mins Large leak: 42 sec AHI: 5.3/hr 90% pressure: 9.7 cmH20 Equipment: DME Provider is [employer] [id number] Sleep Schedule: Work nights: Bedtime Varies depending on work Awake Time/Alarm Varies depending on work Naps No Off days: Bedtime [place] meds Time to fall asleep 3-4 AM Awake Time/Alarm 7:30 AM Naps No Patient Active Problem List Diagnosis Code Chronic pancreatitis (HCC) K86.1 Essential hypertension with goal blood pressure less than 140/90 I10 Type 2 diabetes mellitus with hemoglobin A1c goal of less than 8.0% (HCC) E11.9 FERNANDO (obstructive sleep apnea) G47.33 Chronic insomnia F51.04 Dyslipidemia, goal LDL below 70 E78.5 Outpatient Medications Marked as Taking for the 08/08/23 encounter (Office Visit) with Natali Hadley, DO Medication Sig OneTouch Verio In Vitro Strip TEST BLOOD SUGARS BEFORE MEALS AND AT BEDTIME Ozempic (1 MG/DOSE) 4 MG/3ML Subcutaneous Solution Pen-injector (Semaglutide (1 MG/DOSE)) inject 1 milligram subcutaneously every week Insulin Aspart FlexPen 100 UNIT/ML Subcutaneous Solution Pen-injector Inject 5 units with each meal. MDD of 15 units daily Zolpidem Tartrate 5 MG Oral Tablet (Ambien) take 1 tablet by mouth at bedtime if needed for sleep 30 TO 60 MINUTES PRIOR TO SLEEP BD Pen Needle Guillermina U/F 32G X 4 MM (Insulin Pen Needle) Use with insulin 4 times daily Gabapentin 300 MG Oral Capsule (Neurontin) take 3 capsule by mouth at bedtime Atorvastatin Calcium 20 MG Oral Tablet (Lipitor) Take 1 Tablet by mouth in the morning. Insulin Glargine 100 UNIT/ML Subcutaneous Solution (Lantus) Inject 24 Units under the skin at bedtime. Loratadine 10 MG Oral Tablet (Claritin) Take 1 Tablet by mouth in the morning. Thiamine HCl 100 MG Oral Tablet (vitamin B-1) Take 1 Tablet by mouth in the morning. busPIRone HCl 10 MG Oral Tablet (Buspar) take 1 tablet by mouth three times a day metFORMIN HCl ER 500 MG Oral Tablet Extended Release 24 Hour (Glucophage XR) take 2 tablets by mouth twice a day CPAP every night at bedtime . ONETOUCH DELICA LANCETS 33G MISC Use to [...] once for 1 dose. PHYSICAL EXAM: BP 120/70 | Pulse 82 | Temp 35.8 C (96.4 F) (Tympanic) | Resp 16 | Ht 1.715 m (5' 7.5") | Wt 77.2 kg (170 lb 3.1 oz) | SpO2 98% | BMI 26.26 kg/m | BSA 1.92 m Constitutional: Alert, oriented in no acute distress Skin: no markings on face where mask fits Chest: Normal respiratory effort at rest Neuro: Normal speech and comprehension Psych: Appropriate mood and affect ASSESSMENT/PLAN: Obstructive Sleep Apnea Nocturnal Hypoxemia Chronic insomnia with suboptimal sleep hygiene Encouraged continued use of PAP every night, all night and for naps. If sleeping more in chair, move PAP to chair side Continue PAP at current setting until current DL can be reviewed (pt to drop off memory card) Work on keeping a more regular sleep schedule. Will write letter to employer about keeping regular work shifts Try DayVigo 5mg qhs. Will increase in future if insufficient improvement but no unwanted side effects Taper off Ambien by taking 1/2 pill for 1 week. Do not take Ambien and DayVigo together. Patient understands medication transition plan. Recommended routine cleaning and change of supplies as needed. Even a mild to moderate weight loss should result in significant improvement in the patients nocturnal respiratory events. Exercise should be undertaken daily, with respect given to any orthopedic limitations. Physical therapy or physical medicine consultation may be warranted. Strenuous exercise, which activates the sympathetic nervous [...] at a more steady state with life transitions. Follow-up with Sleep Medicine in 3 months. Natali Hadley DO I spent a total of 30-39 minutes (exact time 39 mins) on the date of service in preparation, delivery, and documentation of the care provided to Parris Gonzalez excluding any time spent in the performance of separately billed services. documented in this encounter Plan of Treatment Upcoming Encounters Date Type Specialty Care Team Description 08/18/2023 Office Visit Pharmacy [facility] [address] [facility] [place] [address] 08/21/2023 Imaging Radiology 12/05/2023 Office Visit Sleep Disorders Natali Hadley DO [address] [place] [address] Scheduled Procedures Name Priority Associated Diagnoses Date/Ti [...] season) 2023 03/04/2021, 02/11/2021 Mammogram 07/22/2023 07/22/2022, 09/0 05/2021, 07/08/2020, Additional history exists HbA1c 12/01/2023 05/31/2023, 04/0 03/2023, 09/07/2021, Additional history exists Albumin/Creatinine Ratio 02/09/2024 023, 03/17/2021, 08/19/2019 B-12 02/09/2024 02/08/2023, 1 12/2020, 08/19/2019 GFR 02/09/2024 02/08/2023, 11/0 12/2020, 03/17/2021, [...] this encounter Medical Devices Implanted Type Area Vending Machine Filler Device Identifier Shelf Expiration Date Model / Serial / Lot Lens 21.5 Mx60e - [id number] - [id number] Implanted:Qty: 1 on 08/14/2018 by Omer Hodges MD at OR [facility] Left: Eye [employer] 03/05/2021 [id number]-60.5 / [id number] / [id number] Lens 22.0 Mx60e - [id number] - [id number] Implanted:Qty: 1 on 08/30/2018 by Omer Hodges MD at OR [facility] Right: Eye [employer]OM[employer] 06/05/2021 [id number]-81.0 / [id number] / documented as of this encounter Visit Diagnoses Diagnosis Need for prophylactic vaccination and inoculation against influenza- Primary FERNANDO (obstructive sleep apnea) Obstructive sleep apnea (adult) (pediatric) Insomnia, unspecified type Nocturnal hypoxemia Hypoxemia Inadequate sleep hygiene Other specific disorder of sleep of nonorganic origin documented in this encounter Advance Directives Documents on File Type Date Recorded Patient Extruding Press Adjuster Expl anation Advance Directives and Livin g Will 10/24/2018 LIVING WILL Power of Recreation Program Specialist 10/24/2018 POWER OF A TTORNEY Latest Code [...] and were consensually agreed upon. Care Teams Ore Roaster Relationship Specialty Start Date End Date Tommy Saab MD [facility] [place] [address] PCP - General Family Medicine 07/13/16 documented as of this encounter
--- OUTSIDE RECORDS SUMMARY | 2023-12-21 08:14 | External Medical Summary | Summary of Care ---
Author Name Unknown Organization [facility] Address [address] [place] [address] Phone [phone] Care Team Providers Care Turn Supervisor Name Role Phone Tommy Saab MD Primary Care Provider [phone]- [phone] Reason for Visit * Reason Onset Date Comments Advice 09/06/2023 Encounter Details Date Type Department Care Team (Late st Contact Info) Description 09/06/2023 Telephone [facility] [address] [place] [address] Tommy Saab MD [address] [place] [address] Advice Allergies No known active allergiesdocumented as of this encounter (statuses as of 09/11/2023) Medications Medication Sig Dispensed Refills Start Date [...] 0.1 % Nasal Solution (Astelin) Administer 1 [place] into nostril in the morning and 1 [place] before bedtime. 30 mL 12 02/10/2023 Active [...] at bedtime. 30 Tablet 3 08/08/2023 Active Ozempic (2 MG/DOSE) 8 MG/3ML Subcutaneous Solution Pen-injector (Semaglutide (2 MG/DOSE))Indication s:Type 2 diabetes mellitus with hemoglobin A1c goal of less than 8.0% ([facility]) Inject 2 mg under the skin once weekly. Dose increase 3 mL 11 08/18/2023 Active Insulin Aspart FlexPen 100 UNIT/ML Subcutaneous Solution Pen-injectorIndicat ions:Type 2 diabetes mellitus with hemoglobin A1c goal of less than 8.0% ([facility]) Inject 7 units with breakfast and supper and 5 units with snacks 30 mL 5 08/18/2023 Active Insulin Glargine 100 UNIT/ML Subcutaneous Solution (Lantus)Indications :Type 2 diabetes mellitus with hemoglobin A1c goal of less than 8.0% ([facility]) Inject 28 Units under the skin at bedtime. 30 mL 3 08/18/2023 Active documented as of this encounter (statuses as of 09/11/2023) Active Problems Problem Noted Date Diagnosed Date Dyslipidemia, goal LDL below 70 05/01/2023 FERNANDO (obstructive sleep apnea) 05/06/2019 Chronic insomnia 05/06/2019 Type 2 diabetes mellitus wit h hemoglobin A1c goal of less than 8.0% 11/25/2018 Chronic pancreatitis 09/01/2016 Essential hypertension with goal blood pressure less than 140/90 09/01/2016 documented as of this encounter (statuses as of 09/11/2023) Resolved Problems Problem Noted Date Diagnosed Date Resolved Date Reaction, situational, acute, to stress 05/06/2019 09/29/2020 Leg length discrepancy 04/11/201811/25 Elevated glucose 09/01/2016 11/25/2018 documented as of this encounter (statuses as of 09/11/2023) Immunizations Name Administration Dates Next Due PPD [...] Telephone Encounter - Selena Washington LPN - 09/11/2023 3:30 PM EST faxed * Telephone Encounter - Tommy Saab MD - 09/06/2023 3:18 PM EDT Letter at my desk. Can also print med list, problem list. * Telephone Encounter - Jovana Mccartney OSA - 09/06/2023 3:04 PM EDT Parris says she has been kicked off medical assistance and the [facility] office needs a documentation of treatment plan , medication lost and diagnosis to get her bqak on [facility] [phone] fax [facility] Record #- [id number] documented in this encounter Plan of Treatment Upcoming Encounters Date Type Department Care Team (Late st Contact Info) Description 09/13/2023 2:00 PM EST [facility] [place] [address] [facility] [address] [facility] [address] [facility] [address] 11/10/2023 2:00 PM EST Office Visit [facility] [place] [address] [place] [phone] Arelis Emery PA-C [address] [place] [address] 12/05/2023 1:20 PM EST Office Visit Sleep Disorders Ctr [facility] [address] [place] [phone] Natali Hadley DO [address] [place] [address] 08/22/2024 2:30 PM EDT Imaging Radiology [address] [facility] [place] [address] Scheduled Procedures Name Priority Associated Diagnoses Date/Ti [...] this encounter Medical Devices Implanted Type Area Special Education Paraeducator Device Identifier Shelf Expiration Date Model / Serial / Lot Lens 21.5 Mx60e - [id number] - [id number] Implanted:Qty: 1 on 08/14/2018 by Omer Hodges MD at OR [facility] Left: Eye [employer] 03/05/2021 [id number]-47.5 / [id number] / [id number] Lens 22.0 Mx60e - [id number] - [id number] Implanted:Qty: 1 on 08/30/2018 by Omer Hodges MD at OR [facility] Right: Eye [employer]OM[employer] 06/05/2021 [id number]-08.0 / [id number] / documented as of this encounter Advance Directives Documents on File Type Date Recorded Patient Log Skidder Expl anation Advance Directives and Livin g Will 10/24/2018 LIVING WILL Power of Trenching Machine Operator 10/24/2018 POWER OF A TTORNEY Latest Code [...] and were consensually agreed upon. Care Teams Turn Supervisor Relationship Specialty Start Date End Date Tommy Saab MD [address] [facility] [place] [address] PCP - General Family Medicine 07/13/16 documented as of this encounter
--- OUTSIDE RECORDS SUMMARY | 2023-12-21 08:15 | External Medical Summary | Summary of Care ---
Author Name Unknown Organization [facility] Address [address] [place] [address] Phone [phone] Care Team Providers Care Forensic Computer Examiner Name Role Phone Tommy Saab MD Primary Care Provider [phone]- [phone] Reason for Visit * Reason Comments Appointment Encounter Details Date Type Department Care Team Description 07/04/2023 Pharmacy Pharmacy, [place] [address] [place], [place] [id number] [facility] [address] [place] [address] Type 2 diabetes mellitus with hemoglobin A1c goal of less than 8.0% ([facility])* Allergies No known active allergiesdocumented as of this encounter (statuses as of 07/04/2023) Medications Medication Sig Dispensed Refills Start Date [...] every night at bedtime . 0 Active OneTouch Verio In Vitro Strip TEST BLOOD SUGARS BEFORE MEALS AND AT BEDTIME 400 Strip 0 09/13/2022 Active busPIRone HCl 10 MG Oral Tablet (Buspar) take 1 tablet by mouth three times a day 270 Tablet 3 02/06/2023 Active metFORMIN HCl ER 500 MG Oral Tablet Extended Release 24 Hour (Glucophage XR) take 2 tablets by mouth twice a day 360 Tablet 3 02/06/2023 Active Azelastine HCl 0.1 % Nasal Solution (Astelin) Administer 1 [place] into nostril in the morning and 1 [place] before bedtime. 30 mL 12 02/10/2023 Active [...] times daily 400 Each 3 05/31/2023 Active Zolpidem Tartrate 5 MG Oral [...] units daily 15 mL 5 06/07/2023 Active Ozempic (1 MG/DOSE) 4 MG/3ML Subcutaneous Solution Pen-injector (Semaglutide (1 MG/DOSE)) inject 1 milligram subcutaneously every week 3 mL 0 07/03/2023 Active documented as of this encounter (statuses as of 07/04/2023) Active Problems Problem Noted Date Dyslipidemia, goal LDL below 70 05/01/20 FERNANDO (obstructive sleep apnea) 05/06/2019 Chronic insomnia 05/06/2019 Type 2 diabetes mellitus with hemoglobin A1c goal of less than 8.0% 11/25/2018 Chronic pancreatitis 09/01/2016 Essential hypertension with goal blood p ressure less than 140/90 09/01/2016 documented as of this encounter (statuses as of 07/04/2023) Resolved Problems Problem Noted Date Resolved Date Reaction, situational, acute, to stress 05/06/20 19 09/29/2020 Leg length discrepancy 04/11/2018 9 Elevated glucose 09/01/2016 11/25/2018 documented as of this encounter (statuses as of 07/04/2023) Immunizations Name Administration Dates Next Due PPD [...] encounter Progress Notes * TENZIN Mcgarry - 07/04/2023 9:27 AM EDT Patient Phone Numbers Spoke with patient to schedule [facility] appointment for diabetes management. Appointment scheduled as noted below. 07/26/2023 Thank you, Lidia Hadley Global Sourcing Manager [facility] ([facility]) 07/04/2023,9:27 AM documented in this encounter Plan of Treatment Upcoming Encounters Date Type Specialty Care Team Description 07/24/2023 Imaging Radiology 07/26/2023 Office Visit Pharmacy [facility] [address] [place] [address] [place] [address] 08/08/2023 Office Visit Sleep Disorders Natali Hadley, DO [address] [place] [address] Scheduled Procedures Name Priority Associated Diagnoses Date/Ti [...] 04/29/2021 03/04/2021, 02/11/2021 DIABETES-EYE EXAM 02/16/2022 02/16/2021 DIABETES-FOOT EXAM 03/24/2022 03/24/2021, 02/04/2019 Cervical Cancer Screening 05/06/2023 [...] 02/08/2023, 1112/2020, 03/17/2021, Additional history exists Depression Screening, Annual for Pts 12 and Over 02/11/2024 02/10/2023 DTaP,Tdap,and Td Vaccines (2 - [...] this encounter Medical Devices Implanted Type Area Adult Basic Education Teacher Device Identifier Shelf Expiration Date Model / Serial / Lot Lens 21.5 Mx60e - [id number] - [id number] Implanted:Qty: 1 on 08/14/2018 by Omer Hodges MD at OR [facility] Left: Eye [employer]OM[employer] 03/05/2021 [id number]-73.5 / [id number] / [id number] Lens 22.0 Mx60e - [id number] - [id number] Implanted:Qty: 1 on 08/30/2018 by Omer Hodges MD at OR [facility] Right: Eye BAUSCH [employer] LOMB 06/05/2021 [id number]-91.0 / [id number] / documented as of this encounter Visit Diagnoses Diagnosis Type 2 diabetes mellitus with hemoglobin A1c goal of less than 8.0% ([facility])- Primary documented in this encounter Advance Directives Documents on File Type Date Recorded Patient Supervisor Leaf Spring Fabrication Expl anation Advance Directives and Livin g Will 10/24/2018 LIVING WILL Power of Section Beamer 10/24/2018 POWER OF A TTORNEY Latest Code [...] and were consensually agreed upon. Care Teams Forensic Computer Examiner Relationship Specialty Start Date End Date Tommy Saab MD [address] [place] [address] PCP - General Family Medicine 07/13/16 documented as of this encounter
--- OUTSIDE RECORDS SUMMARY | 2023-12-21 08:15 | External Medical Summary | Summary of Care ---
Author Name Unknown Organization [facility] Address [address] [place] [address] Phone [phone] Care Team Providers Care Political Consultant Name Role Phone Rosio Avila MD Primary Care Provider [phone]- [phone] Reason for Visit * Reason Comments eRx-Medication Refill Encounter Details Date Type Department Care Team Description 07/03/[address] [id number] Rosio Avila MD [address] [place] [address] Allergies No known active allergiesdocumented as of this encounter (statuses as of 07/03/2023) Medications Medication Sig Dispensed Refills Start Date [...] 0.1 % Nasal Solution (Astelin) Administer 1 [place] into nostril in the morning and 1 [place] before bedtime. 30 mL 12 02/10/2023 Active [...] as of this encounter (statuses as of 07/03/2023) Active Problems Problem Noted Date Dyslipidemia, goal LDL below 70 05/01/20 FERNANDO (obstructive sleep apnea) 05/06/2019 Chronic insomnia 05/06/2019 Type 2 diabetes mellitus with hemoglobin A1c goal of less than 8.0% 11/25/2018 Chronic pancreatitis 09/01/2016 Essential hypertension with goal blood p ressure less than 140/90 09/01/2016 documented as of this encounter (statuses as of 07/03/2023) Resolved Problems Problem Noted Date Resolved Date Reaction, situational, acute, to stress 05/06/20 19 09/29/2020 Leg length discrepancy 04/11/2018 9 Elevated glucose 09/01/2016 11/25/2018 documented as of this encounter (statuses as of 07/03/2023) Immunizations Name Administration Dates Next Due PPD [...] encounter Miscellaneous Notes * Telephone Encounter - Kyung Mansfield [facility] - 07/03/2023 4:32 PM EDT Signed Prescriptions: Disp Refills Ozempic (1 MG/DOSE) 4 MG/3ML Subcutaneous *3 mL 0 Sig: inject 1 milligram subcutaneously every weekAuthorizing Provider: ROSIO AVILA User: KYUNG MANSFIELD documented in this encounter Plan of Treatment Upcoming Encounters Date Type Specialty Care Team Description 07/04/2023 Pharmacy Pharmacy [facility] [address] [place] [address] 07/24/2023 Imaging Radiology 08/08/2023 Office Visit Sleep Disorders Natali Hadley, DO [address] [place] [address] Scheduled Procedures Name Priority Associated Diagnoses Date/Ti [...] 07/29/2020, Additional history exists Mammogram 07/22/2023 07/22/2022, 090 05/2021, 07/08/2020, Additional history exists HbA1c 12/01/2023 05/31/2023, 04/0 03/2023, 09/07/2021, Additional history exists Albumin/Creatinine Ratio 02/09/2024 023, 03/17/2021, 08/19/2019 B-12 02/09/2024 02/08/2023, 051 12/2020, 08/19/2019 GFR 02/09/2024 02/08/2023, 1112/2020, 03/17/2021, Additional [...] this encounter Medical Devices Implanted Type Area Lawn Technician Device Identifier Shelf Expiration Date Model / Serial / Lot Lens 21.5 Mx60e - [id number] - [id number] Implanted:Qty: 1 on 08/14/2018 by Omer Hodges MD at OR [facility] Left: Eye BAUSCH [employer] LOMB 03/05/2021 [id number]-82.5 / [id number] / [id number] Lens 22.0 Mx60e - [id number] - [id number] Implanted:Qty: 1 on 08/30/2018 by Omer Hodges MD at OR [facility] Right: Eye BAUSCH [employer] LOMB 06/05/2021 [id number]-27.0 / [id number] / documented as of this encounter Advance Directives Documents on File Type Date Recorded 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 Care Teams Political Consultant Relationship Specialty Start Date End Date Rosio Avila MD [address] [place] [address] PCP - General Family Medicine 07/13/16 documented as of this encounter
--- OUTSIDE RECORDS SUMMARY | 2023-12-21 08:15 | External Medical Summary | Summary of Care ---
Author Name Unknown Organization [facility] Address [address] [place] [address] Phone [phone] Care Team Providers Care Oil Field Pipeline Supervisor Name Role Phone Rosio Avila MD Primary Care Provider [phone]- [phone] Reason for Visit * Reason Comments eRx-Medication Refill Encounter Details Date Type Department Care Team Description 07/28/2023 Refill Pharmacy, [address] [facility] [address] [place] [address] Allergies No known active allergiesdocumented as of this encounter (statuses as of 07/29/2023) Medications Medication Sig Dispensed Refills Start Date [...] 0.1 % Nasal Solution (Astelin) Administer 1 [place] into nostril in the morning and 1 [place] before bedtime. 30 mL 12 3 Active Folic Acid 1 MG Oral Tablet [...] the skin at bedtime. 1 Each 0 3 Active Dexcom G7 SensorIndication s:Type 2 diabetes mellitus with hemoglobin A1c goal of less than 8.0% ([facility]) Change sensor every 10 days 3 Each 3 3 Active Atorvastatin Calcium 20 MG Oral Tablet (Lipitor)Indicat [...] times daily 400 Each 3 3 Active Zolpidem Tartrate 5 MG Oral Tablet (Ambien) take 1 tablet by mouth at bedtime if needed for sleep 30 TO 60 MINUTES PRIOR TO SLEEP 30 Tablet 2 3 Active Insulin Aspart FlexPen 100 UNIT/ML Subcutaneous Solution Pen-injectorIndi cations:Type 2 diabetes mellitus with hemoglobin A1c goal of less than 8.0% ([facility]) Inject 5 units with each meal. MDD of 15 units daily 15 mL 5 3 Active OneTouch Verio In Vitro Strip TEST BLOOD SUGARS BEFORE MEALS AND AT BEDTIME 400 Strip 3 3 Active Ozempic (1 MG/DOSE) 4 MG/3ML Subcutaneous Solution Pen-injector (Semaglutide (1 MG/DOSE)) inject 1 milligram subcutaneously every week 3 mL 3 3 Active OneTouch Verio In Vitro Strip TEST BLOOD SUGARS BEFORE MEALS AND AT BEDTIME 400 Strip 0 2 07/29/20 23 Discontinued Ozempic (1 MG/DOSE) 4 MG/3ML Subcutaneous Solution Pen-injector (Semaglutide (1 MG/DOSE)) inject 1 milligram subcutaneously every week 3 mL 0 3 07/29/20 23 Discontinued documented as of this encounter (statuses as of 07/29/2023) Active Problems Problem Noted Date Dyslipidemia, goal LDL below 70 05/01/20 FERNANDO (obstructive sleep apnea) 05/06/2019 Chronic insomnia 05/06/2019 Type 2 diabetes mellitus with hemoglobin A1c goal of less than 8.0% 11/25/2018 Chronic pancreatitis 09/01/2016 Essential hypertension with goal blood p ressure less than 140/90 09/01/2016 documented as of this encounter (statuses as of 07/29/2023) Resolved Problems Problem Noted Date Resolved Date Reaction, situational, acute, to stress 05/06/20 19 09/29/2020 Leg length discrepancy 04/11/2018 9 Elevated glucose 09/01/2016 11/25/2018 documented as of this encounter (statuses as of 07/29/2023) Immunizations Name Administration Dates Next Due PPD [...] encounter Miscellaneous Notes * Telephone Encounter - Agusto Esteban RPh - 07/29/2023 1:44 PM EDTSigned Prescriptions: Disp Refills OneTouch Verio In Vitro Strip 400 St*3 Sig: TEST BLOOD SUGARS BEFORE MEALS AND AT BEDTIMEAuthorizing Provider: ROSIO AVILA User: AGUSTO ESTEBAN (1 MG/DOSE) 4 MG/3ML Subcutaneous *3 mL 3 Sig: inject 1 milligram subcutaneously every weekA uthorizing Provider: ROSIO AVILA User: AGUSTO ESTEBAN documented in this encounter Plan of Treatment Upcoming Encounters Date Type Specialty Care Team Description 08/08/2023 Office Visit Sleep Disorders Natali Hadley, DO [address] [place] [address] 08/21/2023 Imaging Radiology Scheduled Procedures Name Priority [...] 02/08/2023, 051 12/2020, 08/19/2019 GFR 02/09/2024 02/08/2023, 11/0 12/2020, [...] this encounter Medical Devices Implanted Type Area Silvering Applicator Device Identifier Shelf Expiration Date Model / Serial / Lot Lens 21.5 Mx60e - [id number] - [id number] Implanted:Qty: 1 on 08/14/2018 by Omer Hodges MD at OR [facility] Left: Eye BAUSCH & LOMB 03/05/2021 [id number]-85.5 / [id number] / [id number] Lens 22.0 Mx60e - [id number] - [id number] Implanted:Qty: 1 on 08/30/2018 by Omer Hodges MD at OR [facility] Right: Eye BAUSCH & LOMB 06/05/2021 [id number]-53.0 / [id number] / documented as of this encounter Advance Directives Documents on File Type Date Recorded 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 Care Teams Oil Field Pipeline Supervisor Relationship Specialty Start Date End Date Rosio Avila MD [address] [place] [address] PCP - General Family Medicine 07/13/16 documented as of this encounter
[2023-12-21] MEDS: ENOXAPARIN INJ 40 MG/0.4 ML SYR SQ SCH (08:17)
[2023-12-21] MEDS: INSULIN ASPART PER UNIT CHARGE SC SCH (08:17)
[2023-12-21] MEDS: oxyCODONE HCL IR 5 MG TAB (IMMEDIATE RELEASE) PO STA (16:46)
[2023-12-21] MEDS: ATORVASTATIN 20 MG TAB PO SCH (20:20)
[2023-12-21] MEDS: MAGNESIUM OXIDE 400 MG TAB PO SCH (20:20)
[2023-12-21] MEDS: LANTUS PER UNIT CHARGE SQ SCH (20:24)
[2023-12-21] MEDS ORDERED: GABAPENTIN 300 MG CAP PO SCH (21:00)
--- NOTE | 2023-12-21 21:20 | Orthopedic Consultation ---
Date of Consultation December 21, 2023 Assessment & Plan (1) Infection of right foot: Patient seen, evaluated, and treated. Reviewed MRI images and MRI findings. There is no gas, no osteomyelitis. Wound culture taken of right foot. After thorough evaluation of wound it was determined wound would be sharply debrided at bedside. Sharp, excisional debridement with out incident. Patient tolerated procedure well. See procedure noted below. Wound cleansed with Betadine followed by normal saline. Application of adaptic, Aquacel, Kerlix. Will continue to follow while Patient remains in house. Thank you for allowing me to participate in the care of this Patient. Today's procedure is an excisional debridement of deep tissue. There is a mild to moderate amount of serosanguineous exudate draining from the ulcer. The ulcer base is described as containing has pink granulation. Necrotic or devitalized t issue is estimated to be present in approximately 60% of the pressure ulcer bed. The ulcer has been exposed full-thickness tissue. I have informed the patient of the risks and benefit of this procedure and they have had the opportunity to ask questions. Appropriate consent has been obtained. The patient refused site marking. The area was prepped and draped in usual aseptic manner. The procedure was performed and a clean field. I debrided the wound sharply with a sterile #15 blade and necrotic tissue was excised down to and including subcutaneous tissue. Bleeding was minimal and hemostasis was achieved using pressure. The patient tolerated procedure and anesthesia well. Postprocedure no increased pain. History of Present Illness Attending Physician: Tono Austin MD History of Present Illness Patient is a pleasant 58-year-old female seen N384-1 for diabetic right foot infection. Patient has a past medical history significant for chronic pancreatitis, type 2 diabetes, hyperlipidemia, obstructive sleep apnea, hypertension, and chronic insomnia. Patient states she noticed pain in the right foot last . On last Monday she noticed a big blister on the right foot which eventually popped. This became an open wound in the right foot. Due to worsening in severity she presented to [facility] Emergency Department on 12/20/23. Allergies Allergy/AdvReac Type Severity Reaction Status Date / Time benzoyl peroxide Allergy Unknown SKIN RED Verified 12/20/23 23:04 AND IRRITATED No Known Drug Allergies Allergy Unknown NONE Verified 12/20/23 23:04 Home Medications Medication Instructions Recorded Confirmed Type lactobacillus combination no.4 3 3,000 mmu cells PO QAM 10/11/18 12/20/23 History billion cell capsule (Probiotic) magnesium 250 mg tablet 250 mg PO HS 10/11/18 12/20/23 History blood sugar diagnostic #10 ea 10/18/18 12/20/23 Rx lancets #50 ea 10/18/18 12/20/23 Rx pen needle, diabetic 29 gauge #90 ea 10/18/18 12/20/23 Rx buspirone 10 mg tablet 10 mg PO TID 04/22/23 12/20/23 History calcium carbonate 600 mg-vitamin 1 tab PO DAILY 04/22/23 12/20/23 History D3 5 mcg (200 unit) tablet (Calcium 600 + D(3)) gabapentin 300 mg capsule 900 mg PO HS 04/22/23 12/20/23 History metformin 500 mg tablet,extended 2,000 mg PO QAM 04/22/23 12/20/23 History release 24 hr thiamine HCl (vitamin B1) 100 mg 100 mg PO QAM #15 tabs 04/22/23 12/20/23 Rx tablet atorvastatin 20 mg tablet 20 mg PO HS 12/20/23 12/20/23 History insulin aspart U-100 100 unit/mL 7 unit SC [facility] 12/20/23 12/20/23 History subcutaneous solution (Novolog U-100 Insulin aspart) insulin glargine 100 unit/mL (3 30 units subcut HS 12/20/23 12/20/23 History mL) subcutaneous pen lemborexant 10 mg tablet (Dayvigo) 10 mg PO HS 12/20/23 12/20/23 History Patient History Medical History No significant past medical history Hypertension Diabetes Family History Other Family history non-contributory Social History Smoking Status: Never smoker Second Hand Exposure: Yes (as child); Do You Dip or Chew Tobacco: No; Hx Alcohol Use: Yes Alcohol type: wine and hard liquor Hx Substance Use: No Preferred Language: Sierra Leonean Communication Ability: Effective Barber Instructor Required: No Beliefs That Will Affect Care: None Current Living Situation: Alone Other Information That Helps Us Care for You: No Feels Safe at Home: Yes Safety Concerns: Feels Safe At This Time Assistive Devices: Cane Assistive Devices Comment: cane with patient Review of Systems Review of Systems: All systems reviewed & are unremarkable except as noted in HPI & below Physical Exam Constitutional: well developed, well nourished, cooperative and comfortable Eyes: normal visual reynolds by confrontation Neck: normal visual inspection Respiratory: normal respiratory effort Cardiovascular: Rate/Rhythm: regular rate and regular rhythm Vessels: posterior tibial pulses present and dorsalis pedis pulses present Musculoskeletal: Extremities: extremities normal to inspection Skin: + ulcer (Right foot full thickness wound ) Neurologic: moves all extremities Decreased epicritic sensation Psychiatric: Orientation: alert and oriented x 3 Results & Data Vital Signs (Past 12 Hours) Vital Signs Temp Pulse Resp BP Pulse Ox O2 Del Method 12/21/23 19:40 36.3 C L 69 18 136/87 97 Room Air 12/21/23 15:55 36.6 C 70 16 143/87 H 97 Room Air Diagnostic Findings [place], [place] [phone] Magnetic Resonance Report Patient: LU BLAKELY Admit Date: 12/20/23 MR#: [id number] Address1: [address] [facility] Acct ID:[id number] Address2: [address] Date: 1965 [facility] Zip: [place] [address] Age: 58 Location: ED Sex: F Room/Bed: Att Phy: Diagnosis: RT FOOT INFECTION, SWOLLEN/RED, PAINFUL Tamela Phy: Tommy Saab MD Service Date: 12/20/23 [facility] Phy: Interpreting Phy: Kari Don MDAdmit Phy: Ordering Phy: Isaura Crawley PA-C cc: ~ Exam(s): MRI RIGHT FOOT Without Contrast EXAM: MR Right Lower Extremity Without Intravenous Contrast, Foot CLINICAL HISTORY: Reason for exam: eval osteomyelitis. TECHNIQUE: Multiplanar magnetic resonance images of the right foot without intravenous contrast. COMPARISON: No relevant prior studies available. FINDINGS: There is extensive dorsal subcutaneous edema. There are possible cutaneous blisters along the lateral aspects of the second and third toes. There is mild osteoarthritis of the first MTP joint. There is no fracture or dislocation. There are no characteristic marrow signal changes to suggest osteomyelitis. Visualized tendons appear unremarkable. Intrinsic muscles of the foot appear normal. IMPRESSION: 1. Extensive dorsal subcutaneous edema, potentially cellulitis. 2. No evidence of osteomyelitis. Electronically signed by: Kari Don M.D. 12/20/23 22:34 PM Dictated: 12/20/232233 Transcribed: 12/20/232233 [facility] [phone] Magnetic Resonance Report Patient: LU BLAKELY Admit Date: 12/20/23 MR#: [id number] Address1: [address] [facility] Acct ID:[id number] Address2: [address] Date: 1965 [facility] Zip: [place] [address] Age: 58 Location: ED Sex: F Room/Bed: Att Phy: Diagnosis: RT FOOT INFECTION, SWOLLEN/RED, PAINFUL Tamela Phy: Tommy Saab MD Service Date: 12/20/23 [facility] Phy: Interpreting Phy: Kari Don MDAdmit Phy: Ordering Phy: Isaura Crawley PA-C cc: ~ Exam(s): MRI RIGHT ANKLE Without Contrast EXAM: MR Right Lower Extremity Without Intravenous Contrast, Ankle CLINICAL HISTORY: Reason for exam: eval osteomyelitis. TECHNIQUE: Multiplanar magnetic resonance images of the right ankle without intravenous contrast. COMPARISON: No relevant prior studies available. FINDINGS: There is no acute fracture or dislocation. There is no osteochondral lesion of the talar dome. There is a small tibiotalar joint effusion. There is no evidence of septic arthritis or acute osteomyelitis. Sinus tarsi appears normal. Achilles tendon and plantar aponeurosis are intact. Peroneal tendons and anterior extensor tendons are intact. There is a partial-thickness interstitial tear of the flexor hallucis longus tendon with fluid distending the region of tear. Flexor digitorum longus and tibialis posterior tendons are intact. Syndesmotic ligaments, lateral ankle ligaments, and deltoid ligament complex are intact. There is diffuse subcutaneous edema. IMPRESSION: 1. Diffuse subcutaneous edema, potentially cellulitis. 2. No evidence of acute osteomyelitis. 3. Partial-thickness interstitial tear of the flexor hallucis longus tendon. Electronically signed by: Kari Don M.D. 12/20/23 22:22 PM Dictated: 12/20/232221 Transcribed: 12/20/232221
[2023-12-22 07:34] LABS: Hemoglobin 12.7 g/dl (12.0-16.0); Mean Corpuscular Hemoglobin 35.6 pg (25.0-34.0); Mean Corpuscular Hgb Conc 34.3 g/dL (32.0-36.0); Mean Corpuscular Volume 103.6 fL (80.0-100.0); Mean Platelet Volume 10.4 fL (9.4-12.4); Platelet Count 127 K/uL (130-400); RDW Coefficient of Variation 13.2 % (11.5-14.5); RDW Standard Deviation 50.9 fL (36.4-46.3); Red Blood Count 3.57 M/uL (4.20-5.40); White Blood Count 6.44 K/ul (4.8-10.8)
[2023-12-22 08:06] LABS: BUN Creatinine Ratio 19.6 (10-20); Calcium 8.9 mg/dl (8.6-10.3); Creatinine Clr Calc Pharmacy 114.1 ml/min; Est GFR (African American) 117.5 ml/min; Est GFR (Non-African American) 101.3 ml/min; Magnesium 1.5 mg/dl (1.7-2.4); Phosphorus 3.5 mg/dl (2.5-4.9); Potassium 3.6 mmol/L (3.5-5.1)
--- NOTE | 2023-12-22 08:12 | Hospitalist Progress Note ---
Date of Service December 22, 2023 Assessment & Plan (1) Infection of right foot: Plan: 58 yo F with past medical history significant for chronic pancreatitis, type 2 diabetes, hyperlipidemia, obstructive sleep apnea, hypertension, chronic insomnia presents with right foot infection. Patient states she noticed pain in the right foot last . And on last Monday she noticed a big blister on the right foot which eventually popped up. And she has open wound in the right foot. And some erythema surrounding. Having pain while ambulating. Denies any fevers. No injury to the foot. Currently resting comfortably and hemodynamically stable. Denies any chest pain or shortness of breath ,no nausea or vomiting. No abdominal pain. No headache. No dizziness. She has chronic runny nose. No sore throat or cough. Appetite is okay. No difficulty sw allowing. Normal bowel and bladder movements. Right foot infection Diabetic foot infection/ulceration R foot cellulitis Had a big blister which popped up No injury Diabetes MRI scan no osteomyelitis Empirically started on Zosyn and Doxy Wound care wound cultx obtained - so far growing s. aureus / mssa Ortho consulted for MRI ankle findings - Dr. Garcia - pt now s/p debridement on 12/21 Monitor for response Diabetes mellitus type 2 Current A1c 6.7 % Continue home Lantus Sliding scale Will monitor Sleep apnea CPAP Hyperlipidemia On statin Insomnia On vigo DVT prophylaxis- Lovenox Disposition- Medical floor Full code Admission and Anticipated Discharge Date Admission Date: December 21, 2023 Subjective Pt seen in follow up of diabetic foot infection Laying in bed in [facility] Underwent debridement of foot w/ Dr. Garcia yesterday Sitting up in bed today, feeling well, overall says her foot feels much better No fevers chills chest pain shortness of breath, no abdominal pain nausea vomiting. Review of Systems Review of Systems: All systems reviewed & are unremarkable except as noted in Subjective Physical Exam Physical Exam: General- WD/WN F in NAD Head- atraumatic Eyes- PERRL. ENT- oropharynx clear Neck- supple, no JVD. Lungs- clear to auscultation no wheezing or crackles. Heart- regular rhythm; no murmur, no gallop. Abdomen- normal bowel sounds, soft, nontender, no distension. Extremities- right foot open wound seen involving most of the mid to lateral aspect of right foot dorsal aspect Neuro- alert, oriented x 3; PERRL, no facial palsy; no dysarthria; moves extremities. Skin- warm & dry Results & Data Results & Data Vital Signs (Past 12 Hours) Vital Signs Pulse Resp Pulse Ox FiO2 12/22/23 06:05 78 13 93 21 12/22/23 03:45 11 L 21 12/21/23 22:30 89 13 94 21 Laboratory Results 12/22/23 12/22/23 12/21/23 Range/Units 07:40 07:06 20:22 WBC 6.44 (4.8-10.8) K/ul RBC 3.57 L (4.20-5.40) M/uL Hgb 12.7 (12.0-16.0) g/dl Hct 37.0 (37.0-47.0) % MCV 103.6 H (80.0-100.0) fL MCH 35.6 H (25.0-34.0) pg MCHC 34.3 (32.0-36.0) g/dL RDW Std Deviation 50.9 H (36.4-46.3) fL RDW Coeff of Eil 13.2 (11.5-14.5) % Plt Count 127 L (130-400) K/uL MPV 10.4 (9.4-12.4) fL Sodium 138 (136-145) mmol/L Potassium 3.6 (3.5-5.1) mmol/L Chloride 105 (98-107) mmol/L Carbon Dioxide 26 (21-32) mmol/L Anion Gap 7 (3-11) BUN 11 (6-23) mg/dl Creatinine 0.56 L (0.6-1.2) mg/dl Est Cr Clr Drug Dosing 114.1 ml/min Est GFR ( Amer) 117.5 ml/min Est GFR (Non-Af Amer) 101.3 ml/min BUN/Creatinine Ratio 19.6 (10-20) Glucose 142 H (70-99(Fasting)) mg/dl POC Glucose 126 H 121 H (70-99) mg/dl Calcium 8.9 (8.6-10.3) mg/dl Phosphorus 3.5 (2.5-4.9) mg/dl Magnesium 1.5 L (1.7-2.4) mg/dl 12/21/23 12/21/23 Range/Units 16:30 11:29 WBC (4.8-10.8) K/ul RBC (4.20-5.40) M/uL Hgb (12.0-16.0) g/dl Hct (37.0-47.0) % MCV (80.0-100.0) fL MCH (25.0-34.0) pg MCHC (32.0-36.0) g/dL RDW Std Deviation (36.4-46.3) fL RDW Coeff of Eli (11.5-14.5) % Plt Count (130-400) K/uL MPV (9.4-12.4) fL Sodium (136-145) mmol/L Potassium (3.5-5.1) mmol/L Chloride (98-107) mmol/L Carbon Dioxide (21-32) mmol/L Anion Gap (3-11) BUN (6-23) mg/dl Creatinine (0.6-1.2) mg/dl Est Cr Clr Drug Dosing ml/min Est GFR ( Amer) ml/min Est GFR (Non-Af Amer) ml/min BUN/Creatinine Ratio (10-20) Glucose (70-99(Fasting)) mg/dl POC Glucose 153 H 183 H (70-99) mg/dl Calcium (8.6-10.3) mg/dl Phosphorus (2.5-4.9) mg/dl Magnesium (1.7-2.4) mg/dl Medications Administered Current Inpatient Medications Acetaminophen (Acetaminophen 325 Mg Tab) 650 mg PO Q4H PRN PRN Reason: pain/fever Stop: 01/20/24 02:09 Atorvastatin Calcium (Atorvastatin 20 Mg Tab) 20 mg PO HS [facility] Stop: 01/20/24 20:59 Last Admin: 12/21/23 20:20 Dose: 20 mg Buspirone HCl (Buspirone 5 Mg Tab) 10 mg PO TID [facility] Stop: 01/20/24 08:59 Last Admin: 12/21/23 20:20 Dose: 10 mg Calcium/Vitamin D (Calcium 600mg + Vit D 400 Iu Tab) 1 tab PO DAILY EARL Stop: 01/20/24 08:59 Last Admin: 12/21/23 08:14 Dose: 1 tab Dextrose (Dextrose 50% 50 Ml Syringe) 25 - 50 ml IV UD PRN; Protocol PRN Reason: Hypoglycemia Protocol Stop: 01/20/24 02:09 Enoxaparin Sodium (Enoxaparin Inj 40 Mg/0.4 Ml Syr) 40 mg SQ Q24H [facility] Stop: 01/20/24 08:59 Last Admin: 12/21/23 08:17 Dose: 40 mg Gabapentin (Gabapentin 300 Mg Cap) 900 mg PO HS [facility] Stop: 01/20/24 03:29 Last Admin: 12/21/23 20:20 Dose: 900 mg Glucagon (Glucagon For Inj 1 Mg Vial) 1 mg SQ UD PRN; Protocol PRN Reason: Hypoglycemia Protocol Stop: 01/20/24 02:09 Glucose (Glucose 40% Gel 15 Gm Tube) 15 - 30 gm PO UD PRN; Protocol PRN Reason: Hypoglycemia Protocol Stop: 01/20/24 02:09 Glucose (Glucose 10 Tab/Tube) 4 - 8 tab PO UD PRN; Protocol PRN Reason: Hypoglycemia Treatment Stop: 01/20/24 02:09 Piperacillin Sod/Tazobactam (Sod 4.5 gm/ Dextrose) 100 mls @ 25 mls/hr IV Q8H [facility]; Protocol Stop: 12/28/23 05:59 Last Admin: 12/22/23 05:01 Dose: 25 mls/hr Doxycycline Hyclate 100 mg/ (Dextrose) 100 mls @ 50 mls/hr IV Q12H [facility] Stop: 12/28/23 03:59 Last Infusion: 12/22/23 07:11 Dose: Infused Insulin Aspart (Insulin Aspart Per Unit Charge) 0 units SC ACHS [facility] Stop: 01/20/24 07:29 Last Admin: 12/21/23 20:25 Dose: Not Given Insulin Glargine (Lantus Per Unit Charge) 30 units SQ HS [facility] Stop: 01/20/24 20:59 Last Admin: 12/21/23 20:24 Dose: 30 units Lactobacillus Acidophilus (Advanced Probiotic 1250 Mg Capsule) 2 cap PO QAM [facility] Stop: 01/20/24 08:59 Last Admin: 12/21/23 08:13 Dose: 2 cap Magnesium Oxide (Magnesium Oxide 400 Mg Tab) 400 mg PO HS [facility] Stop: 01/20/24 20:59 Last Admin: 12/21/23 20:20 Dose: 400 mg Miscellaneous (Carbohydrates For Hypoglycemia ) 15 - 30 gm PO UD PRN PRN Reason: Hypoglycemia Protocol Stop: 01/20/24 02:09 Miscellaneous (Lemborexant [[place]]: Order Awaiting Action) 1 each N/A QS [facility] Stop: 01/20/24 07:59 Last Admin: 12/22/23 01:07 Dose: Not Given Polyethylene Glycol (Polyethylene (Miralax) 17 Gm Pack) 17 gm PO DAILY PRN PRN Reason: Constipation Stop: 01/20/24 02:09 Thiamine HCl (Thiamine Hcl 100 Mg Tab) 100 mg PO QAM [facility] Stop: 01/20/24 08:59 Last Admin: 12/21/23 08:14 Dose: 100 mg Tramadol HCl (Tramadol Hcl 50 Mg Tablet) 50 mg PO Q6H PRN PRN Reason: Mod-Sev Pain (Scale 4-10) Stop: 01/20/24 02:09 Last Admin: 12/22/23 05:11 Dose: 50 mg Zolpidem Tartrate (Zolpidem Tartrate 5 Mg Tab) 5 mg PO HS PRN PRN Reason: Sleep Stop: 01/20/24 03:59 Last Admin: 12/21/23 20:28 Dose: 5 mg
[2023-12-22] MEDS: ACETAMINOPHEN 325 MG TAB PO PRN (10:14)
[2023-12-22] MEDS: MAGNESIUM SULFATE / D5W 1 GM/100 ML BAG IV ONE (14:58)
--- NOTE | 2023-12-22 22:09 | Orthopedic Progress Note ---
Date of Service December 22, 2023 Assessment & Plan (1) Infection of right foot: Plan: Patient seen, evaluated, and treated. Reviewed wound culture, Staph with sensitives noted above. A thorough evaluation was done in detail. There is decreasing erythema. Wound cleansed with Betadine followed by normal saline. Application of adaptic, Aquacel, Kerlix. Will continue to follow while Patient remains in house. Thank you for allowing me to participate in the care of this Patient. Admission and Anticipated Discharge Date Admission Date: December 21, 2023 Subjective Patient seen and evaluated at bedside in [facility] ([place] Patient notes feeling much better and pain has decreased. She has no complaints. Physical Exam Constitutional: well developed, well nourished, cooperative and comfortable Eyes: normal visual reynolds by confrontation Neck: normal visual inspection Respiratory: normal respiratory effort Cardiovascular: Rate/Rhythm: regular rate and regular rhythm Vessels: posterior tibial pulses present and dorsalis pedis pulses present Musculoskeletal: Extremities: extremities normal to inspection Skin: + ulcer (Right foot full thickness wound ) Neurologic: moves all extremities Psychiatric: Orientation: alert and oriented x 3 Results & Data Vital Signs (Past 12 Hours) Vital Signs Temp Pulse Resp BP BP Pulse Ox O2 Del Method 12/22/23 19:21 36.8 C 80 17 141/76 H 97 Room Air 12/22/23 15:19 36.5 C 70 16 129/83 98 Room Air [place] [address] / Director: Rafa Mancia M.D. Clinical Laboratory Report Name: ZORALU Vito Acct: [id number] Status: AD[place] : 1965 [facility] [place] 12/21/23 Age: 58 Sex: F Dis Date: Loc: Medical/Surgical/Ortho [address] [place] [address]/Bed: [facility] Spec: [id number] Collected: 12/20/23 Received: 12/20/[address]: Isaura Crawley PA-C Source: Foot OV Order: Ordered: Aer/Juany Cult/Sm Procedure Result Verified Site Gram Stain Final 12/21/23-0756 Gram Stain Result Many Gram Positive Cocci Many Polys Aero/Juany Cult Preliminary 12/22/23-1220 Organism 1 Staphylococcus aureus Quantity Moderate Sens Sensitivities to Follow S aureus RX M.I.C. --- --------- Clindamycin S <=0.5 Daptomycin S <=0.5 Erythromycin S <=0.5 Oxacillin S <=0.25 Tetracycline S <=4 Trimeth/Sulfa S <=0.5/9.5 Vancomycin S 2 S = SENSITIVE I = INTERMEDIATE R = RESISTANT Name: LU BLAKELY : 1965 PAGE 1 Printed: 12/22/232213 END OF REPORT
[2023-12-23 06:56] LABS: Hematocrit (blood only) 37.1 % (37.0-47.0); Hemoglobin 12.8 g/dl (12.0-16.0); Mean Corpuscular Hemoglobin 35.4 pg (25.0-34.0); Mean Corpuscular Hgb Conc 34.5 g/dL (32.0-36.0); Mean Corpuscular Volume 102.5 fL (80.0-100.0); Mean Platelet Volume 10.3 fL (9.4-12.4); Platelet Count 138 K/uL (130-400); RDW Coefficient of Variation 12.8 % (11.5-14.5); RDW Standard Deviation 48.8 fL (36.4-46.3); Red Blood Count 3.62 M/uL (4.20-5.40); White Blood Count 6.95 K/ul (4.8-10.8)
[2023-12-23 07:33] LABS: BUN Creatinine Ratio 23.9 (10-20); Calcium 8.8 mg/dl (8.6-10.3); Creatinine Clr Calc Pharmacy 95.3 ml/min; Est GFR (African American) 110.7 ml/min; Est GFR (Non-African American) 95.5 ml/min; Magnesium 1.5 mg/dl (1.7-2.4); Potassium 3.7 mmol/L (3.5-5.1)
--- NOTE | 2023-12-23 08:40 | Hospitalist Progress Note ---
Date of Service December 23, 2023 Assessment & Plan (1) Infection of right foot: Plan: 58 yo F with past medical history significant for chronic pancreatitis, type 2 diabetes, hyperlipidemia, obstructive sleep apnea, hypertension, chronic insomnia presents with right foot infection. Patient states she noticed pain in the right foot last . And on last Monday she noticed a big blister on the right foot which eventually popped up. And she has open wound in the right foot. And some erythema surrounding. Having pain while ambulating. Denies any fevers. No injury to the foot. Currently resting comfortably and hemodynamically stable. Denies any chest pain or shortness of breath ,no nausea or vomiting. No abdominal pain. No headache. No dizziness. She has chronic runny nose. No sore throat or cough. Appetite is okay. No difficulty sw allowing. Normal bowel and bladder movements. Right foot infection Diabetic foot infection/ulceration R foot cellulitis Had a big blister which popped up No injury Diabetes MRI scan no osteomyelitis Empirically started on Zosyn and Doxy Wound care wound cultx obtained - so far growing S. aureus / mssa follow final cultx Ortho consulted for MRI ankle findings - Dr. Garcia - pt now s/p debridement on 12/21 Monitor for response Diabetes mellitus type 2 Current A1c 6.7 % Continue home Lantus Sliding scale Will monitor Sleep apnea CPAP Hyperlipidemia On statin Insomnia On vigo DVT prophylaxis- Lovenox Disposition- Medical floor Full code Admission and Anticipated Discharge Date Admission Date: December 21, 2023 Subjective Pt seen in follow up of diabetic foot infection Laying in bed in [facility] Underwent debridement of foot w/ Dr. Garcia Sitting up in bed today, feeling well, overall says her foot feels much better No fevers chills chest pain shortness of breath, no abdominal pain nausea vomiting. Review of Systems Review of Systems: All systems reviewed & are unremarkable except as noted in Subjective Physical Exam Physical Exam: General- WD/WN F in NAD Head- atraumatic Eyes- PERRL. ENT- oropharynx clear Neck- supple, no JVD. Lungs- clear to auscultation no wheezing or crackles. Heart- regular rhythm; no murmur, no gallop. Abdomen- normal bowel sounds, soft, nontender, no distension. Extremities- right foot open wound seen involving most of the mid to lateral aspect of right foot dorsal aspect Neuro- alert, oriented x 3; PERRL, no facial palsy; no dysarthria; moves extremities. Skin- warm & dry Results & Data Results & Data Vital Signs (Past 12 Hours) Vital Signs Temp Pulse Pulse Resp BP Pulse Ox O2 Del Method 12/23/23 07:05 36.6 C 68 17 120/78 94 Room Air 12/23/23 03:28 84 12 96 12/22/23 23:40 85 11 L 97 Laboratory Results 12/23/23 12/23/23 12/22/23 Range/Units 07:35 06:19 20:03 WBC 6.95 (4.8-10.8) K/ul RBC 3.62 L (4.20-5.40) M/uL Hgb 12.8 (12.0-16.0) g/dl Hct 37.1 (37.0-47.0) % MCV 102.5 H (80.0-100.0) fL MCH 35.4 H (25.0-34.0) pg MCHC 34.5 (32.0-36.0) g/dL RDW Std Deviation 48.8 H (36.4-46.3) fL RDW Coeff of Eli 12.8 (11.5-14.5) % Plt Count 138 (130-400) K/uL MPV 10.3 (9.4-12.4) fL Sodium 139 (136-145) mmol/L Potassium 3.7 (3.5-5.1) mmol/L Chloride 104 (98-107) mmol/L Carbon Dioxide 26 (21-32) mmol/L Anion Gap 9 (3-11) BUN 16 (6-23) mg/dl Creatinine 0.67 (0.6-1.2) mg/dl Est Cr Clr Drug Dosing 95.3 ml/min Est GFR ( Amer) 110.7 ml/min Est GFR (Non-Af Amer) 95.5 ml/min BUN/Creatinine Ratio 23.9 H (10-20) Glucose 131 H (70-99(Fasting)) mg/dl POC Glucose 126 H 157 H (70-99) mg/dl Calcium 8.8 (8.6-10.3) mg/dl Phosphorus 4.0 (2.5-4.9) mg/dl Magnesium 1.5 L (1.7-2.4) mg/dl 12/22/23 12/22/23 Range/Units 16:54 11:36 WBC (4.8-10.8) K/ul RBC (4.20-5.40) M/uL Hgb (12.0-16.0) g/dl Hct (37.0-47.0) % MCV (80.0-100.0) fL MCH (25.0-34.0) pg MCHC (32.0-36.0) g/dL RDW Std Deviation (36.4-46.3) fL RDW Coeff of Eli (11.5-14.5) % Plt Count (130-400) K/uL MPV (9.4-12.4) fL Sodium (136-145) mmol/L Potassium (3.5-5.1) mmol/L Chloride (98-107) mmol/L Carbon Dioxide (21-32) mmol/L Anion Gap (3-11) BUN (6-23) mg/dl Creatinine (0.6-1.2) mg/dl Est Cr Clr Drug Dosing ml/min Est GFR ( Amer) ml/min Est GFR (Non-Af Amer) ml/min BUN/Creatinine Ratio (10-20) Glucose (70-99(Fasting)) mg/dl POC Glucose 165 H 137 H (70-99) mg/dl Calcium (8.6-10.3) mg/dl Phosphorus (2.5-4.9) mg/dl Magnesium (1.7-2.4) mg/dl Medications Administered Current Inpatient Medications Acetaminophen (Acetaminophen 325 Mg Tab) 650 mg PO Q4H PRN PRN Reason: pain/fever Stop: 01/20/24 02:09 Last Admin: 12/22/23 10:14 Dose: 650 mg Atorvastatin Calcium (Atorvastatin 20 Mg Tab) 20 mg PO HS [facility] Stop: 01/20/24 20:59 Last Admin: 12/22/23 20:43 Dose: 20 mg Buspirone HCl (Buspirone 5 Mg Tab) 10 mg PO TID [facility] Stop: 01/20/24 08:59 Last Admin: 12/22/23 20:43 Dose: 10 mg Calcium/Vitamin D (Calcium 600mg + Vit D 400 Iu Tab) 1 tab PO DAILY [facility] Stop: 01/20/24 08:59 Last Admin: 12/22/23 08:10 Dose: 1 tab Dextrose (Dextrose 50% 50 Ml Syringe) 25 - 50 ml IV UD PRN; Protocol PRN Reason: Hypoglycemia Protocol Stop: 01/20/24 02:09 Enoxaparin Sodium (Enoxaparin Inj 40 Mg/0.4 Ml Syr) 40 mg SQ Q24H [facility] Stop: 01/20/24 08:59 Last Admin: 12/22/23 08:11 Dose: 40 mg Gabapentin (Gabapentin 300 Mg Cap) 900 mg PO HS [facility] Stop: 01/20/24 03:29 Last Admin: 12/22/23 20:43 Dose: 900 mg Glucagon (Glucagon For Inj 1 Mg Vial) 1 mg SQ UD PRN; Protocol PRN Reason: Hypoglycemia Protocol Stop: 01/20/24 02:09 Glucose (Glucose 40% Gel 15 Gm Tube) 15 - 30 gm PO UD PRN; Protocol PRN Reason: Hypoglycemia Protocol Stop: 01/20/24 02:09 Glucose (Glucose 10 Tab/Tube) 4 - 8 tab PO UD PRN; Protocol PRN Reason: Hypoglycemia Treatment Stop: 01/20/24 02:09 Piperacillin Sod/Tazobactam (Sod 4.5 gm/ Dextrose) 100 mls @ 25 mls/hr IV Q8H [facility]CLUDES [facility]; Protocol Stop: 12/28/23 05:59 Last Admin: 12/23/23 05:00 Dose: 25 mls/hr Doxycycline Hyclate 100 mg/ (Dextrose) 100 mls @ 50 mls/hr IV Q12H COUNT INCLUDES [facility] Stop: 12/28/23 03:59 Last Infusion: 12/23/23 07:32 Dose: Infused Magnesium Sulfate/Dextrose (Magnesium Sulfate / D5w) 1 gm in 100 mls @ 50 mls/hr IV ONE ONE Stop: 12/23/23 10:38 Insulin Aspart (Insulin Aspart Per Unit Charge) 0 units SC ACHS [facility] Stop: 01/20/24 07:29 Last Admin: 12/22/23 20:42 Dose: 1 units Insulin Glargine (Lantus Per Unit Charge) 30 units SQ HS COUNT [facility]CLUDES [facility] Stop: 01/20/24 20:59 Last Admin: 12/22/23 20:42 Dose: 30 units Lactobacillus Acidophilus (Advanced Probiotic 1250 Mg Capsule) 2 cap PO QAM [facility] Stop: 01/20/24 08:59 Last Admin: 02/16/24 08:11 Dose: 2 cap Magnesium Oxide (Magnesium Oxide 400 Mg Tab) 400 mg PO HS [facility] Stop: 01/20/24 20:59 Last Admin: 12/22/23 20:43 Dose: 400 mg Miscellaneous (Carbohydrates For Hypoglycemia ) 15 - 30 gm PO UD PRN PRN Reason: Hypoglycemia Protocol Stop: 01/20/24 02:09 Polyethylene Glycol (Polyethylene (Miralax) 17 Gm Pack) 17 gm PO DAILY PRN PRN Reason: Constipation Stop: 01/20/24 02:09 Thiamine HCl (Thiamine Hcl 100 Mg Tab) 100 mg PO QAM [facility] Stop: 01/20/24 08:59 Last Admin: 12/22/23 08:11 Dose: 100 mg Tramadol HCl (Tramadol Hcl 50 Mg Tablet) 50 mg PO Q6H PRN PRN Reason: Mod-Sev Pain (Scale 4-10) Stop: 01/20/24 02:09 Last Admin: 12/23/23 06:25 Dose: 50 mg Zolpidem Tartrate (Zolpidem Tartrate 5 Mg Tab) 5 mg PO HS PRN PRN Reason: Sleep Stop: 01/20/24 03:59 Last Admin: 12/22/23 20:42 Dose: 5 mg
[2023-12-23] MEDS: MAGNESIUM SULFATE / D5W 1 GM/100 ML BAG IV ONE (09:07)
--- NOTE | 2023-12-23 19:30 | Orthopedic Progress Note ---
Date of Service December 23, 2023 Assessment & Plan (1) Infection of right foot: Plan: Patient seen, evaluated, and treated. There is continuing decreasing erythema. There is demarcation of tissue however no intervention needed nor planned presently. Wound cleansed with Betadine followed by normal saline. Application of adaptic, Aquacel, Kerlix. Will continue to follow while Patient remains in house. Thank you for allowing me to participate in the care of this Patient. Admission and Anticipated Discharge Date Admission Date: December 21, 2023 Subjective Patient seen at bedside in [facility]. Her son Adolph is present who helps with history and care. No complaints per Patient. Physical Exam Constitutional: well developed, well nourished, cooperative and comfortable Eyes: normal visual reynolds by confrontation Neck: normal visual inspection Respiratory: normal respiratory effort Cardiovascular: Rate/Rhythm: regular rate and regular rhythm Vessels: posterior tibial pulses present and dorsalis pedis pulses present Musculoskeletal: Extremities: extremities normal to inspection Skin: + ulcer (Right foot full thickness wound ) Neurologic: moves all extremities Psychiatric: Orientation: alert and oriented x 3 Results & Data Vital Signs (Past 12 Hours) Vital Signs Temp Pulse Resp BP Pulse Ox O2 Del Method 12/23/23 15:51 37.2 C 66 17 115/72 97 Room Air
[2023-12-24 07:10] LABS: Hematocrit (blood only) 39.8 % (37.0-47.0); Hemoglobin 13.1 g/dl (12.0-16.0); Mean Corpuscular Hemoglobin 34.9 pg (25.0-34.0); Mean Corpuscular Hgb Conc 32.9 g/dL (32.0-36.0); Mean Corpuscular Volume 106.1 fL (80.0-100.0); Mean Platelet Volume 10.5 fL (9.4-12.4); Platelet Count 148 K/uL (130-400); RDW Coefficient of Variation 13.1 % (11.5-14.5); RDW Standard Deviation 51.7 fL (36.4-46.3); Red Blood Count 3.75 M/uL (4.20-5.40); White Blood Count 6.25 K/ul (4.8-10.8)
[2023-12-24 07:21] LABS: BUN Creatinine Ratio 26.2 (10-20); Calcium 9.1 mg/dl (8.6-10.3); Creatinine Clr Calc Pharmacy 98.3 ml/min; Est GFR (African American) 111.8 ml/min; Est GFR (Non-African American) 96.5 ml/min; Magnesium 1.6 mg/dl (1.7-2.4)
--- NOTE | 2023-12-24 09:28 | Hospitalist Progress Note ---
Date of Service December 24, 2023 Assessment & Plan (1) Infection of right foot: Plan: 58 yo F with past medical history significant for chronic pancreatitis, type 2 diabetes, hyperlipidemia, obstructive sleep apnea, hypertension, chronic insomnia presents with right foot infection. Patient states she noticed pain in the right foot last . And on last Monday she noticed a big blister on the right foot which eventually popped up. And she has open wound in the right foot. And some erythema surrounding. Having pain while ambulating. Denies any fevers. No injury to the foot. Currently resting comfortably and hemodynamically stable. Denies any chest pain or shortness of breath ,no nausea or vomiting. No abdominal pain. No headache. No dizziness. She has chronic runny nose. No sore throat or cough. Appetite is okay. No difficulty sw allowing. Normal bowel and bladder movements. Right foot infection Diabetic foot infection/ulceration R foot cellulitis Had a big blister which popped up No injury Diabetes MRI scan no osteomyelitis Empirically started on Zosyn and Doxy Wound care wound cultx obtained - so far growing S. aureus / mssa follow final cultx Ortho consulted for MRI ankle findings - Dr. Garcia - pt now s/p debridement on 12/21 Monitor for response Diabetes mellitus type 2 Current A1c 6.7 % Continue home Lantus Sliding scale Will monitor Sleep apnea CPAP Hyperlipidemia On statin Insomnia On vigo DVT prophylaxis- Lovenox Disposition- Medical floor Full code Admission and Anticipated Discharge Date Admission Date: December 21, 2023 Subjective Pt seen in follow up of diabetic foot infection Laying in bed in [facility] Underwent debridement of foot w/ Dr. Garcia Sitting up in bed today, feeling well, overall says her foot feels much better, however when she tries to walk it hurts a lot. No fevers chills chest pain shortness of breath, no abdominal pain nausea vomiting. Review of Systems Review of Systems: All systems reviewed & are unremarkable except as noted in Subjective Physical Exam Physical Exam: General- WD/WN F in NAD Head- atraumatic Eyes- PERRL. ENT- oropharynx clear Neck- supple, no JVD. Lungs- clear to auscultation no wheezing or crackles. Heart- regular rhythm; no murmur, no gallop. Abdomen- normal bowel sounds, soft, nontender, no distension. Extremities- right foot open wound seen involving most of the mid to lateral aspect of right foot dorsal aspect Neuro- alert, oriented x 3; PERRL, no facial palsy; no dysarthria; moves extremities. Skin- warm & dry Results & Data Results & Data Vital Signs (Past 12 Hours) Vital Signs Temp Pulse Pulse Resp BP Pulse Ox O2 Del Method 12/24/23 07:25 36.5 C 64 16 119/75 96 Room Air, CPAP 12/24/23 03:10 11 L 12/23/23 22:45 91 H 14 95 FiO2 12/24/23 07:25 12/24/23 03:10 21 12/23/23 22:45 21 Laboratory Results 12/24/23 12/24/23 12/23/23 Range/Units 07:55 05:47 20:36 WBC 6.25 (4.8-10.8) K/ul RBC 3.75 L (4.20-5.40) M/uL Hgb 13.1 (12.0-16.0) g/dl Hct 39.8 (37.0-47.0) % MCV 106.1 H (80.0-100.0) fL MCH 34.9 H (25.0-34.0) pg MCHC 32.9 (32.0-36.0) g/dL RDW Std Deviation 51.7 H (36.4-46.3) fL RDW Coeff of Eli 13.1 (11.5-14.5) % Plt Count 148 (130-400) K/uL MPV 10.5 (9.4-12.4) fL Sodium 140 (136-145) mmol/L Potassium 4.0 (3.5-5.1) mmol/L Chloride 104 (98-107) mmol/L Carbon Dioxide 31 (21-32) mmol/L Anion Gap 5 (3-11) BUN 17 (6-23) mg/dl Creatinine 0.65 (0.6-1.2) mg/dl Est Cr Clr Drug Dosing 98.3 ml/min Est GFR ( Amer) 111.8 ml/min Est GFR (Non-Af Amer) 96.5 ml/min BUN/Creatinine Ratio 26.2 H (10-20) Glucose 130 H (70-99(Fasting)) mg/dl POC Glucose 132 H 133 H (70-99) mg/dl Calcium 9.1 (8.6-10.3) mg/dl Phosphorus 4.0 (2.5-4.9) mg/dl Magnesium 1.6 L (1.7-2.4) mg/dl 12/23/23 12/23/23 Range/Units 16:40 11:39 WBC (4.8-10.8) K/ul RBC (4.20-5.40) M/uL Hgb (12.0-16.0) g/dl Hct (37.0-47.0) % MCV (80.0-100.0) fL MCH (25.0-34.0) pg MCHC (32.0-36.0) g/dL RDW Std Deviation (36.4-46.3) fL RDW Coeff of Eli (11.5-14.5) % Plt Count (130-400) K/uL MPV (9.4-12.4) fL Sodium (136-145) mmol/L Potassium (3.5-5.1) mmol/L Chloride (98-107) mmol/L Carbon Dioxide (21-32) mmol/L Anion Gap (3-11) BUN (6-23) mg/dl Creatinine (0.6-1.2) mg/dl Est Cr Clr Drug Dosing ml/min Est GFR ( Amer) ml/min Est GFR (Non-Af Amer) ml/min BUN/Creatinine Ratio (10-20) Glucose (70-99(Fasting)) mg/dl POC Glucose 269 H 155 H (70-99) mg/dl Calcium (8.6-10.3) mg/dl Phosphorus (2.5-4.9) mg/dl Magnesium (1.7-2.4) mg/dl Medications Administered Current Inpatient Medications Acetaminophen (Acetaminophen 325 Mg Tab) 650 mg PO Q4H PRN PRN Reason: pain/fever Stop: 01/20/24 02:09 Last Admin: 12/22/23 10:14 Dose: 650 mg Atorvastatin Calcium (Atorvastatin 20 Mg Tab) 20 mg PO HS [facility] Stop: 01/20/24 20:59 Last Admin: 12/23/23 20:55 Dose: 20 mg Buspirone HCl (Buspirone 5 Mg Tab) 10 mg PO TID [facility] Stop: 01/20/24 08:59 Last Admin: 02/18/24 08:29 Dose: 10 mg Calcium/Vitamin D (Calcium 600mg + Vit D 400 Iu Tab) 1 tab PO DAILY [facility] Stop: 01/20/24 08:59 Last Admin: 12/24/23 08:29 Dose: 1 tab Dextrose (Dextrose 50% 50 Ml Syringe) 25 - 50 ml IV UD PRN; Protocol PRN Reason: Hypoglycemia Protocol Stop: 01/20/24 02:09 Enoxaparin Sodium (Enoxaparin Inj 40 Mg/0.4 Ml Syr) 40 mg SQ Q24H [facility] Stop: 01/20/24 08:59 Last Admin: 12/24/23 08:29 Dose: 40 mg Gabapentin (Gabapentin 300 Mg Cap) 900 mg PO [facility] Stop: 01/20/24 03:29 Last Admin: 12/23/23 20:55 Dose: 900 mg Glucagon (Glucagon For Inj 1 Mg Vial) 1 mg SQ UD PRN; Protocol PRN Reason: Hypoglycemia Protocol Stop: 01/20/24 02:09 Glucose (Glucose 40% Gel 15 Gm Tube) 15 - 30 gm PO UD PRN; Protocol PRN Reason: Hypoglycemia Protocol Stop: 01/20/24 02:09 Glucose (Glucose 10 Tab/Tube) 4 - 8 tab PO UD PRN; Protocol PRN Reason: Hypoglycemia Treatment Stop: 01/20/24 02:09 Piperacillin Sod/Tazobactam (Sod 4.5 gm/ Dextrose) 100 mls @ 25 mls/hr IV Q8H [facility]; Protocol Stop: 12/28/23 05:59 Last Infusion: 12/24/23 08:36 Dose: Infused Doxycycline Hyclate 100 mg/ (Dextrose) 100 mls @ 50 mls/hr IV Q12H [facility] Stop: 12/28/23 03:59 Last Infusion: 12/24/23 06:56 Dose: Infused Magnesium Sulfate/Dextrose (Magnesium Sulfate / D5w) 1 gm in 100 mls @ 50 ml s/hr IV ONE ONE Stop: 12/24/23 11:25 Insulin Aspart (Insulin Aspart Per Unit Charge) 0 units SC [facility] Stop: 01/20/24 07:29 Last Admin: 12/24/23 08:30 Dose: 6 units Insulin Glargine (Lantus Per Unit Charge) 30 units SQ [facility] Stop: 01/20/24 20:59 Last Admin: 12/23/23 20:55 Dose: 30 units Lactobacillus Acidophilus (Advanced Probiotic 1250 Mg Capsule) 2 cap PO QAM [facility] Stop: 01/20/24 08:59 Last Admin: 12/24/23 08:29 Dose: 2 cap Magnesium Oxide (Magnesium Oxide 400 Mg Tab) 400 mg PO HS [facility] Stop: 01/20/24 20:59 Last Admin: 12/23/23 20:55 Dose: 400 mg Miscellaneous (Carbohydrates For Hypoglycemia ) 15 - 30 gm PO UD PRN PRN Reason: Hypoglycemia Protocol Stop: 01/20/24 02:09 Polyethylene Glycol (Polyethylene (Miralax) 17 Gm Pack) 17 gm PO DAILY PRN PRN Reason: Constipation Stop: 01/20/24 02:09 Thiamine HCl (Thiamine Hcl 100 Mg Tab) 100 mg PO QAM [facility] Stop: 01/20/24 08:59 Last Admin: 12/24/23 08:29 Dose: 100 mg Tramadol HCl (Tramadol Hcl 50 Mg Tablet) 50 mg PO Q6H PRN PRN Reason: Mod-Sev Pain (Scale 4-10) Stop: 01/20/24 02:09 Last Admin: 12/23/23 19:45 Dose: 50 mg Zolpidem Tartrate (Zolpidem Tartrate 5 Mg Tab) 5 mg PO HS PRN PRN Reason: Sleep Stop: 01/20/24 03:59 Last Admin: 12/23/23 20:55 Dose: 5 mg
[2023-12-24] MEDS: MAGNESIUM SULFATE / D5W 1 GM/100 ML BAG IV ONE (10:07)
[2023-12-25 07:51] LABS: Hematocrit (blood only) 38.5 % (37.0-47.0); Hemoglobin 13.3 g/dl (12.0-16.0); Mean Corpuscular Hemoglobin 36.1 pg (25.0-34.0); Mean Corpuscular Hgb Conc 34.5 g/dL (32.0-36.0); Mean Corpuscular Volume 104.6 fL (80.0-100.0); Mean Platelet Volume 10.4 fL (9.4-12.4); Platelet Count 167 K/uL (130-400); RDW Coefficient of Variation 12.8 % (11.5-14.5); RDW Standard Deviation 49.6 fL (36.4-46.3); Red Blood Count 3.68 M/uL (4.20-5.40); White Blood Count 6.87 K/ul (4.8-10.8)
[2023-12-25 08:18] LABS: BUN Creatinine Ratio 24.4 (10-20); Calcium 9.2 mg/dl (8.6-10.3); Creatinine Clr Calc Pharmacy 81.9 ml/min; Est GFR (African American) 95.8 ml/min; Est GFR (Non-African American) 82.6 ml/min; Magnesium 1.7 mg/dl (1.7-2.4); Phosphorus 3.6 mg/dl (2.5-4.9); Potassium 4.3 mmol/L (3.5-5.1)
--- NOTE | 2023-12-25 08:37 | Hospitalist Progress Note ---
Date of Service December 25, 2023 Assessment & Plan (1) Infection of right foot: Plan: 58 yo F with past medical history significant for chronic pancreatitis, type 2 diabetes, hyperlipidemia, obstructive sleep apnea, hypertension, chronic insomnia presents with right foot infection. Patient states she noticed pain in the right foot last . And on last Monday she noticed a big blister on the right foot which eventually popped up. And she has open wound in the right foot. And some erythema surrounding. Having pain while ambulating. Denies any fevers. No injury to the foot. Currently resting comfortably and hemodynamically stable. Right foot infection Diabetic foot infection/ulceration R foot cellulitis Had a big blister which popped up No injury Diabetes MRI scan no osteomyelitis Empirically started on Zosyn and Doxy Wound care wound cultx obtained - so far growing S. aureus / mssa follow final cultx Ortho consulted for MRI ankle findings - Dr. Garcia - pt now s/p debridement on 12/21 Monitor for response ID consulted Diabetes mellitus type 2 Current A1c 6.7 % Continue home Lantus Sliding scale Will monitor Sleep apnea CPAP Hyperlipidemia On statin Insomnia On Dayvigo DVT prophylaxis- Lovenox Disposition- Medical floor Full code Admission and Anticipated Discharge Date Admission Date: December 21, 2023 Subjective Pt seen in follow up of diabetic foot infection Laying in bed in [facility] Underwent debridement of foot w/ Dr. Garcia Sitting up in chair today, feeling well, overall says her foot feels much better, however when she tries to walk it hurts - says it hurts less to walk today. No fevers chills chest pain shortness of breath, no abdominal pain nausea vomiting. Review of Systems Review of Systems: All systems reviewed & are unremarkable except as noted in Subjective Physical Exam Physical Exam: General- WD/WN F in NAD Head- atraumatic Eyes- PERRL. ENT- oropharynx clear Neck- supple, no JVD. Lungs- clear to auscultation no wheezing or crackles. Heart- regular rhythm; no murmur, no gallop. Abdomen- normal bowel sounds, soft, nontender, no distension. Extremities- right foot open wound seen involving most of the mid to lateral aspect of right foot dorsal aspect Neuro- alert, oriented x 3; PERRL, no facial palsy; no dysarthria; moves extremities. Skin- warm & dry Results & Data Results & Data Vital Signs (Past 12 Hours) Vital Signs Temp Pulse Pulse Resp BP Pulse Ox O2 Del Method 12/25/23 08:05 36.6 C 63 16 104/66 96 Room Air 12/25/23 00:15 79 15 96 FiO2 12/25/23 08:05 12/25/23 00:15 21 Laboratory Results 12/25/23 12/25/23 12/24/23 Range/Units 07:14 07:04 20:41 WBC 6.87 (4.8-10.8) K/ul RBC 3.68 L (4.20-5.40) M/uL Hgb 13.3 (12.0-16.0) g/dl Hct 38.5 (37.0-47.0) % MCV 104.6 H (80.0-100.0) fL MCH 36.1 H (25.0-34.0) pg MCHC 34.5 (32.0-36.0) g/dL RDW Std Deviation 49.6 H (36.4-46.3) fL RDW Coeff of Eli 12.8 (11.5-14.5) % Plt Count 167 (130-400) K/uL MPV 10.4 (9.4-12.4) fL Sodium 139 (136-145) mmol/L Potassium 4.3 (3.5-5.1) mmol/L Chloride 103 (98-107) mmol/L Carbon Dioxide 32 (21-32) mmol/L Anion Gap 4 (3-11) BUN 19 (6-23) mg/dl Creatinine 0.78 (0.6-1.2) mg/dl Est Cr Clr Drug Dosing 81.9 ml/min Est GFR ( Amer) 95.8 ml/min Est GFR (Non-Af Amer) 82.6 ml/min BUN/Creatinine Ratio 24.4 H (10-20) Glucose 182 H (70-99(Fasting)) mg/dl POC Glucose 168 H 230 H (70-99) mg/dl Calcium 9.2 (8.6-10.3) mg/dl Phosphorus 3.6 (2.5-4.9) mg/dl Magnesium 1.7 (1.7-2.4) mg/dl 12/24/23 12/24/23 12/24/23 Range/Units 16:42 16:41 11:49 WBC (4.8-10.8) K/ul RBC (4.20-5.40) M/uL Hgb (12.0-16.0) g/dl Hct (37.0-47.0) % MCV (80.0-100.0) fL MCH (25.0-34.0) pg MCHC (32.0-36.0) g/dL RDW Std Deviation (36.4-46.3) fL RDW Coeff of Eli (11.5-14.5) % Plt Count (130-400) K/uL MPV (9.4-12.4) fL Sodium (136-145) mmol/L Potassium (3.5-5.1) mmol/L Chloride (98-107) mmol/L Carbon Dioxide (21-32) mmol/L Anion Gap (3-11) BUN (6-23) mg/dl Creatinine (0.6-1.2) mg/dl Est Cr Clr Drug Dosing ml/min Est GFR ( Amer) ml/min Est GFR (Non-Af Amer) ml/min BUN/Creatinine Ratio (10-20) Glucose (70-99(Fasting)) mg/dl POC Glucose 239 H 317 H* 226 H (70-99) mg/dl Calcium (8.6-10.3) mg/dl Phosphorus (2.5-4.9) mg/dl Magnesium (1.7-2.4) mg/dl Medications Administered Current Inpatient Medications Acetaminophen (Acetaminophen 325 Mg Tab) 650 mg PO Q4H PRN PRN Reason: pain/fever Stop: 01/20/24 02:09 Last Admin: 12/22/23 10:14 Dose: 650 mg Atorvastatin Calcium (Atorvastatin 20 Mg Tab) 20 mg PO HS [facility] Stop: 01/20/24 20:59 Last Admin: 12/24/23 20:22 Dose: 20 mg Buspirone HCl (Buspirone 5 Mg Tab) 10 mg PO TID [facility] Stop: 01/20/24 08:59 Last Admin: 12/24/23 20:22 Dose: 10 mg Calcium/Vitamin D (Calcium 600mg + Vit D 400 Iu Tab) 1 tab PO DAILY [facility] Stop: 01/20/24 08:59 Last Admin: 12/24/23 08:29 Dose: 1 tab Dextrose (Dextrose 50% 50 Ml Syringe) 25 - 50 ml IV UD PRN; Protocol PRN Reason: Hypoglycemia Protocol Stop: 01/20/24 02:09 Enoxaparin Sodium (Enoxaparin Inj 40 Mg/0.4 Ml Syr) 40 mg SQ Q24H [facility] Stop: 01/20/24 08:59 Last Admin: 12/24/23 08:29 Dose: 40 mg Gabapentin (Gabapentin 300 Mg Cap) 900 mg PO HS [facility] Stop: 01/20/24 03:29 Last Admin: 12/24/23 20:23 Dose: 900 mg Glucagon (Glucagon For Inj 1 Mg Vial) 1 mg SQ UD PRN; Protocol PRN Reason: Hypoglycemia Protocol Stop: 01/20/24 02:09 Glucose (Glucose 40% Gel 15 Gm Tube) 15 - 30 gm PO UD PRN; Protocol PRN Reason: Hypoglycemia Protocol Stop: 01/20/24 02:09 Glucose (Glucose 10 Tab/Tube) 4 - 8 tab PO UD PRN; Protocol PRN Reason: Hypoglycemia Treatment Stop: 01/20/24 02:09 Piperacillin Sod/Tazobactam (Sod 4.5 gm/ Dextrose) 100 mls @ 25 mls/hr IV Q8H [facility]; Protocol Stop: 12/28/23 05:59 Last Admin: 12/25/23 05:19 Dose: 25 mls/hr Doxycycline Hyclate 100 mg/ (Dextrose) 100 mls @ 50 mls/hr IV Q12H [facility] Stop: 12/28/23 03:59 Last Infusion: 12/25/23 05:22 Dose: Infused Insulin Aspart (Insulin Aspart Per Unit Charge) 0 units SC [facility] Stop: 01/20/24 07:29 Last Admin: 12/24/23 21:08 Dose: 3 units Insulin Glargine (Lantus Per Unit Charge) 30 units SQ HS [facility] Stop: 01/20/24 20:59 Last Admin: 12/24/23 21:08 Dose: 30 units Lactobacillus Acidophilus (Advanced Probiotic 1250 Mg Capsule) 2 cap PO QAM [facility] Stop: 01/20/24 08:59 Last Admin: 12/24/23 08:29 Dose: 2 cap Magnesium Oxide (Magnesium Oxide 400 Mg Tab) 400 mg PO HS [facility] Stop: 01/20/24 20:59 Last Admin: 02/18/24 20:23 Dose: 400 mg Miscellaneous (Carbohydrates For Hypoglycemia ) 15 - 30 gm PO UD PRN PRN Reason: Hypoglycemia Protocol Stop: 01/20/24 02:09 Polyethylene Glycol (Polyethylene (Miralax) 17 Gm Pack) 17 gm PO DAILY PRN PRN Reason: Constipation Stop: 01/20/24 02:09 Thiamine HCl (Thiamine Hcl 100 Mg Tab) 100 mg PO QAM [facility] Stop: 01/20/24 08:59 Last Admin: 12/24/23 08:29 Dose: 100 mg Tramadol HCl (Tramadol Hcl 50 Mg Tablet) 50 mg PO Q6H PRN PRN Reason: Mod-Sev Pain (Scale 4-10) Stop: 01/20/24 02:09 Last Admin: 12/24/23 14:32 Dose: 50 mg Zolpidem Tartrate (Zolpidem Tartrate 5 Mg Tab) 5 mg PO HS PRN PRN Reason: Sleep Stop: 01/20/24 03:59 Last Admin: 12/24/23 20:26 Dose: 5 mg
--- NOTE | 2023-12-25 16:07 | Infectious Disease Consult ---
Date of Service December 25, 2023 Telehealth Information I performed this visit using a real-time telehealth connection between my location and the patients location ([facility]). After connecting through interactive tele-video, patient was identified by name and date of and/or wristband check.Patient (or authorized healthcare sales representative advertising) was informed that this was a telemedicine visit and it was being conducted confidentially over secure lines. My office door was closed and no one else was present in the room with me.Patient (or authorized healthcare sales representative advertising) provided consent to proceed with the visit, expressed an understanding of privacy and security of the telemedicine visit, and gave permission to have a hospital sales representative advertising in the room in order to assist with the visit and to conduct portions of the visit, as needed. I informed the patient (or authorized healthcare sales representative advertising) that I reviewed their record and presented the opportunity for them to ask any questions regarding the visit today. The patient agreed to participate. Assessment & Plan (1) Infection of right foot: Plan: reviewed MRI findings, no evidence of osteomyelitis, plan noted from Podiatry no acute intervention at this time MSSA cellulitis/ SSTI: recommending tos witch IV zosyn to PO Augmentin 875/125mg BID for total of 14 days Infectious disease will stop following, please call us with any questions I was present during the entire telemedicine visit and I agree with the evaluation and plan Jasmyn Campuzano MD (2) Cellulitis of right foot due to methicillin-resistant Staphylococcus aureus: History of Present Illness History of Present Illness 58-year-old female with significant history of type 2 diabetes, hyperlipidemia, chronic pancreatitis, status sleep apnea, hypertension, chronic insomnia admitted with right foot infection with started as a blister and eventually popped the leading to wound in the right foot with surrounding erythema, patient admits pain while ambulating denies fever. Patient was evaluated by ortho, did not recommend any acute intervention Right foot cultures from 12/20, MSSA, blood cultures from 12/20 no growth Remained afebrile T-max 36.6 WBC 6.8. 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 Currently on Zosyn day 4 Allergies Allergy/AdvReac Type Severity Reaction Status Date / Time benzoyl peroxide Allergy Unknown SKIN RED Verified 12/20/23 23:04 AND IRRITATED No Known Drug Allergies Allergy Unknown NONE Verified 12/20/23 23:04 Home Medications Medication Instructions Recorded Confirmed Type lactobacillus combination no.4 3 3,000 mmu cells PO QAM 10/11/18 12/20/23 History billion cell capsule (Probiotic) magnesium 250 mg tablet 250 mg PO HS 10/11/18 12/20/23 History blood sugar diagnostic #10 ea 10/18/18 12/20/23 Rx lancets #50 ea 10/18/18 12/20/23 Rx pen needle, diabetic 29 gauge #90 ea 10/18/18 12/20/23 Rx buspirone 10 mg tablet 10 mg PO TID 04/22/23 12/20/23 History calcium carbonate 600 mg-vitamin 1 tab PO DAILY 04/22/23 12/20/23 History D3 5 mcg (200 unit) tablet (Calcium 600 + D(3)) gabapentin 300 mg capsule 900 mg PO HS 04/22/23 12/20/23 History metformin 500 mg tablet,extended 2,000 mg PO QAM 04/22/23 12/20/23 History release 24 hr thiamine HCl (vitamin B1) 100 mg 100 mg PO QAM #15 tabs 04/22/23 12/20/23 Rx tablet atorvastatin 20 mg tablet 20 mg PO HS 12/20/23 12/20/23 History insulin aspart U-100 100 unit/mL 7 unit SC ACHS 12/20/23 12/20/23 History subcutaneous solution (Novolog U-100 Insulin aspart) insulin glargine 100 unit/mL (3 30 units subcut HS 12/20/23 12/20/23 History mL) subcutaneous pen lemborexant 10 mg tablet (Dayvigo) 10 mg PO HS 12/20/23 12/20/23 History Patient History Medical History (Updated 12/25/23 @ 16:06 by Myla Mae MD) No significant past medical history Hypertension Diabetes Family History Other Family history non-contributory Social History Smoking Status: Never smoker Second Hand Exposure: Yes (as child); Do You Dip or Chew Tobacco: No; Hx Alcohol Use: Yes Alcohol type: wine and hard liquor Hx Substance Use: No Preferred Language: Cymro Communication Ability: Effective Gen[employer] Scientist Required: No Beliefs That Will Affect Care: None Current Living Situation: Alone Other Information That Helps Us Care for You: No Feels Safe at Home: Yes Safety Concerns: Feels Safe At This Time Assistive Devices: Cane Assistive Devices Comment: cane with patient Review of Systems All other ROS were negative Physical Exam physical examination limited Results & Data Vital Signs (Past 12 Hours) Vital Signs Temp Pulse Resp BP Pulse Ox O2 Del Method 12/25/23 08:05 36.6 C 63 16 104/66 96 Room Air Laboratory Results 12/20/23 22:19 Gram Stain - Final Foot Aerobic and Anaerobic Culture - Final Staphylococcus aureus 12/25/23 12/25/23 12/25/23 11:24 07:14 07:04 WBC 6.87 RBC 3.68 L Hgb 13.3 Hct 38.5 MCV 104.6 H MCH 36.1 H MCHC 34.5 RDW Std Deviation 49.6 H RDW Coeff of Eli 12.8 Plt Count 167 MPV 10.4 Sodium 139 Potassium 4.3 Chloride 103 Carbon Dioxide 32 Anion Gap 4 BUN 19 Creatinine 0.78 Est Cr Clr Drug Dosing 81.9 Est GFR ( Amer) 95.8 Est GFR (Non-Af Amer) 82.6 BUN/Creatinine Ratio 24.4 H Glucose 182 H POC Glucose 280 H 168 H Calcium 9.2 Phosphorus 3.6 Magnesium 1.7 12/24/23 12/24/23 12/24/23 20:41 16:42 16:41 WBC RBC Hgb Hct MCV MCH MCHC RDW Std Deviation RDW Coeff of Eli Plt Count MPV Sodium Potassium Chloride Carbon Dioxide Anion Gap BUN Creatinine Est Cr Clr Drug Dosing Est GFR ( Amer) Est GFR (Non-Af Amer) BUN/Creatinine Ratio Glucose POC Glucose 230 H 239 H 317 H* Calcium Phosphorus Magnesium Diagnostic Findings Reviewed MRI of the right foot: extensive dorsal subcutaneous edema, potential cellulitis no evidence of osteomyelitis x-ray of the foot: no fractures no evidence of acute osteomyelitis, 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 Medications Administered Home Medications Medication Instructions Recorded Confirmed Last Taken lactobacillus combination no.4 3 3,000 mmu cells PO QAM 10/11/18 12/20/23 04/21/23 billion cell capsule (Probiotic) magnesium 250 mg tablet 250 mg PO HS 10/11/18 12/20/23 04/20/23 blood sugar diagnostic #10 ea 10/18/18 12/20/23 Unknown lancets #50 ea 10/18/18 12/20/23 Unknown pen needle, diabetic 29 gauge #90 ea 10/18/18 12/20/23 Unknown buspirone 10 mg tablet 10 mg PO TID 04/22/23 12/20/23 04/21/23 11:30 calcium carbonate 600 mg-vitamin 1 tab PO DAILY 04/22/23 12/20/23 04/21/23 D3 5 mcg (200 unit) tablet (Calcium 600 + D(3)) gabapentin 300 mg capsule 900 mg PO HS 04/22/23 12/20/23 04/20/23 metformin 500 mg tablet,extended 2,000 mg PO QAM 04/22/23 12/20/23 04/21/23 release 24 hr thiamine HCl (vitamin B1) 100 mg 100 mg PO QAM #15 tabs 04/22/23 12/20/23 Unknown tablet atorvastatin 20 mg tablet 20 mg PO HS 12/20/23 12/20/23 Unknown insulin aspart U-100 100 unit/mL 7 unit SC ACHS 12/20/23 12/20/23 Unknown subcutaneous solution (Novolog U-100 Insulin aspart) insulin glargine 100 unit/mL (3 30 units subcut HS 12/20/23 12/20/23 Unknown mL) subcutaneous pen lemborexant 10 mg tablet (Dayvigo) 10 mg PO HS 12/20/23 12/20/23 Unknown Active Medications Generic Name Dose Route Start Last Admin Trade Name Freq PRN Reason Stop Dose Admin Acetaminophen 650 mg 12/21/23 02:10 12/22/23 10:14 Acetaminophen 325 Mg Tab PO 01/20/24 02:09 650 mg Q4H PRN Administration pain/fever Atorvastatin Calcium 20 mg 12/21/23 21:00 12/24/23 20:22 Atorvastatin 20 Mg Tab PO 01/20/24 20:59 20 mg HS EARL Administration Buspirone HCl 10 mg 12/21/23 09:00 12/25/23 14:29 Buspirone 5 Mg Tab PO 01/20/24 08:59 10 mg TID EARL Administration Calcium/Vitamin D 1 tab 12/21/23 09:00 12/25/23 09:39 Calcium 600mg + Vit D 400 Iu Tab PO 01/20/24 08:59 1 tab DAILY EARL Administration Enoxaparin Sodium 40 mg 12/21/23 09:00 12/25/23 09:38 Enoxaparin Inj 40 Mg/0.4 Ml Syr SQ 01/20/24 08:59 40 mg Q24H EARL Administration Gabapentin 900 mg 12/21/23 03:30 12/24/23 20:23 Gabapentin 300 Mg Cap PO 01/20/24 03:29 900 mg HS EARL Administration Piperacillin Sod/Tazobactam 100 mls @ 25 mls/hr 12/21/23 06:00 12/25/23 14:32 Sod 4.5 gm/ Dextrose IV 12/28/23 05:59 25 mls/hr Q8H EARL Administration Protocol Doxycycline Hyclate 100 mg/ 100 mls @ 50 mls/hr 12/21/23 04:00 12/25/23 05:22 Dextrose IV 12/28/23 03:59 Infused Q12H EARL Infusion Insulin Aspart 0 units 12/21/23 07:30 12/25/23 12:52 Insulin Aspart Per Unit Charge SC 01/20/24 07:29 6 units ACHS EARL Administration Insulin Glargine 30 units 12/21/23 21:00 12/24/23 21:08 Lantus Per Unit Charge SQ 01/20/24 20:59 30 units HS EARL Administration Lactobacillus Acidophilus 2 cap 12/21/23 09:00 12/25/23 09:39 Advanced Probiotic 1250 Mg Capsule PO 01/20/24 08:59 2 cap QAM EARL Administration Magnesium Oxide 400 mg 12/21/23 21:00 12/24/23 20:23 Magnesium Oxide 400 Mg Tab PO 01/20/24 20:59 400 mg HS EARL Administration Thiamine HCl 100 mg 12/21/23 09:00 12/25/23 09:39 Thiamine Hcl 100 Mg Tab PO 01/20/24 08:59 100 mg QAM EARL Administration Tramadol HCl 50 mg 12/21/23 02:10 12/24/23 14:32 Tramadol Hcl 50 Mg Tablet PO 01/20/24 02:09 50 mg Q6H PRN Administration Mod-Sev Pain (Scale 4-10) Zolpidem Tartrate 5 mg 12/21/23 04:00 12/24/23 20:26 Zolpidem Tartrate 5 Mg Tab PO 01/20/24 03:59 5 mg HS PRN Administration Sleep
--- NOTE | 2023-12-25 20:33 | Orthopedic Progress Note ---
Date of Service December 25, 2023 Assessment & Plan (1) Infection of right foot: Plan: Patient seen, evaluated, and treated. Excellent signs of healing noted. Wound cleansed with Betadine followed by normal saline. Application of adaptic, Aquacel, Kerlix. Will continue to follow while Patient remains in house. Thank you for allowing me to participate in the care of this Patient. Admission and Anticipated Discharge Date Admission Date: December 21, 2023 Subjective Patient seen at bedside resting comfortably in N384-1. She has no complaints and notes discomfort has greatly subsided. Physical Exam Constitutional: well developed, well nourished, cooperative and comfortable Eyes: normal visual reynolds by confrontation Neck: normal visual inspection Respiratory: normal respiratory effort Cardiovascular: Rate/Rhythm: regular rate and regular rhythm Vessels: posterior tibial pulses present and dorsalis pedis pulses present Musculoskeletal: Extremities: extremities normal to inspection Skin: + ulcer (Right foot full thickness wound ) Neurologic: moves all extremities Psychiatric: Orientation: alert and oriented x 3 Results & Data Vital Signs (Past 12 Hours) Vital Signs Temp Pulse Resp BP Pulse Ox O2 Del Method 12/25/23 16:01 36.9 C 67 16 104/66 98 Room Air
[2023-12-26 07:54] LABS: Hematocrit (blood only) 39.1 % (37.0-47.0); Hemoglobin 13.5 g/dl (12.0-16.0); Mean Corpuscular Hemoglobin 35.4 pg (25.0-34.0); Mean Corpuscular Hgb Conc 34.5 g/dL (32.0-36.0); Mean Corpuscular Volume 102.6 fL (80.0-100.0); Mean Platelet Volume 10.6 fL (9.4-12.4); Platelet Count 178 K/uL (130-400); RDW Coefficient of Variation 12.7 % (11.5-14.5); Red Blood Count 3.81 M/uL (4.20-5.40)
[2023-12-26 08:07] LABS: BUN Creatinine Ratio 32.8 (10-20); Calcium 9.5 mg/dl (8.6-10.3); Creatinine Clr Calc Pharmacy 95.3 ml/min; Est GFR (African American) 110.7 ml/min; Est GFR (Non-African American) 95.5 ml/min; Magnesium 1.7 mg/dl (1.7-2.4); Phosphorus 3.7 mg/dl (2.5-4.9); Potassium 4.2 mmol/L (3.5-5.1)
--- NOTE | 2023-12-26 12:21 | Hospitalist Progress Note ---
Date of Service December 26, 2023 Assessment & Plan (1) Infection of right foot: Plan: 58 yo F with past medical history significant for chronic pancreatitis, type 2 diabetes, hyperlipidemia, obstructive sleep apnea, hypertension, chronic insomnia presents with right foot infection. Patient states she noticed pain in the right foot last . And on last Monday she noticed a big blister on the right foot which eventually popped up. And she has open wound in the right foot. And some erythema surrounding. Having pain while ambulating. Denies any fevers. No injury to the foot. Currently resting comfortably and hemodynamically stable. Right foot infection Diabetic foot infection/ulceration R foot cellulitis Had a big blister which popped up No injury Diabetes MRI scan no osteomyelitis Empirically started on Zosyn and Doxy Wound care wound cultx obtained - positive for S. aureus / MSSA Ortho consulted for MRI ankle findings - Dr. Garcia - pt now s/p debridement on 12/21 12/26 discussed w/ Dr. Garcia today pt will need PT/OT and surgical shoe prior to DC ID consulted - plan to switch to PO augmentin on discharge Diabetes mellitus type 2 Current A1c 6.7 % Continue home Lantus Sliding scale Will monitor Sleep apnea CPAP Hyperlipidemia On statin Insomnia On Dayvigo DVT prophylaxis- Lovenox Disposition- Medical floor Full code Admission and Anticipated Discharge Date Admission Date: December 21, 2023 Subjective Pt seen in follow up of diabetic foot infection Sitting up in chair in [facility] Underwent debridement of foot w/ Dr. Garcia Feeling well, overall says her foot feels much better, however when she walks it's somewhat difficult. No fevers chills chest pain shortness of breath, no abdominal pain nausea vomiting. ID consulted - recommend switch to PO augmentin on DC Discussed w/Dr. Garcia today - will need PT/OT, will see pt this PM, possibly can plan for DC. PT/OT ordered Pt is w/o insurance and plans to stay with her son in [place] after discharge - would work for her better if discharged tomorrow. Await PT/OT recs Review of Systems Review of Systems: All systems reviewed & are unremarkable except as noted in Subjective Physical Exam Physical Exam: General- WD/WN F in NAD Head- atraumatic Eyes- PERRL. ENT- oropharynx clear Neck- supple, no JVD. Lungs- clear to auscultation no wheezing or crackles. Heart- regular rhythm; no murmur, no gallop. Abdomen- normal bowel sounds, soft, nontender, no distension. Extremities- right foot open wound seen involving most of the mid to lateral aspect of right foot dorsal aspect Neuro- alert, oriented x 3; PERRL, no facial palsy; no dysarthria; moves extremities. Skin- warm & dry Results & Data Results & Data Vital Signs (Past 12 Hours) Vital Signs Temp Pulse Pulse Resp BP Pulse Ox O2 Del Method 12/26/23 08:03 36.6 C 61 16 99/59 L 96 Room Air 12/26/23 04:27 59 L 12 99 12/26/23 00:42 54 L 17 99 FiO2 12/26/23 08:03 12/26/23 04:27 21 12/26/23 00:42 Laboratory Results 12/26/23 12/26/23 12/26/23 Range/Units 11:30 07:16 07:00 WBC 6.60 (4.8-10.8) K/ul RBC 3.81 L (4.20-5.40) M/uL Hgb 13.5 (12.0-16.0) g/dl Hct 39.1 (37.0-47.0) % MCV 102.6 H (80.0-100.0) fL MCH 35.4 H (25.0-34.0) pg MCHC 34.5 (32.0-36.0) g/dL RDW Std Deviation 48.0 H (36.4-46.3) fL RDW Coeff of Eli 12.7 (11.5-14.5) % Plt Count 178 (130-400) K/uL MPV 10.6 (9.4-12.4) fL Sodium 137 (136-145) mmol/L Potassium 4.2 (3.5-5.1) mmol/L Chloride 102 (98-107) mmol/L Carbon Dioxide 29 (21-32) mmol/L Anion Gap 6 (3-11) BUN 22 (6-23) mg/dl Creatinine 0.67 (0.6-1.2) mg/dl Est Cr Clr Drug Dosing 95.3 ml/min Est GFR ( Amer) 110.7 ml/min Est GFR (Non-Af Amer) 95.5 ml/min BUN/Creatinine Ratio 32.8 H (10-20) Glucose 242 H (70-99(Fasting)) mg/dl POC Glucose 254 H 227 H (70-99) mg/dl Calcium 9.5 (8.6-10.3) mg/dl Phosphorus 3.7 (2.5-4.9) mg/dl Magnesium 1.7 (1.7-2.4) mg/dl 12/25/23 12/25/23 Range/Units 20:48 16:28 WBC (4.8-10.8) K/ul RBC (4.20-5.40) M/uL Hgb (12.0-16.0) g/dl Hct (37.0-47.0) % MCV (80.0-100.0) fL MCH (25.0-34.0) pg MCHC (32.0-36.0) g/dL RDW Std Deviation (36.4-46.3) fL RDW Coeff of Eli (11.5-14.5) % Plt Count (130-400) K/uL MPV (9.4-12.4) fL Sodium (136-145) mmol/L Potassium (3.5-5.1) mmol/L Chloride (98-107) mmol/L Carbon Dioxide (21-32) mmol/L Anion Gap (3-11) BUN (6-23) mg/dl Creatinine (0.6-1.2) mg/dl Est Cr Clr Drug Dosing ml/min Est GFR ( Amer) ml/min Est GFR (Non-Af Amer) ml/min BUN/Creatinine Ratio (10-20) Glucose (70-99(Fasting)) mg/dl POC Glucose 216 H 226 H (70-99) mg/dl Calcium (8.6-10.3) mg/dl Phosphorus (2.5-4.9) mg/dl Magnesium (1.7-2.4) mg/dl Medications Administered Current Inpatient Medications Acetaminophen (Acetaminophen 325 Mg Tab) 650 mg PO Q4H PRN PRN Reason: pain/fever Stop: 01/20/24 02:09 Last Admin: 12/22/23 10:14 Dose: 650 mg Atorvastatin Calcium (Atorvastatin 20 Mg Tab) 20 mg PO HS EARL Stop: 01/20/24 20:59 Last Admin: 12/25/23 20:58 Dose: 20 mg Buspirone HCl (Buspirone 5 Mg Tab) 10 mg PO TID [facility] Stop: 01/20/24 08:59 Last Admin: 12/26/23 09:05 Dose: 10 mg Calcium/Vitamin D (Calcium 600mg + Vit D 400 Iu Tab) 1 tab PO DAILY [facility] Stop: 01/20/24 08:59 Last Admin: 12/26/23 09:05 Dose: 1 tab Dextrose (Dextrose 50% 50 Ml Syringe) 25 - 50 ml IV UD PRN; Protocol PRN Reason: Hypoglycemia Protocol Stop: 01/20/24 02:09 Enoxaparin Sodium (Enoxaparin Inj 40 Mg/0.4 Ml Syr) 40 mg SQ Q24H [facility] Stop: 01/20/24 08:59 Last Admin: 12/26/23 09:04 Dose: 40 mg Gabapentin (Gabapentin 300 Mg Cap) 900 mg PO [facility] Stop: 01/20/24 03:29 Last Admin: 12/25/23 20:59 Dose: 900 mg Glucagon (Glucagon For Inj 1 Mg Vial) 1 mg SQ UD PRN; Protocol PRN Reason: Hypoglycemia Protocol Stop: 01/20/24 02:09 Glucose (Glucose 40% Gel 15 Gm Tube) 15 - 30 gm PO UD PRN; Protocol PRN Reason: Hypoglycemia Protocol Stop: 01/20/24 02:09 Glucose (Glucose 10 Tab/Tube) 4 - 8 tab PO UD PRN; Protocol PRN Reason: Hypoglycemia Treatment Stop: 01/20/24 02:09 Piperacillin Sod/Tazobactam (Sod 4.5 gm/ Dextrose) 100 mls @ 25 mls/hr IV Q8H [facility]; Protocol Stop: 12/28/23 05:59 Last Infusion: 12/26/23 10:01 Dose: Infused Doxycycline Hyclate 100 mg/ (Dextrose) 100 mls @ 50 mls/hr IV Q12H [facility] Stop: 12/28/23 03:59 Last Infusion: 12/26/23 05:24 Dose: Infused Insulin Aspart (Insulin Aspart Per Unit Charge) 0 units SC [facility] Stop: 01/20/24 07:29 Last Admin: 12/26/23 09:02 Dose: 11 units Insulin Glargine (Lantus Per Unit Charge) 30 units SQ [facility] Stop: 01/20/24 20:59 Last Admin: 02/19/24 21:04 Dose: 30 units Lactobacillus Acidophilus (Advanced Probiotic 1250 Mg Capsule) 2 cap PO QAM [facility]AR[facility] Stop: 01/20/24 08:59 Last Admin: 12/26/23 09:06 Dose: 2 cap Magnesium Oxide (Magnesium Oxide 400 Mg Tab) 400 mg PO HS EARL Stop: 01/20/24 20:59 Last Admin: 12/25/23 20:59 Dose: 400 mg Miscellaneous (Carbohydrates For Hypoglycemia ) 15 - 30 gm PO UD PRN PRN Reason: Hypoglycemia Protocol Stop: 01/20/24 02:09 Polyethylene Glycol (Polyethylene (Miralax) 17 Gm Pack) 17 gm PO DAILY PRN PRN Reason: Constipation Stop: 01/20/24 02:09 Thiamine HCl (Thiamine Hcl 100 Mg Tab) 100 mg PO QAM [facility] Stop: 01/20/24 08:59 Last Admin: 12/26/23 09:05 Dose: 100 mg Tramadol HCl (Tramadol Hcl 50 Mg Tablet) 50 mg PO Q6H PRN PRN Reason: Mod-Sev Pain (Scale 4-10) Stop: 01/20/24 02:09 Last Admin: 12/25/23 16:45 Dose: 50 mg Zolpidem Tartrate (Zolpidem Tartrate 5 Mg Tab) 5 mg PO HS PRN PRN Reason: Sleep Stop: 01/20/24 03:59 Last Admin: 12/25/23 21:05 Dose: 5 mg
[2023-12-27 08:07] LABS: Hematocrit (blood only) 41.5 % (37.0-47.0); Hemoglobin 13.8 g/dl (12.0-16.0); Mean Corpuscular Hemoglobin 34.8 pg (25.0-34.0); Mean Corpuscular Hgb Conc 33.3 g/dL (32.0-36.0); Mean Corpuscular Volume 104.8 fL (80.0-100.0); Mean Platelet Volume 10.7 fL (9.4-12.4); Platelet Count 199 K/uL (130-400); RDW Coefficient of Variation 12.7 % (11.5-14.5); RDW Standard Deviation 49.1 fL (36.4-46.3); Red Blood Count 3.96 M/uL (4.20-5.40); White Blood Count 7.23 K/ul (4.8-10.8)
[2023-12-27 08:25] LABS: BUN Creatinine Ratio 31.1 (10-20); Calcium 9.6 mg/dl (8.6-10.3); Creatinine Clr Calc Pharmacy 86.3 ml/min; Est GFR (African American) 102.1 ml/min; Est GFR (Non-African American) 88.1 ml/min; Magnesium 1.7 mg/dl (1.7-2.4); Phosphorus 4.4 mg/dl (2.5-4.9); Potassium 3.8 mmol/L (3.5-5.1)
--- NOTE | 2023-12-27 13:52 | Discharge Summary ---
Date of Service December 27, 2023 Admission HPI Per Admitting Provider 58-year-old female with past medical history significant for chronic pancreatitis, type 2 diabetes, hyperlipidemia, obstructive sleep apnea, hypertension, chronic insomnia presents with right foot infection. Patient states she noticed pain in the right foot last . And on last Monday she noticed a big blister on the right foot which eventually popped up. And she has open wound in the right foot. And some erythema surrounding. Having pain while ambulating. Denies any fevers. No injury to the foot. Currently resting comfortably and hemodynamically stable. Denies any chest pain or shortness of breath ,no nausea or vomiting. No abdominal pain. No headache. No dizziness. She has chronic runny nose. No sore throat or cough. Appetite is okay. No difficulty swallowing. Normal bowel and bladder movements. Past medical history. As mentioned above Past surgical history. . Colonoscopy. EGD with endoscopic ultrasound. Tonsillectomy. Cataracts bilateral. Sinus surgery. Uterine fibroid embolization. Social history. . No smoking. Alcohol occasional. No drug use. Family history. Mother had arthritis. Skin cancer. Father had skin cancer. Colon cancer. Diabetes. Parkinsonism. Brother has arthritis. Admission Exam Per Admitting Provider General- Not in distress Head- atraumatic Eyes- PERRL. ENT- oropharynx clear Neck- supple, no JVD. Lungs- clear to auscultation no wheezing or crackles. Heart- regular rhythm; no murmur, no gallop. Abdomen- normal bowel sounds, soft, nontender, no distension. Extremities- right foot open wound seen involving most of the mid to lateral aspect of right foot dorsal aspect Neuro- alert, oriented x 3; PERRL, no facial palsy; no dysarthria; moves extremities. Skin- warm & dry Principal Diagnosis Infection of right foot Right foot cellulitis Discharge Exam General- WD/WN F in NAD Head- atraumatic Eyes- PERRL. ENT- oropharynx clear Neck- supple, no JVD. Lungs- clear to auscultation no wheezing or crackles. Heart- regular rhythm; no murmur, no gallop. Abdomen- normal bowel sounds, soft, nontender, no distension. Extremities- right foot open wound seen involving most of the mid to lateral aspect of right foot dorsal aspect on picture, on surgical shoe at bedside exam. Neuro- alert, oriented x 3; PERRL, no facial palsy; no dysarthria; moves extremities. Skin- warm & dry Discharge Data Allergies Allergy/AdvReac Type Severity Reaction Status Date / Time benzoyl peroxide Allergy Unknown SKIN RED Verified 12/20/23 23:04 AND IRRITATED No Known Drug Allergies Allergy Unknown NONE Verified 12/20/23 23:04 Consultations 12/20/23 22:55 ED Decision to Admit Stat 12/21/23 09:23 Consult Podiatry Routine 12/24/23 09:25 Consult Infectious Diseases Routine Ordered Studies 12/20/23 19:24 MRI Ankle [MR ankle RT wo con] Stat MRI Foot [MR foot RT w/o con] Stat Hospital Course (1) Infection of right foot: Per prior attending with addendum: 58 yo F with past medical history significant for chronic pancreatitis, type 2 diabetes, hyperlipidemia, obstructive sleep apnea, hypertension, chronic insomnia presents with right foot infection. Patient states she noticed pain in the right foot last . And on last Monday she noticed a big blister on the right foot which eventually popped up. And she has open wound in the right foot. And some erythema surrounding. Having pain while ambulating. Denies any fevers. No injury to the foot. Currently resting comfortably and hemodynamically stable. Right foot infection Diabetic foot infection/ulceration R foot cellulitis Had a big blister which popped up No injury Diabetes MRI scan no osteomyelitis Empirically started on Zosyn and Doxy Wound care wound cultx obtained - positive for S. aureus / MSSA Ortho consulted for MRI ankle findings - Dr. Garcia - pt now s/p debridement on 12/21 12/26 discussed w/ Dr. Garcia today pt will need PT/OT and surgical shoe prior to DC ID consulted - plan to switch to PO augmentin on discharge Diabetes mellitus type 2 Current A1c 6.7 % Continue home Lantus Sliding scale Will monitor Sleep apnea CPAP Hyperlipidemia On statin Insomnia On Dayvigo DVT prophylaxis- Lovenox Disposition- Medical floor Full code Addendum: Patient was seen and examined at bedside as a follow-up of right foot infection. Patient reports improving pain and discomfort in the right foot. Patient is hemodynamically stable and would like to go home. PT/OT evaluated, discussed with PT, okay to DC home. Patient is being discharged home with family support with following instruction at the point of discharge: Follow-up with your primary care physician within a week time and likely you will need labs CBC/CMP/magnesium/phosphorus. You will be discharged on antibiotic to complete the course of antibiotic. Probiotics will be added. Follow-up with cemetery counselor in 1 to 2 weeks time upon discharge. Take your medications as prescribed. Please make sure that you are able to get your medications today by calling your pharmacy before you leave the hospital so that your treatment continuity is not broken. Home Health Attestation I certify that this patient is under my care and that I, or a physicians pathologist assistant working with me, had a face to-face encounter that meets the home health [id number] encounter requirements with this patient. The encounter with the patient was in whole, or in part, for the following medical condition, which is the primary reason for home health care (list medical condition): I certify that, based on my findings, the following services are medically necessary home health services: My clinical findings support the need for the above services because: Further, I certify that my clinical findings support that this patient is homebound (i.e. absences from home require considerable and taxing effort and are for medical reasons or christian services or infrequently or of short duration when for other reasons) because: Certification for Home Health Services: Based on the above findings, I certify that this patient is confined to the home and needs intermittent long-term care, physical therapy and/or speech therapy or continues to need occupational therapy. The patient is under my care, and I have initiated the establishment of the plan of care. This patient will be followed by a physician who will periodically review the plan of care. Total Time Total Time Spent Total Time Spent (In Minutes): 45 Discharge Plan Discharge Items Patient Disposition: Home - Self-Care Reason For Visit: RIGHT FOOT INFECTION Discharge Diagnosis: Infection of right foot Right foot cellulitis Condition on Discharge: Good Activity: Resume your previous activity Activity Comment: Weight bearing as tolerated in surgical shoe. Bathing Comment: Keep dressing clean, dry, and intact. Weightbearing: Full weightbearing Weightbearing Comment: Weight bearing as tolerated in surgical shoe. Non-emergency contact: Primary Care Provider Call non-emergency contact if: you have any medication questions, your symptoms worsen and your temperature is above 101 Follow-up/Referrals: Tommy Saab MD [Primary Care Provider] - (Date & Time 01/15/2024 2:20 PM Provider Tommy Saab MD Department [facility] ) Shar Garcia DPM, MS [Physician] - Diet: Carb Consistent or DM2 and Heart Healthy Deja Attending Provider Instructions: Follow-up with your primary care physician within a week time and likely you will need labs CBC/CMP/magnesium/phosphorus. You will be discharged on antibiotic to complete the course of antibiotic. Probiotics will be added. Follow-up with cemetery counselor in 1 to 2 weeks time upon discharge. Take your medications as prescribed. Please make sure that you are able to get your medications today by calling your pharmacy before you leave the hospital so that your treatment continuity is not broken. Deja Otm Consultant Provider Instructions: Change dressing every other day or sooner as needed such as if dressing becomes unkempt or soiled. Dressing changes to include non-adherent adaptic dressing over right dorsal foot wounds followed by 4x4 gauze and Kerlix. Patient may follow up with Dr. Garcia in 1 to 2 weeks after discharge. Please call [phone] for appointment. Pending Studies at Discharge: No Stand-Alone Forms: My [employer] [facility], Smoking Cessation Medications and DC Order Prescriptions: New amoxicillin-pot clavulanate 875-125 mg Tablet 1 tab PO BIDM 8 Days Qty: 16 0RF tramadol 50 mg Tablet 50 mg PO Q8H PRN (Reason: severe pain (scale score 7-10)) 5 Days Qty: 15 0RF Continued magnesium 250 mg Tablet 250 mg PO HS Probiotic 3 billion cell Capsule 3,000 mmu cells PO QAM (DME) pen needle, diabetic 29 gauge needle See Dose Instructions .ROUTE .MEDSUPPLY Qty: 90 0RF Dose Instruction: As directed Rx Instructions: As directed (DME) blood sugar diagnostic strip See Dose Instructions .ROUTE .MEDSUPPLY Qty: 10 0RF Dose Instruction: As directed Rx Instructions: As directed (DME) lancets misc See Dose Instructions .ROUTE .MEDSUPPLY Qty: 50 0RF Dose Instruction: As directed Rx Instructions: As directed gabapentin 300 mg capsule 900 mg PO HS calcium carbonate-vitamin D3 [Calcium 600 + D(3)] 600 mg-5 mcg (200 unit) Tablet 1 tab PO DAILY metformin 500 mg tablet extended release 24 hr 2,000 mg PO QAM buspirone 10 mg tablet 10 mg PO TID thiamine HCl (vitamin B1) 100 mg Tablet 100 mg PO QAM Qty: 15 0RF Dayvigo 10 mg Tablet 10 mg PO HS insulin aspart U-100 [Novolog U-100 Insulin aspart] 100 unit/mL solution 7 unit SC ACHS insulin glargine 100 unit/mL (3 mL) insulin pen 30 units SQ HS atorvastatin 20 mg tablet 20 mg PO HS Discharge Orders: Discharge Order (Routine); Ordered 12/27/23 Ordered By: Gladys Alexandre/Other Patient Handouts: Nutrition for Wound Healing, Managing Type 2 Diabetes Admission Data Admit Date/Time: 12/21/23 00:21 Attending Provider: Gladys Morris Admit Provider: Jorge Park Primary Care Provider: Tommy Saab Other Providers: Jorge Park; Shar Garcia; Mich Chicas; Thomas Segal; Milo Almonte I.; Shad Barba II; Vianca Coronado; Aron Menendez; Augusto Van; Judson Dietz; Myla Mae
[2023-12-27] MEDS ORDERED: AMOXICILLIN/CLAVULANATE 875 MG TAB PO SCH (17:00)
== END 2023-12-27 16:42 | disposition home or self-care (01) | DRG 623 ==
LOC: ED 16:35 → SUATTDRO 12-21 00:21 → 3N 12-21 00:21

== ENCOUNTER 2024-01-31 15:33 | Inpatient (IN) ==
--- NOTE | 2024-01-31 16:01 | Emergency Department Note ---
Impression & Plan Weakness, Hypokalemia, Rhabdomyolysis, Transaminitis ED Provider Note NAME: LU BLAKELY AGE: 58 SEX: F : 1965 ARRIVES VIA: Ambulance INFORMANT: Patient ED PROVIDER(S): Justus Rojas DO CHIEF COMPLAINT: weakness HPI: Patient is a 58-year-old female who drinks alcohol regularly generally about 3 shots a day who presents to the ER as she is very weak and rundown. She cannot get up and move around. Patient denies any headache or change in vision. No chest pain or shortness of breath. Patient notes that was laying on the floor for 15+ hours and she felt too weak to get up. Nothing was spinning. She denies any focal weakness in the arms or legs. No dysuria, urgency, or frequency. ADDITIONAL HISTORY OBTAINED: Per HPI Chronic Medical/Social Conditions Affecting Care: Per HPI PAST MEDICAL HISTORY:See Below PAST SURGICAL HISTORY:See Below FAMILY HISTORY:See Below SOCIAL HISTORY:See Below HOME MEDICATIONS:See Below ALLERGIES:See Below VITALS:See Below PHYSICAL EXAMINATION: GENERAL: Sitting up in bed, alert, well appearing, well nourished, no distress, non-toxic EYE EXAM: normal conjunctiva. PERRL and EOM's grossly intact. OROPHARYNX: no exudate, no erythema, lips, buccal mucosa, and tongue normal and mucous membranes are moist NECK: supple, no nuchal rigidity, no adenopathy, non-tender LUNGS: Clear to auscultation. Normal chest wall mechanics HEART: no murmurs, S1 normal and S2 normal ABDOMEN: abdomen soft, non-tender, normo-active bowel sounds, no masses, no rebound or guarding. BACK: Back is symmetrical on inspection and there is no deformity, no midline tenderness, no CVA tenderness. SKIN: no rashes and no bruising UPPER EXTREMITIES: upper extremities are grossly normal. LOWER EXTREMITIES: Bruising on bilateral knees. Flexion-extension bilateral hips knees and ankles intact NEURO EXAM: Normal sensorium, cranial nerves II-XII grossly intact, normal speech, no gross weakness of arms, no gross weakness of legs. MEDICAL DECISION MAKING: Patient is a 58-year-old female who presents the ER for above-stated complaint. IV was established blood work was obtained. Labs show no significant leukocytosis or anemia. Hemoglobin elevated at 18 likely secondary to dehydration. Mild hypokalemia 3.3.. T. bili up at 1.3 with a mild transaminitis. CK11 100. Lipase was normal. UA was contaminated. Patient was given IV antibiotics IV fluids updated bedside. CT of the head was negative. She was also given thiamine and folate. Admitted to the hospital for further workup. Consults/Care Managements Discussions: Per [facility] Triage Nursing notes reviewed. Limited review of prior medical records performed Vital Signs: reviewed and remarkable for no significant abnormalities Differential diagnosis: Infection, dehydration, metabolic abnormality, hypo/hyperglycemia, electrolyte disturbance, anemia, hypoxia, cardiac sources, intracerebral event, toxicologic, neurologic, as well as other pathologies. ER treatment provided: See below Diagnostics interpreted by me include EKG and cardiac monitoring as listed below: -Cardiac Monitoring: An order was placed for continuous cardiac monitoring. The monitor shows a rate of 80 with sinus rhythm. -ECG: Sinus tachycardia rate of 92 Left axis No PVCs QTc 460 -Laboratory studies:Interpreted by me as stated above in MDM and shown below. Imaging studies: Xrays: As interpreted by me: Portable AP upright 1 view the chest shows no focal infiltrate CTs show: CT head was negative Procedures:none Critical Care: None Past Med/Surg History Medical History (Updated 01/31/24 @ 21:52 by Justus Rojas DO) No significant past medical history Hypertension Diabetes Family History Other Family history non-contributory Social History Smoking Status: Never smoker Second Hand Exposure: No; Do You Dip or Chew Tobacco: No; Tobacco Cessation Education Requested by Patient: No Hx Alcohol Use: Yes Alcohol type: hard liquor Hx Substance Use: No Preferred Language: Irish Communication Ability: Effective Roster Clerk Required: Yes Beliefs That Will Affect Care: None Current Living Situation: Alone Other Information That Helps Us Care for You: No Feels Safe at Home: No Is there a partner from a previous relationship who is making you feel unsafe now?: No Any Concerns about Your Family Situation: No Would You Like to Speak to Someone About Your Situation: No Safety Concerns: Feels Safe At This Time Assistive Devices: None Allergies Allergies Allergy/AdvReac Type Severity Reaction Status Date / Time benzoyl peroxide Allergy Unknown SKIN RED Verified 01/31/24 17:45 AND IRRITATED No Known Drug Allergies Allergy Unknown NONE Verified 01/31/24 17:45 Home Meds Home Medications Medication Instructions Recorded Confirmed lactobacillus combination no.4 3 3,000 mmu cells PO QAM 10/11/18 01/31/24 billion cell capsule (Probiotic) magnesium 250 mg tablet 250 mg PO HS 10/11/18 01/31/24 buspirone 10 mg tablet 10 mg PO TID 04/22/23 01/31/24 calcium carbonate 600 mg-vitamin 1 tab PO DAILY 04/22/23 01/31/24 D3 5 mcg (200 unit) tablet (Calcium 600 + D(3)) gabapentin 300 mg capsule 900 mg PO HS 04/22/23 01/31/24 metformin 500 mg tablet,extended 1,000 mg PO BID 04/22/23 01/31/24 release 24 hr atorvastatin 20 mg tablet 20 mg PO HS 12/20/23 01/31/24 insulin aspart U-100 100 unit/mL 7 unit SC ACHS 12/20/23 01/31/24 subcutaneous solution (Novolog U-100 Insulin aspart) insulin glargine 100 unit/mL (3 30 units subcut HS 12/20/23 01/31/24 mL) subcutaneous pen lemborexant 10 mg tablet (Dayvigo) 10 mg PO HS 12/20/23 01/31/24 Previous Rx's Medication Instructions Recorded thiamine HCl (vitamin B1) 100 mg 100 mg PO QAM #15 tabs 04/22/23 tablet Results & Data (ED) Vital Signs Vital Signs - 24 hr 01/31/24 15:45 01/31/24 15:48 01/31/24 15:54 Temperature 36.7 C Temperature Source Oral Pulse Rate 93 H 87 86 Pulse Rate from SpO2 Sensor 87 Respiratory Rate 12 13 Respiratory Effort / Characteristics Non-Labored Spontaneous Respiratory Depth Normal Respiratory Pattern Regular Blood Pressure 138/98 Blood Pressure Mean 111 Pulse Oximetry 96 97 Oxygen Delivery Method Room Air Sepsis Recent Fever Within 48 Hours No Sepsis New/Unexplained Change in Mental Status N/A Sepsis Action Taken by Nursing No Action Required 01/31/24 15:56 01/31/24 16:00 01/31/24 16:00 Temperature Temperature Source Pulse Rate 89 Pulse Rate from SpO2 Sensor 86 Respiratory Rate 24 Respiratory Effort / Characteristics Respiratory Depth Respiratory Pattern Blood Pressure 147/91 H Blood Pressure Mean 122 Pulse Oximetry 96 96 Oxygen Delivery Method Room Air Sepsis Recent Fever Within 48 Hours Sepsis New/Unexplained Change in Mental Status Sepsis Action Taken by Nursing 01/31/24 16:30 01/31/24 16:30 Temperature Temperature Source Pulse Rate 72 Pulse Rate from SpO2 Sensor 67 Respiratory Rate 12 Respiratory Effort / Characteristics Respiratory Depth Respiratory Pattern Blood Pressure 125/80 Blood Pressure Mean 91 Pulse Oximetry 99 Oxygen Delivery Method Sepsis Recent Fever Within 48 Hours Sepsis New/Unexplained Change in Mental Status Sepsis Action Taken by Nursing Laboratory Data 01/31/24 15:45 01/31/24 15:45 Lab Results 01/31/24 01/31/24 01/31/24 Range/Units 15:45 15:52 16:02 WBC 7.40 (4.8-10.8) K/ul RBC 5.12 (4.20-5.40) M/uL Hgb 17.9 H (12.0-16.0) g/dl Hct 49.2 H (37.0-47.0) % MCV 96.1 (80.0-100.0) fL MCH 35.0 H (25.0-34.0) pg MCHC 36.4 H (32.0-36.0) g/dL RDW Std Deviation 47.5 H (36.4-46.3) fL RDW Coeff of Eli 13.2 (11.5-14.5) % Plt Count 148 (130-400) K/uL MPV 9.8 (9.4-12.4) fL Immature Gran % (Auto) 0.3 % Neut % (Auto) 78.3 % Lymph % (Auto) 13.0 % [place] % (Auto) 8.0 % Eos % (Auto) 0.1 % Baso % (Auto) 0.3 % Neut # (Auto) 5.80 (1.40-6.50) K/uL Lymph # (Auto) 0.96 L (1.20-3.40) K/uL [place] # (Auto) 0.59 (0.11-0.59) K/uL Eos # (Auto) 0.01 (0.00-0.50) K/uL Baso # (Auto) 0.02 (0.00-0.20) K/uL Immature Gran # (Auto) 0.02 (0.01-0.20) K/uL PT 11.4 (9.0-12.0) Seconds INR 1.0 (0.9-1.1) Sodium 142 (136-145) mmol/L Potassium 3.3 L (3.5-5.1) mmol/L Chloride 99 (98-107) mmol/L Carbon Dioxide 29 (21-32) mmol/L Anion Gap 14 H (3-11) BUN 18 (6-23) mg/dl Creatinine 0.63 (0.6-1.2) mg/dl Est Cr Clr Drug Dosing 105.8 ml/min Est GFR ( Amer) 113.0 ml/min Est GFR (Non-Af Amer) 97.5 ml/min BUN/Creatinine Ratio 28.6 H (10-20) Glucose 78 (70-99(Fasting)) mg/dl POC Glucose 77 (70-99) mg/dl Calcium 10.4 H (8.6-10.3) mg/dl Total Bilirubin 1.3 H (0.2-1.0) mg/dl AST 92 H (13-39) U/L ALT 65 H (7-52) U/L Alkaline Phosphatase 151 H (34-104) U/L Total Creatine Kinase 1175 H (26-192) U/L Troponin I High Sens 33.3 H (0-14) pg/ml Total Protein 7.7 (6.0-8.3) gm/dl Albumin 4.5 (3.4-5.0) gm/dl Globulin 3.2 (2.5-4.0) gm/dl Albumin/Globulin Ratio 1.4 (0.9-2) Lipase 8 L (11-82) U/L Urine Color Urine Appearance (Clear) Urine pH (4.5-7.5) Ur Specific [place] (1.000-1.030) Urine Protein (Negative) Urine Glucose (UA) (Negative) Urine Ketones (Negative) Urine Blood (Negative) Urine Nitrite (Negative) Urine Bilirubin (Negative) Urine Urobilinogen (Negative) Ur Leukocyte Esterase (Negative) Urine WBC (Auto) (0-5) /hpf Urine RBC (Auto) (0-4) /hpf U Hyaline Cast (Auto) (0-5) /lpf U Epithel Cells (Auto) (0-5) /lpf Urine Bacteria (Auto) (Negative) Ur Renal Epithelial Cell Urine Yeast (None Prsent) SARS-CoV-2, RNA, NAAT NEGATIVE (NEGATIVE) 01/31/24 Range/Units 16:05 WBC (4.8-10.8) K/ul RBC (4.20-5.40) M/uL Hgb (12.0-16.0) g/dl Hct (37.0-47.0) % MCV (80.0-100.0) fL MCH (25.0-34.0) pg MCHC (32.0-36.0) g/dL RDW Std Deviation (36.4-46.3) fL RDW Coeff of Eli (11.5-14.5) % Plt Count (130-400) K/uL MPV (9.4-12.4) fL Immature Gran % (Auto) % Neut % (Auto) % Lymph % (Auto) % [place] % (Auto) % Eos % (Auto) % Baso % (Auto) % Neut # (Auto) (1.40-6.50) K/uL Lymph # (Auto) (1.20-3.40) K/uL [place] # (Auto) (0.11-0.59) K/uL Eos # (Auto) (0.00-0.50) K/uL Baso # (Auto) (0.00-0.20) K/uL Immature Gran # (Auto) (0.01-0.20) K/uL PT (9.0-12.0) Seconds INR (0.9-1.1) Sodium (136-145) mmol/L Potassium (3.5-5.1) mmol/L Chloride (98-107) mmol/L Carbon Dioxide (21-32) mmol/L Anion Gap (3-11) BUN (6-23) mg/dl Creatinine (0.6-1.2) mg/dl Est Cr Clr Drug Dosing ml/min Est GFR ( Amer) ml/min Est GFR (Non-Af Amer) ml/min BUN/Creatinine Ratio (10-20) Glucose (70-99(Fasting)) mg/dl POC Glucose (70-99) mg/dl Calcium (8.6-10.3) mg/dl Total Bilirubin (0.2-1.0) mg/dl AST (13-39) U/L ALT (7-52) U/L Alkaline Phosphatase (34-104) U/L Total Creatine Kinase (26-192) U/L Troponin I High Sens (0-14) pg/ml Total Protein (6.0-8.3) gm/dl Albumin (3.4-5.0) gm/dl Globulin (2.5-4.0) gm/dl Albumin/Globulin Ratio (0.9-2) Lipase (11-82) U/L Urine Color [place] Urine Appearance Clear (Clear) Urine pH 6.0 (4.5-7.5) Ur Specific [place] 1.036 H (1.000-1.030) Urine Protein 3+ H (Negative) Urine Glucose (UA) Negative (Negative) Urine Ketones 3+ H (Negative) Urine Blood 3+ H (Negative) Urine Nitrite Negative (Negative) Urine Bilirubin 2+ H (Negative) Urine Urobilinogen Negative (Negative) Ur Leukocyte Esterase Trace H (Negative) Urine WBC (Auto) 1-5 (0-5) /hpf Urine RBC (Auto) 5-10 H (0-4) /hpf U Hyaline Cast (Auto) 1-5 (0-5) /lpf U Epithel Cells (Auto) >30 H (0-5) /lpf Urine Bacteria (Auto) Negative (Negative) Ur Renal Epithelial Cell Not Reportable Urine Yeast Present A (None Prsent) SARS-CoV-2, RNA, NAAT (NEGATIVE) Administered Medications Atorvastatin Calcium (Atorvastatin 20 Mg Tab) 20 mg PO HS EARL Stop: 03/01/24 20:59 Last Admin: 01/31/24 21:29 Dose: 20 mg Documented By: INGA Buspirone HCl (Buspirone 5 Mg Tab) 10 mg PO TID EARL Stop: 03/01/24 20:59 Last Admin: 01/31/24 21:29 Dose: 10 mg Documented By: INGA Gabapentin (Gabapentin 300 Mg Cap) 900 mg PO HS EARL Stop: 03/01/24 20:59 Last Admin: 01/31/24 21:29 Dose: 900 mg Documented By: INGA Sodium Chloride (Nss) 1,000 mls @ 80 mls/hr IV .[id number] EARL Stop: 03/01/24 20:29 Last Admin: 01/31/24 20:30 Dose: 80 mls/hr Documented By: INGA Magnesium Oxide (Magnesium Oxide 400 Mg Tab) 400 mg PO HS EARL Stop: 03/01/24 20:59 Last Admin: 01/31/24 21:30 Dose: 400 mg Documented By: INGA Discontinued Medications Fluconazole (Fluconazole 50 Mg Tab) 150 mg PO NOW ONE Stop: 01/31/24 21:00 Last Admin: 01/31/24 21:29 Dose: 150 mg Documented By: INGA Sodium Chloride (Nss) 1,000 mls @ 999 mls/hr IV .Q1H1M ONE Stop: 01/31/24 16:56 Last Infusion: 01/31/24 17:09 Dose: Infused Documented By: Admin: 01/31/24 16:20 Dose: 999 mls/hr Documented By: JOZEF Ceftriaxone Sodium (Rocephin) 2,000 mg in 50 mls @ 100 mls/hr IV NOW STA Stop: 01/31/24 17:00 Last Infusion: 01/31/24 18:37 Dose: Infused Documented By: Admin: 01/31/24 17:45 Dose: 100 mls/hr Documented By: JOZEF Sodium Chloride (Nss) 1,000 mls @ 999 mls/hr IV .Q1H1M ONE Stop: 01/31/24 17:32 Last Infusion: 01/31/24 17:49 Dose: Infused Documented By: Admin: 01/31/24 17:04 Dose: 999 mls/hr Documented By: JOZEF Thiamine HCl 100 mg/ Syringe 10 mls @ 2 mls/min IV NOW STA Stop: 01/31/24 16:48 Last Admin: 01/31/24 17:14 Dose: 2 mls/min Documented By: JOZEF Folic Acid 1 mg/ Syringe 10 mls @ 5 mls/min IV NOW STA Stop: 01/31/24 16:45 Last Admin: 01/31/24 17:15 Dose: 5 mls/min Documented By: JOZEF Potassium Chloride (Potassium Chloride Crtab 20 Meq Tabcr) 40 meq PO NOW STA Stop: 01/31/24 21:15 Last Admin: 01/31/24 21:33 Dose: 40 meq Documented By: INGA Imaging Data Radiologist's Impression: Head CT 01/31/24 15:56 CT head/brain wo con CLINICAL HISTORY: elder Technique: Contiguous axial CT images of the head were acquired from the base of the skull to the vertex without intravenous contrast administration. Images were viewed in brain, subdural and bone windows. Automated dose lowering techniques and/or adjustment according to patient size were utilized for this exam. Comparison: Comparison is made to CT head 04/21/2020 Findings: The ventricles, basal cisterns, and cerebral sulci are normal. There is no acute intracranial hemorrhage or evidence of acute territorial infarction. Neither mass effect, shift of the midline structures, nor abnormal extra-axial fluid collections are shown. Imaged portions of the paranasal sinuses and mastoid air cells are clear. The orbits appear normal. There are no acute fractures of the calvaria or scalp swelling. Impression: No acute intracranial hemorrhage, no evidence of acute territorial infarction or other acute intracranial disease process. ACT 112: Negative or not required by law. Electronically signed by: Kirt Amador M.D. 01/31/2024 4:28 PM Chest X-Ray 01/31/24 16:17 XR chest 1V portable CLINICAL HISTORY: weakness TECHNIQUE: Single frontal radiograph of the chest was obtained. Comparison: Comparison is made to chest radiograph 04/21/2023 FINDINGS: No lines and tubes are seen. The cardiomediastinal silhouette is normal. The lungs are clear. No evidence of pleural effusion or pneumothorax. IMPRESSION: No acute chest disease. ACT 112: Negative or not required by law. Electronically signed by: Kirt Amador M.D. 01/31/2024 4:33 PM Discharge Plan Visit Data Chief Complaint: Fall Stated Complaint: FALL ED Provider: Justus Rojas Discharge Problem: Weakness, Hypokalemia, Rhabdomyolysis, Transaminitis Patient Disposition: Admitted As Inpatient Discharge Instructions Interventions: ED Discharge Assessment Last Done: 01/31/24 17:42 Discharge Problem: Rhabdomyolysis Qualifiers: Rhabdomyolysis type: traumatic Encounter type: initial encounter Qualified Code(s): T79.6XXA - Traumatic ischemia of muscle, initial encounter
[2024-01-31 16:05] LABS: Basophils # (auto) 0.02 K/uL (0.00-0.20); Basophils % (auto) 0.3 %; Eosinophils # (auto) 0.01 K/uL (0.00-0.50); Eosinophils % (auto) 0.1 %; Hematocrit (blood only) 49.2 % (37.0-47.0); Hemoglobin 17.9 g/dl (12.0-16.0); Immature Granulocytes # (auto) 0.02 K/uL (0.01-0.20); Immature Granulocytes % (auto) 0.3 %; Lymphocytes # (auto) 0.96 K/uL (1.20-3.40); Mean Corpuscular Hgb Conc 36.4 g/dL (32.0-36.0); Mean Corpuscular Volume 96.1 fL (80.0-100.0); Mean Platelet Volume 9.8 fL (9.4-12.4); Monocytes # (auto) 0.59 K/uL (0.11-0.59); Neutrophils % (auto) 78.3 %; Platelet Count 148 K/uL (130-400); RDW Coefficient of Variation 13.2 % (11.5-14.5); RDW Standard Deviation 47.5 fL (36.4-46.3); Red Blood Count 5.12 M/uL (4.20-5.40)
[2024-01-31 16:14] LABS: Prothrombin Time 11.4 Seconds (9.0-12.0)
[2024-01-31] MEDS: SODIUM CHLORIDE 0.9% 1,000 ML IV ONE ×2 (16:20→17:04)
[2024-01-31 16:21] LABS: Albumin Level 4.5 gm/dl (3.4-5.0); Bilirubin,Total 1.3 mg/dl (0.2-1.0); Calcium 10.4 mg/dl (8.6-10.3); Potassium 3.3 mmol/L (3.5-5.1)
[2024-01-31 16:21] LABS: Appearance Urine Clear (Clear); Bacteria Urine Automated Negative (Negative); Blood Urine 3+ (Negative); Color Urine Orange; Epithelial Cell Urine Auto >30 /lpf (0-5); Glucose Urine UA Negative (Negative); Ketones Urine 3+ (Negative); Leukocyte Esterase Urine Trace (Negative); Nitrite Urine Negative (Negative); Protein Urine 3+ (Negative); Specific Gravity Urine 1.036 (1.000-1.030); Urobilinogen Urine Negative (Negative)
[2024-01-31 16:26] LABS: Bilirubin Urine 2+ (Negative)
--- NOTE | 2024-01-31 16:26 | Electrocardiogram Report ---
Test Reason : Blood Pressure : / mmHG Vent. 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
[2024-01-31 16:27] LABS: Albumin Globulin Ratio 1.4 (0.9-2); BUN Creatinine Ratio 28.6 (10-20); Creatinine Clr Calc Pharmacy 105.8 ml/min; Est GFR (Non-African American) 97.5 ml/min; Globulin 3.2 gm/dl (2.5-4.0); Total Protein 7.7 gm/dl (6.0-8.3)
--- NOTE | 2024-01-31 16:29 | CT Scan Report ---
CT head/brain wo con CLINICAL HISTORY: elder Technique: Contiguous axial CT images of the head were acquired from the base of the skull to the kiel yeni without intravenous contrast administration. Images were viewed in brain, subdural and bone [facility]. Automated dose lowering techniques and/or adjustment according to patient size were utilized for this exam. Comparison: Comparison is made to CT head 04/21/2020 Findings: The ventricles, basal cisterns, and cerebral sulci are normal. There is no acute intracranial hemorrh age or evidence of acute territorial infarction. Neither mass effect, shift of the midline structures , nor abnormal extra-axial fluid collections are shown. Imaged portions of the paranasal sinuses and mastoid air cells are clear. The orbits appear normal. There are no acute fractures of the calvaria or scalp swelling. Impression: No acute intracranial hemorrhage, no evidence of acute territorial infarction or other acute intracra nial disease process. ACT 112: Negative or not required by law. Electronically signed by: Kirt Amador M.D. 01/31/2024 4:28 PM
[2024-01-31 16:32] LABS: Troponin I High Sensitivity 33.3 pg/ml (0-14)
--- NOTE | 2024-01-31 16:34 | XRay Report ---
XR chest 1V portable CLINICAL HISTORY: weakness TECHNIQUE: Single frontal radiograph of the chest was obtained. Comparison: Comparison is made to chest radiograph 04/21/2023 FINDINGS: No lines and tubes are seen. The cardiomediastinal silhouette is normal. The lungs are clear. No evid ence of pleural effusion or pneumothorax. IMPRESSION: No acute chest disease. ACT 112: Negative or not required by law. Electronically signed by: Kirt Amador M.D. 01/31/2024 4:33 PM
--- NOTE | 2024-01-31 16:52 | History & Physical Report ---
Date of Service January 31, 2024 Assessment & Plan (1) UTI (urinary tract infection): (2) Rhabdomyolysis: Plan Pt is a 58yoF with PMHx significant for DMII, Hx of alcoholic induced pancreatitis, FERNANDO on cpap, HTN, chronic insomnia presenting after a fall at home. Lives alone and was reportedly down on the ground for 15 hours. Fall Likely in setting of an acute UTI Pt was down on the ground reportedly for [address] with no acute findings Consider further body imaging to rule out acute fractures PT/OT Acute UTI UA suggestive of infection, noted yeast present Urine Cx pending Blood Cx x2 pending IV Rocephin One dose of diflucan 150mg for possible yeast infection Rhabdomyolysis CK elevated at 1175, trend with AM labs -Elevated liver enzymes- likely elevated in setting of rhabdo. Trend, if persistent consider further workup -elevated troponin- likely in setting of above, demand ischemia. Doubt ACS. EKG NSR IV fluids Hypokalemia Replete as needed DMII ISS while hospitalized Last hgb a1c <7 AM hgba1c pending Hx of alcohol use AWSS protocol with Ativan ordered Thiamine, folic acid FERNANDO cpap qhs Continue other home meds as ordered. CODE STATUS: full code Diet: DMII Dispo: PT/OT ordered History of Present Illness Chief Complaint: Fall Primary Care Provider: Tommy Saab MD Pt is a 58yoF with PMHx significant for DMII, Hx of alcoholic induced pancreatitis, FERNANDO on cpap, HTN, chronic insomnia presenting after a fall at home. Lives alone and was reportedly down on the ground for 15 hours. History obtained from pt and son at bedside. States that she had been drinking and found herself weak for the past 2 days. States that she eventually came to herself on the ground and was unable to get up. States that she was there for about 15 hours. States she lives alone. Son at bedside notes that they will look into getting a life alert for her. Sometimes uses a walker to get around. They note she recently completed antibiotic treatment for a foot infection. Not currently on abx for that. Denied any dysuria, fevers chills or night sweats. Allergies Allergy/AdvReac Type Severity Reaction Status Date / Time benzoyl peroxide Allergy Unknown SKIN RED Verified 01/31/24 17:45 AND IRRITATED No Known Drug Allergies Allergy Unknown NONE Verified 01/31/24 17:45 Home Medications Medication Instructions Recorded Confirmed Type lactobacillus combination no.4 3 3,000 mmu cells PO QAM 10/11/18 01/31/24 History billion cell capsule (Probiotic) magnesium 250 mg tablet 250 mg PO HS 10/11/18 01/31/24 History buspirone 10 mg tablet 10 mg PO TID 04/22/23 01/31/24 History calcium carbonate 600 mg-vitamin 1 tab PO DAILY 04/22/23 01/31/24 History D3 5 mcg (200 unit) tablet (Calcium 600 + D(3)) gabapentin 300 mg capsule 900 mg PO HS 04/22/23 01/31/24 History metformin 500 mg tablet,extended 1,000 mg PO BID 04/22/23 01/31/24 History release 24 hr thiamine HCl (vitamin B1) 100 mg 100 mg PO QAM #15 tabs 04/22/23 01/31/24 Rx tablet atorvastatin 20 mg tablet 20 mg PO HS 12/20/23 01/31/24 History insulin aspart U-100 100 unit/mL 7 unit SC ACHS 12/20/23 01/31/24 History subcutaneous solution (Novolog U-100 Insulin aspart) insulin glargine 100 unit/mL (3 30 units subcut HS 12/20/23 01/31/24 History mL) subcutaneous pen lemborexant 10 mg tablet (Dayvigo) 10 mg PO HS 12/20/23 01/31/24 History Past Med/Surg History Medical History (Updated 01/31/24 @ 21:16 by Lindy Ram MD) No significant past medical history Hypertension Diabetes Family History Other Family history non-contributory Social History Smoking Status: Never smoker Second Hand Exposure: No; Do You Dip or Chew Tobacco: No; Tobacco Cessation Education Requested by Patient: No Hx Alcohol Use: Yes Alcohol type: hard liquor Hx Substance Use: No Preferred Language: Norwegian Communication Ability: Effective 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 Skin: thin skin, some bruising noted over her arms Psych: Appropriate mood and affect Neuro: tremors noted in her outstretched arms HEENT: NC/AT CV: RRR Resp: Breath sounds clear bilaterally, no increased effort of breathing. Abdomen: Soft, nontender, nondistended. Extremities: No edema in lower extremities bilaterally. Results & Data Results & Data Vital Signs (Past 12 Hours) Vital Signs Temp Pulse Resp BP Pulse Ox O2 Del Method 01/31/24 15:56 96 Room Air 01/31/24 15:54 86 01/31/24 15:45 36.7 C 93 H 12 138/98 96 Room Air Diagnostic Findings Head CT 01/31/24 15:56 CT head/brain wo con CLINICAL HISTORY: elder Technique: Contiguous axial CT images of the head were acquired from the base of the skull to the vertex without intravenous contrast administration. Images were viewed in brain, subdural and bone windows. Automated dose lowering techniques and/or adjustment according to patient size were utilized for this exam. Comparison: Comparison is made to CT head 04/21/2020 Findings: The ventricles, basal cisterns, and cerebral sulci are normal. There is no acute intracranial hemorrhage or evidence of acute territorial infarction. Neither mass effect, shift of the midline structures, nor abnormal extra-axial fluid collections are shown. Imaged portions of the paranasal sinuses and mastoid air cells are clear. The orbits appear normal. There are no acute fractures of the calvaria or scalp swelling. Impression: No acute intracranial hemorrhage, no evidence of acute territorial infarction or other acute intracranial disease process. ACT 112: Negative or not required by law. Electronically signed by: Kirt Amador M.D. 01/31/2024 4:28 PM Chest X-Ray 01/31/24 16:17 XR chest 1V portable CLINICAL HISTORY: weakness TECHNIQUE: Single frontal radiograph of the chest was obtained. Comparison: Comparison is made to chest radiograph 04/21/2023 FINDINGS: No lines and tubes are seen. The cardiomediastinal silhouette is normal. The lungs are clear. No evidence of pleural effusion or pneumothorax. IMPRESSION: No acute chest disease. ACT 112: Negative or not required by law. Electronically signed by: Kirt Amador M.D. 01/31/2024 4:33 PM
[2024-01-31] MEDS: THIAMINE HCL 100 MG in SYRINGE 9 ML IV STA (17:14)
[2024-01-31] MEDS: FOLIC ACID 1 MG in SYRINGE 9.8 ML IV STA (17:15)
[2024-01-31] MEDS: cefTRIAXone SODIUM 2,000 MG/50 ML BAG IV STA (17:45)
[2024-01-31] MEDS ORDERED: ACETAMINOPHEN 500 MG TAB PO PRN (20:27)
[2024-01-31] MEDS ORDERED: ONDANSETRON INJ 2 MG/ML 2 ML VIAL IV PRN (20:27)
[2024-01-31] MEDS: SODIUM CHLORIDE 0.9% 1,000 ML IV SCH (20:30)
[2024-01-31] MEDS ORDERED: LORazepam 3 MG in SYRINGE 1.5 ML IV PRN (21:04)
[2024-01-31] MEDS ORDERED: Ativan IV Alcohol Withdrawal--Active Protocol IV PRN (21:04)
[2024-01-31] MEDS ORDERED: LORazepam 1 MG in SYRINGE 0.5 ML IV PRN (21:04)
[2024-01-31] MEDS ORDERED: LORazepam 2 MG in SYRINGE 1 ML IV PRN (21:04)
[2024-01-31] MEDS ORDERED: DEXTROSE 50% 50 ML SYRINGE IV PRN (21:05)
[2024-01-31] MEDS ORDERED: GLUCAGON FOR INJ 1 MG VIAL SQ PRN (21:05)
[2024-01-31] MEDS ORDERED: GLUCOSE 10 TAB/TUBE PO PRN (21:05)
[2024-01-31] MEDS ORDERED: GLUCOSE 40% GEL 15 GM TUBE PO PRN (21:05)
[2024-01-31] MEDS ORDERED: CARBOHYDRATES FOR HYPOGLYCEMIA PO PRN (21:05)
[2024-01-31] MEDS: FLUCONAZOLE 50 MG TAB PO ONE (21:29)
[2024-01-31] MEDS: GABAPENTIN 300 MG CAP PO SCH (21:29)
[2024-01-31] MEDS: ATORVASTATIN 20 MG TAB PO SCH (21:29)
[2024-01-31] MEDS: busPIRone 5 MG TAB PO SCH (21:29)
[2024-01-31] MEDS: MAGNESIUM OXIDE 400 MG TAB PO SCH (21:30)
[2024-01-31] MEDS: POTASSIUM CHLORIDE CRTAB 20 MEQ TABCR PO STA (21:33)
[2024-01-31] MEDS: ENOXAPARIN INJ 40 MG/0.4 ML SYR SQ SCH (22:25)
--- NOTE | 2024-02-01 07:13 | Hospitalist Progress Note ---
Date of Service February 01, 2024 Assessment & Plan (1) UTI (urinary tract infection): (2) Rhabdomyolysis: Plan Pt is a 58yoF with PMHx significant for DMII, Hx of alcoholic induced pancreatitis, FERNANDO on cpap, HTN, chronic insomnia presenting after a fall at home. Lives alone and was reportedly down on the ground for 15 hours. Fall Likely in setting of an acute UTI Pt was down on the ground reportedly for [address] with no acute findings Consider further body imaging to rule out acute fractures PT/OT Acute UTI UA suggestive of infection, noted yeast present UA obtained after abx in ED Urine Cx pending Blood Cx x2 pending IV Rocephin One dose of diflucan 150mg for possible yeast infection Rhabdomyolysis CK elevated at 1175, trend with AM labs -Elevated liver enzymes- likely elevated in setting of rhabdo. Trend, if persistent consider further workup -elevated troponin- likely in setting of above, demand ischemia. Doubt ACS. EKG NSR IV fluids Hypokalemia Replete and monitor DMII ISS while hospitalized Last hgb a1c <7 Current Hgba1c 6.6% Foot wound - recently admitted for foot wound/ infection - pt says it's getting better, denies any significant pain - some erythema noted, no open or draining areas, will consult wound care - blood cultx pending Hx of alcohol use AWSS protocol with Ativan ordered Thiamine, folic acid FERNANDO cpap qhs Continue other home meds as ordered. CODE STATUS: full code Diet: DMII Dispo: PT/OT ordered Admission and Anticipated Discharge Date Admission Date: January 31, 2024 Subjective Pt seen in follow up of rhabdo (on floor for hours), UTI, weakness Recent admission for foot infection Reports daily etoh intake Reports being weak and laying on the floor, now feeling much better Says she is drinking water and had a dinner last night No fever, chills, chest pain, shortness of breath. No abd. pain Review of Systems Review of Systems: All systems reviewed & are unremarkable except as noted in Subjective Physical Exam Physical Exam: General: WD/WN F in NAD HEENT: NC, EOMI CV: RRR Resp: Breath sounds clear bilaterally, no increased effort of breathing. Abdomen: Soft, nontender, nondistended. Neuro: awake, alert, answers appropriately, moves extremities Extremities: No edema in lower extremities bilaterally. Skin: some bruising noted over her arms. healing wound over her foot/ankle Results & Data Results & Data Vital Signs (Past 12 Hours) Vital Signs Temp Pulse Pulse Resp BP Pulse Ox O2 Del Method 02/01/24 03:45 63 22 96 01/31/24 23:45 91 H 21 99 01/31/24 21:31 37.0 C 77 16 130/77 98 Room Air 01/31/24 21:20 Room Air Laboratory Results 02/01/24 02/01/24 01/31/24 Range/Units 08:40 06:54 17:31 WBC 7.48 (4.8-10.8) K/ul RBC 3.83 L (4.20-5.40) M/uL Hgb 13.4 D (12.0-16.0) g/dl Hct 38.2 (37.0-47.0) % MCV 99.7 (80.0-100.0) fL MCH 35.0 H (25.0-34.0) pg MCHC 35.1 (32.0-36.0) g/dL RDW Std Deviation 50.7 H (36.4-46.3) fL RDW Coeff of Eli 13.7 (11.5-14.5) % Plt Count 100 L (130-400) K/uL MPV 9.9 (9.4-12.4) fL Immature Gran % (Auto) 0.4 % Neut % (Auto) 59.1 % Lymph % (Auto) 33.2 % [place] % (Auto) 6.0 % Eos % (Auto) 0.9 % Baso % (Auto) 0.4 % Neut # (Auto) 4.42 (1.40-6.50) K/uL Lymph # (Auto) 2.48 (1.20-3.40) K/uL [place] # (Auto) 0.45 (0.11-0.59) K/uL Eos # (Auto) 0.07 (0.00-0.50) K/uL Baso # (Auto) 0.03 (0.00-0.20) K/uL Immature Gran # (Auto) 0.03 (0.01-0.20) K/uL PT (9.0-12.0) Seconds INR (0.9-1.1) Sodium 138 (136-145) mmol/L Potassium 3.0 L (3.5-5.1) mmol/L Chloride 102 (98-107) mmol/L Carbon Dioxide 25 (21-32) mmol/L Anion Gap 11 (3-11) BUN Pending (6-23) mg/dl Creatinine 0.57 L (0.6-1.2) mg/dl Est Cr Clr Drug Dosing 117.0 ml/min Est GFR ( Amer) 116.8 ml/min Est GFR (Non-Af Amer) 100.8 ml/min BUN/Creatinine Ratio Pending (10-20) Glucose 69 L (70-99(Fasting)) mg/dl POC Glucose 73 (70-99) mg/dl Estimat Average Glucose 143 mg/dl Hemoglobin A1c 6.6 H (4.5-5.6) % Lactate (0.4-2.0) mmol/L Calcium 8.5 L (8.6-10.3) mg/dl Phosphorus 2.8 (2.5-4.9) mg/dl Magnesium Pending Total Bilirubin Pending (0.2-1.0) mg/dl AST 70 H (13-39) U/L ALT 42 (7-52) U/L Alkaline Phosphatase 106 H (34-104) U/L Total Creatine Kinase 832 H (26-192) U/L Troponin I High Sens 34.0 H (0-14) pg/ml Total Protein Pending (6.0-8.3) gm/dl Albumin 3.3 L (3.4-5.0) gm/dl Globulin Pending (2.5-4.0) gm/dl Albumin/Globulin Ratio Pending (0.9-2) Lipase (11-82) U/L Urine Color Urine Appearance (Clear) Urine pH (4.5-7.5) Ur Specific [place] (1.000-1.030) Urine Protein (Negative) Urine Glucose (UA) (Negative) Urine Ketones (Negative) Urine Blood (Negative) Urine Nitrite (Negative) Urine Bilirubin (Negative) Urine Urobilinogen (Negative) Ur Leukocyte Esterase (Negative) Urine WBC (Auto) (0-5) /hpf Urine RBC (Auto) (0-4) /hpf U Hyaline Cast (Auto) (0-5) /lpf U Epithel Cells (Auto) (0-5) /lpf Urine Bacteria (Auto) (Negative) Ur Renal Epithelial Cell Urine Yeast (None Prsent) SARS-CoV-2, RNA, NAAT (NEGATIVE) 01/31/24 01/31/24 01/31/24 Range/Units 17:05 16:05 16:02 WBC (4.8-10.8) K/ul RBC (4.20-5.40) M/uL Hgb (12.0-16.0) g/dl Hct (37.0-47.0) % MCV (80.0-100.0) fL MCH (25.0-34.0) pg MCHC (32.0-36.0) g/dL RDW Std Deviation (36.4-46.3) fL RDW Coeff of Eli (11.5-14.5) % Plt Count (130-400) K/uL MPV (9.4-12.4) fL Immature Gran % (Auto) % Neut % (Auto) % Lymph % (Auto) % [place] % (Auto) % Eos % (Auto) % Baso % (Auto) % Neut # (Auto) (1.40-6.50) K/uL Lymph # (Auto) (1.20-3.40) K/uL [place] # (Auto) (0.11-0.59) K/uL Eos # (Auto) (0.00-0.50) K/uL Baso # (Auto) (0.00-0.20) K/uL Immature Gran # (Auto) (0.01-0.20) K/uL PT (9.0-12.0) Seconds INR (0.9-1.1) Sodium (136-145) mmol/L Potassium (3.5-5.1) mmol/L Chloride (98-107) mmol/L Carbon Dioxide (21-32) mmol/L Anion Gap (3-11) BUN (6-23) mg/dl Creatinine (0.6-1.2) mg/dl Est Cr Clr Drug Dosing ml/min Est GFR ( Amer) ml/min Est GFR (Non-Af Amer) ml/min BUN/Creatinine Ratio (10-20) Glucose (70-99(Fasting)) mg/dl POC Glucose (70-99) mg/dl Estimat Average Glucose mg/dl Hemoglobin A1c (4.5-5.6) % Lactate 1.8 (0.4-2.0) mmol/L Calcium (8.6-10.3) mg/dl Phosphorus (2.5-4.9) mg/dl Magnesium Total Bilirubin (0.2-1.0) mg/dl AST (13-39) U/L ALT (7-52) U/L Alkaline Phosphatase (34-104) U/L Total Creatine Kinase (26-192) U/L Troponin I High Sens (0-14) pg/ml Total Protein (6.0-8.3) gm/dl Albumin (3.4-5.0) gm/dl Globulin (2.5-4.0) gm/dl Albumin/Globulin Ratio (0.9-2) Lipase (11-82) U/L Urine Color [place] Urine Appearance Clear (Clear) Urine pH 6.0 (4.5-7.5) Ur Specific [place] 1.036 H (1.000-1.030) Urine Protein 3+ H (Negative) Urine Glucose (UA) Negative (Negative) Urine Ketones 3+ H (Negative) Urine Blood 3+ H (Negative) Urine Nitrite Negative (Negative) Urine Bilirubin 2+ H (Negative) Urine Urobilinogen Negative (Negative) Ur Leukocyte Esterase Trace H (Negative) Urine WBC (Auto) 1-5 (0-5) /hpf Urine RBC (Auto) 5-10 H (0-4) /hpf U Hyaline Cast (Auto) 1-5 (0-5) /lpf U Epithel Cells (Auto) >30 H (0-5) /lpf Urine Bacteria (Auto) Negative (Negative) Ur Renal Epithelial Cell Not Reportable Urine Yeast Present A (None Prsent) SARS-CoV-2, RNA, NAAT NEGATIVE (NEGATIVE) 01/31/24 01/31/24 Range/Units 15:52 15:45 WBC 7.40 (4.8-10.8) K/ul RBC 5.12 (4.20-5.40) M/uL Hgb 17.9 H (12.0-16.0) g/dl Hct 49.2 H (37.0-47.0) % MCV 96.1 (80.0-100.0) fL MCH 35.0 H (25.0-34.0) pg MCHC 36.4 H (32.0-36.0) g/dL RDW Std Deviation 47.5 H (36.4-46.3) fL RDW Coeff of Eli 13.2 (11.5-14.5) % Plt Count 148 (130-400) K/uL MPV 9.8 (9.4-12.4) fL Immature Gran % (Auto) 0.3 % Neut % (Auto) 78.3 % Lymph % (Auto) 13.0 % [place] % (Auto) 8.0 % Eos % (Auto) 0.1 % Baso % (Auto) 0.3 % Neut # (Auto) 5.80 (1.40-6.50) K/uL Lymph # (Auto) 0.96 L (1.20-3.40) K/uL [place] # (Auto) 0.59 (0.11-0.59) K/uL Eos # (Auto) 0.01 (0.00-0.50) K/uL Baso # (Auto) 0.02 (0.00-0.20) K/uL Immature Gran # (Auto) 0.02 (0.01-0.20) K/uL PT 11.4 (9.0-12.0) Seconds INR 1.0 (0.9-1.1) Sodium 142 (136-145) mmol/L Potassium 3.3 L (3.5-5.1) mmol/L Chloride 99 (98-107) mmol/L Carbon Dioxide 29 (21-32) mmol/L Anion Gap 14 H (3-11) BUN 18 (6-23) mg/dl Creatinine 0.63 (0.6-1.2) mg/dl Est Cr Clr Drug Dosing 105.8 ml/min Est GFR ( Amer) 113.0 ml/min Est GFR (Non-Af Amer) 97.5 ml/min BUN/Creatinine Ratio 28.6 H (10-20) Glucose 78 (70-99(Fasting)) mg/dl POC Glucose 77 (70-99) mg/dl Estimat Average Glucose mg/dl Hemoglobin A1c (4.5-5.6) % Lactate (0.4-2.0) mmol/L Calcium 10.4 H (8.6-10.3) mg/dl Phosphorus (2.5-4.9) mg/dl Magnesium Total Bilirubin 1.3 H (0.2-1.0) mg/dl AST 92 H (13-39) U/L ALT 65 H (7-52) U/L Alkaline Phosphatase 151 H (34-104) U/L Total Creatine Kinase 1175 H (26-192) U/L Troponin I High Sens 33.3 H (0-14) pg/ml Total Protein 7.7 (6.0-8.3) gm/dl Albumin 4.5 (3.4-5.0) gm/dl Globulin 3.2 (2.5-4.0) gm/dl Albumin/Globulin Ratio 1.4 (0.9-2) Lipase 8 L (11-82) U/L Urine Color Urine Appearance (Clear) Urine pH (4.5-7.5) Ur Specific [place] (1.000-1.030) Urine Protein (Negative) Urine Glucose (UA) (Negative) Urine Ketones (Negative) Urine Blood (Negative) Urine Nitrite (Negative) Urine Bilirubin (Negative) Urine Urobilinogen (Negative) Ur Leukocyte Esterase (Negative) Urine WBC (Auto) (0-5) /hpf Urine RBC (Auto) (0-4) /hpf U Hyaline Cast (Auto) (0-5) /lpf U Epithel Cells (Auto) (0-5) /lpf Urine Bacteria (Auto) (Negative) Ur Renal Epithelial Cell Urine Yeast (None Prsent) SARS-CoV-2, RNA, NAAT (NEGATIVE) Medications Administered Current Inpatient Medications Acetaminophen (Acetaminophen 500 Mg Tab) 1,000 mg PO Q8H PRN PRN Reason: Pain or Fever Stop: 03/01/24 20:26 Atorvastatin Calcium (Atorvastatin 20 Mg Tab) 20 mg PO HS [facility] Stop: 03/01/24 20:59 Last Admin: 01/31/24 21:29 Dose: 20 mg Buspirone HCl (Buspirone 5 Mg Tab) 10 mg PO TID [facility] Stop: 03/01/24 20:59 Last Admin: 01/31/24 21:29 Dose: 10 mg Calcium/Vitamin D (Calcium 600mg + Vit D 400 Iu Tab) 1 tab PO DAILY [facility] Stop: 03/02/24 08:59 Dextrose (Dextrose 50% 50 Ml Syringe) 25 - 50 ml IV UD PRN; Protocol PRN Reason: Hypoglycemia Protocol Stop: 03/01/24 21:04 Enoxaparin Sodium (Enoxaparin Inj 40 Mg/0.4 Ml Syr) 40 mg SQ Q24H [facility] Stop: 03/01/24 21:14 Last Admin: 01/31/24 22:25 Dose: 40 mg Folic Acid (Folic Acid 1 Mg Tab) 1 mg PO QAM [facility] Stop: 03/02/24 08:59 Gabapentin (Gabapentin 300 Mg Cap) 900 mg PO HS [facility] Stop: 03/01/24 20:59 Last Admin: 01/31/24 21:29 Dose: 900 mg Glucagon (Glucagon For Inj 1 Mg Vial) 1 mg SQ UD PRN; Protocol PRN Reason: Hypoglycemia Protocol Stop: 03/01/24 21:04 Glucose (Glucose 10 Tab/Tube) 4 - 8 tab PO UD PRN; Protocol PRN Reason: Hypoglycemia Treatment Stop: 03/01/24 21:04 Glucose (Glucose 40% Gel 15 Gm Tube) 15 - 30 gm PO UD PRN; Protocol PRN Reason: Hypoglycemia Protocol Stop: 03/01/24 21:04 Ceftriaxone Sodium 2,000 mg/ (Dextrose) 50 mls @ 100 mls/hr IV Q24H [facility]; Protocol Stop: 02/11/24 17:59 Sodium Chloride (Nss) 1,000 mls @ 80 mls/hr IV .[id number] [facility] Stop: 03/01/24 20:29 Last Admin: 01/31/24 20:30 Dose: 80 mls/hr Lorazepam 1 mg/ Syringe 1 mls @ 2 mls/min IV UD PRN; Protocol PRN Reason: EtOH Withdrawal AWSS Score 6,7 Stop: 03/01/24 21:03 Lorazepam 2 mg/ Syringe 2 mls @ 2 mls/min IV UD PRN; Protocol PRN Reason: EtOH Withdrawal AWSS Score 8,9 Stop: 03/01/24 21:03 Lorazepam 3 mg/ Syringe 3 mls @ 2 mls/min IV ONCE PRN; Protocol PRN Reason: EtOH Withdrawal AWSS Score 10+ Insulin Aspart (Insulin Aspart Per Unit Charge) 0 units SC ACHS [facility] Stop: 03/02/24 07:29 Lactobacillus Acidophilus (Advanced Probiotic 625 Mg Capsule) 1,250 mg PO QAM [facility] Stop: 03/02/24 08:59 Magnesium Oxide (Magnesium Oxide 400 Mg Tab) 400 mg PO HS [facility] Stop: 03/01/24 20:59 Last Admin: 01/31/24 21:30 Dose: 400 mg Miscellaneous (Lemborexant [[place]] 10 Mg Tablet: Order Awaiting Action) 1 each N/A QS [facility] Stop: 03/02/24 00:00 Last Admin: 01/31/24 23:40 Dose: Not Given Miscellaneous (Carbohydrates For Hypoglycemia ) 15 - 30 gm PO UD PRN PRN Reason: Hypoglycemia Protocol Stop: 03/01/24 21:04 Ondansetron HCl (Ondansetron Inj 2 Mg/Ml 2 Ml Vial) 4 mg IV Q6H PRN PRN Reason: Nausea And Vomiting Stop: 03/01/24 20:26 Thiamine HCl (Thiamine Hcl 100 Mg Tab) 100 mg PO QAM [facility] Stop: 03/02/24 08:59
[2024-02-01 07:52] LABS: Hematocrit (blood only) 38.2 % (37.0-47.0); Hemoglobin 13.4 g/dl (12.0-16.0); Mean Corpuscular Hgb Conc 35.1 g/dL (32.0-36.0); Mean Corpuscular Volume 99.7 fL (80.0-100.0); Mean Platelet Volume 9.9 fL (9.4-12.4); Platelet Count 100 K/uL (130-400); RDW Coefficient of Variation 13.7 % (11.5-14.5); RDW Standard Deviation 50.7 fL (36.4-46.3); Red Blood Count 3.83 M/uL (4.20-5.40); White Blood Count 7.48 K/ul (4.8-10.8)
[2024-02-01 08:13] LABS: Basophils # (auto) 0.03 K/uL (0.00-0.20); Basophils % (auto) 0.4 %; Eosinophils # (auto) 0.07 K/uL (0.00-0.50); Eosinophils % (auto) 0.9 %; Immature Granulocytes # (auto) 0.03 K/uL (0.01-0.20); Immature Granulocytes % (auto) 0.4 %; Lymphocytes # (auto) 2.48 K/uL (1.20-3.40); Lymphocytes % (auto) 33.2 %; Monocytes # (auto) 0.45 K/uL (0.11-0.59); Neutrophils # (auto) 4.42 K/uL (1.40-6.50); Neutrophils % (auto) 59.1 %
[2024-02-01] MEDS: FOLIC ACID 1 MG TAB PO SCH (08:19)
[2024-02-01] MEDS: THIAMINE HCL 100 MG TAB PO SCH (08:20)
[2024-02-01] MEDS: CALCIUM 600MG + VIT D 400 IU TAB PO SCH (08:20)
[2024-02-01] MEDS: ADVANCED PROBIOTIC 625 MG CAPSULE PO SCH (08:20)
[2024-02-01 08:36] LABS: Albumin Level 3.3 gm/dl (3.4-5.0); Calcium 8.5 mg/dl (8.6-10.3); Est GFR (African American) 116.8 ml/min; Est GFR (Non-African American) 100.8 ml/min; Phosphorus 2.8 mg/dl (2.5-4.9)
[2024-02-01] MEDS: INSULIN ASPART PER UNIT CHARGE SC SCH (08:57)
[2024-02-01 09:17] LABS: Estimated Average Glucose 143 mg/dl; Hemoglobin A1C 6.6 % (4.5-5.6)
--- OUTSIDE RECORDS SUMMARY | 2024-02-01 10:28 | External Medical Summary | Summary of Care ---
Author Name Unknown Organization [facility] Address [address] [place] [address] Phone [phone] Care Team Providers Care Rubber Attacher Name Role Phone Tommy Saab MD Primary Care Provider +1- [phone] Reason for Visit * Reason Onset Date Comments Hospital Follow-Up 12/28/2023 LONA Encounter Details Date Type Department Care Team (Late st Contact Info) Description 12/28/2023 Telephone [place] [address] [place] [address] Eve Shell, [facility] Follow-Up (LONA) Allergies No known active allergiesdocumented as of this encounter (statuses as of 01/01/2024) Medications Medication Sig Dispensed Refills Start Date [...] 0.1 % Nasal Solution (Astelin) Administer 1 [place] into nostril in the morning and 1 [place] before bedtime. 30 mL 12 02/10/2023 Active [...] in the morning. 0 Active Dexcom G7 SensorIndications:Ty pe 2 diabetes mellitus with hemoglobin A1c goal of less than 8.0% (HCC) Change sensor every 10 days 3 Each 3 04/25/2023 Active Atorvastatin Calcium 20 MG Oral Tablet (Lipitor)Indications :Type 2 diabetes mellitus with hemoglobin A1c goal of less than 8.0% (HCC),Dyslipidemia, goal LDL below 70 Take 1 Tablet by mouth in the morning. 90 Tablet 3 05/01/2023 Active BD Pen Needle Guillermina U/F 32G X 4 MM (Insulin Pen Needle)Indications:T ype 2 diabetes mellitus with hemoglobin A1c goal of less than 8.0% (HCC) Use with insulin 4 times daily 400 Each 3 05/31/2023 Active OneTouch Verio In Vitro Strip TEST BLOOD SUGARS BEFORE MEALS AND AT BEDTIME 400 Strip 3 07/29/2023 Active Insulin Glargine Solostar 100 UNIT/ML Subcutaneous Solution Pen-injector (Basaglar KwikPen)Indications: Type 2 diabetes mellitus with hemoglobin A1c goal of less than 8.0% (HCC) Inject 30 units under the skin once daily 30 mL 3 09/13/2023 Active Insulin Lispro (1 Unit Dial) 100 UNIT/ML Subcutaneous Solution Pen-injector (HumaLOG KwikPen)Indications: Type 2 diabetes mellitus with hemoglobin A1c goal of less than 8.0% (HCC) Inject 7 units with breakfast and supper, and 5 units with snacks 30 mL 3 09/13/2023 Active DayVigo 10 MG Oral Tablet (Lemborexant) Take 10 mg by mouth every night at bedtime. 60 Tablet 3 12/05/2023 Active Gabapentin 300 MG Oral Capsule (Neurontin) take 3 capsule by mouth at bedtime 90 Capsule 3 12/26/2023 Active Amoxicillin-Pot Clavulanate 875-125 MG Oral Tablet (Augmentin) Take 1 Tablet by mouth in the morning and 1 Tablet before bedtime. For 8 days. 0 12/27/2023 Active traMADol HCl 50 MG Oral Tablet (Ultram) Take 1 Tablet by mouth every 8 hours as needed. 0 12/27/2023 Active Magnesium 250 MG Oral Tablet Take 1 Tablet by mouth in the morning. 0 Active documented as of this encounter (statuses as of 01/01/2024) Active Problems Problem Noted Date Diagnosed Date Dyslipidemia, goal LDL below 70 05/01/2023 FERNANDO (obstructive sleep apnea) 05/06/2019 Chronic insomnia 05/06/2019 Type 2 diabetes mellitus wit h hemoglobin A1c goal of less than 8.0% 11/25/2018 Chronic pancreatitis 09/01/2016 Essential hypertension with goal blood pressure less than 140/90 09/01/2016 documented as of this encounter (statuses as of 01/01/2024) Resolved Problems Problem Noted Date Diagnosed Date Resolved Date Reaction, situational, acute, to stress 05/06/2019 09/29/2020 Leg length discrepancy 04/11/201811/25 Elevated glucose 09/01/2016 11/25/2018 documented as of this encounter (statuses as of 01/01/2024) Immunizations Name Administration Dates Next Due PPD [...] encounter Miscellaneous Notes * Telephone Encounter - Harmony Yu OSA - 01/01/2024 1:00 PM EST No Appointments Available Patient declined appointments?: Yes What Visit Type is needed? Hospital Discharge-wants this Monday only (january 04) If Acute Visit Type is needed, were surrounding clinics offered to patient (Yes/No)? N/A Was patient offered appointments with other available providers (Yes/No)? Yes See Call Details? (Yes or No): Yes * Telephone Encounter - Eve Shell RN - 12/28/2023 12:46 PM EST Transitions of Care Note Reason for Referral:Recent Admission Phone visit for follow up: LONA Admitted to: [facility], Date: 12/21/2023 Discharged to: Home, Date: 12/27/2023 Diagnosis driving hospitalization: Infection Right Foot, Right Foot Cellulitis Source/Contact: Patient SUBJECTIVE Consent: Verbal consent for review of hospital discharge: Yes REVIEW OF SYSTEMS Patient/Other Reports: Current patient/caregiver problems or concerns: Pt states she is doing well at home. Staying at son's house in [place]. Rt foot with dressing D/I, changing QOD, states continues to heal well. Walking withcane or walker as needed. CV: Denies problems Pulmonary: Denies problems Chills/Sweats/Fever:Denies chills/sweats Denies fever Appetite:Denies problems such as nausea, vomiting, burning, decreased appetite Current diet: Carb consistent, heart healthy Bowel: denies problems Bladder: denies problems Wound (If applicable): Rt Foot see above Pain:Location- Rt Foot Intensity- 2 (Scale 0-10) Sleep:Denies problems FUNCTIONAL STATUS: ADL'S: Needs Assistance With:N/A as pt is independent IADL'S: Needs Assistance With:N/A as pt is independent Cognitive and Mental Health: denies problems, alert and oriented x 3, and able to communicate, understand instructions, process information. MEDICATION RECONCILIATION Medications: Discharge med list reviewed with patient or caregiver New medications: Amoxicillin, Tramadol ASSESSMENT Medication Risk Assessment: No risks identified Did patient fail outpatient treatment? No Discharge instructions available for review? Yes PLAN Symptom Monitoring Interventions:Member/caregiver education - signs and symptoms to contact PrimaryCare (DO NOT DELETE-Three chirinos symptoms patient is to report to PCP) 1. Chest Pain/SOB 2. Fever/chills 3. Redness/Swelling/Drainage Rt foot - any worsening symptoms Cook PressureDirector Selection And Administration of Care interventions/Action Plan: 5 - 7 day follow-up with PCP in place - Date: 01/04/2024 Patient in [place] with son, PCP video appointment changed to in person 01/04/2024. Patient states she will come back for appointment in person. Has wound care appt scheduled for following week. Educated on role of LONA completed with patient/caregiver. Educated patient/caregiver on patient right to have input on LONA plan of care. Verification of Home Health/DME if indicated: NA Identified Care Gaps: No Care Gaps closed this call: Appointment made or confirmed and Transition of Care follow-up communication Re-evaluation of Plan of Care and progress towards goals achievement: Patient education this visit: Verbal, Rescheduled PCP appt as patient is out of state, discussed reasons to call sooner as above,notified of late hours and weekend provider visits available when back. Plan to instructed to call Primary Care Provider with change in symptoms or as needed before next follow-up, discharge needs met, verbalizes understanding and agrees with plan. Eve Shell RN documented in this encounter Plan of Treatment Upcoming Encounters Date Type Department Care Team (Late st Contact Info) Description 03/05/2024 3:00 PM EDT Office Visit Sleep Disorders Ctr [facility] [address] [place] [phone] Natali Hadley, [address] [place] [address] 08/22/2024 2:30 PM EDT Imaging Radiology [facility] 1st [facility] [place] [address] [place] [address] Scheduled Procedures Name Priority Associated Diagnoses Date/Ti me COLONOSCOPY FLEXIBLE PROXIMA L DIAGNOSTIC Recall Encounter for screening colonoscopy Health Maintenance Due Date Last Done Comments HIV Screening 1978 Hepatitis C Screening 1981 HPV/Co-Test 1993 Cologuard 2008 Fecal Occult Blood Test 2008 Sigmoidoscopy 2008 Pneumococcal Vaccine: Pediatrics (0 to 5 Years) and At-Risk Patients (6 to 64 Years) (2 of 2 - PCV) 02/05/2020 02/04/2019 Diabetic Eye Exam 02/16/2022 02/16/2021 Diabetic Foot Exam 03/24/2022 03/24/2021, 02/04/2019 Cervical Cancer Screening 05/06/2023 Pap Smear 05/06/2023 05/06/2020, 12/08, 04/24/2002, Additional history exists COVID-19 Vaccine ( season) 2023 09/28/2021, 03/04/2021, 02/11/2021 HbA1c 12/01/2023 05/31/2023, 040 03/2023, 09/07/2021, Additional history exists Albumin/Creatinine Ratio 02/09/2024 023, 03/17/2021, 08/19/2019 B-12 02/09/2024 02/08/2023, 0512/2020, 08/19/2019 GFR 02/09/2024 02/08/2023, 1112/2020, 03/17/2021, Additional [...] this encounter Medical Devices Implanted Type Area Peanut Vendor Device Identifier Shelf Expiration Date Model / Serial / Lot Lens 21.5 Mx60e - [id number] - [id number] Implanted:Qty: 1 on 08/14/2018 by Omer Hodges MD at OR [facility] Left: Eye BAUSCH [employer] LOMB 03/05/2021 [id number]-75.5 / [id number] / [id number] Lens 22.0 Mx60e - [id number] - [id number] Implanted:Qty: 1 on 08/30/2018 by Omer Hodges MD at OR [facility] Right: Eye BAUSCH & LOMB 06/05/2021 [id number]-61.0 / [id number] / documented as of this encounter Advance Directives Documents on File Type Date Recorded Patient Hide Washer Expl anation Advance Directives and Alek g Will 10/24/2018 LIVING WILL Power of Coke Worker 10/24/2018 POWER OF A TTORNEY Latest Code [...] and were consensually agreed upon. Care Teams Rubber Attacher Relationship Specialty Start Date End Date Tommy Saab MD [address] [facility] [place] [address] PCP - General Family Medicine 07/13/16 documented as of this encounter
--- OUTSIDE RECORDS SUMMARY | 2024-02-01 10:28 | External Medical Summary | Summary of Care ---
Author Name Unknown Organization [facility] Address [address] [place] [address] Phone [phone] Care Team Providers Care Spudder Name Role Phone Tommy Saab MD Primary Care Provider +1- [phone] Reason for Visit * Reason Onset Date Comments Forms Request 12/27/2023 Encounter Details Date Type Department Care Team (Late st Contact Info) Description 12/27/2023 Telephone [facility] [address] [place] [address] Tommy Saab MD [address] [place] [address] Forms Request Allergies No known active allergiesdocumented as of this encounter (statuses as of 12/28/2023) Medications Medication Sig Dispensed Refills Start Date [...] 0.1 % Nasal Solution (Astelin) Administer 1 [place] into nostril in the morning and 1 [place] before bedtime. 30 mL 12 02/10/2023 Active [...] goal of less than 8.0% ([facility]) Inject 7 units with breakfast and supper, and 5 units with snacks 30 mL 3 09/13/2023 Active DayVigo 10 MG Oral Tablet (Lemborexant) Take 10 mg by mouth every night at bedtime. 60 Tablet 3 12/05/2023 Active Gabapentin 300 MG Oral Capsule (Neurontin) take 3 capsule by mouth at bedtime 90 Capsule 3 12/26/2023 Active documented as of this encounter (statuses as of 12/28/2023) Active Problems Problem Noted Date Diagnosed Date Dyslipidemia, goal LDL below 70 05/01/2023 FERNANDO (obstructive sleep apnea) 05/06/2019 Chronic insomnia 05/06/2019 Type 2 diabetes mellitus wit h hemoglobin A1c goal of less than 8.0% 11/25/2018 Chronic pancreatitis 09/01/2016 Essential hypertension with goal blood pressure less than 140/90 09/01/2016 documented as of this encounter (statuses as of 12/28/2023) Resolved Problems Problem Noted Date Diagnosed Date Resolved Date Reaction, situational, acute, to stress 05/06/2019 09/29/2020 Leg length discrepancy 04/11/201811/25 Elevated glucose 09/01/2016 11/25/2018 documented as of this encounter (statuses as of 12/28/2023) Immunizations Name Administration Dates Next Due PPD [...] encounter Miscellaneous Notes * Telephone Encounter - Eve Shell RN - 12/28/2023 1:47 PM EST Rescheduled for 01/04/2024 in clinic visit. Patient states she will back from [place] for this. States she understands that PCP may need to do visit to complete FMLA paperwork. * Telephone Encounter - Elvi Steen OSA - 12/27/2023 6:04 PM EST Patient is scheduled for at 9:40 for Hospital Discharge via video. 12/27/2023 * Telephone Encounter - Tommy Saab MD - 12/27/2023 5:34 PM EST I have not seen the patient for this illness and cannot complete the paperwork. I don't know the first day she missed. I don't know when she will return. Etc. Is she still in the hospital? If she is still in the hospital, perhaps the doctors that are workingwith and familiar with her case and current condition can complete the forms. If she is out of the hospital and there is no one else to help with paperwork, use the 2 same day appts on Monday or the hospital follow up on Monday for a hospital follow up with me. If she is unable to get in, do as telemed. * Telephone Encounter - Dolores Proctor LPN - 12/27/2023 2:59 PM EST Paper's placed on doctor's deck to be filled out * Telephone Encounter - Magda Conde OSA - 12/27/2023 1:22 PM EST 12/27/23 Rec paperwork from [employer] for pt for FLMA. Paperwork needs completed and faxed back [facility]AU. Paperwork placed in provider's mail bin. documented in this encounter Plan of Treatment Upcoming Encounters Date Type Department Care Team (Late st Contact Info) Description 01/02/2024 10:00 AM EST Telemedicine Sleep Disorders Ctr [facility] [address] [place] [phone] Natali Hadley, [address] [place] [address] 01/04/2024 3:00 PM EST Office Visit [facility] [address] [place] [phone] Tommy Saab MD [address] [place] [address] 03/05/2024 3:00 PM EDT Office Visit Sleep Disorders Ctr [facility] [address] [place] [phone] Natali Hadley, [address] [place] [address] 08/22/2024 2:30 PM EDT Imaging Radiology [facility] 1st [facility] [place] [address] [place] [address] Scheduled Procedures Name Priority Associated Diagnoses Date/Ti [...] 2023 09/28/2021, 03/04/2021, 02/11/2021 HbA1c 12/01/2023 05/31/2023, 04/0 03/2023, 09/07/2021, Additional history exists Albumin/Creatinine Ratio 02/09/2024 023, 03/17/2021, 08/19/2019 B-12 02/09/2024 02/08/2023, 03/06, 08/19/2019 GFR 02/09/2024 02/08/2023, 11/12/2020, 03/17/2021, Additional history exists Depression Screening 02/11/2024 [...] this encounter Medical Devices Implanted Type Area Painter Ski Edge Device Identifier Shelf Expiration Date Model / Serial / Lot Lens 21.5 Mx60e - [id number] - [id number] Implanted:Qty: 1 on 08/14/2018 by Omer Hodges MD at OR [facility] Left: Eye BAUSCH [employer] LOMB 03/05/2021 [id number]-52.5 / [id number] / [id number] Lens 22.0 Mx60e - [id number] - [id number] Implanted:Qty: 1 on 08/30/2018 by Omer Hodges MD at OR [facility] Right: Eye BAUSCH & LOMB 06/05/2021 [id number]-61.0 / [id number] / documented as of this encounter Advance Directives Documents on File Type Date Recorded Patient Pest Control Worker Helper Expl anation Advance Directives and Livin g Will 10/24/2018 LIVING WILL Power of Sdc Teacher 10/24/2018 POWER OF A TTORNEY Latest Code [...] and were consensually agreed upon. Care Teams Spudder Relationship Specialty Start Date End Date Tommy Saab MD [address] [facility] [place] [address] PCP - General Family Medicine 07/13/16 documented as of this encounter
--- OUTSIDE RECORDS SUMMARY | 2024-02-01 10:28 | External Medical Summary | Summary of Care ---
Author Name Unknown Organization [facility] Address [address] [place] [address] Phone [phone] Care Team Providers Care Licensed Mental Health Professional Name Role Phone Tommy Saab MD Primary Care Provider +1- [phone] Reason for Visit * Reason Onset Date Comments Hospital Follow-Up 12/28/2023 LONA Encounter Details Date Type Department Care Team (Late st Contact Info) Description 12/28/2023 Telephone [place] [address] [place] [address] Eve Shell, [facility] Hospital Follow-Up (LONA) Allergies No known active allergiesdocumented as of this encounter (statuses as of 01/02/2024) Medications Medication Sig Dispensed Refills Start Date [...] 0.1 % Nasal Solution (Astelin) Administer 1 [place] into nostril in the morning and 1 [place] before bedtime. 30 mL 12 02/10/2023 Active [...] as of this encounter (statuses as of 01/02/2024) Active Problems Problem Noted Date Diagnosed Date Dyslipidemia, goal LDL below 70 05/01/2023 FERNANDO (obstructive sleep apnea) 05/06/2019 Chronic insomnia 05/06/2019 Type 2 diabetes mellitus wit h hemoglobin A1c goal of less than 8.0% 11/25/2018 Chronic pancreatitis 09/01/2016 Essential hypertension with goal blood pressure less than 140/90 09/01/2016 documented as of this encounter (statuses as of 01/02/2024) Resolved Problems Problem Noted Date Diagnosed Date Resolved Date Reaction, situational, acute, to stress 05/06/2019 09/29/2020 Leg length discrepancy 04/11/201811/25 Elevated glucose 09/01/2016 11/25/2018 documented as of this encounter (statuses as of 01/02/2024) Immunizations Name Administration Dates Next Due PPD [...] Telephone Encounter - Elvi Steen OSA - 01/02/2024 9:32 AM EST Scheduled. Patient did not have a preference as to who she saw. This could have been scheduled whenpatient called. 01/02/2024 * Telephone Encounter - Harmony Yu OSA [...] No): Yes * Telephone Encounter - Eve Sehll RN - 12/28/2023 12:46 PM EST Transitions of Care Note Reason for Referral:Recent Admission Phone visit for follow up: LONA Admitted to: [facility], Date: 12/21/2023 Discharged to: Home, Date: 12/27/2023 [...] Redness/Swelling/Drainage Rt foot - any worsening symptoms Postal ClerkSenior Patient Account Representative of Care interventions/Action Plan: 5 - 7 [...] verbalizes understanding and agrees with plan. Eve Shell, RN documented in this encounter Plan of Treatment Upcoming Encounters Date Type Department Care Team (Late st Contact Info) Description 01/05/2024 3:20 PM EST Office Visit [facility] [address] [place] [address] Jorge Alberto Hernandez MD [address] [place] [address] 03/05/2024 3:00 PM EDT Office Visit Sleep Disorders Ctr [facility] [address] [facility] [place] [phone] Natali Hadley DO [address] [place] [address] 08/22/2024 2:30 PM EDT Imaging Radiology [address] [facility] [place] [address] Scheduled Procedures Name Priority Associated Diagnoses Date/Ti [...] 2023 09/28/2021, 03/04/2021, 02/11/2021 HbA1c 12/01/2023 05/31/2023, 03/2023, 09/07/2021, Additional history [...] this encounter Medical Devices Implanted Type Area Twist Packer Device Identifier Shelf Expiration Date Model / Serial / Lot Lens 21.5 Mx60e - [id number] - [id number] Implanted:Qty: 1 on 08/14/2018 by Omer Hodges MD at OR [facility] Left: Eye BAUSCH [employer] LOMB 03/05/2021 [id number]-27.5 / [id number] / [id number] Lens 22.0 Mx60e - [id number] - [id number] Implanted:Qty: 1 on 08/30/2018 by Omer Hodges MD at OR [facility] Right: Eye BAUSCH & LOMB 06/05/2021 [id number]-54.0 / [id number] / documented as of this encounter Advance Directives Documents on File Type Date Recorded Patient Patient Ambassador Expl anation Advance Directives and Livin g Will 10/24/2018 LIVING WILL Power of Margarine Churn Operator 10/24/2018 POWER OF A TTORNEY Latest [...] and were consensually agreed upon. Care Teams Licensed Mental Health Professional Relationship Specialty Start Date End Date Tommy Saba MD [address] [place] [address] PCP - General Family Medicine 07/13/16 documented as of this encounter
--- OUTSIDE RECORDS SUMMARY | 2024-02-01 10:28 | External Medical Summary | Summary of Care ---
Author Name Unknown Organization [facility] Address [address] [place] [address] Phone [phone] Care Team Providers Care Sheet Metal Roofer Name Role Phone Tommy Saab MD Primary Care Provider +1- [phone] Reason for Visit * Reason Onset Date Comments Forms Request 12/27/2023 Encounter Details Date Type Department Care Team (Late st Contact Info) Description 12/27/2023 Telephone [facility] [address] [place] [address] Tommy Saab MD [address] [place] [address] Forms Request Allergies No known [...] 0.1 % Nasal Solution (Astelin) Administer 1 [place] into nostril in the morning and 1 [place] before bedtime. 30 mL 12 02/10/2023 Active [...] A1c goal of less than 8.0% ([facility]) Inject 7 units with breakfast and supper, [...] visit. Patient states she will back from [place] for this. States she understands that PCP [...] PM EST 12/27/23 Rec paperwork from [employer] for pt for FLMA. Paperwork needs completed and faxed back [facility]AU. Paperwork placed in provider's mail bin. documented in this encounter Plan of Treatment Upcoming Encounters Date Type Department Care Team (Late st Contact Info) Description 01/02/2024 10:00 AM EST Telemedicine Sleep Disorders Ctr [facility] [place] [address] [place] [phone] Natali Hadley, [address] [place] [address] 01/04/2024 3:00 PM EST Office Visit [facility] [address] [place] [phone] Tommy Saab MD [address] [place] [address] 03/05/2024 3:00 PM EDT Office Visit Sleep Disorders Ctr [facility] [place] [address] [place] [phone] Natali Hadley, [address] [place] [address] 08/22/2024 2:30 PM EDT Imaging Radiology [facility] 1st [facility] [place] [address] [place] [address] Scheduled Procedures Name Priority Associated Diagnoses Date/Ti [...] this encounter Medical Devices Implanted Type Area Tool Supervisor Device Identifier Shelf Expiration Date Model / Serial / Lot Lens 21.5 Mx60e - [id number] - [id number] Implanted:Qty: 1 on 08/14/2018 by Omer Hodges MD at OR [facility] Left: Eye BAUSCH [employer] LOMB 03/05/2021 [id number]-42.5 / [id number] / [id number] Lens 22.0 Mx60e - [id number] - [id number] Implanted:Qty: 1 on 08/30/2018 by Omer Hodges MD at OR [facility] Right: Eye BAUSCH & LOMB 06/05/2021 [id number]-68.0 / [id number] / documented as of this encounter Advance Directives Documents on File Type Date Recorded Patient Loan Officer Assistant Expl anation Advance Directives and Livin g Will 10/24/2018 LIVING WILL Power of Column Precaster 10/24/2018 POWER OF A TTORNEY Latest Code [...] and were consensually agreed upon. Care Teams Sheet Metal Roofer Relationship Specialty Start Date End Date Tommy Saab MD [address] [place] [facility] [place] [address] PCP - General Family Medicine 07/13/16 documented as of this encounter
--- OUTSIDE RECORDS SUMMARY | 2024-02-01 10:28 | External Medical Summary | Summary of Care ---
Author Name Unknown Organization [facility] Address [address] [place] [address] Phone [phone] Care Team Providers Care Job Compositor Name Role Phone Tommy Saab MD Primary Care Provider +1- [phone] Reason for Visit * Reason Onset Date Comments Hospital Follow-Up 12/28/2023 LONA Encounter Details Date Type Department Care Team (Late st Contact Info) Description 12/28/2023 Telephone [place] [address] [place] [address] Eve Shell, [facility] Follow-Up [...] 0.1 % Nasal Solution (Astelin) Administer 1 [place] into nostril in the morning and 1 [place] before bedtime. 30 mL 12 02/10/2023 Active [...] visit for follow up: LONA Admitted to: [facility] [place], Date: 12/21/2023 Discharged to: Home, Date: 12/27/2023 Diagnosis driving hospitalization: Infection Right Foot, Right Foot Cellulitis Source/Contact: Patient SUBJECTIVE Consent: Verbal consent for review of hospital discharge: Yes REVIEW OF SYSTEMS Patient/Other Reports: Current patient/caregiver problems or concerns: Pt states she is doing well at home. Staying at son's house in [place]. Rt foot with dressing D/I, changing QOD, [...] Redness/Swelling/Drainage Rt foot - any worsening symptoms Remote Operations ProducerTailor Apprentice of Care interventions/Action Plan: 5 - 7 [...] 10:00 AM EST Telemedicine Sleep Disorders Ctr [facility] [address] [place] [phone] Natali Hadley, [address] [place] [address] 01/04/2024 3:00 PM EST Office Visit [place] [address] [facility] [place] [address] Tommy Saab MD [address] [place] [address] 03/05/2024 3:00 PM EDT Office Visit Sleep Disorders Ctr [facility] [address] [place] [phone] Natali Hadley, [address] [place] [address] 08/22/2024 2:30 PM EDT Imaging Radiology [facility] 1st Floor, [place] [address] [place] [address] Scheduled Procedures Name Priority Associated Diagnoses Date/Ti [...] this encounter Medical Devices Implanted Type Area Club Room Attendant Device Identifier Shelf Expiration Date Model / Serial / Lot Lens 21.5 Mx60e - [id number] - [id number] Implanted:Qty: 1 on 08/14/2018 by Omer Hodges MD at OR [facility] Left: Eye BAUSCH [employer] LOMB 03/05/2021 [id number]-86.5 / [id number] / [id number] Lens 22.0 Mx60e - [id number] - [id number] Implanted:Qty: 1 on 08/30/2018 by Omer Hodges MD at OR [facility] Right: Eye BAUSCH & LOMB 06/05/2021 [id number]-40.0 / [id number] / documented as of this encounter Advance Directives Documents on File Type Date Recorded Patient Manufacturing Tech Expl anation Advance Directives and Livin g Will 10/24/2018 LIVING WILL Power of Pbx Inspector 10/24/2018 POWER OF A TTORNEY Latest Code [...] and were consensually agreed upon. Care Teams Job Compositor Relationship Specialty Start Date End Date Tommy Saab MD [address] [facility] [place] [address] PCP - General Family Medicine 07/13/16 documented as of this encounter
--- OUTSIDE RECORDS SUMMARY | 2024-02-01 10:28 | External Medical Summary | Summary of Care ---
Author Name Unknown Organization [facility] Address [address] [place] [address] Phone [phone] Care Team Providers Care Gas Operations Analyst Name Role Phone Tommy Saab MD Primary Care Provider +1- [phone] Reason for Visit * Reason Onset Date Comments Hospital Follow-Up 12/28/2023 LONA Encounter Details Date Type Department Care Team (Late st Contact Info) Description 12/28/2023 Telephone [place] [address] [place] [address] Eve Shell, [facility] Follow-Up [...] 0.1 % Nasal Solution (Astelin) Administer 1 [place] into nostril in the morning and 1 [place] before bedtime. 30 mL 12 02/10/2023 Active [...] visit for follow up: LONA Admitted to: [facility], Date: 12/21/2023 Discharged to: Home, Date: 12/27/2023 [...] Redness/Swelling/Drainage Rt foot - any worsening symptoms Employment ManagerDat Instructor of Care interventions/Action Plan: 5 - 7 [...] PM EDT Office Visit Sleep Disorders Ctr [facility] [address] [place] [phone] Natali Hadley, [address] [place] [address] 08/22/2024 2:30 PM EDT Imaging Radiology [facility] 1st [facility] [place] [address] [place] [address] Scheduled Procedures Name Priority Associated Diagnoses Date/Ti [...] this encounter Medical Devices Implanted Type Area Dog Races Manager Device Identifier Shelf Expiration Date Model / Serial / Lot Lens 21.5 Mx60e - [id number] - [id number] Implanted:Qty: 1 on 08/14/2018 by Omer Hodges MD at OR [facility] Left: Eye BAUSCH [employer] LOMB 03/05/2021 [id number]-55.5 / [id number] / [id number] Lens 22.0 Mx60e - [id number] - [id number] Implanted:Qty: 1 on 08/30/2018 by Omer Hodges MD at OR [facility] Right: Eye BAUSCH & LOMB 06/05/2021 [id number]-69.0 / [id number] / documented as of this encounter Advance Directives Documents on File Type Date Recorded Patient Manager Customer Service Expl anation Advance Directives and Alek g Will 10/24/2018 LIVING WILL Power of Head Of Commission Department 10/24/2018 POWER OF A TTORNEY Latest Code [...] and were consensually agreed upon. Care Teams Gas Operations Analyst Relationship Specialty Start Date End Date Tommy Saab MD [address] [facility] [place] [address] PCP - General Family Medicine 07/13/16 documented as of this encounter
--- OUTSIDE RECORDS SUMMARY | 2024-02-01 10:28 | External Medical Summary | Summary of Care ---
Author Name Unknown Organization [facility] Address [address] [place] [address] Phone [phone] Care Team Providers Care Art Supervisor Name Role Phone Rosio Avila MD Primary Care Provider +1- [phone] Reason for Visit * Reason Onset Date Comments Medication Refill 01/25/2024 Encounter Details Date Type Department Care Team (Late st Contact Info) Description 01/25/2024 Refill [place] [address] [place] [address] Rosio Avila MD [address] [place] [address] Allergies No known active allergiesdocumented as of this encounter (statuses as of 01/26/2024) Medications Medication Sig Dispensed Refills Start Date [...] a day 360 Tablet 3 02/06/2023 Active Thiamine HCl 100 MG Oral Tablet [...] daily 400 Each 3 05/31/2023 Active Insulin Glargine Solostar 100 UNIT/ML Subcutaneous Solution Pen-injector (Basaglar KwikPen)Indication s:Type 2 diabetes mellitus with hemoglobin [...] at bedtime 90 Capsule 3 12/26/2023 Active traMADol HCl 50 MG Oral Tablet (Ultram) Take 1 Tablet by mouth every 8 hours as needed. 0 12/27/2023 Active Magnesium 250 MG Oral Tablet Take 1 Tablet by mouth in the morning. 0 Active OneTouch Verio In Vitro Strip TEST BLOOD SUGARS BEFORE MEALS AND AT BEDTIME 400 Strip 3 01/26/2024 Active OneTouch Josi In Vitro Strip TEST BLOOD SUGARS BEFORE MEALS AND AT BEDTIME 400 Strip 3 07/29/2023 4 Discontinue d(Patient preference/ discontinua tion) documented as of this encounter (statuses as of 01/26/2024) Active Problems Problem Noted Date Diagnosed Date Alcohol-induced chronic pancreatitis 01/05/2024 Dyslipidemia, goal LDL below 70 05/01/2023 FERNANDO (obstructive sleep apnea) 05/06/2019 Chronic insomnia 05/06/2019 Type 2 diabetes mellitus wit h hemoglobin A1c goal of less than 8.0% 11/25/2018 Chronic pancreatitis 09/01/2016 Essential hypertension with goal blood pressure less than 140/90 09/01/2016 documented as of this encounter (statuses as of 01/26/2024) Resolved Problems Problem Noted Date Diagnosed Date Resolved Date Reaction, situational, acute, to stress 05/06/2019 09/29/2020 Leg length discrepancy 04/11/201811/25 Elevated glucose 09/01/2016 11/25/2018 documented as of this encounter (statuses as of 01/26/2024) Immunizations Name Administration Dates Next Due PPD [...] encounter Miscellaneous Notes * Telephone Encounter - Rika Ruiz [facility] - 01/26/2024 12:29 PM EDTSigned Prescriptions: Disp Refills OneTouch Verio In Vitro Strip 400 St*3 Sig: TEST BLOOD SUGARS BEFORE MEALS AND AT BEDTIMEAuthorizing Provider: ROSIO AVILA User: RIKA RUIZ----- * Telephone Encounter - Dorina Carpenter strip machine operator - 01/25/2024 3:31 PM EDT Did you pend patient's preferred pharmacy and medication before forwarding?yes Pharmacy: [id number] [address] [place] [address] Pending Prescriptions: Disp Refills OneTouch Verio In Vitro Strip [address] St*3 Sig: TEST BLOOD SUGARS BEFORE MEALS AND AT BEDTIME Last Visit: 01/05/2024 (in office), Visit date not found (telemedicine) Next Visit: 01/31/2024 If no future appointments scheduled, and last appointment is greater than a year ago, please schedule patient for a follow-up appointment Last date the medication was ordered: 323 Is this request for a controlled substance?No Urine Drug Screen:No results found for this or any previous visit. Patient Phone Numbers Labs: Lab Results Component Value Date/Time CREAT 0.6 02/08/2023 04:31 PM CREAT 1.3 10/11/2018 12:00 AM CREAT 1.84 (A) 10/11/2018 12:00 AM CREAT 0.9 09/01/2016 04:27 PM POTASSIUM 4.1 02/08/2023 04:31 PM POTASSIUM 4.4 10/11/2018 12:00 AM POTASSIUM 4.9 10/11/2018 12:00 AM POTASSIUM 4.3 09/01/2016 04:27 PM TSH 1.18 03/17/2021 11:14 AM TSH 1.39 08/19/2019 02:48 PM LDLCALC 113 02/08/2023 04:31 PM LDLDIRECT 87 03/17/2021 11:14 AM ALT 32 03/17/2021 11:14 AM ALT 31 07/12/2016 12:00 AM HGBA1C 10.6 (H) 05/31/2023 12:19 PM HGBA1C 6.0 (H) 08/19/2019 02:35 PM documented in this encounter Plan of Treatment Upcoming Encounters Date Type Department Care Team (Late st Contact Info) Description 01/31/2024 3:40 PM EDT Office Visit [facility] [address] [place] [address] MarchJorge Alberto MD [address] [place] [address] 03/05/2024 3:00 PM EDT Office Visit Sleep Disorders Ctr [facility] [place] [phone] Natali Hadley, [address] [place] [address] 08/22/2024 2:30 PM EDT Imaging Radiology [facility]st [facility] [place] [address] Scheduled Procedures Name Priority Associated Diagnoses Date/Ti [...] this encounter Medical Devices Implanted Type Area Sales Department Clerk Device Identifier Shelf Expiration Date Model / Serial / Lot Lens 21.5 Mx60e - [id number] - [id number] Implanted:Qty: 1 on 08/14/2018 by Omer Hodges MD at OR [facility] Left: Eye BAUSCH & LOMB 03/05/2021 [id number]-90.5 / [id number] / [id number] Lens 22.0 Mx60e - [id number] - [id number] Implanted:Qty: 1 on 08/30/2018 by Omer Hodges MD at OR [facility] Right: Eye BAUSCH & LOMB 06/05/2021 [id number]-41.0 / [id number] / documented as of this encounter Advance Directives Documents on File Type Date Recorded Patient Strip Mine Supervisor Expl anation Advance Directives and Livin g Will 10/24/2018 LIVING WILL Power of J2Ee Application Developer 10/24/2018 POWER OF A TTORNEY Latest Code [...] and were consensually agreed upon. Care Teams Art Supervisor Relationship Specialty Start Date End Date Rosio Avila MD [address] [place] [address] PCP - General Family Medicine 07/13/16 documented as of this encounter
--- OUTSIDE RECORDS SUMMARY | 2024-02-01 10:28 | External Medical Summary | Summary of Care ---
Author Name Unknown Organization [facility] Address [address] [place] [address] Phone [phone] Care Team Providers Care Theater Usher Name Role Phone Tommy Saab MD Primary Care Provider +1- [phone] Reason for Visit * Reason Onset Date Comments Forms Request 12/27/2023 Encounter Details Date Type Department Care Team (Late st Contact Info) Description 12/27/2023 Telephone [facility] [address] [place] [address] Tommy Saab MD [address] [place] [address] Forms Request Allergies No known active allergiesdocumented as of this encounter (statuses as of 01/06/2024) Medications Medication Sig Dispensed Refills Start Date [...] Solostar 100 UNIT/ML Subcutaneous Solution Pen-injector (Basaglar KwikPen)Indicatio ns:Type 2 diabetes mellitus with hemoglobin [...] at bedtime 90 Capsule 3 12/26/2023 Active fish oil concentrate (OMEGA-3) 1000 MG CAPS Take 1 Capsule by mouth in the morning and 1 Capsule before bedtime. 1 Cap 0 12/29/2016 4 Discontinued Azelastine HCl 0.1 % Nasal Solution (Astelin) Administer 1 [place] into nostril in the morning and 1 [place] before bedtime. 30 mL 12 02/10/2023 4 Discontinued Folic Acid 1 MG Oral Tablet Take 1 Tablet by mouth in the morning. 0 4 Discontinued Solitario Multivitamin for Women Oral Tablet Take 1 Tablet by mouth in the morning. 0 4 Discontinued Loratadine 10 MG Oral Tablet (Claritin) Take 1 Tablet by mouth in the morning. 0 4 Discontinued documented as of this encounter (statuses as of 01/06/2024) Active Problems Problem Noted Date Diagnosed Date Alcohol-induced chronic pancreatitis 01/05/2024 Dyslipidemia, goal LDL below 70 05/01/2023 FERANNDO (obstructive sleep apnea) 05/06/2019 Chronic insomnia 05/06/2019 Type 2 diabetes mellitus wit h hemoglobin A1c goal of less than 8.0% 11/25/2018 Chronic pancreatitis 09/01/2016 Essential hypertension with goal blood pressure less than 140/90 09/01/2016 documented as of this encounter (statuses as of 01/06/2024) Resolved Problems Problem Noted Date Diagnosed Date Resolved Date Reaction, situational, acute, to stress 05/06/2019 09/29/2020 Leg length discrepancy 04/11/201811/25 Elevated glucose 09/01/2016 11/25/2018 documented as of this encounter (statuses as of 01/06/2024) Immunizations Name Administration Dates Next Due PPD [...] Telephone Encounter - Tommy Saab MD - 01/06/2024 4:11 PM EST Seen in clinic 01/05/24 and forms completed. * Telephone Encounter - Eve Shell RN - 12/28/2023 1:47 PM EST Rescheduled for 01/04/2024 in clinic visit. Patient states she will back from [place] for this. States she understands that PCP may need to do visit to complete [place] paperwork. * Telephone Encounter - Elvi Steen [...] PM EST 12/27/23 Rec paperwork from [employer] for pt for FLMA. Paperwork needs completed and faxed back [facility]. Paperwork placed in provider's mail bin. documented in this encounter Plan of Treatment Upcoming Encounters Date Type Department Care Team (Late st Contact Info) Description 01/31/2024 3:40 PM EDT Office Visit [facility] [address] [place] [phone] Jorge Alberto Hernandez MD [address] [place] [address] 03/05/2024 3:00 PM EDT [facility] [address] [place] [phone] Natali Hadley, [address] [place] [address] 08/22/2024 2:30 PM EDT Imaging Radiology [facility] 1st [facility] [address] [facility] [place] [address] Scheduled Procedures Name Priority Associated Diagnoses Date/Ti [...] 12/08, 04/24/2002, Additional history exists COVID-19 Vaccine (2022- season) 2023 09/28/2021, 03/04/2021, 02/11/2021 HbA1c 12/01/2023 [...] this encounter Medical Devices Implanted Type Area District Or District Office Director Device Identifier Shelf Expiration Date Model / Serial / Lot Lens 21.5 Mx60e - [id number] - [id number] Implanted:Qty: 1 on 08/14/2018 by Omer Hodges MD at OR [facility] Left: Eye BAUSCH & LOMB 03/05/2021 [id number]-52.5 / [id number] / [id number] Lens 22.0 Mx60e - [id number] - [id number] Implanted:Qty: 1 on 08/30/2018 by Omer Hodges MD at OR [facility] Right: Eye BAUSCH & LOMB 06/05/2021 [id number]-24.0 / [id number] / documented as of this encounter Advance Directives Documents on File Type Date Recorded Patient Boiler Operator Expl anation Advance Directives and Livin g Will 10/24/2018 LIVING WILL Power of Oil Deliverer 10/24/2018 POWER OF A TTORNEY Latest Code [...] and were consensually agreed upon. Care Teams Theater Usher Relationship Specialty Start Date End Date Tommy Saab MD [address] [place] [address] (Vqfm) PCP - General Family Medicine 07/13/16 documented as of this encounter
--- OUTSIDE RECORDS SUMMARY | 2024-02-01 10:28 | External Medical Summary | Summary of Care ---
Author Name Unknown Organization [facility] Address [address] [place] [address] Phone [phone] Care Team Providers Care Geothermal System Installer Name Role Phone Tommy Saab MD Primary Care Provider [phone]- [phone] Reason for Visit * Reason Onset Date Comments Hospital Follow-Up [facility] Hospital Follow-Up 01/05/2024 Encounter Details Date Type Department Care Team (Late st Contact Info) Description 01/05/2024 3:20 PM EST Office Visit [facility] [place] [address] [place] [address] MarchJorge Alberto MD [address] [place] [address] Hospital discharge follow-up*; Cellulitis of right foot; Type 2 diabetes mellitus with hemoglobin A1c goal of less than 8.0% (HCC); Alcohol-induced chronic pancreatitis (HCC) Allergies No known active allergiesdocumented as of this encounter (statuses as of 01/05/2024) Medications Medication Sig Dispensed Refills Start Date [...] 0 12/29/2016 Active ONETOUCH DELICA LANCETS 33G MIS Use to test blood sugar up to [...] by mouth in the morning. 0 Active fish oil concentrate (OMEGA-3) 1000 MG CAPS Take 1 Capsule by mouth in the morning and 1 Capsule before bedtime. 1 Cap 0 12/29/2016 4 Discontinued Azelastine HCl 0.1 % Nasal Solution (Astelin) Administer 1 Floyd into nostril in the morning and 1 Floyd before bedtime. 30 mL 12 02/10/2023 4 Discontinued Folic Acid 1 MG Oral Tablet Take 1 Tablet by mouth in the morning. 0 4 Discontinued Solitario Multivitamin for Women Oral Tablet Take 1 Tablet by mouth in the morning. 0 4 Discontinued Loratadine 10 MG Oral Tablet (Claritin) Take 1 Tablet by mouth in the morning. 0 4 Discontinued Amoxicillin-Pot Clavulanate 875-125 MG Oral Tablet (Augmentin) Take 1 Tablet by mouth in the morning and 1 Tablet before bedtime. For 8 days. 0 12/27/2023 4 Discontinued documented as of this encounter (statuses as of 01/05/2024) Active Problems Problem Noted Date Diagnosed Date Alcohol-induced chronic pancreatitis 01/05/2024 Dyslipidemia, goal LDL below 70 05/01/2023 FERNANDO (obstructive sleep apnea) 05/06/2019 Chronic insomnia 05/06/2019 Type 2 diabetes mellitus wit h hemoglobin A1c goal of less than 8.0% 11/25/2018 Chronic pancreatitis 09/01/2016 Essential hypertension with goal blood pressure less than 140/90 09/01/2016 documented as of this encounter (statuses as of 01/05/2024) Resolved Problems Problem Noted Date Diagnosed Date Resolved Date Reaction, situational, acute, to stress 05/06/2019 09/29/2020 Leg length discrepancy 04/11/201811/25 Elevated glucose 09/01/2016 11/25/2018 documented as of this encounter (statuses as of 01/05/2024) Immunizations Name Administration Dates Next Due PPD [...] Sign Reading Time Taken Comments Blood Pressure 90/72 01/05/2024 3:22 PM EST Pulse 76 01/05/2024 3:22 PM EST Temperature 36.5 C (97.7 F) 01/05/2024 3:22 PM ES T Respiratory Rate 16 01/05/2024 3:22 PM EST Oxygen Saturation - - Inhaled Oxygen Concentration - - Weight 76.2 kg (168 lb) 01/05/2024 3:22 PM EST Height 171.5 cm (5' 7.5") 01/05/2024 3:22 PM EST Body Mass Index 25.92 01/05/2024 3:22 PM EST documented in this encounter Progress Notes * Jorge Alberto Hernandez MD - 01/05/2024 3:35 PM EST Images from the original note were not included. Assessment and Plan 1. Cellulitis of right foot Cellulitis of the right foot significantly improving per patient report and based on hospital notes. Afebrile. Now completed her course of antibiotics. Recommend she follow up with Wound Care/Podiatry as instructed. Hold on lab work today given patient was self-pay and it would not acid changer. 2. Type 2 diabetes mellitus with hemoglobin A1c goal of less than 8.0% ([facility]) A1c 6.7. Continue metformin, short and long-acting insulin. No dosing changes. She was having some labile blood sugars, however, expect this will improve as she comes off of antibiotics and returns to her usual diet. 3. Alcohol-induced chronic pancreatitis (HCC) Noted. Not eligible for a GLP 1. 4. Hospital discharge follow-up - DISCH MED RECON CUR MED LIS Wrap-Up Follow up in about 4 weeks. History of Present Illness The patient is a 58-year-old female with history of chronic pancreatitis, type 2 diabetes insulin-dependent, dyslipidemia, FERNANDO, who presents for hospital follow up. Patient was admitted to [facility] from 12/21/2023 through 12/27/2023 with right dorsal foot cellulitis. Patient presented with a large blister and cellulitis of the right foot. MRI of the foot did not reveal any osteomyelitis. Culture positive for Staph aureus. Patient own underwent debridement on 12/21 and 12/26. She was treated empirically with Zosyn and doxycycline. Infectious Disease recommended oral Augmentin at discharge. Diabetes is under good control with an A1c of 6.7 during the hospitalization. She takes metformin along with short and long-acting insulin. Blood pressure today in office is 90/72. She was chronically borderline low blood pressures but has no symptoms of hypotension. She continues to change her dressings daily. She has a small amount of serosanguineous drainage but no bl eeding or significant pain at this time. She was wearing a boot per Podiatry recommendations. She is going to schedule Podiatry follow up in the next week or 2 as instructed in the hospital but does not yet have an appointment date or time. Physical Exam Vitals: 01/05/24 1522 Temp: 36.5 C (97.7 F) Pulse: 76 Resp: 16 BP: 90/72 BMI: 25.91 Physical Exam Physical Exam Vitals reviewed. Constitutional: General: She is not in acute distress. Cardiovascular: Rate and Rhythm: Normal rate and regular rhythm. Heart sounds: No murmur heard. Pulmonary: Effort: Pulmonary effort is normal. No respiratory distress. Breath sounds: Normal breath sounds. Skin: Comments: Right dorsal lateral forefoot with reasonably well healing wound. There is some scab formation but no significant warmth or pain to palpation. 2+ dorsalis pedis pulses. Small area of the wound still has some serosanguineous drainage but no bleeding. Neurological: General: No focal deficit present. Mental Status: She is alert. I spent a total of 30-39 minutes (exact time 38 mins) on the date of service in preparation, delivery, and documentation of the care provided to Parris Gonzalez excluding any time spent in the performance of separately billed services. This note has been completed in part utilizing Clink Speech Voice Recognition Software. Due to technical limitations of the software, grammatical errors, random word insertions, prounoun errors, and incomplete sentences may occur. Any formal questions or concerns about the content, text, or information contained within the body of this dictation should be directly addressed to the provider for clarification. documented in this encounter Nursing Notes * Adeline Gomez LPN - 01/05/2024 3:27 PM EST The patient has been properly identified by confirmation of name and date of . Chief Complaint Patient presents with Hospital Follow-Up [facility] paperwork documented in this encounter Plan of Treatment Upcoming Encounters Date Type Department Care Team (Late st Contact Info) Description 01/31/2024 3:40 PM EDT Office Visit [facility] [address] [place] [phone] Jorge Alberto Hernandez MD [address] [place] [address] 03/05/2024 3:00 PM EDT Office Visit [facility] [address] [facility] [place] [phone] Natali Hadley DO [address] [place] [address] 08/22/2024 2:30 PM EDT Imaging Radiology [address] [place] [address] Scheduled Procedures Name Priority Associated Diagnoses Date/Ti [...] this encounter Medical Devices Implanted Type Area Soil Chemist Device Identifier Shelf Expiration Date Model / Serial / Lot Lens 21.5 Mx60e - [id number] - [id number] Implanted:Qty: 1 on 08/14/2018 by Omer Hodges MD at OR [facility] Left: Eye [employer] 03/05/2021 [id number]-64.5 / [id number] / [id number] Lens 22.0 Mx60e - [id number] - [id number] Implanted:Qty: 1 on 08/30/2018 by Omer Hodges MD at OR [facility] Right: Eye [employer]OM[employer] 06/05/2021 [id number]-04.0 / [id number] / documented as of this encounter Visit Diagnoses Diagnosis Hospital discharge follow-up- Primary Other follow-up examination Cellulitis of right foot Cellulitis and abscess of foot, except toes Type 2 diabetes mellitus with hemoglobin A1c goal of less than 8.0% (HCC) Alcohol-induced chronic pancreatitis (HCC) Chronic pancreatitis documented in this encounter Advance Directives Documents on File Type Date Recorded Patient Geometry Teacher Expl anation Advance Directives and Alek christianson Will 10/24/2018 LIVING WILL Power of Tip Puncher 10/24/2018 POWER OF A TTORNEY Latest Code [...] and were consensually agreed upon. Care Teams Geothermal System Installer Relationship Specialty Start Date End Date Tommy Saab MD [address] [place] [address] PCP - General Family Medicine 07/13/16 documented as of this encounter
--- OUTSIDE RECORDS SUMMARY | 2024-02-01 10:28 | External Medical Summary | Summary of Care ---
Author Name Unknown Organization [facility] Address [address] [place] [address] Phone [phone] Care Team Providers Care Industrial Hire Sales Assistant Name Role Phone Tommy Saab MD Primary Care Provider +1- [phone] Reason for Visit * Reason Onset Date Comments Forms Request 12/27/2023 Encounter Details Date Type Department Care Team (Late st Contact Info) Description 12/27/2023 Telephone [facility] [address] [place] [address] Tommy Saab MD [address] [place] [address] Forms Request Allergies No known [...] 0.1 % Nasal Solution (Astelin) Administer 1 [place] into nostril in the morning and 1 [place] before bedtime. 30 mL 12 02/10/2023 Active [...] goal of less than 8.0% ([facility]) Inject 7 units with breakfast [...] visit. Patient states she will back from [place] for this. States she understands that PCP [...] be filled out * Telephone Encounter - aMgda Conde OSA - 12/27/2023 1:22 PM EST 12/27/23 Rec paperwork from [employer] for pt for FLMA. Paperwork needs completed and faxed back [facility]. Paperwork placed in provider's mail bin. documented in this encounter Plan of Treatment Upcoming Encounters Date Type Department Care Team (Late st Contact Info) Description 01/02/2024 10:00 AM EST Telemedicine [facility] [address] [place] [phone] Natali Hadley, [address] [place] [address] 01/04/2024 3:00 PM EST Office Visit [facility] [address] [place] [phone] Tommy Saab MD [address] [place] [address] 03/05/2024 3:00 PM EDT Office Visit [facility] [address] [place] [phone] Natali Hadley, [address] [place] [address] 08/22/2024 2:30 PM EDT Imaging Radiology [facility] [facility] [address] [place] [address] Scheduled Procedures Name Priority Associated Diagnoses Date/Ti [...] this encounter Medical Devices Implanted Type Area Second Watch Sergeant Device Identifier Shelf Expiration Date Model / Serial / Lot Lens 21.5 Mx60e - [id number] - [id number] Implanted:Qty: 1 on 08/14/2018 by Omer Hodges MD at OR [facility] Left: Eye [employer] 03/05/2021 [id number]-52.5 / [id number] / [id number] Lens 22.0 Mx60e - [id number] - [id number] Implanted:Qty: 1 on 08/30/2018 by Omer Hodges MD at OR [facility] Right: Eye [employer]OM[employer] 06/05/2021 [id number]-91.0 / [id number] / documented as of this encounter Advance Directives Documents on File Type Date Recorded Patient Television Inspector Expl anation Advance Directives and Livin g Will 10/24/2018 LIVING WILL Power of Customer Support Executive 10/24/2018 POWER OF A TTORNEY Latest Code [...] and were consensually agreed upon. Care Teams Industrial Hire Sales Assistant Relationship Specialty Start Date End Date Tommy Saab MD [address] [place] [facility] [place] [address] PCP - General Family Medicine 07/13/16 documented as of this encounter
--- OUTSIDE RECORDS SUMMARY | 2024-02-01 10:28 | External Medical Summary | Summary of Care ---
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 Encounter Details Date Type Department Care Team (Late st Contact Info) Description 01/12/2024 Telephone [facility] [address] [place] [address] Tommy Saab MD [address] [place] [address] Forms Request ([employer] welfare paper work) Allergies No known active allergiesdocumented as of this encounter (statuses as of 01/24/2024) Medications Medication Sig Dispensed Refills Start Date [...] as of this encounter (statuses as of 01/24/2024) Active Problems Problem Noted Date Diagnosed Date Alcohol-induced chronic pancreatitis 01/05/2024 Dyslipidemia, goal LDL below 70 05/01/2023 FERNANDO (obstructive sleep apnea) 05/06/2019 Chronic insomnia 05/06/2019 Type 2 diabetes mellitus wit h hemoglobin A1c goal of less than 8.0% 11/25/2018 Chronic pancreatitis 09/01/2016 Essential hypertension with goal blood pressure less than 140/90 09/01/2016 documented as of this encounter (statuses as of 01/24/2024) Resolved Problems Problem Noted Date Diagnosed Date Resolved Date Reaction, situational, acute, to stress 05/06/2019 09/29/2020 Leg length discrepancy 04/11/201811/25 Elevated glucose 09/01/2016 11/25/2018 documented as of this encounter (statuses as of 01/24/2024) Immunizations Name Administration Dates Next Due PPD [...] money to buy more. Never true 05/05/20 Within the past 12 months, t he [...] encounter Miscellaneous Notes * Telephone Encounter - Dolores Proctor LPN - 01/12/2024 12:47 PM EST Paper's placed on provider's desk to fill out * Telephone Encounter - Magda Conde OSA - 01/12/2024 11:42 AM EST 01/12/24 Rec paperwork for pt from [employer] ([place] [employer]) that needsto be completed for the pt. Paperwork placed provider's mail bin. documented in this encounter Plan of Treatment Upcoming Encounters Date Type Department Care Team (Late st Contact Info) Description 01/31/2024 3:40 PM EDT Office Visit [facility] [address] [place] [address] Jorge Alberto Hernandez MD [address] [place] [address] 03/05/2024 3:00 PM EDT Office Visit [facility] [address] [facility] [place] [phone] Natali Hadley DO [address] [place] [address] 08/22/2024 2:30 PM EDT Imaging Radiology [facility] [address] [place] [address] Scheduled Procedures Name Priority Associated Diagnoses Date/Ti [...] this encounter Medical Devices Implanted Type Area Life Insurance Salesperson Device Identifier Shelf Expiration Date Model / Serial / Lot Lens 21.5 Mx60e - [id number] - [id number] Implanted:Qty: 1 on 08/14/2018 by Omer Hodges MD at OR [facility] Left: Eye [employer] 03/05/2021 [id number]-10.5 / [id number] / [id number] Lens 22.0 Mx60e - [id number] - [id number] Implanted:Qty: 1 on 08/30/2018 by Omer Hodges MD at OR [facility] Right: Eye [employer]OM[employer] 06/05/2021 [id number]-14.0 / [id number] / documented as of this encounter Advance Directives Documents on File Type Date Recorded Patient Software Quality Specialist Expl anation Advance Directives and Livin g Will 10/24/2018 LIVING WILL Power of Project Program Manager 10/24/2018 POWER OF A TTORNEY Latest Code [...] and were consensually agreed upon. Care Teams Die Engraving Supervisor Relationship Specialty Start Date End Date Tommy Saab MD [address] [place] [address] PCP - General Family Medicine 07/13/16 documented as of this encounter
--- OUTSIDE RECORDS SUMMARY | 2024-02-01 10:29 | External Medical Summary | Summary of Care ---
Author Name Unknown Organization [facility] Address [address] [place] [address] Phone [phone] Care Team Providers Care Feather Baler Name Role Phone Tommy Saab MD Primary Care Provider +1- [phone] Reason for Visit * Reason Comments Other Encounter Details Date Type Department Care Team (Latest Contact Info) Description 12/20/2023 3:15 PM EST Convenient Care Visit [facility] [address] [place] [address] Santa Morgan PA-C [address] [place], [place] [phone] Right foot infection*; Type 2 diabetes mellitus with hemoglobin A1c goal of less than 8.0% ([facility]) Allergies No known active allergiesdocumented as of this encounter (statuses as of 12/21/2023) Medications Medication Sig Dispensed Refills Start Date [...] 0.1 % Nasal Solution (Astelin) Administer 1 [place] into nostril in the morning and 1 [place] before bedtime. 30 mL 12 02/10/2023 Active [...] Active Atorvastatin Calcium 20 MG Oral Tablet (Lipitor)Indication [...] A1c goal of less than 8.0% ([facility]) Inject 7 units with breakfast and supper, and 5 units with snacks 30 mL 3 09/13/2023 Active DayVigo 10 MG Oral Tablet (Lemborexant) Take 10 mg by mouth every night at bedtime. 60 Tablet 3 12/05/2023 Active documented as of this encounter (statuses as of 12/21/2023) Active Problems Problem Noted Date Diagnosed Date Dyslipidemia, goal LDL below 70 05/01/2023 FERNANDO (obstructive sleep apnea) 05/06/2019 Chronic insomnia 05/06/2019 Type 2 diabetes mellitus wit h hemoglobin A1c goal of less than 8.0% 11/25/2018 Chronic pancreatitis 09/01/2016 Essential hypertension with goal blood pressure less than 140/90 09/01/2016 documented as of this encounter (statuses as of 12/21/2023) Resolved Problems Problem Noted Date Diagnosed Date Resolved Date Reaction, situational, acute, to stress 05/06/2019 09/29/2020 Leg length discrepancy 04/11/201811/25 Elevated glucose 09/01/2016 11/25/2018 documented as of this encounter (statuses as of 12/21/2023) Immunizations Name Administration Dates Next Due PPD [...] Sign Reading Time Taken Comments Blood Pressure 120/80 12/20/2023 3:54 PM EST Pulse 84 12/20/2023 3:54 PM EST Temperature 37.3 C (99.1 F) 12/20/2023 3:54 PM ES T Respiratory Rate 16 12/20/2023 3:54 PM EST Oxygen Saturation 96% 12/20/2023 3:54 PM EST Inhaled Oxygen Concentration - - Weight 77.1 kg (170 lb) 12/20/2023 3:54 PM EST Height - - Body Mass Index 26.23 12/05/2023 1:32 PM EST documented in this encounter Progress Notes * Santa Morgan PA-C - 12/20/2023 4:01 PM EST Subjective: Nursing Notes: Valerie Gonzales, SENAIT 12/20/23 1559 Signed 58 yo female presents with right foot swelling/large open area top foot after having a blister pop x 4-5 days. Used abx oint x 2 Sx are swelling sore on top and side of the right foot Explained that it started with small sore on her foot the other day and then she looked at it todayand whole side foot involved, ++ pain and watery bloody d/c on bandages. Hard to put weight on her right foot and pt is walking some with a cane no sick contacts at home. Sig med hx/risk factors: Type II diabetes, last A1C was 10.6%.on 05/31/24, chronic pancreatitis Review of Systems Constitutional: Positive for activity change, appetite change and fatigue. Negative for fever. Respiratory: Negative. Cardiovascular: Negative. Gastrointestinal: Negative. Musculoskeletal: Foot pain Skin: Positive for color change and wound. Negative for pallor. Neurological: Negative. PMH: Patient Active Problem List Diagnosis Code Chronic pancreatitis ([facility]) K86.1 Essential hypertension with goal blood pressure less than 140/90 I10 Type 2 diabetes mellitus with hemoglobin A1c goal of less than 8.0% (HCC) E11.9 FERNANDO (obstructive sleep apnea) G47.33 Chronic insomnia F51.04 Dyslipidemia, goal LDL below 70 E78.5 Current Outpatient Medications Medication Sig Dispense Refill Calcium Carbonate-Vitamin D 500-125 MG-UNIT Oral Tablet Take 1 Tab by mouth 2 times a day. 1 Tab 0 coenzyme Q-10 100 MG Capsule Take 1 Capsule by mouth in the morning and 1 Capsule before bedtime. 1Cap 0 fish oil concentrate (OMEGA-3) 1000 MG CAPS Take 1 Capsule by mouth in the morning and 1 Capsule before bedtime. 1 Cap 0 Probiotic Product (PROBIOTIC ADVANCED) CAPS Take 1 Cap by mouth once for 1 dose. 1 Cap 0 ONETOUCH DELICA LANCETS 33G [facility] Use to test blood sugar up to 4 times daily dx e11.9 100 Each 5 CPAP every night at bedtime . busPIRone HCl 10 MG Oral Tablet (Buspar) take 1 tablet by mouth three times a day 270 Tablet 3 metFORMIN HCl ER 500 MG Oral Tablet Extended Release 24 Hour (Glucophage XR) take 2 tablets by mouth twice a day 360 Tablet 3 Azelastine HCl 0.1 % Nasal Solution (Astelin) Administer 1 [place] into nostril in the morning and 1 [place] before bedtime. 30 mL 12 Folic Acid 1 MG Oral Tablet Take [...] G7 Sensor Change sensor every 10 days 3 Each 3 Atorvastatin Calcium 20 MG Oral Tablet (Lipitor) Take 1 Tablet by mouth in the morning. 90 Tablet 3 Gabapentin 300 MG Oral Capsule (Neurontin) take 3 capsule by mouth at bedtime (Patient not taking: Reported on 12/05/2023) 90 Capsule 3 BD Pen Needle Guillermina U/F 32G X 4 MM (Insulin Pen Needle) Use with insulin 4 times daily 400 Each 3 OneTouch Verio In Vitro Strip TEST BLOOD SUGARS BEFORE MEALS AND AT BEDTIME 400 Strip 3 Insulin Glargine Solostar 100 UNIT/ML Subcutaneous Solution Pen-injector (Basaglar KwikPen) Inject 30 units under the skin once daily 30 mL 3 Insulin Lispro (1 Unit Dial) 100 UNIT/ML Subcutaneous Solution Pen-injector (HumaLOG KwikPen) Inject 7 units with breakfast and supper, and 5 units with snacks 30 mL 3 DayVigo 10 MG Oral Tablet (Lemborexant) Take 10 mg by mouth every night at bedtime. 60 Tablet 3 No current facility-administered medications for this visit. Past Medical History: Diagnosis Date Diabetes mellitus (HCC) Fibroids Hypertension, goal to be determined Hypokalemia Iron deficiency anemia Sleep apnea, obstructive Past Surgical History: Procedure Laterality Date DELIVERY 1993, 1996 COLONOSCOPY, DIAGNOSTIC (RECTUM) 02/28/2017 diverticulosis, repeat 10 yrs/COLONOSCOPY FLEXIBLE PROXIMAL DIAGNOSTIC performed by Kalpesh Silverio MD at ENDOSCOPY [facility] EGD, W/ENDOSCOPIC US 07/25/2016 normal bx, gall stones/ESOPHAGOGASTRODUODENOSCOPY (EGD), FLEXIBLE, TRANSORAL, ENDOSCOPIC ULTRASOUNDperformed by Kalpesh Silverio MD at ENDOSCOPY [facility] REMOVAL OF TONSILS, UNDER AGE 10 REMOVE CATARACT, INSERT LENS PROSTH Left 08/14/2018 left EXTRACAPSULAR CATARACT REMOVAL WITH INTRAOCULAR LENS performed by Omer Hodges MD at [facility] REMOVE CATARACT, INSERT LENS PROSTH Right 08/30/2018 right EXTRACAPSULAR CATARACT REMOVAL WITH INTRAOCULAR LENS performed by Omer Hodges MD at [facility] SINUS SURGERY PROCEDURE NEC UTERINE FIBROID EMBOLIZATION Review of patient's allergies indicates: No Known Allergies Objective: BP 120/80 | Pulse 84 | Temp 37.3 C (99.1 F) (Tympanic) | Resp 16 | Wt 77.1 kg (170 lb) | SpO2 96% | BMI 26.23 kg/m | BSA 1.92 m Physical Exam Constitutional: Appearance: She is ill-appearing. Comments: There is a very strong musty rotting odor upon walking in the room which seems to be frompatient's foot Cardiovascular: Rate and Rhythm: Normal rate and regular rhythm. Heart sounds: Normal heart sounds. Pulmonary: Effort: Pulmonary effort is normal. Breath sounds: Normal breath sounds. Musculoskeletal: General: Swelling and tenderness present. Skin: Findings: Erythema present. Comments: Right foot: superficial scalded skin appearance in parts of dorsal and lateral foot, withthicker layer of skin sloughed off other parts of lateral and dorsal foot with extensive exposure of the dermal layer. ++ sanguinous fluid dripping from wound and bandage and sock saturate. Prox foot going up to and slightly including the ankle is swollen and there is developing erythema. Foot TTP. Pt having a lot of difficulty putting weight on the foot due to pain. Neurological: Mental Status: She is oriented to person, place, and time. Coordination: Coordination abnormal. Psychiatric: Behavior: Behavior normal. Thought Content: Thought content normal. Judgment: Judgment normal. Comments: Pt was upset when I said I felt she needed to go to the [facility] ED as I was concerned there was infection going into the bone. Pt is concerned about the expense of the ER. States just lost herMedicaid ASSESSMENT/PLAN: Right foot infection (Primary) Type 2 diabetes mellitus with hemoglobin A1c goal of less than 8.0% ([facility]) Pt agreed to go to the ER. Called ED and spoke with Jessica and gave report Return instruction reviewed with pt in detail. Reasons to report to the ED were also reviewed. Voiced understanding Advised to follow up if no improvement in 3-5days. Santa Morgan PA-C documented in this encounter Nursing Notes * Valerie Gonzales LPN - 12/20/2023 3:54 PM EST 58 yo female presents with right foot swelling/large open area top foot after having a blister pop x 4-5 days. Used abx oint x 2 documented in this encounter Plan of Treatment Upcoming Encounters Date Type Department Care Team (Late st Contact Info) Description 12/25/2023 3:20 PM EST Office Visit [address] [place] [address] Arelis Emery PA-C [address] [place] [address] 03/05/2024 3:00 PM EDT Office Visit Sleep Disorders Ctr [facility] [address] [place] [phone] Natali Hadley, [address] [place] [address] 08/22/2024 2:30 PM EDT Imaging Radiology [facility]st [facility] [place] [address] [place] [address] Scheduled Procedures Name Priority Associated Diagnoses Date/Ti [...] this encounter Medical Devices Implanted Type Area Loan Officer Assistant Device Identifier Shelf Expiration Date Model / Serial / Lot Lens 21.5 Mx60e - [id number] - [id number] Implanted:Qty: 1 on 08/14/2018 by Omer Hodges MD at OR [facility] Left: Eye [employer] 03/05/2021 [id number]-01.5 / [id number] / [id number] Lens 22.0 Mx60e - [id number] - [id number] Implanted:Qty: 1 on 08/30/2018 by Omer Hodges MD at OR [facility] Right: Eye [employer]OM[employer] 06/05/2021 [id number]-56.0 / [id number] / documented as of this encounter Visit Diagnoses Diagnosis Right foot infection- Primary Unspecified local infection of skin and subcutaneous tissue Type 2 diabetes mellitus with hemoglobin A1c goal of less than 8.0% (HCC) documented in this encounter Advance Directives Documents on File Type Date Recorded Patient Medical Biller/Coder Expl anation Advance Directives and Alek christianson Will 10/24/2018 LIVING WILL Power of Burglar Alarm Mechanic 10/24/2018 POWER OF A TTORNEY Latest Code [...] and were consensually agreed upon. Care Teams Feather Baler Relationship Specialty Start Date End Date Tommy Saab MD [address], [place] [phone] PCP - General Family Medicine 07/13/16 documented as of this encounter"
--- OUTSIDE RECORDS SUMMARY | 2024-02-01 10:29 | External Medical Summary | Summary of Care ---
Author Name Unknown Organization [facility] Address [address] [place] [address] Phone [phone] Care Team Providers Care Java Support Engineer Name Role Phone Tommy Saab MD Primary Care Provider +1- [phone] Reason for Visit * Reason Onset Date Comments Medication Problem 12/26/2023 Re: Davigo/Ga bapentin Encounter Details Date Type Department Care Team (Late st Contact Info) Description 12/26/2023 Telephone [facility] [place] [address] [place] [address] Natali Hadley DO [address] [place] [address] Medication Problem (Re: Davigo/Gabapentin) Allergies No known active allergiesdocumented as of this encounter (statuses as of 12/26/2023) Medications Medication Sig Dispensed Refills Start Date [...] 0.1 % Nasal Solution (Astelin) Administer 1 [place] into nostril in the morning and 1 [place] before bedtime. 30 mL 12 02/10/2023 Active [...] A1c goal of less than 8.0% ([facility]) Inject 7 units with breakfast and supper, and 5 units with snacks 30 mL 3 09/13/2023 Active DayVigo 10 MG Oral Tablet (Lemborexant) Take 10 mg by mouth every night at bedtime. 60 Tablet 3 12/05/2023 Active documented as of this encounter (statuses as of 12/26/2023) Active Problems Problem Noted Date Diagnosed Date Dyslipidemia, goal LDL below 70 05/01/2023 FERNANDO (obstructive sleep apnea) 05/06/2019 Chronic insomnia 05/06/2019 Type 2 diabetes mellitus wit h hemoglobin A1c goal of less than 8.0% 11/25/2018 Chronic pancreatitis 09/01/2016 Essential hypertension with goal blood pressure less than 140/90 09/01/2016 documented as of this encounter (statuses as of 12/26/2023) Resolved Problems Problem Noted Date Diagnosed Date Resolved Date Reaction, situational, acute, to stress 05/06/2019 09/29/2020 Leg length discrepancy 04/11/201811/25 Elevated glucose 09/01/2016 11/25/2018 documented as of this encounter (statuses as of 12/26/2023) Immunizations Name Administration Dates Next Due PPD [...] encounter Miscellaneous Notes * Telephone Encounter - Analy Campos LPN - 12/26/2023 10:[address] Hadley's message was read to the pt, who verbalized understanding. She will follow as advised. She has concerns that the Gabapentin alone won't be effective, but will call if she has any questions or problems. * Telephone Encounter - Natali Hadley DO - 12/26/2023 10:19 AM EST Since she is now feeling the DayVigo hasn't been at all helpful, even at the maximum dose. I recommend she taper off of it by cutting them in half to 5mg per night for one week and then stopping. Shecan then resume gabapentin. If she is tolerating that full dose of gabapentin in the hospital, she can return to 900mg directly. If she felt it was making her dizzy or sleepy during the day, then she should 300mg per per night and gradually increase as tolerated until reaching full dose: Week 1: 300mg per night Week 2: 600mg per night Week 3: 900mg per night * Telephone Encounter - Analy Campos LPN - 12/26/2023 9:45 AM EST The pt is currently admitted to the hospital. DaVigo isn't formulary, so she was prescribed Gabapentin 900mg and Ambien. The pt understands she won't be taking Ambien as an outpatient. She says the DavVgo, even at the higher dose, "did nothing." She wants to go back Gabapentin 900 mg in addition tothe DaVigo. Please advise. * Telephone Encounter - Natali Hadley DO - 12/26/2023 9:15 AM EST Please check in with patient to see if increase in DayVigo (from 5 to 10mg) has improved her sleep sufficiently. The pharmacy sent a request for gabapentin refill. However, since she's been off of itfor sometime, I wanted to check in to make sure it was still necessary before resuming it. If she would like to resume it, I recommend starting at 300mg (not back to the 900mg with this new medication). documented in this encounter Plan of Treatment Upcoming Encounters Date Type Department Care Team (Late st Contact Info) Description 01/01/2024 9:40 AM EST Office Visit [facility] [address] [place] [phone] Tommy Saab MD [address] [place] [address] 03/05/2024 3:00 PM EDT Office Visit Sleep Disorders Ctr [facility] [address] [place] [phone] Natali Hadley DO [address] [place] [address] 08/22/2024 2:30 PM EDT Imaging Radiology [address] [place] [address] Scheduled Procedures Name Priority Associated Diagnoses Date/Ti [...] COVID-19 Vaccine ( season) 2023 03/04/2021, 02/11/2021 HbA1c 12/01/2023 05/31/2023, 03/2023, 09/07/2021, [...] this encounter Medical Devices Implanted Type Area Estate Planning Director Device Identifier Shelf Expiration Date Model / Serial / Lot Lens 21.5 Mx60e - [id number] - [id number] Implanted:Qty: 1 on 08/14/2018 by Omer Hodges MD at OR [facility] Left: Eye [employer] 03/05/2021 [id number]-95.5 / [id number] / [id number] Lens 22.0 Mx60e - [id number] - [id number] Implanted:Qty: 1 on 08/30/2018 by Omer Hodges MD at OR [facility] Right: Eye [employer]OM[employer] 06/05/2021 [id number]-20.0 / [id number] / documented as of this encounter Advance Directives Documents on File Type Date Recorded Patient Junior Net Developer Expl anation Advance Directives and Livin g Will 10/24/2018 LIVING WILL Power of Engineering Geologist 10/24/2018 POWER OF A TTORNEY Latest Code [...] and were consensually agreed upon. Care Teams Java Support Engineer Relationship Specialty Start Date End Date Tommy Saab MD [address] [place] [address] PCP - General Family Medicine 07/13/16 documented as of this encounter
--- OUTSIDE RECORDS SUMMARY | 2024-02-01 10:29 | External Medical Summary | Summary of Care ---
Author Name Unknown Organization [facility] Address [address] [place] [address] Phone [phone] Care Team Providers Care Check Pilot Name Role Phone Tommy Saab MD Primary Care Provider +1- [phone] Reason for Visit * Reason Comments Other Encounter Details Date Type Department Care Team (Latest Contact Info) Description 12/20/2023 3:15 PM EST Convenient Care Visit [facility] [address] [place] [address] Santa Morgan PA-C [address] [place], [place] [phone] Right foot infection*; Type 2 diabetes mellitus with hemoglobin A1c goal of less than 8.0% ([facility]) Allergies No known active allergiesdocumented as of [...] 0.1 % Nasal Solution (Astelin) Administer 1 [place] into nostril in the morning and 1 [place] before bedtime. 30 mL 12 02/10/2023 Active [...] hemoglobin A1c goal of less than 8.0% ([facility]) Inject 7 units with breakfast and supper, [...] Active Problem List Diagnosis Code Chronic pancreatitis ([facility]) K86.1 Essential hypertension with goal blood pressure less than 140/90 I10 Type 2 diabetes mellitus with hemoglobin A1c goal of less than 8.0% ([facility]) E11.9 FERNANDO (obstructive sleep apnea) G47.33 Chronic [...] 1 Cap 0 ONETOUCH DELICA LANCETS 33G MISC Use to [...] 0.1 % Nasal Solution (Astelin) Administer 1 [place] into nostril in the morning and 1 [place] before bedtime. 30 mL 12 Folic Acid [...] performed by Kalpesh Silverio MD at ENDOSCOPY [facility] EGD, W/ENDOSCOPIC US 07/25/2016 normal bx, gall stones/ESOPHAGOGASTRODUODENOSCOPY (EGD), FLEXIBLE, TRANSORAL, ENDOSCOPIC ULTRASOUNDperformed by Kalpesh Silverio MD at ENDOSCOPY [facility] REMOVAL OF TONSILS, UNDER AGE 12 REMOVE CATARACT, INSERT LENS PROSTH Left 08/14/2018 left EXTRACAPSULAR CATARACT REMOVAL WITH INTRAOCULAR LENS performed by Omer Hodges MD at OR [facility] REMOVE CATARACT, INSERT LENS PROSTH Right 08/30/2018 right EXTRACAPSULAR CATARACT REMOVAL WITH INTRAOCULAR LENS performed by Omer Hodges MD at [facility] SINUS SURGERY PROCEDURE NEC UTERINE FIBROID EMBOLIZATION Review of patient's allergies indicates: No Known Allergies Objective: BP 120/80 | Pulse 84 | Temp 37.3 C (99.1 F) (Tympanic) | Resp 16 | Wt 77.1 kg (170 lb) | SpO2 96% | BMI 26.23 kg/m | BSA 1.92 m Physical Exam Musculoskeletal: General: Swelling and tenderness present. Skin: Findings: Erythema present. Comments: Right foot: superficial scalded skin appearance in parts of dorsal and lateral foot, withthicker layer of skin sloughed off other parts of lateral and dorsal foot with extensive exposure of the dermal layer. ++ sanguinous fluid dripping from wound and bandage and sock saturate. Prox footgoing up to and slightly including the ankle [...] felt she needed to go to the [facility] ED as I was concerned there was infection going into the bone. Pt is concerned about the expense of the ER. States just lost herMedicaid ASSESSMENT/PLAN: Right foot infection (Primary) Type 2 diabetes mellitus with hemoglobin A1c goal of less than 8.0% ([facility]) Pt agreed to go to the ER. [...] Description 12/25/2023 3:20 PM EST [facility] [address] [facility] [phone] Arelis Emery PA-C [address] [place] [address] 03/05/2024 3:00 PM EDT Office Visit Sleep Disorders Ctr [facility] [address] [place] [address] Natali Hadley DO [address] [place] [address] 08/22/2024 2:30 PM EDT Imaging Radiology [facility]st [facility] [address] [place] [address] Scheduled Procedures Name Priority Associated Diagnoses Date/Ti [...] this encounter Medical Devices Implanted Type Area Academic Affairs Coordinator Device Identifier Shelf Expiration Date Model / Serial / Lot Lens 21.5 Mx60e - [id number] - [id number] Implanted:Qty: 1 on 08/14/2018 by Omer Hodges MD at OR [facility] Left: Eye [employer] 03/05/2021 [id number]-92.5 / [id number] / [id number] Lens 22.0 Mx60e - [id number] - [id number] Implanted:Qty: 1 on 08/30/2018 by Omer Hodges MD at OR [facility] Right: Eye [employer]OMB 06/05/2021 [id number]-84.0 / [id number] / documented as of this encounter Visit Diagnoses Diagnosis Right foot infection- Primary Unspecified local infection of skin and subcutaneous tissue Type 2 diabetes mellitus with hemoglobin A1c goal of less than 8.0% ([facility]) documented in this encounter Advance Directives Documents on File Type Date Recorded Patient Property Staff Accountant Expl anation Advance Directives and Livin g Will 10/24/2018 LIVING WILL Power of Seamer Operator 10/24/2018 POWER OF A TTORNEY Latest [...] and were consensually agreed upon. Care Teams Check Pilot Relationship Specialty Start Date End Date Tommy Saab MD [address] [place] [address] PCP - General Family Medicine 07/13/16 documented as of this encounter"
--- OUTSIDE RECORDS SUMMARY | 2024-02-01 10:29 | External Medical Summary | Summary of Care ---
Author Name Unknown Organization [facility] Address [address] [place] [address] Phone [phone] Care Team Providers Care Plate Keeper Name Role Phone Tommy Saab MD Primary Care Provider [phone]- [phone] Reason for Visit * Reason Onset Date Comments Medication Refill 12/25/2023 Encounter Details Date Type Department Care Team (Late st Contact Info) Description 12/25/2023 Refill Pulmonary Medicine, [facility] [address] [place] [address] Consuelo Hadley, [address] [facility] [address] Allergies No known active allergiesdocumented as of [...] 0.1 % Nasal Solution (Astelin) Administer 1 Roark into nostril in the morning and 1 Roark before bedtime. 30 mL 12 02/10/2023 Active [...] at bedtime 90 Capsule 3 12/26/2023 Active Gabapentin 300 MG Oral Capsule (Neurontin) take 3 capsule by mouth at bedtime 90 Capsule 3 05/23/2023 4 Discontinue d(Refill) documented as of this encounter (statuses as [...] encounter Miscellaneous Notes * Telephone Encounter - Consuelo Hadley DO - 12/26/2023 12:55 PM ESTSigned Prescriptions: Disp Refills Gabapentin 300 MG Oral Capsule (Neurontin) 90 Cap*3 Sig: take 3 capsule by mouth at bedtime Authorizing Provider: CONSUELO HADLEY * Telephone Encounter - Ellen Marti LPN - 12/26/2023 7:43 AM ESTPending Prescriptions: Disp Refills Gabapentin 300 MG Oral Capsule (Neurontin) 90 Cap*3 Sig: take 3 capsule by mouth at bedtime * Telephone Encounter - Arthur Barrientos, test designer - 12/25/2023 4:36 PM EST Pt is out of medication Did you pend patient's preferred pharmacy and medication before forwarding?yes Pharmacy: [id number] [id number] [facility] Pending Prescriptions: Disp Refills Gabapentin 300 MG Oral Capsule (Neurontin)90 Cap*3 Sig: take 3 capsule by mouth at bedtime Last Visit: 02/09/2021 (in office), 04/13/2020 (telemedicine) Next Visit: Visit date not found If no future appointments scheduled, and last appointment is greater than a year ago, please schedule patient for a follow-up appointment Last date the medication was ordered: 05/23/2023 Is this request for a controlled substance?No [...] Description 01/01/2024 9:40 AM EST Office Visit [facility] [address] [place] [id number] Tommy Saab MD [address] [facility] [place] [address] 03/05/2024 3:00 PM EDT Office Visit [facility] [address] [place] [phone] Consuelo Hadley, [address] [place] [address] 08/22/2024 2:30 PM EDT Imaging Radiology [facility] [address] [facility] [place] [address] [place] [address] Scheduled Procedures Name Priority Associated Diagnoses Date/Ti [...] this encounter Medical Devices Implanted Type Area Referral Nurse Device Identifier Shelf Expiration Date Model / Serial / Lot Lens 21.5 Mx60e - [id number] - [id number] Implanted:Qty: 1 on 08/14/2018 by Omer Hodges MD at OR [facility] Left: Eye [employer] 03/05/2021 [id number]-39.5 / [id number] / [id number] Lens 22.0 Mx60e - [id number] - [id number] Implanted:Qty: 1 on 08/30/2018 by Omer Hodges MD at OR [facility] Right: Eye [employer]OM[employer] 06/05/2021 [id number]-35.0 / [id number] / documented as of this encounter Advance Directives Documents on File Type Date Recorded Patient Rolloff Driver Expl anation Advance Directives and Livin g Will 10/24/2018 LIVING WILL Power of Pecan Grower 10/24/2018 POWER OF A TTORNEY Latest Code [...] and were consensually agreed upon. Care Teams Plate Keeper Relationship Specialty Start Date End Date Tommy Saab MD [address] [place] [address] PCP - General Family Medicine 07/13/16 documented as of this encounter
--- OUTSIDE RECORDS SUMMARY | 2024-02-01 10:29 | External Medical Summary | Summary of Care ---
Author Name Unknown Organization [facility] Address [address] [place] [address] Phone [phone] Care Team Providers Care Intravenous Therapy Nurse Name Role Phone Tommy Saab MD Primary Care Provider +1- [phone] Reason for Visit * Reason Onset Date Comments FYI 12/25/2023 Encounter Details Date Type Department Care Team (Late st Contact Info) Description 12/25/2023 Telephone [facility] [address] [place] [address] Tommy Saab MD [address] [place] [address] FYI Allergies No known active allergiesdocumented as of [...] 0.1 % Nasal Solution (Astelin) Administer 1 Spencer into nostril in the morning and 1 Spencer before bedtime. 30 mL 12 02/10/2023 Active [...] Telephone Encounter - Tommy Saab MD - 12/26/2023 8:19 AM EST The inpatient team ought to be able to help with any information that is needed about current medical issues - but will watch for any paperwork that comes through * Telephone Encounter - Zenon Almonte OSA - 12/25/2023 11:31 AM EST Pt called. She is in [facility] admitted. The pts hob is placing her ob leave and will be faxing over form for Dr. Torres to complete. Pt is inpatient and can not sign tangible release of med records so she is giving verbal permission for [employer] (her employer) to receive medical info regarding her leave. documented in this encounter Plan of Treatment Upcoming Encounters Date Type Department Care Team (Late st Contact Info) Description 03/05/2024 3:00 PM EDT Office Visit Sleep Disorders Ctr [facility] [address] [place] [phone] Natali Hadley, [address] [place] [address] 08/22/2024 2:30 PM EDT Imaging Radiology [address] [place] [address] Scheduled Procedures Name Priority Associated Diagnoses Date/Ti [...] season) 2023 03/04/2021, 02/11/2021 HbA1c 12/01/2023 05/31/2023, 040 03/2023, [...] this encounter Medical Devices Implanted Type Area Field Underwriter Device Identifier Shelf Expiration Date Model / Serial / Lot Lens 21.5 Mx60e - [id number] - [id number] Implanted:Qty: 1 on 08/14/2018 by mOer Hodges MD at OR [facility] Left: Eye [employer]CH [employer]OMB 03/05/2021 [id number]-27.5 / [id number] / [id number] Lens 22.0 Mx60e - [id number] - [id number] Implanted:Qty: 1 on 08/30/2018 by Omer Hodges MD at OR [facility] Right: Eye [employer]CH [employer]OMB 06/05/2021 [id number]-95.0 / [id number] / documented as of this encounter Advance Directives Documents on File Type Date Recorded Patient Text Transcriber Expl anation Advance Directives and Livin g Will 10/24/2018 LIVING WILL Power of Wooden Boat Builder 10/24/2018 POWER OF A TTORNEY Latest Code [...] and were consensually agreed upon. Care Teams Intravenous Therapy Nurse Relationship Specialty Start Date End Date Tommy Saab MD [address] [place] [address] PCP - General Family Medicine 07/13/16 documented as of this encounter
[2024-02-01] MEDS: POTASSIUM CHLORIDE CRTAB 20 MEQ TABCR PO STA (10:40)
[2024-02-01] MEDS: cefTRIAXone SODIUM 2,000 MG in DEXTROSE 5 % MINI-B 50 ML IV SCH (17:14)
[2024-02-01 18:37] LABS: Albumin Globulin Ratio 1.4 (0.9-2); BUN Creatinine Ratio 22.8 (10-20); Globulin 2.3 gm/dl (2.5-4.0); Magnesium 1.2 mg/dl (1.7-2.4); Total Protein 5.6 gm/dl (6.0-8.3)
--- NOTE | 2024-02-02 07:44 | Ultrasound Report ---
ULTRASOUND RIGHT LOWER EXTREMITY ARTERIAL; ANKLE BRACHIAL INDICES CLINICAL HISTORY: Right foot wound. Cold right leg. Poor capillary refill. COMPARISON STUDY: No priors. TECHNIQUE: Real-time grayscale and color Doppler sonography of the arteries of the right lower extrem ity is performed from the inguinal crease to the foot. Ankle brachial indices were assessed. FINDINGS: Ankle brachial indices: Right brachial pressure measures 120. Pressures in the right posterior tibial artery measure 174 for an AZ of 1.45 and pressures in the right dorsalis pedis measure 160 for an A BI of 1.33. Pressures in the left posterior tibial artery measure 151 for an AZ of 1.26 and pressure s in the left dorsalis pedis measure 128 for an AZ of 1.07. Right lower extremity: There is minimal atherosclerotic plaque seen throughout the arteries of the ri ght lower extremity. There are triphasic waveforms in the common femoral artery with velocities measu ring up to 106 cm/s. The profunda femoris artery is patent with velocities measuring up to 63 cm/s. T here are triphasic waveforms throughout the superficial femoral and popliteal arteries. Velocities in the superficial femoral artery measure up to 93 cm/s and velocities in the popliteal artery measure up to 68 cm/s. There is three-vessel runoff to the foot. Velocities within the calf arteries measure up to 92 cm/s. The dorsalis pedis artery is patent with velocities measuring up to 65 cm/s. IMPRESSION: 1. There is no sonographic evidence of high-grade stenosis or focal vessel cut off throughout the art eries of the right lower extremity. 2. Ankle brachial indices as above. Dictated: 02/01/2024 11:20 PM Transcribed: 02/02/2024 12:35 AM Angely [id number] Electronically signed by: Jesus Conde M.D. 02/02/2024 7:41 AM
--- NOTE | 2024-02-02 07:49 | Hospitalist Progress Note ---
Date of Service February 02, 2024 Assessment & Plan (1) UTI (urinary tract infection): (2) Rhabdomyolysis: Plan Pt is a 58yoF with PMHx significant for DMII, Hx of alcoholic induced pancreatitis, FERNANDO on cpap, HTN, chronic insomnia presenting after a fall at home. Lives alone and was reportedly down on the ground for 15 hours. Fall Likely in setting of an acute UTI Pt was down on the ground reportedly for [address] with no acute findings Consider further body imaging to rule out acute fractures PT/OT Acute UTI UA suggestive of infection, noted yeast present UA obtained after abx in ED Urine Cx pending Blood Cx x2 pending IV Rocephin One dose of diflucan 150mg for possible yeast infection Rhabdomyolysis CK elevated at 1175, trend with AM labs -Elevated liver enzymes- likely elevated in setting of rhabdo. Trend, if persistent consider further workup -elevated troponin- likely in setting of above, demand ischemia. Doubt ACS. EKG NSR IV fluids Hypokalemia Replete and monitor DMII ISS while hospitalized Last hgb a1c <7 Current Hgba1c 6.6% Foot wound - recently admitted for foot wound/ infection - pt says it's getting better, denies any significant pain - some erythema noted, no open or draining areas, will consult wound care - blood cultx pending - arterial doppler - There is no sonographic evidence of high-grade stenosis or focal vessel cut off throughout the arteries of the right lower extremity. Hx of alcohol use AWSS protocol with Ativan ordered Thiamine, folic acid FERNANDO cpap qhs Continue other home meds as ordered. CODE STATUS: full code Diet: DMII Dispo: PT/OT ordered Admission and Anticipated Discharge Date Admission Date: January 31, 2024 Subjective Pt seen in follow up of rhabdo (on floor for hours), UTI, weakness Recent admission for foot infection Reports daily etoh intake Reports being weak and laying on the floor, now feeling much better No fever, chills, chest pain, shortness of breath. No abd. pain Review of Systems Review of Systems: All systems reviewed & are unremarkable except as noted in Subjective Physical Exam Physical Exam: General: WD/WN F in NAD HEENT: NC, EOMI CV: RRR Resp: Breath sounds clear bilaterally, no increased effort of breathing. Abdomen: Soft, nontender, nondistended. Neuro: awake, alert, answers appropriately, moves extremities Extremities: No edema in lower extremities bilaterally. Skin: some bruising noted over her arms. healing wound over her foot/ankle Results & Data Results & Data Vital Signs (Past 12 Hours) Vital Signs Temp Pulse Pulse Resp BP Pulse Ox O2 Del Method 02/02/24 07:34 36.8 C 68 145/83 H 100 Room Air 02/02/24 03:20 17 02/01/24 23:50 67 19 94 02/01/24 21:45 Room Air 02/01/24 20:20 36.7 C 77 18 143/92 H 94 Room Air FiO2 02/02/24 07:34 02/02/24 03:20 21 02/01/24 23:50 21 02/01/24 21:45 02/01/24 20:20 Medications Administered Current Inpatient Medications Acetaminophen (Acetaminophen 500 Mg Tab) 1,000 mg PO Q8H PRN PRN Reason: Pain or Fever Stop: 03/01/24 20:26 Atorvastatin Calcium (Atorvastatin 20 Mg Tab) 20 mg PO HS EARL Stop: 03/01/24 20:59 Last Admin: 02/01/24 21:39 Dose: 20 mg Buspirone HCl (Buspirone 5 Mg Tab) 10 mg PO TID EARL Stop: 03/01/24 20:59 Last Admin: 02/01/24 21:39 Dose: 10 mg Calcium/Vitamin D (Calcium 600mg + Vit D 400 Iu Tab) 1 tab PO DAILY EARL Stop: 03/02/24 08:59 Last Admin: 02/01/24 08:20 Dose: 1 tab Dextrose (Dextrose 50% 50 Ml Syringe) 25 - 50 ml IV UD PRN; Protocol PRN Reason: Hypoglycemia Protocol Stop: 03/01/24 21:04 Enoxaparin Sodium (Enoxaparin Inj 40 Mg/0.4 Ml Syr) 40 mg SQ Q24H EARL Stop: 03/01/24 21:14 Last Admin: 02/01/24 21:40 Dose: 40 mg Folic Acid (Folic Acid 1 Mg Tab) 1 mg PO QAM EARL Stop: 03/02/24 08:59 Last Admin: 02/01/24 08:19 Dose: 1 mg Gabapentin (Gabapentin 300 Mg Cap) 900 mg PO HS EARL Stop: 03/01/24 20:59 Last Admin: 02/01/24 21:40 Dose: 900 mg Glucagon (Glucagon For Inj 1 Mg Vial) 1 mg SQ UD PRN; Protocol PRN Reason: Hypoglycemia Protocol Stop: 03/01/24 21:04 Glucose (Glucose 10 Tab/Tube) 4 - 8 tab PO UD PRN; Protocol PRN Reason: Hypoglycemia Treatment Stop: 03/01/24 21:04 Glucose (Glucose 40% Gel 15 Gm Tube) 15 - 30 gm PO UD PRN; Protocol PRN Reason: Hypoglycemia Protocol Stop: 03/01/24 21:04 Ceftriaxone Sodium 2,000 mg/ (Dextrose) 50 mls @ 100 mls/hr IV Q24H EARL; Protocol Stop: 02/11/24 17:59 Last Infusion: 02/01/24 18:15 Dose: Infused Sodium Chloride (Nss) 1,000 mls @ 80 mls/hr IV .[id number] [facility] Stop: 03/01/24 20:29 Last Admin: 02/01/24 21:42 Dose: 80 mls/hr Lorazepam 1 mg/ Syringe 1 mls @ 2 mls/min IV UD PRN; Protocol PRN Reason: EtOH Withdrawal AWSS Score 6,7 Stop: 03/01/24 21:03 Lorazepam 2 mg/ Syringe 2 mls @ 2 mls/min IV UD PRN; Protocol PRN Reason: EtOH Withdrawal AWSS Score 8,9 Stop: 03/01/24 21:03 Lorazepam 3 mg/ Syringe 3 mls @ 2 mls/min IV ONCE PRN; Protocol PRN Reason: EtOH Withdrawal AWSS Score 10+ Insulin Aspart (Insulin Aspart Per Unit Charge) 0 units SC ACHS [facility] Stop: 03/02/24 07:29 Last Admin: 02/01/24 21:49 Dose: 2 units Lactobacillus Acidophilus (Advanced Probiotic 625 Mg Capsule) 1,250 mg PO QAM [facility] Stop: 03/02/24 08:59 Last Admin: 02/01/24 08:20 Dose: 1,250 mg Magnesium Oxide (Magnesium Oxide 400 Mg Tab) 400 mg PO HS [facility] Stop: 03/01/24 20:59 Last Admin: 02/01/24 21:40 Dose: 400 mg Miscellaneous (Lemborexant [Dayvigo] 10 Mg Tablet: Order Awaiting Action) 1 each N/A QS [facility] Stop: 03/02/24 00:00 Last Admin: 02/01/24 23:42 Dose: Not Given Miscellaneous (Carbohydrates For Hypoglycemia ) 15 - 30 gm PO UD PRN PRN Reason: Hypoglycemia Protocol Stop: 03/01/24 21:04 Ondansetron HCl (Ondansetron Inj 2 Mg/Ml 2 Ml Vial) 4 mg IV Q6H PRN PRN Reason: Nausea And Vomiting Stop: 03/01/24 20:26 Thiamine HCl (Thiamine Hcl 100 Mg Tab) 100 mg PO [facility] Stop: 03/02/24 08:59 Last Admin: 02/01/24 08:20 Dose: 100 mg
[2024-02-02 07:52] LABS: Hematocrit (blood only) 36.7 % (37.0-47.0); Hemoglobin 12.8 g/dl (12.0-16.0); Mean Corpuscular Hemoglobin 35.1 pg (25.0-34.0); Mean Corpuscular Hgb Conc 34.9 g/dL (32.0-36.0); Mean Corpuscular Volume 100.5 fL (80.0-100.0); Mean Platelet Volume 10.1 fL (9.4-12.4); Platelet Count 94 K/uL (130-400); Platelet Estimate Decreased (Normal); RDW Coefficient of Variation 13.2 % (11.5-14.5); RDW Standard Deviation 49.2 fL (36.4-46.3); Red Blood Count 3.65 M/uL (4.20-5.40); White Blood Count 5.08 K/ul (4.8-10.8)
[2024-02-02] MEDS ORDERED: PHARMACY GLYCEMIC MGMT CONSULT PRN (11:45)
[2024-02-02] MEDS: LANTUS PER UNIT CHARGE SC ONE (12:26)
--- NOTE | 2024-02-02 14:18 | Pharmacy Report ---
Pharmacy Glycemic Short Note 2 - Date of Service February 02, 2024 - Glycemic Short BSG Results (Last 24 hours): 02/01/24 02/01/24 02/02/24 16:47 20:28 07:55 POC Glucose 222 H 219 H 189 H 02/02/24 02/02/24 11:36 11:37 POC Glucose 324 H* 364 H* OUTPATIENT ANTIDIABETIC REGIMEN: * Lantus 30 units SQ HS * Novolog 7 units ACHS * HbA1c 6.6% 02/01/24 ASSESSMENT: * Parris is a 58 YOF admitted with a fall/UTI and a history of T2DM. Pharmacy has been consulted to assist with glycemic management while inpatient. * Fasting BSG this AM above goal range, basal insulin held yesterday due to mild hypoglycemia yesterday morning, BSGs reginaldo throughout the day yesterday and peaked today at lunchtime 364mg/dL. Will order basal insulin reducing ~30% from home dose. * Novolog tightened based on home TDD insulin usage. PLAN FOR INPATIENT GLYCEMIC CONTROL: * Hold outpatient oral diabetes medications * Basal insulin * Lantus 20 units SQ daily * Bolus insulin * NovoLog per scale ACHS or Q6hrs while NPO * Goal Range: Low 110 mg/dL - High 140 mg/dL * Correction Factor: 30 mg/dL/unit * Nutritional / Prandial insulin per carb ratio of 1 unit per 9 grams CHO consumed
[2024-02-02] MEDS ORDERED: LANTUS PER UNIT CHARGE SC ONE (16:30)
[2024-02-03 06:58] LABS: Hematocrit (blood only) 39.2 % (37.0-47.0); Hemoglobin 13.7 g/dl (12.0-16.0); Mean Corpuscular Hemoglobin 34.8 pg (25.0-34.0); Mean Corpuscular Hgb Conc 34.9 g/dL (32.0-36.0); Mean Corpuscular Volume 99.5 fL (80.0-100.0); Mean Platelet Volume 10.5 fL (9.4-12.4); Platelet Count 106 K/uL (130-400); RDW Coefficient of Variation 13.1 % (11.5-14.5); RDW Standard Deviation 47.8 fL (36.4-46.3); Red Blood Count 3.94 M/uL (4.20-5.40); White Blood Count 4.75 K/ul (4.8-10.8)
[2024-02-03 07:15] LABS: BUN Creatinine Ratio 25.9 (10-20); Calcium 8.9 mg/dl (8.6-10.3); Est GFR (African American) 116.1 ml/min; Est GFR (Non-African American) 100.2 ml/min; Magnesium 1.4 mg/dl (1.7-2.4); Phosphorus 4.2 mg/dl (2.5-4.9); Potassium 3.6 mmol/L (3.5-5.1)
--- NOTE | 2024-02-03 07:30 | Hospitalist Progress Note ---
Date of Service February 03, 2024 Assessment & Plan (1) UTI (urinary tract infection): (2) Rhabdomyolysis: Plan Pt is a 58yoF with PMHx significant for DMII, Hx of alcoholic induced pancreatitis, FERNANDO on cpap, HTN, chronic insomnia presenting after a fall at home. Lives alone and was reportedly down on the ground for 15 hours. Fall Likely in setting of an acute UTI Pt was down on the ground reportedly for [address] with no acute findings PT/OT Acute UTI UA suggestive of infection, noted yeast present UA obtained after abx in ED Urine Cx - needed repeat and repeat cultx is negative Blood Cx x2 in 48 hrs IV Rocephin One dose of diflucan 150mg for possible yeast infection Will dc on PO abx to finish the course Rhabdomyolysis CK elevated at 1175, trend with AM labs -Elevated liver enzymes- likely elevated in setting of rhabdo. Trend, if persistent consider further workup -elevated troponin- likely in setting of above, demand ischemia. Doubt ACS. EKG NSR IV fluids given, CK downtrended Hypokalemia, Hypomagnesemia Replete and monitor DMII ISS while hospitalized Last hgb a1c <7 Current Hgba1c 6.6% Foot wound - recently admitted for foot wound/ infection - pt says it's getting better, denies any significant pain - wound care consulted -> pt should follow up w/ wound care on discharge - blood cultx negat. in 48 hrs - arterial doppler - There is no sonographic evidence of high-grade stenosis or focal vessel cut off throughout the arteries of the right lower extremity. Hx of alcohol use AWSS protocol with Ativan ordered Thiamine, folic acid No signs of etoh withdrawal FERNANDO cpap qhs Continue other home meds as ordered. CODE STATUS: full code Diet: DMII Dispo: PT/OT ordered Admission and Anticipated Discharge Date Admission Date: January 31, 2024 Subjective Pt seen in follow up of rhabdo (on floor for hours), UTI, weakness Recent admission for foot infection She is sitting up in chair , in NAD, says she feels well, and has been ambulating without any issues No fever, chills, chest pain, shortness of breath. No abd. pain, n/v. She has good PO intake. Review of Systems Review of Systems: All systems reviewed & are unremarkable except as noted in Subjective Physical Exam Physical Exam: General: WD/WN F in NAD HEENT: NC, EOMI CV: RRR Resp: Breath sounds clear bilaterally, no increased effort of breathing. Abdomen: Soft, nontender, nondistended. Neuro: awake, alert, answers appropriately, moves extremities Extremities: No edema in lower extremities bilaterally. Skin: some bruising noted over her arms. healing wound over her foot/ankle Results & Data Results & Data Vital Signs (Past 12 Hours) Vital Signs Temp Pulse Pulse Resp BP Pulse Ox O2 Del Method 02/03/24 03:30 69 17 94 02/02/24 23:24 65 22 92 02/02/24 20:36 36.5 C 69 12 130/86 98 Room Air 02/02/24 19:53 Room Air FiO2 02/03/24 03:30 21 02/02/24 23:24 21 02/02/24 20:36 02/02/24 19:53 Laboratory Results 02/03/24 02/02/24 02/02/24 Range/Units 06:29 20:34 16:32 WBC 4.75 L (4.8-10.8) K/ul RBC 3.94 L (4.20-5.40) M/uL Hgb 13.7 (12.0-16.0) g/dl Hct 39.2 (37.0-47.0) % MCV 99.5 (80.0-100.0) fL MCH 34.8 H (25.0-34.0) pg MCHC 34.9 (32.0-36.0) g/dL RDW Std Deviation 47.8 H (36.4-46.3) fL RDW Coeff of Eli 13.1 (11.5-14.5) % Plt Count 106 L (130-400) K/uL MPV 10.5 (9.4-12.4) fL Platelet Estimate (Normal) Sodium 139 (136-145) mmol/L Potassium 3.6 (3.5-5.1) mmol/L Chloride 106 (98-107) mmol/L Carbon Dioxide 25 (21-32) mmol/L Anion Gap 8 (3-11) BUN 15 (6-23) mg/dl Creatinine 0.58 L (0.6-1.2) mg/dl Est Cr Clr Drug Dosing 115.0 ml/min Est GFR ( Amer) 116.1 ml/min Est GFR (Non-Af Amer) 100.2 ml/min BUN/Creatinine Ratio 25.9 H (10-20) Glucose 217 H (70-99(Fasting)) mg/dl POC Glucose 189 H 152 H (70-99) mg/dl Calcium 8.9 (8.6-10.3) mg/dl Phosphorus 4.2 D (2.5-4.9) mg/dl Magnesium 1.4 L (1.7-2.4) mg/dl 02/02/24 02/02/24 02/02/24 Range/Units 11:37 11:36 07:55 WBC (4.8-10.8) K/ul RBC (4.20-5.40) M/uL Hgb (12.0-16.0) g/dl Hct (37.0-47.0) % MCV (80.0-100.0) fL MCH (25.0-34.0) pg MCHC (32.0-36.0) g/dL RDW Std Deviation (36.4-46.3) fL RDW Coeff of Eli (11.5-14.5) % Plt Count (130-400) K/uL MPV (9.4-12.4) fL Platelet Estimate (Normal) Sodium (136-145) mmol/L Potassium (3.5-5.1) mmol/L Chloride (98-107) mmol/L Carbon Dioxide (21-32) mmol/L Anion Gap (3-11) BUN (6-23) mg/dl Creatinine (0.6-1.2) mg/dl Est Cr Clr Drug Dosing ml/min Est GFR ( Amer) ml/min Est GFR (Non-Af Amer) ml/min BUN/Creatinine Ratio (10-20) Glucose (70-99(Fasting)) mg/dl POC Glucose 364 H* 324 H* 189 H (70-99) mg/dl Calcium (8.6-10.3) mg/dl Phosphorus (2.5-4.9) mg/dl Magnesium (1.7-2.4) mg/dl 02/02/24 Range/Units 06:44 WBC 5.08 (4.8-10.8) K/ul RBC 3.65 L (4.20-5.40) M/uL Hgb 12.8 (12.0-16.0) g/dl Hct 36.7 L (37.0-47.0) % MCV 100.5 H (80.0-100.0) fL MCH 35.1 H (25.0-34.0) pg MCHC 34.9 (32.0-36.0) g/dL RDW Std Deviation 49.2 H (36.4-46.3) fL RDW Coeff of Eli 13.2 (11.5-14.5) % Plt Count 94 L (130-400) K/uL MPV 10.1 (9.4-12.4) fL Platelet Estimate Decreased L (Normal) Sodium (136-145) mmol/L Potassium (3.5-5.1) mmol/L Chloride (98-107) mmol/L Carbon Dioxide (21-32) mmol/L Anion Gap (3-11) BUN (6-23) mg/dl Creatinine (0.6-1.2) mg/dl Est Cr Clr Drug Dosing ml/min Est GFR ( Amer) ml/min Est GFR (Non-Af Amer) ml/min BUN/Creatinine Ratio (10-20) Glucose (70-99(Fasting)) mg/dl POC Glucose (70-99) mg/dl Calcium (8.6-10.3) mg/dl Phosphorus (2.5-4.9) mg/dl Magnesium (1.7-2.4) mg/dl Medications Administered Current Inpatient Medications Acetaminophen (Acetaminophen 500 Mg Tab) 1,000 mg PO Q8H PRN PRN Reason: Pain or Fever Stop: 03/01/24 20:26 Atorvastatin Calcium (Atorvastatin 20 Mg Tab) 20 mg PO HS EARL Stop: 03/01/24 20:59 Last Admin: 02/02/24 19:52 Dose: 20 mg Buspirone HCl (Buspirone 5 Mg Tab) 10 mg PO TID EARL Stop: 03/01/24 20:59 Last Admin: 02/02/24 19:53 Dose: 10 mg Calcium/Vitamin D (Calcium 600mg + Vit D 400 Iu Tab) 1 tab PO DAILY EARL Stop: 03/02/24 08:59 Last Admin: 02/02/24 08:13 Dose: 1 tab Dextrose (Dextrose 50% 50 Ml Syringe) 25 - 50 ml IV UD PRN; Protocol PRN Reason: Hypoglycemia Protocol Stop: 03/01/24 21:04 Enoxaparin Sodium (Enoxaparin Inj 40 Mg/0.4 Ml Syr) 40 mg SQ Q24H EARL Stop: 03/01/24 21:14 Last Admin: 02/02/24 21:24 Dose: 40 mg Folic Acid (Folic Acid 1 Mg Tab) 1 mg PO QAM AERL Stop: 03/02/24 08:59 Last Admin: 02/02/24 08:15 Dose: 1 mg Gabapentin (Gabapentin 300 Mg Cap) 900 mg PO HS EARL Stop: 03/01/24 20:59 Last Admin: 02/02/24 19:53 Dose: 900 mg Glucagon (Glucagon For Inj 1 Mg Vial) 1 mg SQ UD PRN; Protocol PRN Reason: Hypoglycemia Protocol Stop: 03/01/24 21:04 Glucose (Glucose 10 Tab/Tube) 4 - 8 tab PO UD PRN; Protocol PRN Reason: Hypoglycemia Treatment Stop: 03/01/24 21:04 Glucose (Glucose 40% Gel 15 Gm Tube) 15 - 30 gm PO UD PRN; Protocol PRN Reason: Hypoglycemia Protocol Stop: 03/01/24 21:04 Ceftriaxone Sodium 2,000 mg/ (Dextrose) 50 mls @ 100 mls/hr IV Q24H EARL; Protocol Stop: 02/11/24 17:59 Last Infusion: 02/02/24 18:52 Dose: Infused Sodium Chloride (Nss) 1,000 mls @ 80 mls/hr IV .[id number] [facility] Stop: 03/01/24 20:29 Last Admin: 02/02/24 21:26 Dose: 80 mls/hr Lorazepam 1 mg/ Syringe 1 mls @ 2 mls/min IV UD PRN; Protocol PRN Reason: EtOH Withdrawal AWSS Score 6,7 Stop: 03/01/24 21:03 Lorazepam 2 mg/ Syringe 2 mls @ 2 mls/min IV UD PRN; Protocol PRN Reason: EtOH Withdrawal AWSS Score 8,9 Stop: 03/01/24 21:03 Lorazepam 3 mg/ Syringe 3 mls @ 2 mls/min IV ONCE PRN; Protocol PRN Reason: EtOH Withdrawal AWSS Score 10+ Magnesium Sulfate/Dextrose (Magnesium Sulfate / D5w) 1 gm in 100 mls @ 50 mls/hr IV Q2H [facility] Stop: 02/03/24 11:29 Insulin Aspart (Insulin Aspart Per Unit Charge) 0 units SC ACHS [facility] Stop: 03/02/24 07:29 Last Admin: 02/02/24 21:24 Dose: 2 units Insulin Glargine (Lantus Per Unit Charge) 20 units SC QDD ONE Stop: 02/03/24 16:31 Lactobacillus Acidophilus (Advanced Probiotic 625 Mg Capsule) 1,250 mg PO QAM [facility] Stop: 03/02/24 08:59 Last Admin: 02/02/24 08:14 Dose: 1,250 mg Magnesium Oxide (Magnesium Oxide 400 Mg Tab) 400 mg PO HS [facility] Stop: 03/01/24 20:59 Last Admin: 02/02/24 19:53 Dose: 400 mg Miscellaneous (Lemborexant [Dayvigo] 10 Mg Tablet: Order Awaiting Action) 1 each N/A QS [facility] Stop: 03/02/24 00:00 Last Admin: 02/03/24 07:13 Dose: Not Given Miscellaneous (Carbohydrates For Hypoglycemia ) 15 - 30 gm PO UD PRN PRN Reason: Hypoglycemia Protocol Stop: 03/01/24 21:04 Miscellaneous Information (Pharmacy Glycemic Mgmt Consult) 1 each N/A UD PRN; Protocol PRN Reason: Consult Stop: 03/03/24 11:44 Ondansetron HCl (Ondansetron Inj 2 Mg/Ml 2 Ml Vial) 4 mg IV Q6H PRN PRN Reason: Nausea And Vomiting Stop: 03/01/24 20:26 Thiamine HCl (Thiamine Hcl 100 Mg Tab) 100 mg PO QAM [facility] Stop: 03/02/24 08:59 Last Admin: 02/02/24 08:15 Dose: 100 mg
[2024-02-03] MEDS: MAGNESIUM SULFATE / D5W 1 GM/100 ML BAG IV SCH (07:57)
[2024-02-03] MEDS: LANTUS PER UNIT CHARGE SC ONE (08:37)
[2024-02-03 10:23] LABS: Appearance Urine Clear (Clear); Bilirubin Urine Negative (Negative); Blood Urine Negative (Negative); Color Urine Yellow; Glucose Urine UA 3+ (Negative); Ketones Urine 1+ (Negative); Leukocyte Esterase Urine Negative (Negative); Nitrite Urine Negative (Negative); Protein Urine Negative (Negative); Specific Gravity Urine 1.017 (1.000-1.030); Urobilinogen Urine Negative (Negative)
--- NOTE | 2024-02-03 13:23 | Pharmacy Report ---
Pharmacy Glycemic Short Note 2 - Date of Service February 03, 2024 - Glycemic Short BSG Results (Last 24 hours): 02/02/24 02/02/24 02/03/24 16:32 20:34 06:29 Glucose 217 H POC Glucose 152 H 189 H 02/03/24 02/03/24 07:54 11:36 Glucose POC Glucose 223 H 290 H OUTPATIENT ANTIDIABETIC REGIMEN: * Lantus 30 units SQ HS * Novolog 7 units ACHS HbA1c 6.6% 02/01/24 ASSESSMENT: 02/03/24: * Blood sugars trended down throughout the day yesterday following lunchtime >300 mg/dL * Received 47 units of insulin (20 units of which were basal) * Fasting blood sugar elevated at 223 mg/dL - will increase basal insulin today 02/02/24: * Parris is a 58 YOF admitted with a fall/UTI and a history of T2DM. Pharmacy has been consulted to assist with glycemic management while inpatient. * Fasting BSG this AM above goal range, basal insulin held yesterday due to mild hypoglycemia yesterday morning, BSGs reginaldo throughout the day yesterday and peaked today at lunchtime 364mg/dL. Will order basal insulin reducing ~30% from home dose. * Novolog tightened based on home TDD insulin usage. PLAN FOR INPATIENT GLYCEMIC CONTROL: * Hold outpatient oral diabetes medications * Basal insulin * Lantus 10 units SC x 1 this morning * Lantus 20 units SC x 1 this evening * Lantus 30 units SC HS starting 02/04/24 * Bolus insulin * NovoLog per scale ACHS or Q6hrs while NPO * Goal Range: Low 110 mg/dL - High 140 mg/dL * Correction Factor: 25 mg/dL/unit * Nutritional / Prandial insulin per carb ratio of 1 unit per 8 grams CHO consumed
[2024-02-03] MEDS ORDERED: LANTUS PER UNIT CHARGE SC ONE (16:30)
[2024-02-03] MEDS: LANTUS PER UNIT CHARGE SC SCH (20:55)
[2024-02-04 08:07] LABS: Hematocrit (blood only) 38.7 % (37.0-47.0); Hemoglobin 13.1 g/dl (12.0-16.0); Mean Corpuscular Hemoglobin 34.7 pg (25.0-34.0); Mean Corpuscular Hgb Conc 33.9 g/dL (32.0-36.0); Mean Corpuscular Volume 102.4 fL (80.0-100.0); Mean Platelet Volume 10.3 fL (9.4-12.4); Platelet Count 110 K/uL (130-400); RDW Coefficient of Variation 13.4 % (11.5-14.5); Red Blood Count 3.78 M/uL (4.20-5.40); White Blood Count 4.54 K/ul (4.8-10.8)
[2024-02-04 08:26] LABS: BUN Creatinine Ratio 26.4 (10-20); Calcium 8.9 mg/dl (8.6-10.3); Creatinine Clr Calc Pharmacy 125.8 ml/min; Est GFR (African American) 119.6 ml/min; Est GFR (Non-African American) 103.2 ml/min; Magnesium 1.5 mg/dl (1.7-2.4); Phosphorus 4.2 mg/dl (2.5-4.9); Potassium 3.6 mmol/L (3.5-5.1)
--- NOTE | 2024-02-04 10:07 | Discharge Summary ---
Date of Service February 04, 2024 Admission HPI Per Admitting Provider Pt is a 58yoF with PMHx significant for DMII, Hx of alcoholic induced pancreatitis, FERNANDO on cpap, HTN, chronic insomnia presenting after a fall at home. Lives alone and was reportedly down on the ground for 15 hours. History obtained from pt and son at bedside. States that she had been drinking and found herself weak for the past 2 days. States that she eventually came to herself on the ground and was unable to get up. States that she was there for about 15 hours. States she lives alone. Son at bedside notes that they will look into getting a life alert for her. Sometimes uses a walker to get around. They note she recently completed antibiotic treatment for a foot infection. Not currently on abx for that. Denied any dysuria, fevers chills or night sweats. Admission Exam Per Admitting Provider General: Alert, oriented. Skin: thin skin, some bruising noted over her arms Psych: Appropriate mood and affect Neuro: tremors noted in her outstretched arms HEENT: NC/AT CV: RRR Resp: Breath sounds clear bilaterally, no increased effort of breathing. Abdomen: Soft, nontender, nondistended. Extremities: No edema in lower extremities bilaterally. Principal Diagnosis Fall UTI Rhabdomyolysis Discharge Exam General: WD/WN F in NAD HEENT: NC, EOMI CV: RRR Resp: Breath sounds clear bilaterally, no increased effort of breathing. Abdomen: Soft, nontender, nondistended. Neuro: awake, alert, answers appropriately, moves extremities Extremities: No edema in lower extremities bilaterally. Skin: some bruising noted over her arms. healing wound over her foot/ankle Discharge Data Allergies Allergy/AdvReac Type Severity Reaction Status Date / Time benzoyl peroxide Allergy Unknown SKIN RED Verified 01/31/24 17:45 AND IRRITATED No Known Drug Allergies Allergy Unknown NONE Verified 01/31/24 17:45 Consultations 01/31/24 16:44 ED Decision to Admit Stat 02/01/24 07:18 Consult Behavioral Health Liaison Routine Ordered Studies 01/31/24 15:56 CT head/brain wo con Stat Findings: The ventricles, basal cisterns, and cerebral sulci are normal. There is no acute intracranial hemorrhage or evidence of acute territorial infarction. Neither mass effect, shift of the midline structures, nor abnormal extra-axial fluid collections are shown. Imaged portions of the paranasal sinuses and mastoid air cells are clear. The orbits appear normal. There are no acute fractures of the calvaria or scalp swelling. Impression: No acute intracranial hemorrhage, no evidence of acute territorial infarction or other acute intracranial disease process. 02/01/24 14:41 US arterial duplex LE RT Routine FINDINGS: Ankle brachial indices: Right brachial pressure measures 120. Pressures in the right posterior tibial artery measure 174 for an AZ of 1.45 and pressures in the right dorsalis pedis measure 160 for an AZ of 1.33. Pressures in the left posterior tibial artery measure 151 for an AZ of 1.26 and pressures in the left dorsalis pedis measure 128 for an AZ of 1.07. Right lower extremity: There is minimal atherosclerotic plaque seen throughout the arteries of the right lower extremity. There are triphasic waveforms in the common femoral artery with velocities measuring up to 106 cm/s. The profunda femoris artery is patent with velocities measuring up to 63 cm/s. There are triphasic waveforms throughout the superficial femoral and popliteal arteries. Velocities in the superficial femoral artery measure up to 93 cm/s and velocities in the popliteal artery measure up to 68 cm/s. There is three-vessel runoff to the foot. Velocities within the calf arteries measure up to 92 cm/s. The dorsalis pedis artery is patent with velocities measuring up to 65 cm/s. IMPRESSION: 1. There is no sonographic evidence of high-grade stenosis or focal vessel cut off throughout the arteries of the right lower extremity. 2. Ankle brachial indices as above. Hospital Course (1) UTI (urinary tract infection): (2) Rhabdomyolysis: Plan Pt is a 58yoF with PMHx significant for DMII, Hx of alcoholic induced pancreatitis, FERNANDO on cpap, HTN, chronic insomnia presenting after a fall at home. Lives alone and was reportedly down on the ground for 15 hours. Fall Likely in setting of an acute UTI Pt was down on the ground reportedly for [address] with no acute findings PT/OT Acute UTI UA suggestive of infection, noted yeast present UA obtained after abx in ED Urine Cx - needed repeat and repeat cultx is negative Blood Cx x2 in 48 hrs IV Rocephin One dose of diflucan 150mg for possible yeast infection Will dc on PO abx to finish the course Rhabdomyolysis CK elevated at 1175, trend with AM labs -Elevated liver enzymes- likely elevated in setting of rhabdo. Trend, if persistent consider further workup -elevated troponin- likely in setting of above, demand ischemia. Doubt ACS. EKG NSR IV fluids given, CK downtrended Hypokalemia, Hypomagnesemia Replete and monitor DMII ISS while hospitalized Last hgb a1c <7 Current Hgba1c 6.6% Foot wound - recently admitted for foot wound/ infection - pt says it's getting better, denies any significant pain - wound care consulted -> pt should follow up w/ wound care on discharge - blood cultx negat. in 48 hrs - arterial doppler - There is no sonographic evidence of high-grade stenosis or focal vessel cut off throughout the arteries of the right lower extremity. Hx of alcohol use AWSS protocol with Ativan ordered Thiamine, folic acid No signs of etoh withdrawal FERNANDO cpap qhs Continue other home meds as ordered. Total Time Total Time Spent Total Time Spent (In Minutes): 40 Discharge Plan Discharge Items Patient Disposition: Home - Self-Care Reason For Visit: FALL Discharge Diagnosis: Fall UTI Rhabdomyolysis Activity: Per Instructions section Non-emergency contact: Primary Care Provider Call non-emergency contact if: you have any medication questions and your symptoms worsen Follow-up/Referrals: Tommy Saab MD [Primary Care Provider] - 02/09/24 2:00 pm (Date & Time 02/09/2024 2:00 PM Provider Tommy Saab MD [facility] ) Diet: Carb Consistent or DM2 and Heart Healthy Addtl Attending Provider Instructions: Follow up with your primary care physician within 1 week. The appointment was scheduled for you for February 09, 2024. Also, follow up at wound care clinic. Finish antibiotic treatment as prescribed. Take magnesium supplement and have you magnesium level checked by your primary care doctor. Make sure to stay well hydrated. Pending Studies at Discharge: Yes Studies:: final blood cultx results Stand-Alone Forms: [email or web address], Smoking Cessation Medications and DC Order Prescriptions: New folic acid 1 mg Tablet 1 mg PO QAM Qty: 30 0RF thiamine HCl (vitamin B1) 100 mg Tablet 100 mg PO QAM Qty: 30 0RF cefuroxime axetil 250 mg tablet 250 mg PO BID 3 Days Qty: 6 0RF Continued magnesium 250 mg Tablet 250 mg PO HS Probiotic 3 billion cell Capsule 3,000 mmu cells PO QAM gabapentin 300 mg capsule 900 mg PO HS calcium carbonate-vitamin D3 [Calcium 600 + D(3)] 600 mg-5 mcg (200 unit) Tablet 1 tab PO DAILY metformin 500 mg tablet extended release 24 hr 1,000 mg PO BID buspirone 10 mg tablet 10 mg PO TID thiamine HCl (vitamin B1) 100 mg Tablet 100 mg PO QAM Qty: 15 0RF Dayvigo 10 mg Tablet 10 mg PO HS insulin aspart U-100 [Novolog U-100 Insulin aspart] 100 unit/mL solution 7 unit SC ACHS insulin glargine 100 unit/mL (3 mL) insulin pen 30 units SQ HS atorvastatin 20 mg tablet 20 mg PO HS Discharge Orders: Discharge Order (Routine); Ordered 02/04/24 Ordered By: Tono Alexandre/Other Patient Handouts: Managing Type 2 Diabetes, Wound Care Admission Data Admit Date/Time: 01/31/24 16:50 Attending Provider: Tono Austin Admit Provider: Lindy Ram Primary Care Provider: Tommy Saab Other Providers: Lindy Ram
[2024-02-04] MEDS: MAGNESIUM SULFATE / D5W 1 GM/100 ML BAG IV SCH (10:40)
[2024-02-04] MEDS ORDERED: LANTUS PER UNIT CHARGE SC SCH (21:00)
== END 2024-02-04 15:45 | disposition home or self-care (01) | DRG 690 ==
LOC: ED 15:33 → SUATTDRO 16:50 → 3W 16:50

== ENCOUNTER 2025-05-30 23:19 | Inpatient (IN) ==
[2025-05-30] MEDS: SODIUM CHLORIDE 0.9% 1,000 ML IV ONE (23:47)
[2025-05-30 23:50] LABS: Hematocrit (blood only) 46.3 % (37.0-47.0); Hemoglobin 16.3 g/dl (12.0-16.0); Immature Granulocytes # (auto) 0.05 K/uL (0.01-0.20); Immature Granulocytes % (auto) 0.3 %; Mean Corpuscular Hemoglobin 37.3 pg (25.0-34.0); Mean Corpuscular Volume 105.9 fL (80.0-100.0); Platelet Count 234 K/uL (130-400); RDW Standard Deviation 52.2 fL (36.4-46.3); Red Blood Count 4.37 M/uL (4.20-5.40); White Blood Count 14.70 K/ul (4.8-10.8)
[2025-05-31 00:08] LABS: Alanine Aminotransferase 33.0 U/L (7-52); Albumin Globulin Ratio 1.4 (0.9-2); Alkaline Phosphatase 167.0 U/L (34-104); Anion Gap 14.0 (3-11); Bilirubin,Total 0.9 mg/dl (0.2-1.0); Blood Urea Nitrogen 21.0 mg/dl (6-23); Calcium 9.9 mg/dl (8.6-10.3); Carbon Dioxide 29.0 mmol/L (21-32); Chloride 102.0 mmol/L (98-107); Creatine Kinase 1851.0 U/L (26-192); Creatinine Clr Calc Pharmacy 61.1 ml/min; Globulin 3.3 gm/dl (2.5-4.0); Glucose 102.0 mg/dl (70-99(Fasting)); Lipase 3.0 U/L (11-82); Magnesium 2.1 mg/dl (1.7-2.4); Potassium 3.7 mmol/L (3.5-5.1); Sodium 145.0 mmol/L (136-145); Total Protein 7.9 gm/dl (6.0-8.3)
[2025-05-31] MEDS: SODIUM CHLORIDE 0.9% 1,000 ML IV ONE (00:54)
--- NOTE | 2025-05-31 05:30 | Emergency Department Note ---
History of Present Illness General Chief complaint: Fall Stated complaint: Fall Time Seen by Provider: 05/30/25 23:19 History of Present Illness This is a 59-year-old female presenting to the emergency department via EMS from home for evaluation of falling and leg weakness. Patient has a history of diabetes and alcohol abuse. The patient was going to the bathroom and fell off the commode. She was not able to stand, and her was not able to help her off the floor. She did not lose consciousness, however had extended downtime estimated between 5 and 6 hours before family called 911. The patient has not had fevers or chills. She does not have any complaints herself. No recent medication changes. Discomfort is rated a 1/10. Home Medications Medication Instructions Recorded Confirmed Type lactobacillus combination no.4 3 3,000 mmu cells PO QAM 10/11/18 05/31/25 History billion cell capsule (Probiotic) magnesium 250 mg tablet 500 mg PO DAILY 10/11/18 05/31/25 History buspirone 10 mg tablet 10 mg PO TID 04/22/23 05/31/25 History calcium 600 mg (as 1 tab PO BID 04/22/23 05/31/25 History carbonate)-vitamin D3 5 mcg (200 unit) tablet (Calcium 600 + D(3)) gabapentin 300 mg capsule 900 mg PO HS 04/22/23 05/31/25 History metformin 500 mg tablet,extended 2,000 mg PO QAM 04/22/23 05/31/25 History release 24 hr thiamine HCl (vitamin B1) 100 mg 100 mg PO QAM #15 tabs 04/22/23 05/31/25 Rx tablet insulin lispro 100 unit/mL 0 unit subcut DIRECTED 12/27/24 05/31/25 History subcutaneous pen chlorpheniramine maleate 4 mg 4 mg PO BID 05/31/25 05/31/25 History tablet coenzyme Q10 100 mg capsule 100 mg PO DAILY 05/31/25 05/31/25 History (CoQ-10) insulin glargine 100 unit/mL (3 18 unit subcut HS 05/31/25 05/31/25 History mL) subcutaneous pen (Lantus Solostar U-100 Insulin) Allergies Allergy/AdvReac Type Severity Reaction Status Date / Time benzoyl peroxide Allergy Mild SKIN RED Verified 05/31/25 00:23 AND IRRITATED Past Med/Surg History Problem List Diabetic ulcer of right foot (Acute) Transaminitis (Acute) Rhabdomyolysis (Acute) Weakness (Acute) Rhabdomyolysis UTI (urinary tract infection) Cellulitis of right foot due to methicillin-resistant Staphylococcus aureus Infection of right foot (Acute) Encephalopathy acute Acute confusion (Acute) Hyperglycemia (Acute) Hypomagnesemia (Acute) Hypoglycemia (Acute) Weakness Electrolyte imbalance Alcohol abuse GI bleed Altered mental state Metabolic acidosis Alcoholic pancreatitis DKA (diabetic ketoacidoses) Hyperglycemic crisis in diabetes mellitus Hypothermia (Acute) Acute kidney injury (Acute) Hyperglycemia (Acute) Myxedema coma (Acute) Hyponatremia (Acute) Fall (Acute) Diabetes (Chronic) Finger laceration (Acute) Hypertension (Chronic) Hypokalemia (Acute) Pancreatitis (Acute) Medical History No significant past medical history Family History Other Family history non-contributory Social History Smoking Status: Never smoker Second Hand Exposure: No; Do You Dip or Chew Tobacco: No; Hx Alcohol Use: Yes Alcohol type: hard liquor Hx Substance Use: No Preferred Language: Latvian Communication Ability: Effective Well Flow Operator Required: Yes Beliefs That Will Affect Care: None Current Living Situation: Family current occupational status: employed How many Children do You have: 2 Feels Safe at Home: Yes Assistive Devices: Cane Review of Systems A total of 10 systems reviewed and were otherwise negative Physical Exam Vital Signs Vital Signs - 24 hr 05/30/25 23:27 05/30/25 23:30 05/31/25 01:13 Temperature 36.8 C Temperature Source Oral Pulse Rate 109 H 109 H Pulse Rate [Radial] 78 Respiratory Rate 18 18 Respiratory Effort / Characteristics Non-Labored Spontaneous Non-Labored Spontaneous Respiratory Depth Normal Normal Respiratory Pattern Regular Regular Blood Pressure 190/112 H Blood Pressure [Right Arm] 186/98 H Blood Pressure Mean 138 Blood Pressure Mean [Right Arm] 127 Pulse Oximetry 96 97 Oxygen Delivery Method Room Air Room Air Sepsis Recent Fever Within 48 Hours No Sepsis New/Unexplained Change in Mental Status N/A Sepsis Action Taken by Nursing No Action Required 05/31/25 03:00 Temperature Temperature Source Pulse Rate Pulse Rate [Radial] 89 Respiratory Rate 17 Respiratory Effort / Characteristics Non-Labored Spontaneous Respiratory Depth Normal Respiratory Pattern Regular Blood Pressure Blood Pressure [Right Arm] 166/103 H Blood Pressure Mean Blood Pressure Mean [Right Arm] 124 Pulse Oximetry 99 Oxygen Delivery Method Room Air Sepsis Recent Fever Within 48 Hours Sepsis New/Unexplained Change in Mental Status Sepsis Action Taken by Nursing VITALS: Vitals are noted on the nurse's note and reviewed by myself. Vital signs stable. GENERAL: Chronically ill-appearing white female who appears older than her stated age. She is comfortable and cooperative. She is answering questions appropriately. HEAD: Normocephalic atraumatic. NECK: Supple without nuchal rigidity. No lymphadenopathy. No thyromegaly. Cervical spine is nontender. HEART: Regular rate and rhythm without murmurs gallops or rubs. LUNGS: Clear to auscultation bilaterally without wheezes, rales or rhonchi. No retractions or accessory muscle use. ABDOMEN: Positive normal bowel sounds x 4. Soft, nontender, without masses or organomegaly. No guarding or rebound tenderness. MUSCULOSKELETAL: No muscle atrophy, erythema, or edema noted. NEURO: Patient was alert and oriented to person place and time. CN II through XII grossly intact. No focal neurological deficits. GCS 15. Course Administered Medications Discontinued Medications Sodium Chloride (Nss) 1,000 mls @ 999 mls/hr IV .Q1H1M ONE Stop: 05/31/25 00:24 Last Infusion: 05/31/25 00:51 Dose: Infused Documented By: Admin: 05/30/25 23:47 Dose: 999 mls/hr Documented By: FAVIO Sodium Chloride (Nss) 1,000 mls @ 999 mls/hr IV .Q1H1M ONE Stop: 05/31/25 01:39 Last Infusion: 05/31/25 01:58 Dose: Infused Documented By: Admin: 05/31/25 00:54 Dose: 999 mls/hr Documented By: FAVIO Medical Decision Making Differential Diagnosis Differential diagnosis: Etiologies such as vasovagal event, infection, anemia, hypoglycemia, hypovolemia, electrolyte abnormalities, dysrhythmias, cardiac ischemia, cardiac tamponade, valvular heart disease, structural heart disease, seizure, vascular stenosis/dissection, pulmonary embolism, intracerebral event, toxicological process, neurologic event, as well as others were entertained. Laboratory Data 05/30/25 23:36 05/30/25 23:36 Lab Results 05/30/25 Range/Units 23:36 WBC 14.70 H (4.8-10.8) K/ul RBC 4.37 (4.20-5.40) M/uL Hgb 16.3 H (12.0-16.0) g/dl Hct 46.3 (37.0-47.0) % MCV 105.9 H (80.0-100.0) fL MCH 37.3 H (25.0-34.0) pg MCHC 35.2 (32.0-36.0) g/dL RDW Std Deviation 52.2 H (36.4-46.3) fL RDW Coeff of Eli 13.4 (11.5-14.5) % Plt Count 234 (130-400) K/uL MPV 9.7 (9.4-12.4) fL Immature Gran % (Auto) 0.3 % Neut % (Auto) 89.2 % Lymph % (Auto) 3.1 % Newton % (Auto) 7.0 % Eos % (Auto) 0.1 % Baso % (Auto) 0.3 % Neut # (Auto) 13.10 H (1.40-6.50) K/uL Lymph # (Auto) 0.46 L (1.20-3.40) K/uL Newton # (Auto) 1.03 H (0.11-0.59) K/uL Eos # (Auto) 0.01 (0.00-0.50) K/uL Baso # (Auto) 0.05 (0.00-0.20) K/uL Immature Gran # (Auto) 0.05 (0.01-0.20) K/uL Absolute Nucleated RBC 0.02 (0.00-0.12) K/uL Nucleated RBC % (auto) 0.1 % Sodium 145 (136-145) mmol/L Potassium 3.7 (3.5-5.1) mmol/L Chloride 102 (98-107) mmol/L Carbon Dioxide 29 (21-32) mmol/L Anion Gap 14 H (3-11) BUN 21 (6-23) mg/dl Creatinine 0.94 (0.6-1.2) mg/dl Est Cr Clr Drug Dosing 61.1 ml/min eGFR 69.04 BUN/Creatinine Ratio 22.3 H (10-20) Glucose 102 H (70-99(Fasting)) mg/dl Calcium 9.9 (8.6-10.3) mg/dl Magnesium 2.1 (1.7-2.4) mg/dl Total Bilirubin 0.9 (0.2-1.0) mg/dl AST 81 H (13-39) U/L ALT 33 (7-52) U/L Alkaline Phosphatase 167 H (34-104) U/L Total Creatine Kinase 1851 H (26-192) U/L Troponin I High Sens 23.9 H (0-14) pg/ml Total Protein 7.9 (6.0-8.3) gm/dl Albumin 4.6 (3.4-5.0) gm/dl Globulin 3.3 (2.5-4.0) gm/dl Albumin/Globulin Ratio 1.4 (0.9-2) Lipase 3 L (11-82) U/L Ethyl Alcohol mg/dL < 10.0 (<10.0) mg/dl ECG Data Attestation: I personally reviewed and interpreted this ECG as follows: Indication: + weakness Additional Comments: Sinus tachycardia at [address] elevation QT/QTc at 348/468 When compared to EKG 27 December 2024, no significant change MDM Narrative Physical exam and history were performed. Nursing notes, EMR, and Medication List were personally reviewed. No social concerns were identified as barriers to patients care. History was provided by the Patient and EMS. Patient appears to have fallen from her toilet this evening. She did have an extended time on the ground. IV access was established and labs were obtained. Patient was hydrated with normal saline. An order was placed for continuous cardiac monitoring. The monitor shows a rate of 89 with normal sinus rhythm. Patient's blood work is as above and was reviewed. Patient's white blood cell count is elevated at 14,000. She is not anemic and is without significant electrolyte imbalance. Anion gap is slightly elevated at 14. Glucose is 102. Patient's troponin today is also slightly elevated at 23.9, with her last troponin at roughly 10 this does seem to be slightly increased. Of primary concern the patient does have an elevated CK level of just over 1800, which may be indicative of rhabdomyolysis. Escalation of care was considered, and felt to be necessary. The patient has significant mount of leg weakness, which was most evident in the ER when we attempted to move her to a bedside commode. She did require multiple nurses and this seems to have been contributory to her symptoms tonight. There is also the concern of her rhabdo and slight elevation of her troponin. Case was discussed with my attending, as well as the on-call hospitalist service. Please see the hospitalist dictation for further patient course, plan, disposition. The chart was completed utilizing [employer] Speech Voice Recognition Software. Grammatical errors, random word insertions, pronoun errors, and incomplete sentences are an occasional consequence of this system due to software limitations, ambient noise, and hardware issues. Any formal questions or concerns about the content, text, or information contained within the body of this dictation should be directly addressed to the provider for clarification. Impression & Plan Rhabdomyolysis, Fall, Elevated troponin, Bilateral leg weakness Discharge Plan Visit Data Chief Complaint: Fall Stated Complaint: Fall ED Provider: Adriano Castle ED Midlevel Provider: Devin Bess Discharge Problem: Rhabdomyolysis, Fall, Elevated troponin, Bilateral leg weakness Patient Disposition: Admitted As Inpatient Condition: Fair Forms Stand Alone Forms: My [facility] [employer] Prescriptions Prescriptions: No Action magnesium 250 mg Tablet 500 mg PO DAILY Probiotic 3 billion cell Capsule 3,000 mmu cells PO QAM gabapentin 300 mg capsule 900 mg PO HS Rx Instructions: LAST FILLED 05/18/25 FOR 30 DAYS/90 TABS. calcium carbonate-vitamin D3 [Calcium 600 + D(3)] 600 mg-5 mcg (200 unit) Tablet 1 tab PO BID metformin 500 mg tablet extended release 24 hr 2,000 mg PO QAM buspirone 10 mg tablet 10 mg PO TID thiamine HCl (vitamin B1) 100 mg Tablet 100 mg PO QAM Qty: 15 0RF insulin lispro 100 unit/mL insulin pen 0 unit SUBCUT DIRECTED MDD 25 UNITS/DAILY Rx Instructions: TAKES 7 UNITS WITH BREAKFAST & SUPPER, 5 UNITS WITH SNACKS = MDD 25 UNITS. chlorpheniramine maleate [Chlor-Maleate] 4 mg Tablet 4 mg PO BID coenzyme Q10 [CoQ-10] 100 mg Capsule 100 mg PO DAILY insulin glargine [Lantus Solostar U-100 Insulin] 100 unit/mL (3 mL) Insulin Pen 18 unit SUBCUT HS Referrals Referrals: Tommy Saab MD [Primary Care Provider] -
--- NOTE | 2025-05-31 05:39 | History & Physical Report ---
Date of Service May 31, 2025 Assessment & Plan (1) Rhabdomyolysis: Plan: 59-year-old female with past medical history significant alcohol-induced chronic pancreatitis, type 2 diabetes, dyslipidemia, hypertension, chronic insomnia, sleep apnea presents with fall. Patient states she fell in between her sink and commode and got stuck there. Her could not get her out. EMS was called. She says she stayed in that position for about 4 to 5 hours. In the ER her CPK was elevated at 1851. Troponin 23. WBC 14. Denies any pain. No chest pain. No abdominal pain. No back pain. No headache. No runny nose or sore throat. No cough. No shortness of breath. Appetite is okay. She says she drinks vodka every other day 2 -3 drinks and does not think she will go through withdrawal. Hemodynamics okay. Rhabdomyolysis CPK of 1851 Patient fell and got stuck in between commode and sink and stayed there for 4 to 5 hours Will give IV fluids Repeat CPK levels Elevated troponin Troponin 23 EKG some T wave inversion inferior leads Denies chest pain or shortness of breath Mostly from rhabdo Will follow serial enzymes and echo Skin bruises And rash Leukocytosis Will follow UA Empiric Rocephin Alcoholism Patient states she drinks 2-3 shots of vodka every other day Does not think she will go through withdrawal Will Give IV thiamine IV folic acid 1 dose Continue home thiamine Will place on p.o. folic acid and multivitamins Close monitor for withdrawal Total bilirubin 0.9 AST 81. ALT 33. Alkaline phos 167. Will follow repeat labs IV Ativan as needed History of alcohol induced chronic pancreatitis Type 2 diabetes Continue home Lantus Hold metformin Sliding scale Will follow HbA1c levels Will monitor Chronic insomnia Sleep apnea cpap q hs DVT prophylaxis Lovenox Disposition Med/telemetry Full code. History of Present Illness Chief Complaint: Fall and rhabdomyolysis Primary Care Provider: Tommy Saab MD 59-year-old female with past medical history significant alcohol-induced chronic pancreatitis, type 2 diabetes, dyslipidemia, hypertension, chronic insomnia, sleep apnea presents with fall. Patient states she fell in between her sink and commode and got stuck there. Her could not get her out. EMS was called. She says she stayed in that position for about 4 to 5 hours. In the ER her CPK was elevated at 1851. Troponin 23. WBC 14. Denies any pain. No chest pain. No abdominal pain. No back pain. No headache. No runny nose or sore th roat. No cough. No shortness of breath. Appetite is okay. She says she drinks vodka every other day 2 -3 drinks and does not think she will go through withdrawal. Hemodynamics okay. Past medical history. As mentioned above. Past surgical history. . Colonoscopy. EGD with endoscopic ultrasound. Tonsillectomy. Bilateral cataracts. Sinus surgery. Uterine fibroid embolization. Social history. . No smoking. Alcohol drinks 2-3 shots of vodka every other day. No drug use. Family history. Mother had arthritis. Skin cancer. Father had skin cancer. Colon cancer. Diabetes. Parkinsonism. Brother had arthritis. Allergies Allergy/AdvReac Type Severity Reaction Status Date / Time benzoyl peroxide Allergy Mild SKIN RED Verified 05/31/25 00:23 AND IRRITATED Home Medications Medication Instructions Recorded Confirmed Type lactobacillus combination no.4 3 3,000 mmu cells PO QAM 10/11/18 05/31/25 History billion cell capsule (Probiotic) magnesium 250 mg tablet 500 mg PO DAILY 10/11/18 05/31/25 History buspirone 10 mg tablet 10 mg PO TID 04/22/23 05/31/25 History calcium 600 mg (as 1 tab PO BID 04/22/23 05/31/25 History carbonate)-vitamin D3 5 mcg (200 unit) tablet (Calcium 600 + D(3)) gabapentin 300 mg capsule 900 mg PO HS 04/22/23 05/31/25 History metformin 500 mg tablet,extended 2,000 mg PO QAM 04/22/23 05/31/25 History release 24 hr thiamine HCl (vitamin B1) 100 mg 100 mg PO QAM #15 tabs 04/22/23 05/31/25 Rx tablet insulin lispro 100 unit/mL 0 unit subcut DIRECTED 12/27/24 05/31/25 History subcutaneous pen chlorpheniramine maleate 4 mg 4 mg PO BID 05/31/25 05/31/25 History tablet coenzyme Q10 100 mg capsule 100 mg PO DAILY 05/31/25 05/31/25 History (CoQ-10) insulin glargine 100 unit/mL (3 18 unit subcut HS 05/31/25 05/31/25 History mL) subcutaneous pen (Lantus Solostar U-100 Insulin) Past Med/Surg History Problem List Diabetic ulcer of right foot (Acute) Transaminitis (Acute) Rhabdomyolysis (Acute) Weakness (Acute) Rhabdomyolysis UTI (urinary tract infection) Cellulitis of right foot due to methicillin-resistant Staphylococcus aureus Infection of right foot (Acute) Encephalopathy acute Acute confusion (Acute) Hyperglycemia (Acute) Hypomagnesemia (Acute) Hypoglycemia (Acute) Weakness Electrolyte imbalance Alcohol abuse GI bleed Altered mental state Metabolic acidosis Alcoholic pancreatitis DKA (diabetic ketoacidoses) Hyperglycemic crisis in diabetes mellitus Hypothermia (Acute) Acute kidney injury (Acute) Hyperglycemia (Acute) Myxedema coma (Acute) Hyponatremia (Acute) Fall (Acute) Diabetes (Chronic) Finger laceration (Acute) Hypertension (Chronic) Hypokalemia (Acute) Pancreatitis (Acute) Medical History No significant past medical history Family History Other Family history non-contributory Social History Smoking Status: Never smoker Second Hand Exposure: No; Do You Dip or Chew Tobacco: No; Hx Alcohol Use: Yes Alcohol type: hard liquor Hx Substance Use: No Preferred Language: Armenian Communication Ability: Effective Skilled Nursing Professional Required: Yes Beliefs That Will Affect Care: None Current Living Situation: Family current occupational status: employed How many Children do You have: 2 Feels Safe at Home: Yes Assistive Devices: Cane Review of Systems Review of Systems: All systems reviewed & are unremarkable except as noted in HPI & below Physical Exam Physical Exam: General- Not in distress Head- atraumatic Eyes- PERRL. ENT- oropharynx clear Neck- supple, no JVD. Lungs- clear to auscultation no wheezing or crackles Heart- regular rhythm; no murmur, no gallop. Abdomen- normal bowel sounds, soft, nontender, no distension Extremities- no pretibial edema, Neuro- alert, oriented PERRL, no facial palsy; no dysarthria; moves extremities Skin- erythematous rash seen on extremities. Bruises seen on lower extremities Results & Data Results & Data Vital Signs (Past 12 Hours) Vital Signs Temp Pulse Pulse Resp BP BP Pulse Ox 05/31/25 03:00 89 17 166/103 H 99 05/31/25 01:13 78 18 186/98 H 97 05/30/25 23:30 36.8 C 109 H 18 190/112 H 96 05/30/25 23:27 109 H O2 Del Method 05/31/25 03:00 Room Air 05/31/25 01:13 Room Air 05/30/25 23:30 Room Air 05/30/25 23:27 Diagnostic Findings Laboratory Results WBC 14.70 K/ul (4.8-10.8) H 05/30/25 23:36 RBC 4.37 M/uL (4.20-5.40) 05/30/25 23:36 Hgb 16.3 g/dl (12.0-16.0) H 05/30/25 23:36 Hct 46.3 % (37.0-47.0) 05/30/25 23:36 MCV 105.9 fL (80.0-100.0) H 05/30/25 23:36 MCH 37.3 pg (25.0-34.0) H 05/30/25 23:36 MCHC 35.2 g/dL (32.0-36.0) 05/30/25 23:36 RDW Std Deviation 52.2 fL (36.4-46.3) H 05/30/25 23:36 RDW Coeff of Eli 13.4 % (11.5-14.5) 05/30/25 23:36 Plt Count 234 K/uL (130-400) 05/30/25 23:36 MPV 9.7 fL (9.4-12.4) 05/30/25 23:36 Immature Gran % (Auto) 0.3 % 05/30/25 23:36 Neut % (Auto) 89.2 % 05/30/25 23:36 Lymph % (Auto) 3.1 % 05/30/25 23:36 Chase % (Auto) 7.0 % 05/30/25 23:36 Eos % (Auto) 0.1 % 05/30/25 23:36 Baso % (Auto) 0.3 % 05/30/25 23:36 Neut # (Auto) 13.10 K/uL (1.40-6.50) H 05/30/25 23:36 Lymph # (Auto) 0.46 K/uL (1.20-3.40) L 05/30/25 23:36 Chase # (Auto) 1.03 K/uL (0.11-0.59) H 05/30/25 23:36 Eos # (Auto) 0.01 K/uL (0.00-0.50) 05/30/25 23:36 Baso # (Auto) 0.05 K/uL (0.00-0.20) 05/30/25 23:36 Immature Gran # (Auto) 0.05 K/uL (0.01-0.20) 05/30/25 23:36 Absolute Nucleated RBC 0.02 K/uL (0.00-0.12) 05/30/25 23:36 Nucleated RBC % (auto) 0.1 % 05/30/25 23:36 Sodium 145 mmol/L (136-145) 05/30/25 23:36 Potassium 3.7 mmol/L (3.5-5.1) 05/30/25 23:36 Chloride 102 mmol/L (98-107) 05/30/25 23:36 Carbon Dioxide 29 mmol/L (21-32) 05/30/25 23:36 Anion Gap 14 (3-11) H 05/30/25 23:36 BUN 21 mg/dl (6-23) 05/30/25 23:36 Creatinine 0.94 mg/dl (0.6-1.2) 05/30/25 23:36 Est Cr Clr Drug Dosing 61.1 ml/min 05/30/25 23:36 eGFR 69.04 05/30/25 23:36 BUN/Creatinine Ratio 22.3 (10-20) H 05/30/25 23:36 Glucose 102 mg/dl (70-99(Fasting)) H 05/30/25 23:36 Calcium 9.9 mg/dl (8.6-10.3) 05/30/25 23:36 Magnesium 2.1 mg/dl (1.7-2.4) 05/30/25 23:36 Total Bilirubin 0.9 mg/dl (0.2-1.0) 05/30/25 23:36 AST 81 U/L (13-39) H 05/30/25 23:36 ALT 33 U/L (7-52) 05/30/25 23:36 Alkaline Phosphatase 167 U/L (34-104) H 05/30/25 23:36 Total Creatine Kinase 1851 U/L (26-192) H 05/30/25 23:36 Troponin I High Sens 23.9 pg/ml (0-14) H 05/30/25 23:36 Total Protein 7.9 gm/dl (6.0-8.3) 05/30/25 23:36 Albumin 4.6 gm/dl (3.4-5.0) 05/30/25 23:36 Globulin 3.3 gm/dl (2.5-4.0) 05/30/25 23:36 Albumin/Globulin Ratio 1.4 (0.9-2) 05/30/25 23:36 Lipase 3 U/L (11-82) L 05/30/25 23:36 Ethyl Alcohol mg/dL < 10.0 mg/dl (<10.0) 05/30/25 23:36 ECG Additional Comments: ECG. Sinus tachycardia rate of 109. Minimal voltage for LVH. T wave inversions in inferior leads. QTc 468 Code Status & VTE Plan VTE Prophylaxis Plan VTE Prophylaxis will be ordered: Yes (1) Rhabdomyolysis Encounter type: initial encounter Rhabdomyolysis type: traumatic Qualified Code(s): T79.6XXA - Traumatic ischemia of muscle, initial encounter
[2025-05-31] MEDS: FOLIC ACID 1 MG in SYRINGE 9.8 ML IV STA (06:06)
[2025-05-31] MEDS: THIAMINE HCL 100 MG in SYRINGE 9 ML IV STA (06:06)
[2025-05-31] MEDS ORDERED: GLUCOSE 40% GEL 15 GM TUBE PO PRN (08:28)
[2025-05-31] MEDS ORDERED: NITROGLYCERIN SL 0.4 MG/TAB TAB SL PRN (08:28)
[2025-05-31] MEDS ORDERED: CARBOHYDRATES FOR HYPOGLYCEMIA PO PRN (08:28)
[2025-05-31] MEDS ORDERED: GLUCAGON FOR INJ 1 MG VIAL SQ PRN (08:28)
[2025-05-31] MEDS ORDERED: DEXTROSE 50% 50 ML SYRINGE IV PRN (08:28)
[2025-05-31] MEDS ORDERED: GLUCOSE 10 TAB/TUBE PO PRN (08:28)
[2025-05-31] MEDS ORDERED: NON-FORMULARY MEDICATION (Coenzyme Q10 [Coq-10] 100 mg Capsule) PO SCH (09:00)
[2025-05-31] MEDS: INSULIN ASPART PER UNIT CHARGE SC SCH (09:08)
[2025-05-31] MEDS: SODIUM CHLORIDE 0.9% 1,000 ML IV SCH (09:10)
[2025-05-31 09:15] LABS: Hematocrit (blood only) 42.3 % (37.0-47.0); Hemoglobin 14.7 g/dl (12.0-16.0); Immature Granulocytes # (auto) 0.04 K/uL (0.01-0.20); Immature Granulocytes % (auto) 0.4 %; Mean Corpuscular Hemoglobin 37.4 pg (25.0-34.0); Mean Corpuscular Volume 107.6 fL (80.0-100.0); Platelet Count 185 K/uL (130-400); RDW Standard Deviation 54.4 fL (36.4-46.3); Red Blood Count 3.93 M/uL (4.20-5.40); White Blood Count 10.36 K/ul (4.8-10.8)
[2025-05-31] MEDS: cefTRIAXone SODIUM 2,000 MG/50 ML BAG IV ONE (09:15)
[2025-05-31] MEDS: busPIRone 5 MG TAB PO SCH (09:35)
[2025-05-31] MEDS: THIAMINE HCL 100 MG TAB PO SCH (09:35)
[2025-05-31] MEDS: CEROVITE ADV FORMULA TAB PO SCH (09:35)
[2025-05-31] MEDS: ADVANCED PROBIOTIC 625 MG CAPSULE PO SCH (09:35)
[2025-05-31] MEDS: MAGNESIUM OXIDE 400 MG TAB PO SCH (09:35)
[2025-05-31] MEDS: FOLIC ACID 1 MG TAB PO SCH (09:36)
[2025-05-31] MEDS: CALCIUM 600MG + VIT D 400 IU TAB PO SCH (09:36)
[2025-05-31] MEDS: ENOXAPARIN INJ 40 MG/0.4 ML SYR SQ SCH (09:39)
[2025-05-31 09:40] LABS: Anion Gap 7.0 (3-11); Blood Urea Nitrogen 17.0 mg/dl (6-23); Calcium 8.6 mg/dl (8.6-10.3); Carbon Dioxide 31.0 mmol/L (21-32); Chloride 100.0 mmol/L (98-107); Creatinine Clr Calc Pharmacy 88.4 ml/min; Glucose 191.0 mg/dl (70-99(Fasting)); Potassium 3.3 mmol/L (3.5-5.1); Sodium 138.0 mmol/L (136-145)
[2025-05-31 09:58] LABS: Folate (Folic Acid),Ser orPlas > 22.30 ng/ml (>5.38); Vitamin B12 746 pg/ml (180-914)
[2025-05-31 09:59] LABS: Creatine Kinase 4720.0 U/L (26-192); Magnesium 1.8 mg/dl (1.7-2.4)
--- NOTE | 2025-05-31 10:07 | Communication Note ---
Date of Service: May 31, 2025 The patient is a 59-year-old female who presented to the ED on 05/31/2025 with complaints of mechanical fall between her sink and commode. Admitted with rha bdo and possible UTI Mechanical fall Mild rhabdo: No acute injuries, some skin bruising and rash noted by admitting provider Aggressive IV fluids, CK increased to 4000 from 1000, will recheck in 8 hours Creatinine within normal limits, replete electrolytes Placed on prophylactic IV Rocephin, will continue for now Hx HTN: Does not appear to take any medications at home, will add IV labetalol for SBP over 160 May need to consider oral blood pressure medications on DC Hx DM 2: Managed on metformin and Lantus at home Continue Lantus 18 units at bedtime, sugars acceptable, continue to adjust as needed Hx alcoholism with chronic pancreatitis: Patient reports drinking vodka every other day 2-3 drinks Denies any withdrawal in the past, monitor closely, continue thiamine/folic acid Monitor LFTs, IV Ativan as needed A total of 30 minutes were spent on chart review/reviewing diagnostic data/facilitating plan of care Full code DVT prophylaxis: SCDs Attending Addendum: Patient was seen and examined. Patient reported that after moving bowels, she got up and turned around to flush and lost balance and fell. Patient denied lightheadedness/chest pain/shortness of breath/palpitations/nausea/dry heaving prior to fall. Patient denied hitting head or loss of consciousness after fall. Will get ortho vitals, PT eval. Patient noted to have rhabdomyolysis, continue with IV fluids if volume overloaded can utilize Lasix. Trend CPK daily until downtrend noted. Possible UTI, continue with Rocephin, urine samples uncollected so far. Total time spent independently: 22 min I have seen and examined the patient and have discussed the case with the provider above. I agree with the assessment and plan as stated.
[2025-05-31 11:13] LABS: Hemoglobin A1C 6.3 % (4.5-5.6)
[2025-05-31] MEDS: POTASSIUM CHLORIDE CRTAB 20 MEQ TABCR PO SCH (13:36)
[2025-05-31 15:00] LABS: Appearance Urine Clear (Clear); Glucose Urine UA Negative (Negative)
[2025-05-31 15:35] LABS: Amphetamines+Metham, Urine Neg (Neg); MDMA (Ecstacy), Urine Neg (Neg); Marijuana, Urine Neg (Neg)
[2025-05-31 16:06] LABS: Anion Gap 9.0 (3-11); Calcium 8.9 mg/dl (8.6-10.3); Carbon Dioxide 27.0 mmol/L (21-32); Chloride 100.0 mmol/L (98-107); Potassium 3.6 mmol/L (3.5-5.1); Sodium 136.0 mmol/L (136-145)
[2025-05-31 16:12] LABS: Blood Urea Nitrogen 14.0 mg/dl (6-23); Creatinine Clr Calc Pharmacy 76.6 ml/min; Glucose 129.0 mg/dl (70-99(Fasting))
[2025-05-31 16:44] LABS: Creatine Kinase 4182.0 U/L (26-192)
[2025-05-31] MEDS: POT PHOSPHATE MONOBASIC W/ SOD TAB PO SCH (17:14)
[2025-05-31] MEDS: GABAPENTIN 300 MG CAP PO SCH (20:34)
[2025-05-31] MEDS: LANTUS PER UNIT CHARGE SQ SCH (21:11)
[2025-05-31] MEDS: LORazepam 1 MG TAB PO STA (21:30)
[2025-06-01] MEDS: cefTRIAXone SODIUM 2,000 MG/50 ML BAG IV SCH (07:58)
[2025-06-01 09:03] LABS: Hematocrit (blood only) 42.0 % (37.0-47.0); Hemoglobin 14.4 g/dl (12.0-16.0); Immature Granulocytes # (auto) 0.02 K/uL (0.01-0.20); Immature Granulocytes % (auto) 0.3 %; Mean Corpuscular Hemoglobin 38.3 pg (25.0-34.0); Mean Corpuscular Volume 111.7 fL (80.0-100.0); Platelet Count 155 K/uL (130-400); RDW Standard Deviation 55.7 fL (36.4-46.3); Red Blood Count 3.76 M/uL (4.20-5.40); White Blood Count 7.19 K/ul (4.8-10.8)
[2025-06-01 09:23] LABS: Macrocytosis Present; Target Cells 1+
[2025-06-01 09:25] LABS: Alanine Aminotransferase 44 U/L (7-52); Alkaline Phosphatase 122 U/L (34-104); Anion Gap 8 (3-11); Bilirubin,Total 0.6 mg/dl (0.2-1.0); Blood Urea Nitrogen 10 mg/dl (6-23); Calcium 8.6 mg/dl (8.6-10.3); Carbon Dioxide 25 mmol/L (21-32); Chloride 109 mmol/L (98-107); Creatine Kinase 1561 U/L (26-192); Creatinine Clr Calc Pharmacy 124.1 ml/min; Glucose 146 mg/dl (70-99(Fasting)); Magnesium 1.5 mg/dl (1.7-2.4); Potassium 3.8 mmol/L (3.5-5.1); Sodium 142 mmol/L (136-145); Total Protein 6.2 gm/dl (6.0-8.3)
[2025-06-01] MEDS: MAGNESIUM SULFATE / D5W 1 GM/100 ML BAG IV SCH (10:49)
--- NOTE | 2025-06-01 15:43 | Hospitalist Progress Note ---
Date of Service June 01, 2025 Assessment & Plan (1) Transaminitis: (2) Rhabdomyolysis: (3) Alcohol abuse: (4) Diabetes: (5) Hypertension: Plan The patient is a 59-year-old female who presented to the ED on 05/31/2025 with complaints of mechanical fall between her sink and commode. Admitted with rhabdo Mechanical fall Mild rhabdo: No acute injuries, some skin bruising and rash noted by admitting provider CK improving, trending down, DC IV fluids, creatinine within normal limits Initial concern for UTI, ruled out, stop IV Rocephin, no indication for antibiotics on DC Seen by PT/OT, recommending rehab on DC Hx HTN: Does not appear to take any medications at home May need to consider oral blood pressure medications on DC Hx DM 2: Managed on metformin and Lantus at home Continue Lantus 18 units at bedtime, sugars acceptable, continue to adjust as needed Hx alcoholism with chronic pancreatitis: Patient reports drinking vodka every other day 2-3 drinks Denies any withdrawal in the past, monitor closely, continue thiamine/folic acid Monitor LFTs, IV Ativan as needed A total of 30 minutes were spent on chart review/reviewing diagnostic data/ facilitating plan of care Disposition: Plan on ADC in the next 244 hours pending dispo to acute rehab Full code DVT prophylaxis: SCDs Admission and Anticipated Discharge Date Admission Date: May 31, 2025 Supervising Physician Co-Signing Physician Notes Patient was seen and examined. Patient reported that after moving bowels, she got up and turned around to flush and lost balance and fell. Patient denied lightheadedness/chest pain/shortness of breath/palpitations/nausea/dry heaving prior to fall. Patient denied hitting head or loss of consciousness after fall. Neg ortho vitals, PT eval. Patient noted to have rhabdomyolysis, s/p IV fluids, improving trend of CPK. Possible UTI, ruled out, dc'd rocephin. Total time spent independently: 15 min I have seen and examined the patient and have discussed the case with the provider above. I agree with the assessment and plan as stated. Subjective Patient seen and examined. No apparent distress. Denies any shortness of breath/chest pain. Reports feeling better today. Concerned about being discharged home with weakness. Review of Systems Review of Systems: All systems reviewed & are unremarkable except as noted in HPI & below Physical Exam Constitutional: WD/WN, vitals as above well developed and well nourished; no acute distress Eyes: PERRL, conjunctivae normal, anicteric sclerae ENMT: external ear and nose normal, oropharynx normal Neck: trachea midline, no thyromegaly Respiratory: normal respiratory effort, lungs clear to auscultation Cardiovascular: RRR, no murmur, no edema Gastrointestinal (Abdomen): normal bowel sounds, soft, nontender, no hepatosplenomegaly Musculoskeletal: no cyanosis or clubbing, extremities motor strength 5/5 Skin: no rashes, warm and dry Neurologic: PERRL, EOMI, accommodation nl, no face palsy, no dysarthria Psychiatric: A+Ox3, euthymic affect Lymphatic: no cervical or axillary lymphadenopathy Results & Data Results & Data Vital Signs (Past 12 Hours) Vital Signs Temp Pulse Pulse Resp BP Pulse Ox O2 Del Method 06/01/25 14:13 82 06/01/25 10:34 37.0 C 20 99 Room Air 06/01/25 08:09 36.6 C 75 20 146/87 H 99 CPAP 06/01/25 07:00 76 Diagnostic Findings Laboratory Results WBC 7.19 K/ul (4.8-10.8) 06/01/25 08:38 RBC 3.76 M/uL (4.20-5.40) L 06/01/25 08:38 Hgb 14.4 g/dl (12.0-16.0) 06/01/25 08:38 Hct 42.0 % (37.0-47.0) 06/01/25 08:38 MCV 111.7 fL (80.0-100.0) H 06/01/25 08:38 MCH 38.3 pg (25.0-34.0) H 06/01/25 08:38 MCHC 34.3 g/dL (32.0-36.0) 06/01/25 08:38 RDW Std Deviation 55.7 fL (36.4-46.3) H 06/01/25 08:38 RDW Coeff of Eli 13.3 % (11.5-14.5) 06/01/25 08:38 Plt Count 155 K/uL (130-400) 06/01/25 08:38 MPV 10.3 fL (9.4-12.4) 06/01/25 08:38 Immature Gran % (Auto) 0.3 % 06/01/25 08:38 Neut % (Auto) 70.1 % 06/01/25 08:38 Lymph % (Auto) 24.6 % 06/01/25 08:38 [place] % (Auto) 3.6 % 06/01/25 08:38 Eos % (Auto) 0.8 % 06/01/25 08:38 Baso % (Auto) 0.6 % 06/01/25 08:38 Neut # (Auto) 5.04 K/uL (1.40-6.50) 06/01/25 08:38 Lymph # (Auto) 1.77 K/uL (1.20-3.40) 06/01/25 08:38 [place] # (Auto) 0.26 K/uL (0.11-0.59) 06/01/25 08:38 Eos # (Auto) 0.06 K/uL (0.00-0.50) 06/01/25 08:38 Baso # (Auto) 0.04 K/uL (0.00-0.20) 06/01/25 08:38 Immature Gran # (Auto) 0.02 K/uL (0.01-0.20) 06/01/25 08:38 Absolute Nucleated RBC 0.02 K/uL (0.00-0.12) 05/30/25 23:36 Nucleated RBC % (auto) 0.1 % 05/30/25 23:36 Macrocytosis Present 06/01/25 08:38 Target Cells 1+ 06/01/25 08:38 Sodium 142 mmol/L (136-145) 06/01/25 08:38 Potassium 3.8 mmol/L (3.5-5.1) 06/01/25 08:38 Chloride 109 mmol/L (98-107) H 06/01/25 08:38 Carbon Dioxide 25 mmol/L (21-32) 06/01/25 08:38 Anion Gap 8 (3-11) 06/01/25 08:38 BUN 10 mg/dl (6-23) 06/01/25 08:38 Creatinine 0.51 mg/dl (0.6-1.2) L 06/01/25 08:38 Est Cr Clr Drug Dosing 124.1 ml/min 06/01/25 08:38 eGFR 106.13 06/01/25 08:38 BUN/Creatinine Ratio 19.6 (10-20) 06/01/25 08:38 Glucose 146 mg/dl (70-99(Fasting)) H 06/01/25 08:38 POC Glucose 175 mg/dl (70-99) H 06/01/25 12:05 Estimat Average Glucose 134 mg/dl 05/31/25 09:02 Hemoglobin A1c 6.3 % (4.5-5.6) H 05/31/25 09:02 Calcium 8.6 mg/dl (8.6-10.3) 06/01/25 08:38 Phosphorus 3.3 mg/dl (2.5-4.9) D 06/01/25 08:38 Magnesium 1.5 mg/dl (1.7-2.4) L 06/01/25 08:38 Total Bilirubin 0.6 mg/dl (0.2-1.0) 06/01/25 08:38 Direct Bilirubin TNP 06/01/25 08:38 AST 99 U/L (13-39) H 06/01/25 08:38 ALT 44 U/L (7-52) 06/01/25 08:38 Alkaline Phosphatase 122 U/L (34-104) H 06/01/25 08:38 Total Creatine Kinase 1561 U/L (26-192) H 06/01/25 08:38 Troponin I High Sens 12.8 pg/ml (0-14) 05/31/25 23:15 Total Protein 6.2 gm/dl (6.0-8.3) D 06/01/25 08:38 Albumin 3.8 gm/dl (3.4-5.0) 06/01/25 08:38 Globulin 3.3 gm/dl (2.5-4.0) 05/30/25 23:36 Albumin/Globulin Ratio 1.4 (0.9-2) 05/30/25 23:36 Lipase 3 U/L (11-82) L 05/30/25 23:36 Vitamin B12 746 pg/ml (180-914) 05/31/25 09:02 Folate > 22.30 ng/ml (>5.38) 05/31/25 09:02 Urine Color Yellow 05/31/25 14:26 Urine Appearance Clear (Clear) 05/31/25 14:26 Urine pH 7.0 (4.5-7.5) 05/31/25 14:26 Ur Specific [place] 1.003 (1.000-1.030) 05/31/25 14:26 Urine Protein Negative (Negative) 05/31/25 14:26 Urine Glucose (UA) Negative (Negative) 05/31/25 14:26 Urine Ketones Negative (Negative) 05/31/25 14:26 Urine Blood Negative (Negative) 05/31/25 14:26 Urine Nitrite Negative (Negative) 05/31/25 14:26 Urine Bilirubin Negative (Negative) 05/31/25 14:26 Urine Urobilinogen Negative (Negative) 05/31/25 14:26 Ur Leukocyte Esterase Negative (Negative) 05/31/25 14:26 Urine Comment 05/31/25 14:26 Urine Opiates Screen Neg (Neg) 05/31/25 14:26 Ur Methadone, Qual Neg (Neg) 05/31/25 14:26 Urine Fentanyl Screen Neg (Neg) 05/31/25 14:26 Urine Barbiturates Neg (Neg) 05/31/25 14:26 Ur Phencyclidine (PCP) Neg (Neg) 05/31/25 14:26 U Amphetamin/Meth Scrn Neg (Neg) 05/31/25 14:26 MDMA (Ecstasy) Screen Neg (Neg) 05/31/25 14:26 U Benzodiazepines Scrn Neg (Neg) 05/31/25 14:26 Ur Cocaine Metabolite Neg (Neg) 05/31/25 14:26 U Marijuana (THC) Screen Neg (Neg) 05/31/25 14:26 Ethyl Alcohol mg/dL < 10.0 mg/dl (<10.0) 05/30/25 23:36 (2) Rhabdomyolysis Encounter type: initial encounter Rhabdomyolysis type: traumatic Qualified Code(s): T79.6XXA - Traumatic ischemia of muscle, initial encounter
--- NOTE | 2025-06-02 07:23 | Hospitalist Progress Note ---
Date of Service June 02, 2025 Assessment & Plan (1) Rhabdomyolysis: (2) Hypomagnesemia: (3) Hypertension: (4) Diabetes: (5) Transaminitis: (6) Alcohol abuse: Plan 59-year-old female with PMH significant for alcohol induced chronic pancreatitis, type 2 diabetes, dyslipidemia, hypertension, chronic insomnia, and FERNANDO on CPAP who presented to the ED on 05/31/2025 with complaints of mechanical fall between her sink and commode and is admitted with rhabdomyolysis. Mechanical fall Rhabdomyolysis Transaminitis No acute injuries Orthostatic vitals negative CK improving, trending down (1851-> 4720-> 4182-> 1561-> 708) LFTs improving, trending down (AST 81-> 61, Alk phos 167-> 112) Seen by PT/OT, recommending rehab on DC, CM following Hypomagnesemia Mag 1.5 today Replete 2g Monitor in am Consider increasing home supplement at dc Hypertension Not on antihypertensive medication at home Review of outpatient records revealed blood pressure readings of 90-120/60-70s Monitor BPs DM 2 Managed on metformin and Lantus at home Continue Lantus 18 units at bedtime BSG ACHS and SSI Hx alcoholism with chronic pancreatitis Patient reports drinking vodka every other day 2-3 drinks Denies any withdrawal in the past, monitor closely Continue thiamine and folic acid Depression/anxiety Continue buspirone FERNANDO CPAP HS DVT Prophylaxis: SQ Lovenox Code Status: FULL CODE PCP: Tommy Saab Disposition: waiting for approval/availability of rehab Patient seen in collaboration with Dr Morris. Please see addendum. I spent a total of 60 minutes coordinating, documenting and providing care for this patient excluding time spent in the performance of separately billed services or time spent by another provider/QHP. Admission and Anticipated Discharge Date Admission Date: May 31, 2025 Supervising Physician Co-Signing Physician Notes Patient was seen and examined. Patient reported that after moving bowels, she got up and turned around to flush and lost balance and fell. Patient denied lightheadedness/chest pain/shortness of breath/palpitations/nausea/dry heaving prior to fall. Patient denied hitting head or loss of consciousness after fall. Neg ortho vitals, PT eval. Patient noted to have rhabdomyolysis, s/p IV fluids, improving trend of CPK. Pt with no new issues, awaiting placement, zio patch on dc. Total time spent independently: 16 min I have seen and examined the patient and have discussed the case with the provider above. I agree with the assessment and plan as stated. Subjective Patient seen sitting up in bed Reports she is feeling much better Denies pain, chest pain, SOB, abdominal pain, N/V/D Review of Systems Review of Systems: All systems reviewed & are unremarkable except as noted in Subjective Physical Exam Physical Exam: General/Psych: WD/WN, sitting up in bed, NAD, conversing easily Head: normocephalic, atraumatic Eyes: normal inspection, PERRL, conjunctivae pink ENT: external ear and nose normal, oropharynx normal Neck: normal visual inspection, trachea midline Respiratory: normal respiratory effort, lungs clear to auscultation, no wheeze/rales/rhonchi, no accessory muscle use Cardiovascular: regular rate and rhythm, no murmur/rub/gallop, no JVD Extremities: no cyanosis or clubbing, normal peripheral pulses, no BLE edema Abdomen/GI: normal bowel sounds, soft, nontender Neurologic/MSK: A+Ox3, motor strength 5/5, moves all extremities Skin: no rashes, normal color, warm and dry Results & Data Results & Data Vital Signs (Past 12 Hours) Vital Signs Temp Pulse Pulse Resp BP Pulse Ox O2 Del Method 06/02/25 07:01 82 06/02/25 03:00 70 14 96 06/02/25 02:59 71 18 150/92 H 96 Room Air, CPAP 06/01/25 23:45 75 14 98 06/01/25 22:47 36.9 C 75 18 150/89 H 99 Room Air 06/01/25 22:23 75 Laboratory Results Short CBC 06/02/25 Range/Units 10:12 WBC 6.78 (4.8-10.8) K/ul Hgb 12.9 (12.0-16.0) g/dl Hct 38.4 (37.0-47.0) % Plt Count 156 (130-400) K/uL BMP 06/02/25 10:12 Sodium 140 Potassium 3.6 Chloride 105 Carbon Dioxide 27 BUN 11 Creatinine 0.64 Glucose 230 H Calcium 9.1 Cardiac Enzymes 06/02/25 Range/Units 10:12 Total Creatine Kinase 708 H (26-192) U/L Liver Function 06/02/25 Range/Units 10:12 Total Bilirubin 0.6 (0.2-1.0) mg/dl AST 61 H (13-39) U/L ALT 39 (7-52) U/L Alkaline Phosphatase 112 H (34-104) U/L Albumin 3.3 L (3.4-5.0) gm/dl I have independently reviewed and interpreted patient's labs including CBC, CMP, mag, CK. Medications Administered Current Inpatient Medications Buspirone HCl (Buspirone 5 Mg Tab) 10 mg PO TID EARL Stop: 06/30/25 08:59 Last Admin: 06/01/25 21:46 Dose: 10 mg Calcium/Vitamin D (Calcium 600mg + Vit D 400 Iu Tab) 1 tab PO BID EAR[facility] Stop: 06/30/25 08:59 Last Admin: 06/01/25 21:47 Dose: 1 tab Dextrose (Dextrose 50% 50 Ml Syringe) 25 - 50 ml IV UD PRN; Protocol PRN Reason: Hypoglycemia Protocol Stop: 06/30/25 08:27 Enoxaparin Sodium (Enoxaparin Inj 40 Mg/0.4 Ml Syr) 40 mg SQ Q24H [facility] Stop: 06/30/25 08:59 Last Admin: 06/01/25 09:09 Dose: 40 mg Folic Acid (Folic Acid 1 Mg Tab) 1 mg PO QAM [facility] Stop: 06/30/25 08:59 Last Admin: 06/01/25 07:58 Dose: 1 mg Gabapentin (Gabapentin 300 Mg Cap) 900 mg PO HS EARL Stop: 06/30/25 20:59 Last Admin: 06/01/25 21:47 Dose: 900 mg Glucagon (Glucagon For Inj 1 Mg Vial) 1 mg SQ UD PRN; Protocol PRN Reason: Hypoglycemia Protocol Stop: 06/30/25 08:27 Glucose (Glucose 40% Gel 15 Gm Tube) 15 - 30 gm PO UD PRN; Protocol PRN Reason: Hypoglycemia Protocol Stop: 06/30/25 08:27 Glucose (Glucose 10 Tab/Tube) 4 - 8 tab PO UD PRN; Protocol PRN Reason: Hypoglycemia Protocol Stop: 06/30/25 08:27 Insulin Aspart (Insulin Aspart Per Unit Charge) 0 units SC ACHS EARL Stop: 06/30/25 08:27 Last Admin: 06/01/25 21:53 Dose: Not Given Insulin Glargine (Lantus Per Unit Charge) 18 units SQ HS [facility] Stop: 06/30/25 20:59 Last Admin: 06/01/25 21:50 Dose: 18 units Lactobacillus Acidophilus (Advanced Probiotic 625 Mg Capsule) 1,250 mg PO QAM [facility] Stop: 06/30/25 08:59 Last Admin: 06/01/25 07:57 Dose: 1,250 mg Lorazepam (Lorazepam 2 Mg/1 Ml Vial) 0.5 mg IV Q4H PRN PRN Reason: Anxiety/Agitation Stop: 06/30/25 08:27 Last Admin: 06/01/25 21:49 Dose: 0.5 mg Magnesium Oxide (Magnesium Oxide 400 Mg Tab) 400 mg PO DAILY [facility] Stop: 06/30/25 08:59 Last Admin: 06/01/25 07:57 Dose: 400 mg Miscellaneous (Chlorpheniramine 4mg--Order Awaiting Action) 1 each N/A QS [facility] Stop: 06/30/25 15:59 Last Admin: 06/02/25 00:37 Dose: Not Given Miscellaneous (Carbohydrates For Hypoglycemia ) 15 - 30 gm PO UD PRN PRN Reason: Hypoglycemia Protocol Stop: 06/30/25 08:27 Multivitamins/Minerals (Cerovite Adv Formula Tab) 1 tab PO QAM [facility] Stop: 06/30/25 08:59 Last Admin: 06/01/25 07:57 Dose: 1 tab Nitroglycerin (Nitroglycerin Sl 0.4 Mg/Tab Tab) 0.4 mg SL Q5M PRN PRN Reason: Chest Pain Stop: 06/30/25 08:27 Thiamine HCl (Thiamine Hcl 100 Mg Tab) 100 mg PO QAM [facility] Stop: 06/30/25 08:59 Last Admin: 06/01/25 07:57 Dose: 100 mg (1) Rhabdomyolysis Encounter type: initial encounter Rhabdomyolysis type: traumatic Qualified Code(s): T79.6XXA - Traumatic ischemia of muscle, initial encounter
[2025-06-02 10:47] LABS: Hematocrit (blood only) 38.4 % (37.0-47.0); Hemoglobin 12.9 g/dl (12.0-16.0); Mean Corpuscular Hemoglobin 37.3 pg (25.0-34.0); Mean Corpuscular Volume 111.0 fL (80.0-100.0); Platelet Count 156 K/uL (130-400); RDW Standard Deviation 53.9 fL (36.4-46.3); Red Blood Count 3.46 M/uL (4.20-5.40); White Blood Count 6.78 K/ul (4.8-10.8)
[2025-06-02 11:03] LABS: Alanine Aminotransferase 39.0 U/L (7-52); Albumin Globulin Ratio 1.3 (0.9-2); Alkaline Phosphatase 112.0 U/L (34-104); Anion Gap 8.0 (3-11); Bilirubin,Total 0.6 mg/dl (0.2-1.0); Blood Urea Nitrogen 11.0 mg/dl (6-23); Calcium 9.1 mg/dl (8.6-10.3); Carbon Dioxide 27.0 mmol/L (21-32); Chloride 105.0 mmol/L (98-107); Creatine Kinase 708.0 U/L (26-192); Creatinine Clr Calc Pharmacy 99.6 ml/min; Globulin 2.5 gm/dl (2.5-4.0); Glucose 230.0 mg/dl (70-99(Fasting)); Magnesium 1.5 mg/dl (1.7-2.4); Potassium 3.6 mmol/L (3.5-5.1); Sodium 140.0 mmol/L (136-145); Total Protein 5.8 gm/dl (6.0-8.3)
[2025-06-02] MEDS: MAGNESIUM SULFATE / D5W 1 GM/100 ML BAG IV SCH (12:19)
[2025-06-02] MEDS ORDERED: MELATONIN 3 MG TAB PO PRN (22:02)
--- NOTE | 2025-06-03 06:21 | Electrocardiogram Report ---
Test Reason : Blood Pressure : */* mmHG Vent. Rate : 109 BPM Atrial Rate : 109 BPM P-R Int : 134 ms QRS Dur : 88 ms QT Int : 348 ms P-R-T Axes : -14 -8 -7 degrees QTcB Int : 468 ms Sinus tachycardia Minimal voltage criteria for LVH, may be normal variant ( Isaac product ) Borderline ECG When compared with ECG of 27-Dec-2024 21:25, Left anterior fascicular block is no longer Present T wave inversion now evident in Inferior leads T wave amplitude has increased in Anterior leads Confirmed by Shekhar Haas ([id number]) on 06/03/2025 6:21:14 AM Referred By: REFERRED SELF Confirmed By: Shekhar Haas
--- NOTE | 2025-06-03 06:22 | Electrocardiogram Report ---
Test Reason : Blood Pressure : */* mmHG Vent. Rate : 72 BPM Atrial Rate : 72 BPM P-R Int : 146 ms QRS Dur : 94 ms QT Int : 402 ms P-R-T Axes : 38 -30 12 degrees QTcB Int : 440 ms Sinus rhythm Left axis deviation Abnormal ECG When compared with ECG of 01-Jun-2025 06:27, No significant change Confirmed by Shekhar Haas ([id number]) on 06/03/2025 6:22:28 AM Referred By: REFERRED SELF Confirmed By: Shekhar Haas
--- NOTE | 2025-06-03 06:22 | Electrocardiogram Report ---
Test Reason : Blood Pressure : */* mmHG Vent. Rate : 74 BPM Atrial Rate : 74 BPM P-R Int : 144 ms QRS Dur : 94 ms QT Int : 422 ms P-R-T Axes : 53 -40 24 degrees QTcB Int : 468 ms Poor data quality, interpretation may be adversely affected Normal sinus rhythm Left axis deviation Abnormal ECG When compared with ECG of 30-May-2025 23:26, QRS axis Shifted left Nonspecific T wave abnormality has replaced inverted T waves in Inferior leads T wave amplitude has decreased in Anterior leads Confirmed by Shekhar Haas ([id number]) on 06/03/2025 6:22:07 AM Referred By: REFERRED SELF Confirmed By: Shekhar Haas
[2025-06-03 07:37] LABS: Alanine Aminotransferase 31.0 U/L (7-52); Albumin Globulin Ratio 1.5 (0.9-2); Alkaline Phosphatase 100.0 U/L (34-104); Anion Gap 6.0 (3-11); Bilirubin,Total 0.5 mg/dl (0.2-1.0); Blood Urea Nitrogen 14.0 mg/dl (6-23); Calcium 9.5 mg/dl (8.6-10.3); Carbon Dioxide 27.0 mmol/L (21-32); Chloride 109.0 mmol/L (98-107); Creatine Kinase 283.0 U/L (26-192); Creatinine Clr Calc Pharmacy 114.4 ml/min; Globulin 2.2 gm/dl (2.5-4.0); Glucose 231.0 mg/dl (70-99(Fasting)); Magnesium 1.5 mg/dl (1.7-2.4); Potassium 3.7 mmol/L (3.5-5.1); Sodium 142.0 mmol/L (136-145); Total Protein 5.4 gm/dl (6.0-8.3)
[2025-06-03] MEDS: MAGNESIUM SULFATE / D5W 1 GM/100 ML BAG IV SCH (08:33)
[2025-06-03] MEDS: MAGNESIUM OXIDE 400 MG TAB PO SCH (08:41)
[2025-06-03] MEDS: CHLORPHENIRAMINE MALEATE 4 MG TABLET PO SCH (12:15)
--- NOTE | 2025-06-03 12:38 | Hospitalist Progress Note ---
Date of Service June 03, 2025 Assessment & Plan (1) Rhabdomyolysis: (2) Hypomagnesemia: (3) Hypertension: (4) Diabetes: (5) Transaminitis: (6) Alcohol abuse: Plan 59-year-old female with PMH significant for alcohol induced chronic pancreatitis, type 2 diabetes, dyslipidemia, hypertension, chronic insomnia, and FERNANDO on CPAP who presented to the ED on 05/31/2025 with complaints of mechanical fall between her sink and commode and is admitted with rhabdomyolysis. Mechanical fall Rhabdomyolysis Transaminitis, resolved No acute injuries Orthostatic vitals negative CK improving, trending down (1851-> 4720-> 4182-> 1561-> 708-> 283) *Recommend recheck of CK in about a week to ensure resolution Initial PT evaluation recommended rehab but patient does not have insurance Repeat PT eval today CM following Hypomagnesemia Mag 1.5 today Replete 3g Monitor in am Switched mag supplement to SlowMag Hypertension Not on antihypertensive medication at home Review of outpatient records revealed blood pressure readings of 90-120/60-70s Monitor BPs DM 2 Managed on metformin and Lantus at home Continue Lantus 18 units at bedtime BSG ACHS and SSI Hx alcoholism with chronic pancreatitis Patient reports drinking vodka every other day 2-3 drinks Denies any withdrawal in the past, monitor closely Continue thiamine and folic acid Depression/anxiety Continue buspirone FERNANDO CPAP HS DVT Prophylaxis: SQ Lovenox Code Status: FULL CODE PCP: Tommy Saab Disposition: waiting for PT recs Patient seen in collaboration with Dr Morris. Please see addendum. I spent a total of 45 minutes coordinating, documenting and providing care for this patient excluding time spent in the performance of separately billed services or time spent by another provider/QHP. Admission and Anticipated Discharge Date Admission Date: May 31, 2025 Supervising Physician Co-Signing Physician Notes Patient was seen and examined. Patient reported that after moving bowels, she got up and turned around to flush and lost balance and fell. Patient denied lightheadedness/chest pain/shortness of breath/palpitations/nausea/dry heaving prior to fall. Patient denied hitting head or loss of consciousness after fall. Neg ortho vitals, PT eval. Patient noted to have rhabdomyolysis, s/p IV fluids, improving trend of CPK. Pt with no new issues, awaiting placement, zio patch on dc. Total time spent independently: 16 min I have seen and examined the patient and have discussed the case with the provider above. I agree with the assessment and plan as stated. Subjective Patient seen sitting up in bed Reports she is feeling much better Would like to re-attempt PT today Denies pain, chest pain, SOB, abdominal pain, N/V/D Review of Systems Review of Systems: All systems reviewed & are unremarkable except as noted in Subjective Physical Exam Physical Exam: General/Psych: WD/WN, sitting up in bed, NAD, conversing easily Head: normocephalic, atraumatic Eyes: normal inspection, PERRL, conjunctivae pink ENT: external ear and nose normal, oropharynx normal Neck: normal visual inspection, trachea midline Respiratory: normal respiratory effort, lungs clear to auscultation, no wheeze/rales/rhonchi, no accessory muscle use Cardiovascular: regular rate and rhythm, no murmur/rub/gallop, no JVD Extremities: no cyanosis or clubbing, normal peripheral pulses, no BLE edema Abdomen/GI: normal bowel sounds, soft, nontender Neurologic/MSK: A+Ox3, motor strength 5/5, moves all extremities Skin: no rashes, normal color, warm and dry Results & Data Results & Data Vital Signs (Past 12 Hours) Vital Signs Temp Pulse Pulse Resp BP BP Pulse Ox 06/03/25 11:37 37.3 C 68 17 143/85 H 17 L 06/03/25 10:49 69 06/03/25 08:23 36.6 C 72 17 143/84 H 97 06/03/25 03:08 36.8 C 72 18 142/84 H 97 O2 Del Method 06/03/25 11:37 Room Air 06/03/25 10:49 06/03/25 08:23 Room Air 06/03/25 03:08 Room Air Laboratory Results BMP 06/03/25 06:06 Sodium 142 Potassium 3.7 Chloride 109 H Carbon Dioxide 27 BUN 14 Creatinine 0.56 L Glucose 231 H Calcium 9.5 Cardiac Enzymes 06/03/25 Range/Units 06:06 Total Creatine Kinase 283 H (26-192) U/L Liver Function 06/03/25 Range/Units 06:06 Total Bilirubin 0.5 (0.2-1.0) mg/dl AST 34 (13-39) U/L ALT 31 (7-52) U/L Alkaline Phosphatase 100 (34-104) U/L Albumin 3.2 L (3.4-5.0) gm/dl I have independently reviewed and interpreted patient's labs including BMP, CK, Mag. Medications Administered Current Inpatient Medications Buspirone HCl (Buspirone 5 Mg Tab) 10 mg PO TID EARL Stop: 06/30/25 08:59 Last Admin: 06/03/25 08:40 Dose: 10 mg Calcium/Vitamin D (Calcium 600mg + Vit D 400 Iu Tab) 1 tab PO BID [facility] Stop: 06/30/25 08:59 Last Admin: 06/03/25 08:40 Dose: 1 tab Chlorpheniramine Maleate (Chlorpheniramine Maleate 4 Mg Tablet) 4 mg PO BID [facility]AR[facility] Stop: 07/03/25 11:29 Last Admin: 06/03/25 12:15 Dose: 4 mg Dextrose (Dextrose 50% 50 Ml Syringe) 25 - 50 ml IV UD PRN; Protocol PRN Reason: Hypoglycemia Protocol Stop: 06/30/25 08:27 Enoxaparin Sodium (Enoxaparin Inj 40 Mg/0.4 Ml Syr) 40 mg SQ Q24H [facility] Stop: 06/30/25 08:59 Last Admin: 06/03/25 08:40 Dose: 40 mg Folic Acid (Folic Acid 1 Mg Tab) 1 mg PO QAM [facility] Stop: 06/30/25 08:59 Last Admin: 06/03/25 08:41 Dose: 1 mg Gabapentin (Gabapentin 300 Mg Cap) 900 mg PO HS [facility] Stop: 06/30/25 20:59 Last Admin: 06/02/25 21:34 Dose: 900 mg Glucagon (Glucagon For Inj 1 Mg Vial) 1 mg SQ UD PRN; Protocol PRN Reason: Hypoglycemia Protocol Stop: 06/30/25 08:27 Glucose (Glucose 40% Gel 15 Gm Tube) 15 - 30 gm PO UD PRN; Protocol PRN Reason: Hypoglycemia Protocol Stop: 06/30/25 08:27 Glucose (Glucose 10 Tab/Tube) 4 - 8 tab PO UD PRN; Protocol PRN Reason: Hypoglycemia Protocol Stop: 06/30/25 08:27 Magnesium Sulfate/Dextrose (Magnesium Sulfate / D5w) 1 gm in 100 mls @ 50 mls/hr IV Q2H [facility] Stop: 06/03/25 13:44 Last Admin: 06/03/25 12:15 Dose: 50 mls/hr Insulin Aspart (Insulin Aspart Per Unit Charge) 0 units SC ACHS [facility] Stop: 06/30/25 08:27 Last Admin: 06/03/25 08:48 Dose: 11 units Insulin Glargine (Lantus Per Unit Charge) 18 units SQ HS [facility] Stop: 06/30/25 20:59 Last Admin: 06/02/25 21:35 Dose: 18 units Lactobacillus Acidophilus (Advanced Probiotic 625 Mg Capsule) 1,250 mg PO QAM [facility] Stop: 06/30/25 08:59 Last Admin: 06/03/25 08:41 Dose: 1,250 mg Magnesium Chloride (Magnesium Chloride W/Calcium 64mg Delayed Rel Tab) 64 mg PO BID [facility] Stop: 07/03/25 20:59 Melatonin (Melatonin 3 Mg Tab) 3 mg PO HS PRN PRN Reason: Sleep Stop: 07/02/25 22:01 Miscellaneous (Carbohydrates For Hypoglycemia ) 15 - 30 gm PO UD PRN PRN Reason: Hypoglycemia Protocol Stop: 06/30/25 08:27 Multivitamins/Minerals (Cerovite Adv Formula Tab) 1 tab PO QAM [facility] Stop: 06/30/25 08:59 Last Admin: 06/03/25 08:41 Dose: 1 tab Nitroglycerin (Nitroglycerin Sl 0.4 Mg/Tab Tab) 0.4 mg SL Q5M PRN PRN Reason: Chest Pain Stop: 06/30/25 08:27 Thiamine HCl (Thiamine Hcl 100 Mg Tab) 100 mg PO QAM [facility] Stop: 06/30/25 08:59 Last Admin: 06/03/25 08:41 Dose: 100 mg (1) Rhabdomyolysis Encounter type: initial encounter Rhabdomyolysis type: traumatic Qualified Code(s): T79.6XXA - Traumatic ischemia of muscle, initial encounter
[2025-06-03] MEDS ORDERED: CHLORPHENIRAMINE MALEATE 4 MG TABLET PO PRN (13:59)
[2025-06-03 15:39] VITALS: BP 144/97; RESP 18; TEMP 97.9; O2SAT 100
--- NOTE | 2025-06-03 16:51 | Discharge Summary ---
Discharge Summary Date of Service June 03, 2025 Principal Dx & Hospital Course #1 = Principal Diagnosis (1) Rhabdomyolysis: (2) Hypomagnesemia: (3) Hypertension: (4) Diabetes: (5) Transaminitis: (6) Alcohol abuse: Plan 59-year-old female with PMH significant for alcohol induced chronic pancreatitis, type 2 diabetes, dyslipidemia, hypertension, chronic insomnia, and FERNANDO on CPAP who presented to the ED on 05/31/2025 with complaints of mechanical fall between her sink and commode and is admitted with rhabdomyolysis. Mechanical fall Rhabdomyolysis Transaminitis, resolved No acute injuries Orthostatic vitals negative CK trended down (1851-> 4720-> 4182-> 1561-> 708-> 283) *Recommend recheck of CK in about a week to ensure resolution - script provided Initial PT evaluation recommended rehab but patient does not have insurance Repeat PT eval today recommended home with outpatient physical therapy - script provided Hypomagnesemia Mag 1.5 while inpatient Repleted with IV Mag Sulfate Switched mag supplement to SlowMag Recommend recheck of Mag in about a week - script provided Hypertension Not on antihypertensive medication at home DM 2 Continue metformin and Lantus at home Hx alcoholism with chronic pancreatitis Patient reports drinking vodka every other day 2-3 drinks No signs of withdrawal Continue thiamine and folic acid - script provided for folic acid Depression/anxiety Continue buspirone FERNANDO CPAP HS Patient seen in collaboration with Dr Morris. Please see addendum. Notes For Next Care Provider 59 year old female with significant PMH who was admitted at [facility] from 05/31- 06/02/2025 after a fall at home and development of mild rhabdomyolysis. CK levels trended down with IVF and electrolytes were replaced. Patient was evaluated by PT who recommended dc home with outpatient PT. Script provided for patient. Also provided script for recheck of CK and magnesium level in a week. Medication Changes From Visit Folic acid supplement Magnesium supplement changed to Slow Mag Admission HPI Per Admitting Provider 59-year-old female with past medical history significant alcohol-induced chronic pancreatitis, type 2 diabetes, dyslipidemia, hypertension, chronic insomnia, sleep apnea presents with fall. Patient states she fell in between her sink and commode and got stuck there. Her could not get her out. EMS was called. She says she stayed in that position for about 4 to 5 hours. In the ER her CPK was elevated at 1851. Troponin 23. WBC 14. Denies any pain. No chest pain. No abdominal pain. No back pain. No headache. No runny nose or sore throat. No cough. No shortness of breath. Appetite is okay. She says she drinks vodka every other day 2 -3 drinks and does not think she will go through withdrawal. Hemodynamics okay. Past medical history. As mentioned above. Past surgical history. . Colonoscopy. EGD with endoscopic ultrasound. Tonsillectomy. Bilateral cataracts. Sinus surgery. Uterine fibroid embolization. Social history. . No smoking. Alcohol drinks 2-3 shots of vodka every other day. No drug use. Family history. Mother had arthritis. Skin cancer. Father had skin cancer. Colon cancer. Diabetes. Parkinsonism. Brother had arthritis. Admission Exam Per Admitting Provider General- Not in distress Head- atraumatic Eyes- PERRL. ENT- oropharynx clear Neck- supple, no JVD. Lungs- clear to auscultation no wheezing or crackles Heart- regular rhythm; no murmur, no gallop. Abdomen- normal bowel sounds, soft, nontender, no distension Extremities- no pretibial edema, Neuro- alert, oriented PERRL, no facial palsy; no dysarthria; moves extremities Skin- erythematous rash seen on extremities. Bruises seen on lower extremities Discharge Exam General/Psych: WD/WN, sitting up in bed, NAD, conversing easily Head: normocephalic, atraumatic Eyes: normal inspection, PERRL, conjunctivae pink ENT: external ear and nose normal, oropharynx normal Neck: normal visual inspection, trachea midline Respiratory: normal respiratory effort, lungs clear to auscultation, no wheeze/rales/rhonchi, no accessory muscle use Cardiovascular: regular rate and rhythm, no murmur/rub/gallop, no JVD Extremities: no cyanosis or clubbing, normal peripheral pulses, no BLE edema Abdomen/GI: normal bowel sounds, soft, nontender Neurologic/MSK: A+Ox3, motor strength 5/5, moves all extremities Skin: no rashes, normal color, warm and dry Updated Medication List Medication Instructions Recorded Confirmed Type lactobacillus combination no.4 3 3,000 mmu cells PO QAM 10/11/18 05/31/25 History billion cell capsule (Probiotic) magnesium 250 mg tablet 500 mg PO DAILY 10/11/18 05/31/25 History buspirone 10 mg tablet 10 mg PO TID 04/22/23 05/31/25 History calcium 600 mg (as 1 tab PO BID 04/22/23 05/31/25 History carbonate)-vitamin D3 5 mcg (200 unit) tablet (Calcium 600 + D(3)) gabapentin 300 mg capsule 900 mg PO HS 04/22/23 05/31/25 History metformin 500 mg tablet,extended 2,000 mg PO QAM 04/22/23 05/31/25 History release 24 hr thiamine HCl (vitamin B1) 100 mg 100 mg PO QAM #15 tabs 04/22/23 05/31/25 Rx tablet insulin lispro 100 unit/mL 0 unit subcut DIRECTED 12/27/24 05/31/25 History subcutaneous pen chlorpheniramine maleate 4 mg 4 mg PO BID 05/31/25 05/31/25 History tablet coenzyme Q10 100 mg capsule 100 mg PO DAILY 05/31/25 05/31/25 History (CoQ-10) insulin glargine 100 unit/mL (3 18 unit subcut HS 05/31/25 05/31/25 History mL) subcutaneous pen (Lantus Solostar U-100 Insulin) folic acid 1 mg tablet 1 mg PO QAM 30 days #30 tabs 06/01/25 Rx magnesium chloride 64 mg 64 mg PO BID #60 tabs 06/03/25 Rx (magnesium chloride) tablet,delayed release (Mag 64) Hospital Stay Data Consultations 05/31/25 00:51 ED Decision to Admit Stat Pending Results Patient Have Any Pending Studies at Discharge: No Discharge Instructions Given to Patient (Per Discharging Provider) You presented to the hospital after suffering a fall at home. You were found to have mild rhabdomyolysis, a condition where muscle tissue breaks down and releases contents into the bloodstream. We monitored your labs closely and they trended in the right direction prior to discharge. We recommend getting a Creatine Kinase level in about a week to ensure complete resolution of rhabdomyolysis. Your magnesium levels were persistently low, so you received IV repletion while in the hospital, and we changed your magnesium supplement to one that is better absorbed. We recommend getting a Magnesium level in about a week as well. A script was provided for both lab tests. You worked with Physical Therapy who initially recommended rehab and then re-evaluated and felt you were safe to return home with outpatient Physical Therapy. A script was provided for this. MEDICATION CHANGES: Slow-Mag with Calcium 64mg by mouth twice daily - take this instead of your Magnesium supplement Folic acid 1mg by mouth daily RECOMMENDATIONS FOR FOLLOW-UP: Please follow up with your PCP after hospitalization and discuss the results of your Creatine Kinase and Magnesium labs OTHER INSTRUCTIONS: Seek medical attention if you have: * temperature above 101 * chest pain or trouble breathing * abdominal pain, nausea, vomiting * diarrhea, dark stools or bloody stools * any unanswered questions or concerns Call 911 if symptoms are severe. It has been a pleasure taking care of you. Please take care of yourself. If you have any questions regarding your recent hospitalization please contact [facility] and request Rob Franklinist @ [phone]. Total Time Total Time Spent Total Time Spent (In Minutes): I spent a total of 35 minutes coordinating, documenting and providing care for this patient excluding time spent in the performance of separately billed services or time spent by another provider/QHP. Supervising Physician Co-Signing Physician Notes Patient was seen and examined. Patient reported that after moving bowels, she got up and turned around to flush and lost balance and fell. Patient denied lightheadedness/chest pain/shortness of breath/palpitations/nausea/dry heaving prior to fall. Patient denied hitting head or loss of consciousness after fall. Neg ortho vitals, PT eval. Patient noted to have rhabdomyolysis, s/p IV fluids, improving trend of CPK. Pt with no new issues, awaiting placement, zio patch on dc. --> pt wanted PT re-eval and possibly wanted to go home, she felt significantly better she said. PT recs is OP PT, pt is being discharged. Total time spent independently: 16 min I have seen and examined the patient and have discussed the case with the provider above. I agree with the assessment and plan as stated.
[2025-06-03 17:07] VITALS: PULSE 70
[2025-06-03] MEDS ORDERED: MAGNESIUM CHLORIDE W/CALCIUM 64MG DELAYED REL TAB PO SCH (21:00)
== END 2025-06-03 17:32 | disposition home or self-care (01) | DRG 558 ==
LOC: ED 23:19 → SUATTDRO 05-31 05:23 → EDINP 05-31 05:23 → 2N 05-31 09:00

== ENCOUNTER 2025-07-19 11:32 | Inpatient (IN) ==
[~2025-07-19 11:32] MED LIST changes: -AMLO10TA3 PO; -CALC-51 PO; -CHLORTRIMETON PO; -CINN1CAP2 PO; -COEN1CAP28 PO; +ETOMIDATE 2 MG/ML 20 ML VIAL IV ONE; -FLAX10007 PO; -LISI-787 PO; -MELATAB2 PO; -MISCCAP80 PO; +ROCURONIUM BROMIDE 10 MG/ML 5 ML VIAL IV ONE
[2025-07-19] MEDS: SODIUM CHLORIDE 0.9% 1,000 ML IV SCH (11:39)
[2025-07-19] MEDS: ACETAMINOPHEN 1,000 MG/100 ML VIAL IV STA (11:40)
[2025-07-19] MEDS: ONDANSETRON INJ 2 MG/ML 2 ML VIAL ONE (11:40)
[2025-07-19] MEDS ORDERED: STAT IV Infusion **Titration per Protocol STA ×4 (11:45→16:16)
[2025-07-19] MEDS ORDERED: VANCOMYCIN CONSULT ACTIVE PRN (11:47)
[2025-07-19] MEDS: fentaNYL citrate 2,500 MCG/250 ML BAG IV SCH (11:54)
--- NOTE | 2025-07-19 12:01 | Emergency Department Note ---
History of Present Illness General Chief complaint: Trauma Stated complaint: UNRESP. Time Seen by Provider: 07/19/25 11:36 Source: EMS History of Present Illness Provider complaint: Altered mental status unresponsive 59-year-old female presents emergency department for altered mental status and being unresponsive. Per EMS the patient was found completely unresponsive at her home. Per EMS the patient's home is in [place] and she lives with a demented who is unable to give any information on the patient. Patient was not responding to pain or verbal stimuli per EMS. Home Medications Medication Instructions Recorded Confirmed Type lactobacillus combination no.4 3 3,000 mmu cells PO QAM 10/11/18 07/19/25 History billion cell capsule (Probiotic) buspirone 10 mg tablet 10 mg PO TID 04/22/23 07/19/25 History calcium 600 mg (as 1 tab PO BID 04/22/23 07/19/25 History carbonate)-vitamin D3 5 mcg (200 unit) tablet (Calcium 600 + D(3)) gabapentin 300 mg capsule 900 mg PO HS 04/22/23 07/19/25 History metformin 500 mg tablet,extended 2,000 mg PO QAM 04/22/23 07/19/25 History release 24 hr thiamine HCl (vitamin B1) 100 mg 100 mg PO QAM #15 tabs 04/22/23 07/19/25 Rx tablet insulin lispro 100 unit/mL 5 - 7 unit subcut DIRECTED 12/27/24 07/19/25 History subcutaneous pen chlorpheniramine maleate 4 mg 0 mg PO BID 05/31/25 07/19/25 History tablet coenzyme Q10 100 mg capsule 100 mg PO DAILY 05/31/25 07/19/25 History (CoQ-10) insulin glargine 100 unit/mL (3 0 unit subcut HS 05/31/25 07/19/25 History mL) subcutaneous pen (Lantus Solostar U-100 Insulin) magnesium chloride 64 mg 64 mg PO BID #60 tabs 06/03/25 07/19/25 Rx (magnesium chloride) tablet,delayed release (Mag 64) Allergies Allergy/AdvReac Type Severity Reaction Status Date / Time benzoyl peroxide Allergy Mild SKIN RED Verified 05/31/25 00:23 AND IRRITATED Past Med/Surg History Problem List (Updated 07/19/25 @ 14:52 by Adriano Castle MD) CHI (closed head injury) (Acute) Sepsis (Acute) Altered mental status (Acute) Vertebral compression fracture Unresponsive state Sepsis Diabetic ulcer of right foot (Acute) Transaminitis (Acute) Weakness (Acute) Rhabdomyolysis UTI (urinary tract infection) Cellulitis of right foot due to methicillin-resistant Staphylococcus aureus Infection of right foot (Acute) Encephalopathy acute Acute confusion (Acute) Hyperglycemia (Acute) Hypomagnesemia (Acute) Hypoglycemia (Acute) Weakness Electrolyte imbalance Alcohol abuse GI bleed Altered mental state Metabolic acidosis Alcoholic pancreatitis DKA (diabetic ketoacidoses) Hyperglycemic crisis in diabetes mellitus Hypothermia (Acute) Acute kidney injury (Acute) Hyperglycemia (Acute) Myxedema coma (Acute) Hyponatremia (Acute) Fall (Acute) Diabetes (Chronic) Finger laceration (Acute) Hypertension (Chronic) Hypokalemia (Acute) Pancreatitis (Acute) Medical History (Updated 07/19/25 @ 14:52 by Adriano Castle MD) Rhabdomyolysis No significant past medical history Family History Other Family history non-contributory Social History Smoking Status: Unknown if ever smoked Second Hand Exposure: No; Do You Dip or Chew Tobacco: No; Hx Alcohol Use: Yes Alcohol type: hard liquor Hx Substance Use: No Preferred Language: Ukrainian Communication Ability: Effective Poultry Scientist Required: No Beliefs That Will Affect Care: None Current Living Situation: Spouse current occupational status: employed How many Children do You have: 2 Feels Safe at Home: Yes Assistive Devices: None Physical Exam Vital Signs Vital Signs - 24 hr 07/19/25 11:32 07/19/25 11:37 07/19/25 11:40 Temperature Temperature Source Pulse Rate 133 H 132 H Pulse Rate [Apical] Pulse Rate from SpO2 Sensor Pulse Rhythm Pulse Rhythm [Apical] Respiratory Rate 8 L 20 Respiratory Effort / Characteristics Gasping/Agonal Respiratory Pattern Agonal Blood Pressure 104/76 175/133 H Blood Pressure Mean 85 153 Pulse Oximetry 98 98 Oxygen Delivery Method Nasal Cannula Oxygen Flow Rate Fraction of Inspired Oxygen 45 Sepsis Recent Fever Within 48 Hours Yes Sepsis New/Unexplained Change in Mental Status Yes Sepsis Action Taken by Nursing Physician Notified End-Tidal CO2 39 Pulse Oximetry Post Tiitration 07/19/25 11:40 07/19/25 11:41 07/19/25 11:45 Temperature Temperature Source Pulse Rate Pulse Rate [Apical] 132 H Pulse Rate from SpO2 Sensor Pulse Rhythm Pulse Rhythm [Apical] Respiratory Rate 20 Respiratory Effort / Characteristics Mechanically Ventilated Respiratory Pattern Blood Pressure 104/76 122/88 Blood Pressure Mean 81 100 Pulse Oximetry 98 Oxygen Delivery Method Mechanical Vent Oxygen Flow Rate Fraction of Inspired Oxygen 45 Sepsis Recent Fever Within 48 Hours Sepsis New/Unexplained Change in Mental Status Sepsis Action Taken by Nursing End-Tidal CO2 Pulse Oximetry Post Tiitration 07/19/25 11:51 07/19/25 11:51 07/19/25 11:51 Temperature 38 C H 38 C H Temperature Source Rectal Pulse Rate 135 H 130 H Pulse Rate [Apical] 132 H Pulse Rate from SpO2 Sensor Pulse Rhythm Regular Pulse Rhythm [Apical] Regular Respiratory Rate 16 16 16 Respiratory Effort / Characteristics Mechanically Ventilated Respiratory Pattern Blood Pressure 190/110 H Blood Pressure Mean Pulse Oximetry 100 Oxygen Delivery Method Mechanical Vent Mechanical Vent Oxygen Flow Rate 15 Fraction of Inspired Oxygen 45 Sepsis Recent Fever Within 48 Hours Sepsis New/Unexplained Change in Mental Status Sepsis Action Taken by Nursing End-Tidal CO2 Pulse Oximetry Post Tiitration 07/19/25 11:51 07/19/25 12:00 07/19/25 12:25 Temperature Temperature Source Pulse Rate 131 H Pulse Rate [Apical] Pulse Rate from SpO2 Sensor Pulse Rhythm Pulse Rhythm [Apical] Respiratory Rate Respiratory Effort / Characteristics Respiratory Pattern Blood Pressure 208/128 H Blood Pressure Mean 174 Pulse Oximetry 93 Oxygen Delivery Method Mechanical Vent Oxygen Flow Rate Fraction of Inspired Oxygen Sepsis Recent Fever Within 48 Hours Sepsis New/Unexplained Change in Mental Status Sepsis Action Taken by Nursing End-Tidal CO2 Pulse Oximetry Post Tiitration 45 L 07/19/25 12:25 07/19/25 12:30 07/19/25 12:30 Temperature Temperature Source Pulse Rate 128 H Pulse Rate [Apical] Pulse Rate from SpO2 Sensor 128 H Pulse Rhythm Pulse Rhythm [Apical] Respiratory Rate 18 Respiratory Effort / Characteristics Respiratory Pattern Blood Pressure 154/95 H 139/88 Blood Pressure Mean 132 111 Pulse Oximetry 99 Oxygen Delivery Method Oxygen Flow Rate Fraction of Inspired Oxygen Sepsis Recent Fever Within 48 Hours Sepsis New/Unexplained Change in Mental Status Sepsis Action Taken by Nursing End-Tidal CO2 37 Pulse Oximetry Post Tiitration 07/19/25 12:45 07/19/25 13:00 07/19/25 13:11 Temperature Temperature Source Pulse Rate 121 H Pulse Rate [Apical] Pulse Rate from SpO2 Sensor Pulse Rhythm Pulse Rhythm [Apical] Respiratory Rate 24 Respiratory Effort / Characteristics Respiratory Pattern Blood Pressure 167/100 H 148/92 H Blood Pressure Mean 118 112 Pulse Oximetry 100 Oxygen Delivery Method Oxygen Flow Rate Fraction of Inspired Oxygen Sepsis Recent Fever Within 48 Hours Sepsis New/Unexplained Change in Mental Status Sepsis Action Taken by Nursing End-Tidal CO2 32 Pulse Oximetry Post Tiitration 07/19/25 13:15 07/19/25 13:17 07/19/25 13:30 Temperature Temperature Source Pulse Rate 119 H Pulse Rate [Apical] Pulse Rate from SpO2 Sensor Pulse Rhythm Pulse Rhythm [Apical] Respiratory Rate 19 Respiratory Effort / Characteristics Respiratory Pattern Blood Pressure 134/82 139/89 Blood Pressure Mean 96 107 Pulse Oximetry 100 Oxygen Delivery Method Oxygen Flow Rate Fraction of Inspired Oxygen Sepsis Recent Fever Within 48 Hours Sepsis New/Unexplained Change in Mental Status Sepsis Action Taken by Nursing End-Tidal CO2 33 Pulse Oximetry Post Tiitration 07/19/25 13:30 07/19/25 13:30 07/19/25 13:45 Temperature Temperature Source Pulse Rate Pulse Rate [Apical] Pulse Rate from SpO2 Sensor Pulse Rhythm Pulse Rhythm [Apical] Respiratory Rate Respiratory Effort / Characteristics Respiratory Pattern Blood Pressure 139/89 139/89 130/87 Blood Pressure Mean 107 107 98 Pulse Oximetry Oxygen Delivery Method Oxygen Flow Rate Fraction of Inspired Oxygen Sepsis Recent Fever Within 48 Hours Sepsis New/Unexplained Change in Mental Status Sepsis Action Taken by Nursing End-Tidal CO2 Pulse Oximetry Post Tiitration 07/19/25 13:50 07/19/25 14:14 07/19/25 14:15 Temperature Temperature Source Pulse Rate 115 H 102 H Pulse Rate [Apical] Pulse Rate from SpO2 Sensor 115 H 102 H Pulse Rhythm Pulse Rhythm [Apical] Respiratory Rate 15 11 L Respiratory Effort / Characteristics Respiratory Pattern Blood Pressure 130/77 Blood Pressure Mean 95 Pulse Oximetry 100 100 Oxygen Delivery Method Oxygen Flow Rate Fraction of Inspired Oxygen Sepsis Recent Fever Within 48 Hours Sepsis New/Unexplained Change in Mental Status Sepsis Action Taken by Nursing End-Tidal CO2 31 31 Pulse Oximetry Post Tiitration 07/19/25 14:45 Temperature Temperature Source Pulse Rate Pulse Rate [Apical] Pulse Rate from SpO2 Sensor Pulse Rhythm Pulse Rhythm [Apical] Respiratory Rate Respiratory Effort / Characteristics Respiratory Pattern Blood Pressure 149/89 H Blood Pressure Mean 130 Pulse Oximetry Oxygen Delivery Method Oxygen Flow Rate Fraction of Inspired Oxygen Sepsis Recent Fever Within 48 Hours Sepsis New/Unexplained Change in Mental Status Sepsis Action Taken by Nursing End-Tidal CO2 Pulse Oximetry Post Tiitration Primary Survey Airway: Intact Breathing: Decreased respiratory rate. Rhonchi bilaterally. Circulation: Skin warm, Disability Pupils: Dilated bilaterally and slow to respond. GCS: 6, E = 4 V=1 M= 1 Secondary Survey GEN: Ill-appearing. HEAD: Ecchymosis over the left forehead. HEART: Tachycardic rate and rhythm LUNGS: Rhonchi bilaterally. ABD: soft, non-tender, no rebound or guarding, MUSC: Pelvis stable. SKIN: Ecchymosis over the patient's left femur left anterior abdominal wall and left chest wall. Procedures Intubation sedative: Etomidate Mg Given: 21 paralytic: Rocuronium Mg Given: 70 Laryngoscope: other (glide scope) ET Tube Size: 7 ET Tube Uncuffed: Yes Tube Secured Depth (cm): 25 Tube Secured Location: lips Tube Placement Confirmation: visualized tube passing through cords, equal breath sounds bilaterally, no breath sounds over epigastrium and confirmation by capnometry Patient Tolerated Procedure: well Additional Comments: Upon visualization of the vocal cords there was pus spewing out of the vocal cords using glide scope Course Course 1136: The patient was evaluated in room B1. A complete history and physical exam was performed Cardiac monitoring: An order was placed for continuous cardiac monitoring. The monitor shows a rate of 140 with sinus tachycardia rhythm interpreted by me Trauma and sepsis protocols were initiated. 2 L IV fluids started on the patient. 1 g Tylenol started on the patient. Patient was intubated given her low GCS score. See procedure note. There was pus coming out of her vocal cords when visualized using glide scope. Strong concern for aspiration. Sepsis protocols initiated and patient will be treated with Zosyn and vancomycin. 1213: CT of the head viewed by me shows no ICH. 1330: Vital signs stable on ventilator. Labs are significant for a lactic acid of 2.9. Magnesium 1.3. IV fluids and magnesium repletion started in the emergency department. Imaging shows no ICH. Imaging shows a L5 compression fracture and Dr. Ascencio ICU was made aware of the patient. He asks that urine drug screen be sent on the patient. 1342: Spoke with Dr. Orozco and he states no need for emergent surgical intervention. He agrees patient should be admitted to the medicine team to the ICU for her other medical conditions. [facility] hospitalist team Dr. Becerra is aware and will admit the patient. Administered Medications Fentanyl Citrate (Fentanyl Citrate) 2,500 mcg in 250 mls @ 5 mls/hr IV .Q50H [facility]; Protocol Stop: 08/02/25 11:44 Last Admin: 07/19/25 11:54 Dose: 50 mcg/hr, 5 mls/hr Documented By: ECS Co-signed By: JIMMY Propofol (Diprivan) 1,000 mg in 100 mls @ 4.194 mls/hr IV .[id number] [facility]; Protocol Stop: 07/22/25 12:59 Last Admin: 07/19/25 12:56 Dose: 10 mcg/kg/min, 4.2 mls/hr Documented By: ECS Co-signed By: ML Magnesium Sulfate/Dextrose (Magnesium Sulfate / D5w) 1 gm in 100 mls @ 100 mls/hr IV Q1H [facility] Stop: 07/19/25 14:53 Last Admin: 07/19/25 14:46 Dose: 100 mls/hr Documented By: Infusion: 07/19/25 14:34 Dose: Infused Documented By: Admin: 07/19/25 13:34 Dose: 100 mls/hr Documented By: ML Potassium Chloride (K Oliver / Wtr) 10 meq in 100 mls @ 100 mls/hr IV Q1H [facility] Stop: 07/19/25 15:59 Last Admin: 07/19/25 13:59 Dose: 100 mls/hr Documented By: ML Folic Acid 1 mg/ Syringe 10 mls @ 5 mls/min IV QAM [facility] Stop: 08/18/25 14:29 Last Admin: 07/19/25 14:36 Dose: 5 mls/min Documented By: ML Lactated Ringer's (Lr) 1,000 mls @ 125 mls/hr IV .Q8H [facility] Stop: 07/22/25 14:14 Last Admin: 07/19/25 14:34 Dose: 125 mls/hr Documented By: ML Propofol (Propofol Bolus From Bag) 20 mg IV Q5M PRN PRN Reason: Sedation Stop: 07/22/25 12:48 Last Admin: 07/19/25 14:21 Dose: 20 mg Documented By: ML Co-signed By: BK Admin: 07/19/25 13:28 Dose: 20 mg Documented By: ECS Co-signed By: SAVANNAH Admin: 07/19/25 13:11 Dose: 20 mg Documented By: ECS Co-signed By: SAVANNAH Discontinued Medications Acetaminophen (Acetaminophen 1000 Mg/100 Ml Iv) Confirm Administered Dose 1,000 mg IV .STK-MED ONE Stop: 07/19/25 11:31 Last Admin: 07/19/25 13:10 Dose: Not Given Documented By: ECS Acetaminophen (Ofirmev) 1,000 mg in 100 mls @ 400 mls/hr IV NOW STA Stop: 07/19/25 11:57 Last Infusion: 07/19/25 12:15 Dose: Infused Documented By: Admin: 07/19/25 11:40 Dose: 400 mls/hr Documented By: ECS Sodium Chloride (Nss) 1,000 mls @ 999 mls/hr IV .Q1H1M [facility] Stop: 07/19/25 13:45 Last Admin: 07/19/25 12:59 Dose: 999 mls/hr Documented By: Infusion: 07/19/25 12:59 Dose: Infused Documented By: Admin: 07/19/25 11:39 Dose: 999 mls/hr Documented By: ECS Piperacillin Sod/Tazobactam Sod (Zosyn) 4.5 gm in 120 mls @ 240 mls/hr IV NOW ONE Stop: 07/19/25 12:16 Last Infusion: 07/19/25 13:29 Dose: Infused Documented By: Admin: 07/19/25 12:30 Dose: 240 mls/hr Documented By: ECS Vancomycin HCl 1,500 mg/ (Sodium Chloride) 530 mls @ 200 mls/hr IV NOW ONE Stop: 07/19/25 14:25 Last Admin: 07/19/25 13:08 Dose: 200 mls/hr Documented By: ECS Sodium Chloride (Nss) 500 mls @ 999 mls/hr IV .Q31M ONE Stop: 07/19/25 12:39 Last Admin: 07/19/25 12:30 Dose: 999 mls/hr Documented By: ECS Acetylcysteine 10,490 mg/ (Dextrose) 252.45 mls @ 200 mls/hr IV ONCE ONE; Protocol Stop: 07/19/25 14:44 Last Admin: 07/19/25 14:08 Dose: 200 mls/hr Documented By: ML Pantoprazole Sodium (Protonix) 40 mg in 10 mls @ 5 mls/min IV DAILY [facility] Stop: 08/18/25 13:59 Last Admin: 07/19/25 14:19 Dose: Not Given Documented By: ML Pantoprazole Sodium 80 mg/ (Dextrose) 120 mls @ 480 mls/hr IV NOW ONE Stop: 07/19/25 14:29 Last Admin: 07/19/25 14:39 Dose: 480 mls/hr Documented By: ML Ioversol (Optiray 320 100ml) 94 ml IV ONCE ONE Stop: 07/19/25 12:36 Last Admin: 07/19/25 12:35 Dose: 94 ml Documented By: MARCIE Ondansetron HCl (Ondansetron Inj 2 Mg/Ml 2 Ml Vial) Confirm Administered Dose 4 mg .ROUTE .STK-MED ONE Stop: 07/19/25 11:40 Last Admin: 07/19/25 11:40 Dose: 4 mg Documented By: ECS Piperacillin Sod/Tazobactam Sod (Piperacillin/Tazo 4.5 Gm/D5w 100ml) Confirm Administered Dose 4.5 gm IV .STK-MED ONE Stop: 07/19/25 11:50 Last Admin: 07/19/25 13:30 Dose: Not Given Documented By: ECS Propofol (Propofol Iv Emulsion 10 Mg/Ml 100 Ml Vial) Confirm Administered Dose 1,000 mg IV .STK-MED ONE Stop: 07/19/25 11:41 Last Admin: 07/19/25 13:10 Dose: Not Given Documented By: ECS Critical Care Time Critical Care Time: Yes Total Critical Care Time: 60 I have personally spent greater than 60 minutes of critical care time in the direct management of this patient. This includes bedside care, interpretation of diagnostic studies, and testing, discussion with consultants, patient, and family members, and other required patient management activities. This 60 minutes is in excess of all separately billable procedures. Medical Decision Making Laboratory Data Attestation: I reviewed the patient's lab results. 07/19/25 11:55 07/19/25 11:55 Lab Results 07/19/25 07/19/25 07/19/25 Range/Units 11:55 11:57 11:57 WBC 9.68 (4.8-10.8) K/ul RBC 3.63 L (4.20-5.40) M/uL Hgb 13.5 (12.0-16.0) g/dl POC Hgb 13.9 13.6 (12.0-16.0) g/dl Hct 39.7 (37.0-47.0) % POC Hct 41 (37-47) % MCV 109.4 H (80.0-100.0) fL MCH 37.2 H (25.0-34.0) pg MCHC 34.0 (32.0-36.0) g/dL RDW Std Deviation 58.0 H (36.4-46.3) fL RDW Coeff of Eli 14.3 (11.5-14.5) % Plt Count 199 (130-400) K/uL MPV 9.5 (9.4-12.4) fL Immature Gran % (Auto) 0.5 % Neut % (Auto) 86.4 % Lymph % (Auto) 5.8 % [place] % (Auto) 7.0 % Eos % (Auto) 0.0 % Baso % (Auto) 0.3 % Neut # (Auto) 8.36 H (1.40-6.50) K/uL Lymph # (Auto) 0.56 L (1.20-3.40) K/uL [place] # (Auto) 0.68 H (0.11-0.59) K/uL Eos # (Auto) 0.00 (0.00-0.50) K/uL Baso # (Auto) 0.03 (0.00-0.20) K/uL Immature Gran # (Auto) 0.05 (0.01-0.20) K/uL PT 11.4 (9.0-12.0) Seconds INR 1.1 (0.9-1.1) APTT 25 (21-31) Seconds PTT Ratio 0.9 Specimen Type Sample Site POC pH (7.35-7.45) POC pCO2 (35-46) mmHg POC pO2 (80-95) mmHg POC HCO3 (19-24) marcio/L POC Total CO2 (24-31) mmol/L POC Base Excess (-9-1.8) marcio/L O2 Sat Pulse Oximetry ABG pH (Temp Correct) (7.35-7.45) ABG pCO2 (Temp Corrct (35-46) mmHg POC ABG pO2 at Pt Temp POC ABG O2 Sat (90-95) % Jj Test VBG pH (7.36-7.41) VBG pCO2 (38-50) mmHg VBG pO2 mmHg VBG HCO3 mmol/L VBG O2 Saturation % VBG Base Excess mEq/L End Tidal CO2 POC Sodium (135-144) mmol/L Sodium 144 (136-145) mmol/L POC Potassium (3.3-5.0) mmol/L Potassium 3.1 L (3.5-5.1) mmol/L POC Chloride (101-112) mmol/L Chloride 102 (98-107) mmol/L Carbon Dioxide 14 L (21-32) mmol/L Anion Gap 28 H (3-11) POC Anion Gap (16-25) mmol/L POC BUN (7-18) mg/dl BUN 14 (6-23) mg/dl Creatinine 0.55 L (0.6-1.2) mg/dl POC Creatinine (0.6-1.3) mg/dl Est Cr Clr Drug Dosing Not Reportable eGFR 104.22 BUN/Creatinine Ratio 25.5 H (10-20) Glucose 184 H (70-99(Fasting)) mg/dl POC Glucose (other) (70-99) mg/dl Lactate 2.9 H* (0.4-2.0) mmol/L Calcium 8.1 L (8.6-10.3) mg/dl POC Ioniz Calcium Louise (1.12-1.32) mmol/l Magnesium 1.3 L (1.7-2.4) mg/dl Total Bilirubin 1.0 (0.2-1.0) mg/dl Direct Bilirubin 0.2 (0-0.2) mg/dl AST 202 H (13-39) U/L ALT 74 H (7-52) U/L Alkaline Phosphatase 200 H (34-104) U/L Ammonia 51.0 (18-72) umol/L Total Creatine Kinase 37 (26-192) U/L Troponin I High Sens 16.2 H (0-14) pg/ml Total Protein 6.3 (6.0-8.3) gm/dl Albumin 3.6 (3.4-5.0) gm/dl Lipase 5 L (11-82) U/L Procalcitonin 0.11 (0-0.5) ng/ml Urine Color Urine Appearance (Clear) Urine pH (4.5-7.5) Ur Specific Morris (1.000-1.030) Urine Protein (Negative) Urine Glucose (UA) (Negative) Urine Ketones (Negative) Urine Blood (Negative) Urine Nitrite (Negative) Urine Bilirubin (Negative) Urine Urobilinogen (Negative) Ur Leukocyte Esterase (Negative) Urine WBC (Auto) (0-5) /hpf Urine RBC (Auto) (0-2) /hpf U Hyaline Cast (Auto) (0-2) /lpf U Epithel Cells (Auto) (0-2) /hpf Urine Bacteria (Auto) (None Seen) Urine Comment Nasal Screen MRSA (PCR) (Negative) Salicylates < 3.0 L (3.0-30) mg/dl Urine Opiates Screen (Neg) Ur Methadone, Qual (Neg) Urine Fentanyl Screen (Neg) Acetaminophen 25 (10-30) ug/ml Urine Barbiturates (Neg) Ur Phencyclidine (PCP) (Neg) U Amphetamin/Meth Scrn (Neg) MDMA (Ecstasy) Screen (Neg) U Benzodiazepines Scrn (Neg) Ur Cocaine Metabolite (Neg) U Marijuana (THC) Screen (Neg) Ethyl Alcohol mg/dL (<10.0) mg/dl Adenovirus (PCR) (NotDetected) B. pertussis DNA (PCR) (NotDetected) B.parapertussis DNA PCR (NotDetected) C. pneumoniae DNA (PCR) (NotDetected) Coronavirus OC43 (PCR) (NotDetected) Coronavirus HKU1 (PCR) (NotDetected) Coronavirus 229E (PCR) (NotDetected) SARS-CoV-2 (PCR) (NotDetected) Coronavirus NL63 (PCR) (NotDetected) Human Metapneumovir PCR (NotDetected) Influenza Type A (PCR) (NotDetected) Influenza Type B (PCR) (NotDetected) M. pneumoniae (PCR) (NotDetected) Parainfluenza 1 (PCR) (NotDetected) Parainfluenza 2 (PCR) (NotDetected) Parainfluenza 3 (PCR) (NotDetected) Parainfluenza 4 (PCR) (NotDetected) RSV (PCR) (NotDetected) Entero/Rhino (PCR) (NotDetected) Blood Type Antibody Screen 07/19/25 07/19/25 07/19/25 Range/Units 11:57 11:57 11:57 WBC (4.8-10.8) K/ul RBC (4.20-5.40) M/uL Hgb (12.0-16.0) g/dl POC Hgb (12.0-16.0) g/dl Hct (37.0-47.0) % POC Hct 40 (37-47) % MCV (80.0-100.0) fL MCH (25.0-34.0) pg MCHC (32.0-36.0) g/dL RDW Std Deviation (36.4-46.3) fL RDW Coeff of Eil (11.5-14.5) % Plt Count (130-400) K/uL MPV (9.4-12.4) fL Immature Gran % (Auto) % Neut % (Auto) % Lymph % (Auto) % [place] % (Auto) % Eos % (Auto) % Baso % (Auto) % Neut # (Auto) (1.40-6.50) K/uL Lymph # (Auto) (1.20-3.40) K/uL [place] # (Auto) (0.11-0.59) K/uL Eos # (Auto) (0.00-0.50) K/uL Baso # (Auto) (0.00-0.20) K/uL Immature Gran # (Auto) (0.01-0.20) K/uL PT (9.0-12.0) Seconds INR (0.9-1.1) APTT (21-31) Seconds PTT Ratio Specimen Type DULCE Sample Site Art Line POC pH 7.27 L (7.35-7.45) POC pCO2 31 L (35-46) mmHg POC pO2 133 H (80-95) mmHg POC HCO3 14 L (19-24) marcio/L POC Total CO2 15 L 15 L (24-31) mmol/L POC Base Excess -13.0 L (-9-1.8) marcio/L O2 Sat Pulse Oximetry 85 ABG pH (Temp Correct) 7.255 L (7.35-7.45) ABG pCO2 (Temp Corrct 32 L (35-46) mmHg POC ABG pO2 at Pt Temp 139 POC ABG O2 Sat 99.0 H (90-95) % Jj Test NA VBG pH (7.36-7.41) VBG pCO2 (38-50) mmHg VBG pO2 mmHg VBG HCO3 mmol/L VBG O2 Saturation % VBG Base Excess mEq/L End Tidal CO2 21 POC Sodium 143 142 (135-144) mmol/L Sodium (136-145) mmol/L POC Potassium 3.0 L 3.0 L (3.3-5.0) mmol/L Potassium (3.5-5.1) mmol/L POC Chloride 105 (101-112) mmol/L Chloride (98-107) mmol/L Carbon Dioxide (21-32) mmol/L Anion Gap (3-11) POC Anion Gap 26.0 H (16-25) mmol/L POC BUN 13 (7-18) mg/dl BUN (6-23) mg/dl Creatinine (0.6-1.2) mg/dl POC Creatinine 0.6 (0.6-1.3) mg/dl Est Cr Clr Drug Dosing eGFR BUN/Creatinine Ratio (10-20) Glucose (70-99(Fasting)) mg/dl POC Glucose (other) 182 H (70-99) mg/dl Lactate (0.4-2.0) mmol/L Calcium (8.6-10.3) mg/dl POC Ioniz Calcium Louise 1.08 L (1.12-1.32) mmol/l Magnesium (1.7-2.4) mg/dl Total Bilirubin (0.2-1.0) mg/dl Direct Bilirubin (0-0.2) mg/dl AST (13-39) U/L ALT (7-52) U/L Alkaline Phosphatase (34-104) U/L Ammonia (18-72) umol/L Total Creatine Kinase (26-192) U/L Troponin I High Sens (0-14) pg/ml Total Protein (6.0-8.3) gm/dl Albumin (3.4-5.0) gm/dl Lipase (11-82) U/L Procalcitonin (0-0.5) ng/ml Urine Color Urine Appearance (Clear) Urine pH (4.5-7.5) Ur Specific Morris (1.000-1.030) Urine Protein (Negative) Urine Glucose (UA) (Negative) Urine Ketones (Negative) Urine Blood (Negative) Urine Nitrite (Negative) Urine Bilirubin (Negative) Urine Urobilinogen (Negative) Ur Leukocyte Esterase (Negative) Urine WBC (Auto) (0-5) /hpf Urine RBC (Auto) (0-2) /hpf U Hyaline Cast (Auto) (0-2) /lpf U Epithel Cells (Auto) (0-2) /hpf Urine Bacteria (Auto) (None Seen) Urine Comment Nasal Screen MRSA (PCR) (Negative) Salicylates (3.0-30) mg/dl Urine Opiates Screen (Neg) Ur Methadone, Qual (Neg) Urine Fentanyl Screen (Neg) Acetaminophen (10-30) ug/ml Urine Barbiturates (Neg) Ur Phencyclidine (PCP) (Neg) U Amphetamin/Meth Scrn (Neg) MDMA (Ecstasy) Screen (Neg) U Benzodiazepines Scrn (Neg) Ur Cocaine Metabolite (Neg) U Marijuana (THC) Screen (Neg) Ethyl Alcohol mg/dL (<10.0) mg/dl Adenovirus (PCR) (NotDetected) B. pertussis DNA (PCR) (NotDetected) B.parapertussis DNA PCR (NotDetected) C. pneumoniae DNA (PCR) (NotDetected) Coronavirus OC43 (PCR) (NotDetected) Coronavirus HKU1 (PCR) (NotDetected) Coronavirus 229E (PCR) (NotDetected) SARS-CoV-2 (PCR) (NotDetected) Coronavirus NL63 (PCR) (NotDetected) Human Metapneumovir PCR (NotDetected) Influenza Type A (PCR) (NotDetected) Influenza Type B (PCR) (NotDetected) M. pneumoniae (PCR) (NotDetected) Parainfluenza 1 (PCR) (NotDetected) Parainfluenza 2 (PCR) (NotDetected) Parainfluenza 3 (PCR) (NotDetected) Parainfluenza 4 (PCR) (NotDetected) RSV (PCR) (NotDetected) Entero/Rhino (PCR) (NotDetected) Blood Type Antibody Screen 07/19/25 07/19/25 07/19/25 Range/Units 12:00 12:03 12:05 WBC (4.8-10.8) K/ul RBC (4.20-5.40) M/uL Hgb (12.0-16.0) g/dl POC Hgb (12.0-16.0) g/dl Hct (37.0-47.0) % POC Hct (37-47) % MCV (80.0-100.0) fL MCH (25.0-34.0) pg MCHC (32.0-36.0) g/dL RDW Std Deviation (36.4-46.3) fL RDW Coeff of Eli (11.5-14.5) % Plt Count (130-400) K/uL MPV (9.4-12.4) fL Immature Gran % (Auto) % Neut % (Auto) % Lymph % (Auto) % [place] % (Auto) % Eos % (Auto) % Baso % (Auto) % Neut # (Auto) (1.40-6.50) K/uL Lymph # (Auto) (1.20-3.40) K/uL [place] # (Auto) (0.11-0.59) K/uL Eos # (Auto) (0.00-0.50) K/uL Baso # (Auto) (0.00-0.20) K/uL Immature Gran # (Auto) (0.01-0.20) K/uL PT (9.0-12.0) Seconds INR (0.9-1.1) APTT (21-31) Seconds PTT Ratio Specimen Type Sample Site POC pH (7.35-7.45) POC pCO2 (35-46) mmHg POC pO2 (80-95) mmHg POC HCO3 (19-24) marcio/L POC Total CO2 (24-31) mmol/L POC Base Excess (-9-1.8) marcio/L O2 Sat Pulse Oximetry ABG pH (Temp Correct) (7.35-7.45) ABG pCO2 (Temp Corrct (35-46) mmHg POC ABG pO2 at Pt Temp POC ABG O2 Sat (90-95) % Jj Test VBG pH 7.27 L (7.36-7.41) VBG pCO2 31 L (38-50) mmHg VBG pO2 139 mmHg VBG HCO3 14 mmol/L VBG O2 Saturation 99.8 % VBG Base Excess -11.4 mEq/L End Tidal CO2 POC Sodium (135-144) mmol/L Sodium (136-145) mmol/L POC Potassium (3.3-5.0) mmol/L Potassium (3.5-5.1) mmol/L POC Chloride (101-112) mmol/L Chloride (98-107) mmol/L Carbon Dioxide (21-32) mmol/L Anion Gap (3-11) POC Anion Gap (16-25) mmol/L POC BUN (7-18) mg/dl BUN (6-23) mg/dl Creatinine (0.6-1.2) mg/dl POC Creatinine (0.6-1.3) mg/dl Est Cr Clr Drug Dosing eGFR BUN/Creatinine Ratio (10-20) Glucose (70-99(Fasting)) mg/dl POC Glucose (other) (70-99) mg/dl Lactate (0.4-2.0) mmol/L Calcium (8.6-10.3) mg/dl POC Ioniz Calcium Louise (1.12-1.32) mmol/l Magnesium (1.7-2.4) mg/dl Total Bilirubin (0.2-1.0) mg/dl Direct Bilirubin (0-0.2) mg/dl AST (13-39) U/L ALT (7-52) U/L Alkaline Phosphatase (34-104) U/L Ammonia (18-72) umol/L Total Creatine Kinase (26-192) U/L Troponin I High Sens (0-14) pg/ml Total Protein (6.0-8.3) gm/dl Albumin (3.4-5.0) gm/dl Lipase (11-82) U/L Procalcitonin (0-0.5) ng/ml Urine Color Urine Appearance (Clear) Urine pH (4.5-7.5) Ur Specific Morris (1.000-1.030) Urine Protein (Negative) Urine Glucose (UA) (Negative) Urine Ketones (Negative) Urine Blood (Negative) Urine Nitrite (Negative) Urine Bilirubin (Negative) Urine Urobilinogen (Negative) Ur Leukocyte Esterase (Negative) Urine WBC (Auto) (0-5) /hpf Urine RBC (Auto) (0-2) /hpf U Hyaline Cast (Auto) (0-2) /lpf U Epithel Cells (Auto) (0-2) /hpf Urine Bacteria (Auto) (None Seen) Urine Comment Nasal Screen MRSA (PCR) Negative (Negative) Salicylates (3.0-30) mg/dl Urine Opiates Screen (Neg) Ur Methadone, Qual (Neg) Urine Fentanyl Screen (Neg) Acetaminophen (10-30) ug/ml Urine Barbiturates (Neg) Ur Phencyclidine (PCP) (Neg) U Amphetamin/Meth Scrn (Neg) MDMA (Ecstasy) Screen (Neg) U Benzodiazepines Scrn (Neg) Ur Cocaine Metabolite (Neg) U Marijuana (THC) Screen (Neg) Ethyl Alcohol mg/dL < 10.0 (<10.0) mg/dl Adenovirus (PCR) Not Detected (NotDetected) B. pertussis DNA (PCR) Not Detected (NotDetected) B.parapertussis DNA PCR Not Detected (NotDetected) C. pneumoniae DNA (PCR) Not Detected (NotDetected) Coronavirus OC43 (PCR) Not Detected (NotDetected) Coronavirus HKU1 (PCR) Not Detected (NotDetected) Coronavirus 229E (PCR) Not Detected (NotDetected) SARS-CoV-2 (PCR) Not Detected (NotDetected) Coronavirus NL63 (PCR) Not Detected (NotDetected) Human Metapneumovir PCR Not Detected (NotDetected) Influenza Type A (PCR) Not Detected (NotDetected) Influenza Type B (PCR) Not Detected (NotDetected) M. pneumoniae (PCR) Not Detected (NotDetected) Parainfluenza 1 (PCR) Not Detected (NotDetected) Parainfluenza 2 (PCR) Not Detected (NotDetected) Parainfluenza 3 (PCR) Not Detected (NotDetected) Parainfluenza 4 (PCR) Not Detected (NotDetected) RSV (PCR) Not Detected (NotDetected) Entero/Rhino (PCR) Not Detected (NotDetected) Blood Type A Positive Antibody Screen NEGATIVE 07/19/25 07/19/25 Range/Units 13:54 Unknown WBC (4.8-10.8) K/ul RBC (4.20-5.40) M/uL Hgb (12.0-16.0) g/dl POC Hgb (12.0-16.0) g/dl Hct (37.0-47.0) % POC Hct (37-47) % MCV (80.0-100.0) fL MCH (25.0-34.0) pg MCHC (32.0-36.0) g/dL RDW Std Deviation (36.4-46.3) fL RDW Coeff of Eli (11.5-14.5) % Plt Count (130-400) K/uL MPV (9.4-12.4) fL Immature Gran % (Auto) % Neut % (Auto) % Lymph % (Auto) % [place] % (Auto) % Eos % (Auto) % Baso % (Auto) % Neut # (Auto) (1.40-6.50) K/uL Lymph # (Auto) (1.20-3.40) K/uL [place] # (Auto) (0.11-0.59) K/uL Eos # (Auto) (0.00-0.50) K/uL Baso # (Auto) (0.00-0.20) K/uL Immature Gran # (Auto) (0.01-0.20) K/uL PT (9.0-12.0) Seconds INR (0.9-1.1) APTT (21-31) Seconds PTT Ratio Specimen Type Sample Site POC pH (7.35-7.45) POC pCO2 (35-46) mmHg POC pO2 (80-95) mmHg POC HCO3 (19-24) marcio/L POC Total CO2 (24-31) mmol/L POC Base Excess (-9-1.8) marcio/L O2 Sat Pulse Oximetry ABG pH (Temp Correct) (7.35-7.45) ABG pCO2 (Temp Corrct (35-46) mmHg POC ABG pO2 at Pt Temp POC ABG O2 Sat (90-95) % Jj Test VBG pH (7.36-7.41) VBG pCO2 (38-50) mmHg VBG pO2 mmHg VBG HCO3 mmol/L VBG O2 Saturation % VBG Base Excess mEq/L End Tidal CO2 POC Sodium (135-144) mmol/L Sodium (136-145) mmol/L POC Potassium (3.3-5.0) mmol/L Potassium (3.5-5.1) mmol/L POC Chloride (101-112) mmol/L Chloride (98-107) mmol/L Carbon Dioxide (21-32) mmol/L Anion Gap (3-11) POC Anion Gap (16-25) mmol/L POC BUN (7-18) mg/dl BUN (6-23) mg/dl Creatinine (0.6-1.2) mg/dl POC Creatinine (0.6-1.3) mg/dl Est Cr Clr Drug Dosing eGFR BUN/Creatinine Ratio (10-20) Glucose (70-99(Fasting)) mg/dl POC Glucose (other) (70-99) mg/dl Lactate 1.5 (0.4-2.0) mmol/L Calcium (8.6-10.3) mg/dl POC Ioniz Calcium Louise (1.12-1.32) mmol/l Magnesium (1.7-2.4) mg/dl Total Bilirubin (0.2-1.0) mg/dl Direct Bilirubin (0-0.2) mg/dl AST (13-39) U/L ALT (7-52) U/L Alkaline Phosphatase (34-104) U/L Ammonia (18-72) umol/L Total Creatine Kinase (26-192) U/L Troponin I High Sens (0-14) pg/ml Total Protein (6.0-8.3) gm/dl Albumin (3.4-5.0) gm/dl Lipase (11-82) U/L Procalcitonin (0-0.5) ng/ml Urine Color Yellow Urine Appearance Clear (Clear) Urine pH 5.5 (4.5-7.5) Ur Specific Morris 1.030 (1.000-1.030) Urine Protein 3+ H (Negative) Urine Glucose (UA) Negative (Negative) Urine Ketones 4+ H (Negative) Urine Blood 1+ H (Negative) Urine Nitrite Negative (Negative) Urine Bilirubin Negative (Negative) Urine Urobilinogen Negative (Negative) Ur Leukocyte Esterase Negative (Negative) Urine WBC (Auto) 0-5 (0-5) /hpf Urine RBC (Auto) 3-5 H (0-2) /hpf U Hyaline Cast (Auto) 6-10 H (0-2) /lpf U Epithel Cells (Auto) 0-2 (0-2) /hpf Urine Bacteria (Auto) None Seen (None Seen) Urine Comment Nasal Screen MRSA (PCR) (Negative) Salicylates (3.0-30) mg/dl Urine Opiates Screen Neg (Neg) Ur Methadone, Qual Neg (Neg) Urine Fentanyl Screen Neg (Neg) Acetaminophen (10-30) ug/ml Urine Barbiturates Neg (Neg) Ur Phencyclidine (PCP) Neg (Neg) U Amphetamin/Meth Scrn Neg (Neg) MDMA (Ecstasy) Screen Neg (Neg) U Benzodiazepines Scrn Neg (Neg) Ur Cocaine Metabolite Neg (Neg) U Marijuana (THC) Screen Neg (Neg) Ethyl Alcohol mg/dL (<10.0) mg/dl Adenovirus (PCR) (NotDetected) B. pertussis DNA (PCR) (NotDetected) B.parapertussis DNA PCR (NotDetected) C. pneumoniae DNA (PCR) (NotDetected) Coronavirus OC43 (PCR) (NotDetected) Coronavirus HKU1 (PCR) (NotDetected) Coronavirus 229E (PCR) (NotDetected) SARS-CoV-2 (PCR) (NotDetected) Coronavirus NL63 (PCR) (NotDetected) Human Metapneumovir PCR (NotDetected) Influenza Type A (PCR) (NotDetected) Influenza Type B (PCR) (NotDetected) M. pneumoniae (PCR) (NotDetected) Parainfluenza 1 (PCR) (NotDetected) Parainfluenza 2 (PCR) (NotDetected) Parainfluenza 3 (PCR) (NotDetected) Parainfluenza 4 (PCR) (NotDetected) RSV (PCR) (NotDetected) Entero/Rhino (PCR) (NotDetected) Blood Type Antibody Screen Imaging Data Attestation: I personally reviewed and interpreted this imaging study as follows: My Impression: Pelvis x-ray: No acute fracture or dislocation Chest x-ray: Endotracheal tube in the right mainstem. No pneumothorax no infiltrate. Radiologist's Impression: Chest X-Ray 07/19/25 11:41 Clinical History: Trauma Technique: A frontal view of the chest was obtained Findings: There are no confluent pulmonary infiltrates. The heart size is within normal limits. No pleural effusion or pneumothorax is seen. There is no definite pulmonary nodule. There is an endotracheal tube entering the right mainstem bronchus. Repositioning is recommended Impression: Endotracheal tube entering the right mainstem bronchus. Repositioning is recommended ACT 112: Positive. There are findings on this exam that require communication between the performing entity and the patient following Patient Test Result Information Act ([place] ACT 112) guidelines. Electronically signed by Maxwell Solano 07-19-2025 12:44 PM Abdomen/Pelvis CT 07/19/25 11:43 Clinical History: Trauma Technique: Axial computed tomography images were obtained of the abdomen and pelvis after the administration of intravenous contrast. Comparison is made to the prior CT dated 10/12/2018. Findings: There is marked diffuse fatty infiltration of the liver. No liver mass lesion is seen. The portal vein is patent. The gallbladder has been removed. No bile duct dilatation is noted. The spleen is of normal size. No focal splenic lesion is evident. There are worsened pancreatic calcifications, consistent with chronic pancreatitis. There is pancreatic ductal dilatation. There is no definite sign of acute pancreatitis. The adrenal glands appear unremarkable. There is a 6 mm calculus in the inferior left kidney. There is no hydronephrosis or perinephric stranding. No renal mass lesion is identified. The aorta is of normal caliber. No abdominal adenopathy is seen. The stomach appears normal. There is no sign of small bowel obstruction. The colon appears unremarkable. The appendix appears normal also. No free intraperitoneal fluid or air is identified. No distal ureteral or bladder calculi are seen. The bladder is decompressed. There is mild diffuse prominence of the bladder wall. The iliac arteries are of normal caliber. No pelvic adenopathy is noted. There are multiple uterine leiomyomas. There is a rim calcified right adnexal lesion that measures 3.6 x 3 cm, previously 3.6 x 1.5 cm There is a new L5 compression fracture, with loss of up to 25% of the vertebral body height. There is no retropulsion of bone into the spinal canal. There is an unchanged L2 compression fracture Impression: 1. No definite sign of abdominal organ injury 2. New L5 compression fracture 3. Unchanged L2 compression fracture 4. Fatty infiltration of the liver 5. Interval worsening of chronic pancreatitis 6. Nonobstructing left renal calculus 7. Uterine leiomyomas 8. Rim calcified right adnexal lesion that likely represents a benign complex cyst but is indeterminate in nature. A pelvic ultrasound could be obtained for further evaluation 9. Prominence of the wall of the urinary bladder. This appearance could be due to incomplete distention, though infectious cystitis or other pathology cannot be excluded. Correlation with urinalysis may be useful ACT 112: Positive. There are findings on this exam that require communication between the performing entity and the patient following Patient Test Result Information Act ([place] ACT 112) guidelines. Electronically signed by Maxwell Solano 07-19-2025 13:[address] 07/19/25 11:43 Clinical history: Trauma Technique: Axial computed tomography images were obtained of the cervical spine without intravenous contrast. Sagittal and coronal reconstructions were obtained Comparison is made to the prior CT dated 06/12/2025 Findings: There is increased displacement and angulation of the previously seen fracture of the anteroinferior corner of the C3 vertebral body, up to 2 mm. There is an unchanged old T1 compression fracture. No definite new fracture is seen. No listhesis is seen. No focal osseous lesion is evident. 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 There is no spinal stenosis. The neural foramen are patent At C3-4, there is a mild disc bulge. There is no spinal stenosis. The neural foramen are patent At C4-5, there is a disc bulge without spinal stenosis. There is mild left neural foramen narrowing At C5-6, there is a disc bulge without spinal stenosis. There is right neural foramen narrowing that may affect the right C6 nerve root At C6-7, there is a disc bulge without spinal stenosis. The neural foramen are patent At C7-T1, there is a disc bulge without spinal stenosis. The neural foramen are patent There are bilateral thyroid nodules. No foreign body is seen Impression: 1. Increased mild displacement and angulation of the previously seen fracture of the anteroinferior corner of the C3 vertebral body 2. Unchanged old T1 compression fracture 3. Right C5-6 neural foramen narrowing that may affect the right C6 nerve root 4. Indeterminate thyroid nodules. A follow-up thyroid ultrasound could be obtained ACT 112: Positive. There are findings on this exam that require communication between the performing entity and the patient following Patient Test Result Information Act ([place] ACT 112) guidelines. Electronically signed by Maxwell Solano 07-19-2025 13:[address] 07/19/25 11:43 Clinical history: Trauma Technique: Axial computed tomography images were obtained of the chest after the administration of intravenous contrast Findings: There is bilateral lower lobe atelectasis. The lungs otherwise appear clear without infiltrate or mass. There is no pleural effusion or pneumothorax. There is an endotracheal tube in expected position There is no mediastinal, hilar, or axillary adenopathy. The thoracic aorta appears unremarkable with no sign of aneurysm or dissection. There is no pericardial effusion. There is coronary atherosclerosis There is an acute fracture of the anteroinferior aspect of the T11 vertebral body with up to 7 mm of displacement No definite rib fracture is seen. No focal osseous lesion is evident Impression: 1. Acute displaced fracture of the anteroinferior aspect of the T11 vertebral body 2. Bilateral lower lobe atelectasis 3. Coronary atherosclerosis ACT 112: Positive. There are findings on this exam that require communication between the performing entity and the patient following Patient Test Result Information Act [place] 112[place]. Electronically signed by Maxwell Solano 07-19-2025 13:[address] 07/19/25 11:43 Clinical History: Trauma Technique: Axial computed tomography images were obtained of the brain from the vertex to the skull base without intravenous contrast. Findings: There is no sign of intracranial hemorrhage. There is normal quinones-white matter differentiation with no sign of acute or old infarction. No midline shift or other form of herniation is identified. There is no hydrocephalus. No obvious mass lesion is seen on this noncontrast examination. The visualized portions of the orbits and paranasal sinuses appear unremarkable. The mastoid air cells appear clear No definite fracture is seen. There is a forehead scalp hematoma Impression: 1. Normal-appearing brain 2. Forehead scalp hematoma Electronically signed by Maxwell Solano 07-19-2025 12:55 PM Pelvis X-Ray 07/19/25 11:44 1 view of the pelvis is submitted for review. Findings: No fracture or dislocation is seen. No significant arthritic changes are noted. No other osseous abnormality is identified. There are no radiopaque foreign bodies. Impression: Unremarkable pelvic radiograph Electronically signed by Maxwell Solano 07-19-2025 12:53 PM Femur X-Ray 07/19/25 11:53 Clinical History: Trauma 4 views of the left femur are submitted for review. Findings: No fracture or dislocation is seen. There is mild left knee osteoarthritis. No other osseous abnormality is identified. There are no radiopaque foreign bodies. Impression: 1. No definite fracture 2. Left knee osteoarthritis Electronically signed by Maxwell Solano 07-19-2025 13:[address] 07/19/25 12:09 Clinical history: Trauma Technique: Axial computed tomography images were obtained of the facial bones without intravenous contrast. Sagittal and coronal reconstructions were obtained Comparison is made to the prior CT dated 06/12/2025 Findings: No fracture is identified. No focal osseous lesion is noted. There is mild ethmoid sinus mucosal thickening. There have been bilateral uncinectomies. There is partial opacification of the left mastoid air cells The orbits appear unremarkable. No foreign body is seen. The nasal septum appears midline. No definite nasal polyp is noted Impression: 1. No definite facial bone fracture 2. Partial opacification of the left mastoid air cells, which may be due to inflammatory mastoiditis Electronically signed by Maxwell Solano 07-19-2025 12:58 PM Chest X-Ray 07/19/25 12:29 Technique: 4 views of the chest were obtained Findings: There are no confluent pulmonary infiltrates. The heart size is within normal limits. No pleural effusion or pneumothorax is seen. There is mild left lung base atelectasis There is an endotracheal tube with its tip proximally 3.5 cm above the joycelyn, in satisfactory position There is a nasogastric tube with its tip within the stomach Impression: 1. Endotracheal tube in expected position 2. Nasogastric tube with its tip within the stomach 3. Left lung base atelectasis ACT 112: Positive. There are findings on this exam that require communication between the performing entity and the patient following Patient Test Result Information Act ([place] 112[place]. Electronically signed by Maxwell Solano 07-19-2025 13:25 PM ECG Data Attestation: I personally reviewed and interpreted this ECG as follows: Rate (beats per minute): 138 Rhythm: + sinus tachycardia ECG Intervals/blocks: + Normal QRS, + Normal GA and + Normal QT-c ECG ST segments: + Normal ST segments [facility] Narrative 1136: The patient was evaluated in room B1. A complete history and physical exam was performed Cardiac monitoring: An order was placed for continuous cardiac monitoring. The monitor shows a rate of 140 with sinus tachycardia rhythm interpreted by me Trauma and sepsis protocols were initiated. 2 L IV fluids started on the patient. 1 g Tylenol started on the patient. Patient was intubated given her low GCS score. See procedure note. There was pus coming out of her vocal cords when visualized using glide scope. Strong concern for aspiration. Sepsis protocols initiated and patient will be treated with Zosyn and vancomycin. 1213: CT of the head viewed by me shows no ICH. 1330: Vital signs stable on ventilator. Labs are significant for a lactic acid of 2.9. Magnesium 1.3. IV fluids and magnesium repletion started in the emergency department. Imaging shows no ICH. Imaging shows a L5 compression fracture and Dr. Ascencio ICU was made aware of the patient. He asks that urine drug screen be sent on the patient. 1342: Spoke with Dr. Orozco and he states no need for emergent surgical intervention. He agrees patient should be admitted to the medicine team to the ICU for her other medical conditions. [facility] hospitalist team Dr. Becerra is aware and will admit the patient. Impression & Plan Altered mental status, Sepsis, CHI (closed head injury) Discharge Plan Visit Data Chief Complaint: Trauma Stated Complaint: UNRESP. ED Provider: Adriano Castle Discharge Problem: Altered mental status, Sepsis, CHI (closed head injury) Patient Disposition: Admitted As Inpatient Condition: Critical Forms Stand Alone Forms: My [facility] Prescriptions Prescriptions: No Action Probiotic 3 billion cell Capsule 3,000 mmu cells PO QAM Patient Comments: 07/19 OTC unable to verify gabapentin 300 mg capsule 900 mg PO HS Rx Instructions: LAST FILLED 05/18/25 FOR 30 DAYS/90 TABS. calcium carbonate-vitamin D3 [Calcium 600 + D(3)] 600 mg-5 mcg (200 unit) Tablet 1 tab PO BID Patient Comments: 07/19 OTC unable to verify metformin 500 mg tablet extended release 24 hr 2,000 mg PO QAM Rx Instructions: 2 tablets in am 2 tablets at bedtime buspirone 10 mg tablet 10 mg PO TID thiamine HCl (vitamin B1) 100 mg Tablet 100 mg PO QAM Qty: 15 0RF Patient Comments: 07/19 OTC unable to verify insulin lispro 100 unit/mL insulin pen 5 - 7 unit SUBCUT DIRECTED MDD 25 UNITS/DAILY Rx Instructions: TAKES 7 UNITS WITH BREAKFAST & SUPPER, 5 UNITS WITH SNACKS = MDD 25 UNITS. chlorpheniramine maleate 4 mg Tablet 0 mg PO BID Patient Comments: 07/19 per pharmacy no fill hx of this med, unable to verify. coenzyme Q10 [CoQ-10] 100 mg Capsule 100 mg PO DAILY Patient Comments: 07/19 OTC unable to verify insulin glargine [Lantus Solostar U-100 Insulin] 100 unit/mL (3 mL) Insulin Pen 0 unit SUBCUT HS Patient Comments: 07/19 per pharmacy they don't have record of this insulin, no fill hx available. Original directions: 18 units subcut at HS magnesium chloride [Mag 64] 64 mg Tablet,Delayed Release (Dr/Ec) 64 mg PO BID Qty: 60 0RF Patient Comments: 07/19 OTC unable to verify Referrals Referrals: Tommy Saab MD [Primary Care Provider] -
[2025-07-19 12:16] LABS: Base Excess VBG -11.4 mEq/L; HCO3 VBG 14 mmol/L; Oxygen Saturation VBG 99.8 %; PCO2 VBG 31 mmHg (38-50); PO2 VBG 139 mmHg; pH VBG 7.27 (7.36-7.41)
[2025-07-19 12:21] LABS: iSTAT Art Bld Gas Base Excess -13.0 meg/L (-9-1.8); iSTAT Art Bld Gas pCO2 Correct 32 mmHg (35-46); iSTAT Art Bld Gas pH Corrected 7.255 (7.35-7.45); iSTAT Arterial Blood Gas pO2 C 139
[2025-07-19 12:23] LABS: Hematocrit (blood only) 39.7 % (37.0-47.0); Hemoglobin 13.5 g/dl (12.0-16.0); Immature Granulocytes # (auto) 0.05 K/uL (0.01-0.20); Immature Granulocytes % (auto) 0.5 %; Mean Corpuscular Hemoglobin 37.2 pg (25.0-34.0); Mean Corpuscular Volume 109.4 fL (80.0-100.0); Platelet Count 199 K/uL (130-400); RDW Standard Deviation 58.0 fL (36.4-46.3); Red Blood Count 3.63 M/uL (4.20-5.40); White Blood Count 9.68 K/ul (4.8-10.8)
[2025-07-19] MEDS: SODIUM CHLORIDE 0.9% 500 ML IV ONE (12:30)
[2025-07-19] MEDS: PIPERACILLIN/TAZOBACTAM 4.5 GM/120 ML BAG IV ONE (12:30)
[2025-07-19] MEDS: OPTIRAY 320 100ml IV ONE (12:35)
[2025-07-19 12:44] LABS: Acetaminophen 25 ug/ml (10-30); Salicylate < 3.0 mg/dl (3.0-30)
--- NOTE | 2025-07-19 12:44 | XRay Report ---
Clinical History: Trauma Technique: A frontal view of the chest was obtained Findings: There are no confluent pulmonary infiltrates. The heart size is within normal limits. No pleural effusion or pneumothorax is seen. There is no definite pulmonary nodule. There is an endotracheal tube entering the right mainstem bronchus. Repositioning is recommended Impression: Endotracheal tube entering the right mainstem bronchus. Repositioning is recommended ACT 112: Positive. There are findings on this exam that require communication between the performing entity and the patient following Patient Test Result Information Act ([place] ACT 112) guidelines. Electronically signed by Maxwell Solano 07-19-2025 12:44 PM
[2025-07-19 12:46] LABS: Alanine Aminotransferase 74 U/L (7-52); Alkaline Phosphatase 200 U/L (34-104); Anion Gap 28 (3-11); Bilirubin,Total 1.0 mg/dl (0.2-1.0); Blood Urea Nitrogen 14 mg/dl (6-23); Calcium 8.1 mg/dl (8.6-10.3); Carbon Dioxide 14 mmol/L (21-32); Chloride 102 mmol/L (98-107); Creatine Kinase 37 U/L (26-192); Glucose 184 mg/dl (70-99(Fasting)); Lipase 5 U/L (11-82); Magnesium 1.3 mg/dl (1.7-2.4); Potassium 3.1 mmol/L (3.5-5.1); Sodium 144 mmol/L (136-145); Total Protein 6.3 gm/dl (6.0-8.3)
[2025-07-19 12:50] LABS: INR 1.1 (0.9-1.1); Partial Thromboplastin Time 25 Seconds (21-31); Prothrombin Time 11.4 Seconds (9.0-12.0)
--- NOTE | 2025-07-19 12:53 | XRay Report ---
1 view of the pelvis is submitted for review. Findings: No fracture or dislocation is seen. No significant arthritic changes are noted. No other osseous abnormality is identified. There are no radiopaque foreign bodies. Impression: Unremarkable pelvic radiograph Electronically signed by Maxwell Solano 07-19-2025 12:53 PM
--- NOTE | 2025-07-19 12:56 | CT Scan Report ---
Clinical History: Trauma Technique: Axial computed tomography images were obtained of the brain from the vertex to the skull base without intravenous contrast. Findings: There is no sign of intracranial hemorrhage. There is normal quinones-white matter differentiation with no sign of acute or old infarction. No midline shift or other form of herniation is identified. There is no hydrocephalus. No obvious mass lesion is seen on this noncontrast examination. The visualized portions of the orbits and paranasal sinuses appear unremarkable. The mastoid air cells appear clear No definite fracture is seen. There is a forehead scalp hematoma Impression: 1. Normal-appearing brain 2. Forehead scalp hematoma Electronically signed by Maxwell Solano 07-19-2025 12:55 PM
--- NOTE | 2025-07-19 12:59 | CT Scan Report ---
Clinical history: Trauma Technique: Axial computed tomography images were obtained of the facial bones without intravenous contrast. Sagittal and coronal reconstructions were obtained Comparison is made to the prior CT dated 06/12/2025 Findings: No fracture is identified. No focal osseous lesion is noted. There is mild ethmoid sinus mucosal thickening. There have been bilateral uncinectomies. There is partial opacification of the left mastoid air cells The orbits appear unremarkable. No foreign body is seen. The nasal septum appears midline. No definite nasal polyp is noted Impression: 1. No definite facial bone fracture 2. Partial opacification of the left mastoid air cells, which may be due to inflammatory mastoiditis Electronically signed by Maxwell Solano 07-19-2025 12:58 PM
--- NOTE | 2025-07-19 13:04 | CT Scan Report ---
Clinical history: Trauma Technique: Axial computed tomography images were obtained of the cervical spine without intravenous contrast. Sagittal and coronal reconstructions were obtained Comparison is made to the prior CT dated 06/12/2025 Findings: There is increased displacement and angulation of the previously seen fracture of the anteroinferior corner of the C3 vertebral body, up to 2 mm. There is an unchanged old T1 compression fracture. No definite new fracture is seen. No listhesis is seen. No focal osseous lesion is evident. 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 There is no spinal stenosis. The neural foramen are patent At C3-4, there is a mild disc bulge. There is no spinal stenosis. The neural foramen are patent At C4-5, there is a disc bulge without spinal stenosis. There is mild left neural foramen narrowing At C5-6, there is a disc bulge without spinal stenosis. There is right neural foramen narrowing that may affect the right C6 nerve root At C6-7, there is a disc bulge without spinal stenosis. The neural foramen are patent At C7-T1, there is a disc bulge without spinal stenosis. The neural foramen are patent There are bilateral thyroid nodules. No foreign body is seen Impression: 1. Increased mild displacement and angulation of the previously seen fracture of the anteroinferior corner of the C3 vertebral body 2. Unchanged old T1 compression fracture 3. Right C5-6 neural foramen narrowing that may affect the right C6 nerve root 4. Indeterminate thyroid nodules. A follow-up thyroid ultrasound could be obtained ACT 112: Positive. There are findings on this exam that require communication between the performing entity and the patient following Patient Test Result Information Act ([place] ACT 112) guidelines. Electronically signed by Maxwell Solano 07-19-2025 13:03 PM
--- NOTE | 2025-07-19 13:07 | CT Scan Report ---
Clinical history: Trauma Technique: Axial computed tomography images were obtained of the chest after the administration of intravenous contrast Findings: There is bilateral lower lobe atelectasis. The lungs otherwise appear clear without infiltrate or mass. There is no pleural effusion or pneumothorax. There is an endotracheal tube in expected position There is no mediastinal, hilar, or axillary adenopathy. The thoracic aorta appears unremarkable with no sign of aneurysm or dissection. There is no pericardial effusion. There is coronary atherosclerosis There is an acute fracture of the anteroinferior aspect of the T11 vertebral body with up to 7 mm of displacement No definite rib fracture is seen. No focal osseous lesion is evident Impression: 1. Acute displaced fracture of the anteroinferior aspect of the T11 vertebral body 2. Bilateral lower lobe atelectasis 3. Coronary atherosclerosis ACT 112: Positive. There are findings on this exam that require communication between the performing entity and the patient following Patient Test Result Information Act ([place] ACT 112) guidelines. Electronically signed by Maxwell Solano 07-19-2025 13:07 PM
[2025-07-19 13:08] LABS: Appearance Urine Clear (Clear); Bacteria Urine Automated None Seen (None Seen); Epithelial Cell Urine Auto 0-2 /hpf (0-2); Glucose Urine UA Negative (Negative); WBC Urine Automated 0-5 /hpf (0-5)
[2025-07-19] MEDS: VANCOMYCIN HCL 1,500 MG in SODIUM CHLORIDE 0.9% 500 ML IV ONE (13:08)
[2025-07-19] MEDS: PROPOFOL IV EMULSION 10 MG/ML 100 ML VIAL IV ONE (13:10)
[2025-07-19] MEDS: ACETAMINOPHEN 1000 MG/100 ML IV IV ONE (13:10)
[2025-07-19] MEDS: PROPOFOL BOLUS FROM BAG IV PRN (13:11)
--- NOTE | 2025-07-19 13:15 | CT Scan Report ---
Clinical History: Trauma Technique: Axial computed tomography images were obtained of the abdomen and pelvis after the administration of intravenous contrast. Comparison is made to the prior CT dated 10/12/2018. Findings: There is marked diffuse fatty infiltration of the liver. No liver mass lesion is seen. The portal vein is patent. The gallbladder has been removed. No bile duct dilatation is noted. The spleen is of normal size. No focal splenic lesion is evident. There are worsened pancreatic calcifications, consistent with chronic pancreatitis. There is pancreatic ductal dilatation. There is no definite sign of acute pancreatitis. The adrenal glands appear unremarkable. There is a 6 mm calculus in the inferior left kidney. There is no hydronephrosis or perinephric stranding. No renal mass lesion is identified. The aorta is of normal caliber. No abdominal adenopathy is seen. The stomach appears normal. There is no sign of small bowel obstruction. The colon appears unremarkable. The appendix appears normal also. No free intraperitoneal fluid or air is identified. No distal ureteral or bladder calculi are seen. The bladder is decompressed. There is mild diffuse prominence of the bladder wall. The iliac arteries are of normal caliber. No pelvic adenopathy is noted. There are multiple uterine leiomyomas. There is a rim calcified right adnexal lesion that measures 3.6 x 3 cm, previously 3.6 x 1.5 cm There is a new L5 compression fracture, with loss of up to 25% of the vertebral body height. There is no retropulsion of bone into the spinal canal. There is an unchanged L2 compression fracture Impression: 1. No definite sign of abdominal organ injury 2. New L5 compression fracture 3. Unchanged L2 compression fracture 4. Fatty infiltration of the liver 5. Interval worsening of chronic pancreatitis 6. Nonobstructing left renal calculus 7. Uterine leiomyomas 8. Rim calcified right adnexal lesion that likely represents a benign complex cyst but is indeterminate in nature. A pelvic ultrasound could be obtained for further evaluation 9. Prominence of the wall of the urinary bladder. This appearance could be due to incomplete distention, though infectious cystitis or other pathology cannot be excluded. Correlation with urinalysis may be useful ACT 112: Positive. There are findings on this exam that require communication between the performing entity and the patient following Patient Test Result Information Act ([place] ACT 112) guidelines. Electronically signed by Maxwell Solano 07-19-2025 13:15 PM
--- NOTE | 2025-07-19 13:26 | XRay Report ---
Technique: 4 views of the chest were obtained Findings: There are no confluent pulmonary infiltrates. The heart size is within normal limits. No pleural effusion or pneumothorax is seen. There is mild left lung base atelectasis There is an endotracheal tube with its tip proximally 3.5 cm above the joycelyn, in satisfactory position There is a nasogastric tube with its tip within the stomach Impression: 1. Endotracheal tube in expected position 2. Nasogastric tube with its tip within the stomach 3. Left lung base atelectasis ACT 112: Positive. There are findings on this exam that require communication between the performing entity and the patient following Patient Test Result Information Act ([place] 112) guidelines. Electronically signed by Maxwell Solano 07-19-2025 13:25 PM
[2025-07-19] MEDS ORDERED: AcetylCYSTEINE IV 21 HR REGIMEN (>40KG) IV STA (13:29)
[2025-07-19] MEDS ORDERED: STAT IV/IM STA (13:29)
[2025-07-19] MEDS: PIPERACILLIN/TAZO 4.5 GM/D5W 100ML IV ONE (13:30)
[2025-07-19 13:34] LABS: Chlamydia pneumoniae PCR Not Detected (NotDetected); Coronavirus 229E PCR Not Detected (NotDetected); Coronavirus CoV-2 (COVID19)PCR Not Detected (NotDetected); Coronavirus HKU1 PCR Not Detected (NotDetected); Coronavirus NL63 PCR Not Detected (NotDetected); Coronavirus OC43PCR Not Detected (NotDetected); Human Metapneumovirus PCR Not Detected (NotDetected); Parainfluenza Virus 1 PCR Not Detected (NotDetected); Parainfluenza Virus 2 PCR Not Detected (NotDetected); Parainfluenza Virus 3 PCR Not Detected (NotDetected); Parainfluenza Virus 4 PCR Not Detected (NotDetected); Respiratory Syncytial VirusPCR Not Detected (NotDetected); Rhinovirus/Enterovirus PCR Not Detected (NotDetected)
[2025-07-19] MEDS: MAGNESIUM SULFATE / D5W 1 GM/100 ML BAG IV SCH ×2 (13:34→18:26)
--- NOTE | 2025-07-19 13:45 | XRay Report ---
Clinical History: Trauma 4 views of the left femur are submitted for review. Findings: No fracture or dislocation is seen. There is mild left knee osteoarthritis. No other osseous abnormality is identified. There are no radiopaque foreign bodies. Impression: 1. No definite fracture 2. Left knee osteoarthritis Electronically signed by Maxwell Solano 07-19-2025 13:45 PM
[2025-07-19] MEDS: POTASSIUM CHLORIDE / WTR 10 MEQ/100 ML PLCT IV SCH ×2 (13:59→21:59)
[2025-07-19] MEDS ORDERED: THIAMINE HCL 500 MG in SODIUM CHLORIDE 0.9% 50 ML IV SCH (14:00)
[2025-07-19] MEDS ORDERED: PIPERACILLIN/TAZOBACTAM 4.5 GM/100 ML BAG IV SCH (14:00)
[2025-07-19] MEDS ORDERED: THIAMINE HCL 100 MG in SYRINGE 9 ML IV SCH (14:00)
[2025-07-19 14:03] LABS: Amphetamines+Metham, Urine Neg (Neg); MDMA (Ecstacy), Urine Neg (Neg); Marijuana, Urine Neg (Neg)
--- NOTE | 2025-07-19 14:06 | Critical Care Consultation ---
Date of Consultation July 19, 2025 Assessment & Plan (1) Altered mental state: (2) Transaminitis: (3) Alcohol abuse: (4) DKA (diabetic ketoacidoses): (5) Metabolic acidosis: Plan 59-year-old female found in the field down on the ground. Intubated in the ER due to altered mental status and hypoxia. Transferred to ICU for further management. Neurologic: Start high-dose thiamine x 3 days. For sedation and pain control. He is awakening trials daily. CT head imaging without acute findings. Spinal fractures noted. ER reached out to spine orthopedics and they are aware. Pulmonary: Left greater than right infiltrate/atelectasis. Continue lung protective ventil ation strategy. Daily SBT. MRSA screen negative. Continue Zosyn. Sputum culture as able. Cardiovascular: Maintain MAP above 65. EKG was sinus tachycardia. No acute ischemic changes. Trope minimally elevated. Echo May 2025 within normal mild concentric LVH. Gastrointestinal: Mild transaminitis noted possibly due to alcohol. Will start NAC protocol. Acetaminophen and salicylate level negative. Renal: Possible mild DKA. Monitor BMPs closely. Low threshold for insulin drip. Repeat BMP in AM. Replace electrolytes as needed and start LR infusion. Check CK. Check serum osmolality. UA pending. Infectious disease: Possible aspiration pneumonia. Continue Zosyn. Obtain sputum culture. Obtain urinalysis. Hematologic: No acute issues. Scalp hematoma noted. Will hold on chemoprophylaxis today and continue with SCDs. Endocrine: Check TSH. Monitor glucoses closely. Possible DKA. Peripheral IVs and [place] 08/05/2025 VTE prophylaxis: SCD. Likely start chemoprophylaxis tomorrow. CODE STATUS: Full Family at bedside: None Disposition: ICU I have personally spent 54 minutes of critical care time in the direct management of this patient. This is a life/limb threatening event. This includes time spent evaluating patient, direct bedside care, chart review, placing orders, interpretation of diagnostic studies, discussion with consultants, patient, and family members, as well as other required patient management activities. This time is exclusive of all separately billable procedures, and teaching time and separate from and in addition to any other critical care service time. Thank you for allowing us to participate in the care of this patient. History of Present Illness Reason for Consultation: Altered mental status and hypoxia History of Present Illness 59-year-old female with a history of alcohol abuse, diabetes mellitus, chronic pancreatitis and hypothyroidism presenting to the hospital due to unresponsiveness. Patient was found unresponsive by an undisclosed individual. apparently demented at baseline. Patient has had issues with alcoholism in the past and was seen in the ER 06/12/2025 due to falls. She was also seen in the hospital June 03 and discharged at that time for rhabdomyolysis and transaminitis. She apparently drinks vodka nearly daily. She underwent zaman CT scans due to concern for possible trauma. She received vancomycin and Zosyn in the ER. Per the ED physician who intubated her, he noted pus in her airway. CT face revealed partial opacification of the left mastoid air cells. Left femur x-ray without evidence of fracture. Pelvis x-ray was unremarkable. Head CT appeared normal with a forehead scalp hematoma. Chest CT revealed acute displaced fracture of the anterior aspect of the T11 vertebral body and bilateral lower lobe atelectasis. CT C-spine revealed increased mild displacement and angulation of the previously seen fracture of the anterior inferior corner of the C3 vertebral body and unchanged old T8 1 compression fracture. C5-C6 neural thompson narrowing noted with potential effect in the C6 nerve root. Indeterminate thyroid nodules. Abdomen and pelvis CT chest revealed new L5 compression fracture, unchanged L2 compression fracture, fatty infiltration of the liver, interval worsening of chronic pancreatitis, nonobstructing left renal calculus, rim calcified right adnexal lesion likely representing a benign complex cyst but indeterminate, prominence of the wall of the urinary bladder. Salicylate and Tylenol levels unremarkable. Ethylene glycol level unremarkable. Urine drug screen pending. Otherwise labs significant for mild lactic acidosis of 2.9, mild hypocalcemia, transaminitis, mild troponin elevation, unremarkable lipase, unremarkable procalcitonin, mild acidemia and hypokalemia. No significant leukocytosis identified. Respiratory viral panel was negative. Patient received 2 L of crystalloids in the ER. Allergies Allergy/AdvReac Type Severity Reaction Status Date / Time benzoyl peroxide Allergy Mild SKIN RED Verified 05/31/25 00:23 AND IRRITATED Home Medications Medication Instructions Recorded Confirmed Type lactobacillus combination no.4 3 3,000 mmu cells PO QAM 10/11/18 07/19/25 History billion cell capsule (Probiotic) buspirone 10 mg tablet 10 mg PO TID 04/22/23 07/19/25 History calcium 600 mg (as 1 tab PO BID 04/22/23 07/19/25 History carbonate)-vitamin D3 5 mcg (200 unit) tablet (Calcium 600 + D(3)) gabapentin 300 mg capsule 900 mg PO HS 04/22/23 07/19/25 History metformin 500 mg tablet,extended 2,000 mg PO QAM 04/22/23 07/19/25 History release 24 hr thiamine HCl (vitamin B1) 100 mg 100 mg PO QAM #15 tabs 04/22/23 07/19/25 Rx tablet insulin lispro 100 unit/mL 5 - 7 unit subcut DIRECTED 12/27/24 07/19/25 History subcutaneous pen chlorpheniramine maleate 4 mg 0 mg PO BID 05/31/25 07/19/25 History tablet coenzyme Q10 100 mg capsule 100 mg PO DAILY 05/31/25 07/19/25 History (CoQ-10) insulin glargine 100 unit/mL (3 0 unit subcut HS 05/31/25 07/19/25 History mL) subcutaneous pen (Lantus Solostar U-100 Insulin) magnesium chloride 64 mg 64 mg PO BID #60 tabs 06/03/25 07/19/25 Rx (magnesium chloride) tablet,delayed release (Mag 64) Patient History Medical History Rhabdomyolysis No significant past medical history Family History Other Family history non-contributory Social History Smoking Status: Unknown if ever smoked Second Hand Exposure: No; Do You Dip or Chew Tobacco: No; Hx Alcohol Use: Yes Alcohol type: hard liquor Hx Substance Use: No Preferred Language: Kinyarwanda Communication Ability: Effective Police Guard Required: No Beliefs That Will Affect Care: None Current Living Situation: Spouse current occupational status: employed How many Children do You have: 2 Feels Safe at Home: Yes Assistive Devices: None Review of Systems Review of Systems: Unobtainable due to endotracheal tube and Unobtainable due to reduced consciousness Physical Exam Physical Exam: Constitutional: Intubated and sedated. Multiple bruises. Eyes: Pupils are equal round and reactive to light. Conjunctivae are normal. Anicteric sclera. Ears nose, mouth and throat: Mallampati class []. Normal posterior oropharynx. Uvula is midline. Neck: Trachea is midline. Visual inspection is normal. Respiratory: Clear to auscultation bilaterally. No use of accessory muscles. No significant clubbing noted. Cardiovascular: Regular rate and rhythm. No murmurs. No edema. Gastrointestinal: Normal bowel sounds, soft, nontender and nondistended. No hepatosplenomegaly noted. Musculoskeletal: No cyanosis. Patient is able to move all extremities. Strength is 5 out of 5 in the upper and lower extremities. Skin: No rashes, warm dry and intact. Neurologic: No obvious focal neurological deficits seen. Psychiatric: Unable to assess. Results & Data Results & Data Vital Signs (Past 12 Hours) Vital Signs Temp Pulse Pulse Resp BP Pulse Ox O2 Del Method 07/19/25 13:30 139/89 07/19/25 13:30 139/89 07/19/25 13:30 139/89 07/19/25 13:17 119 H 19 100 07/19/25 13:15 134/82 07/19/25 13:11 121 H 24 100 07/19/25 13:00 148/92 H 07/19/25 12:45 167/100 H 07/19/25 12:30 128 H 18 99 07/19/25 12:30 139/88 07/19/25 12:25 154/95 H 07/19/25 12:25 131 H 07/19/25 12:00 208/128 H 07/19/25 11:51 93 Mechanical Vent 07/19/25 11:51 38 C H 130 H 16 190/110 H 100 Mechanical Vent 07/19/25 11:51 38 C H 132 H 16 07/19/25 11:51 135 H 16 Mechanical Vent 07/19/25 11:45 122/88 07/19/25 11:41 104/76 07/19/25 11:40 132 H 20 98 Mechanical Vent 07/19/25 11:40 132 H 20 98 07/19/25 11:37 175/133 H 07/19/25 11:32 133 H 8 L 104/76 98 Nasal Cannula O2 Flow Rate FiO2 07/19/25 13:30 07/19/25 13:30 07/19/25 13:30 07/19/25 13:17 07/19/25 13:15 07/19/25 13:11 07/19/25 13:00 07/19/25 12:45 07/19/25 12:30 07/19/25 12:30 07/19/25 12:25 07/19/25 12:25 07/19/25 12:00 07/19/25 11:51 07/19/25 11:51 15 07/19/25 11:51 45 07/19/25 11:51 07/19/25 11:45 07/19/25 11:41 07/19/25 11:40 45 07/19/25 11:40 45 07/19/25 11:37 07/19/25 11:32 Coding Level of Care Code 32739 CRITICAL CARE 1ST 30-74M Diagnoses Altered mental state R41.82 Transaminitis R74.01 Alcohol abuse F10.10 DKA (diabetic ketoacidoses) E13.10 Metabolic acidosis E87.2
[2025-07-19] MEDS: ACETYLCYSTEINE IV ONE ×3 (14:08→20:19)
[2025-07-19] MEDS: DEXTROSE 5% IV ONE ×3 (14:08→20:19)
[2025-07-19] MEDS: PANTOprazole 40 MG/10 ML SYR IV SCH (14:19)
--- NOTE | 2025-07-19 14:33 | History & Physical Report ---
Date of Service July 19, 2025 Assessment & Plan (1) Sepsis: Plan: Brought in unresponsive and required intubation in the emergency room Noted to have sepsis with temperature of 38 C and tachycardia likely secondary to CAP/aspiration Initial lactate was 2.9 and repeat 1 came down to normal at 1.5 Blood cultures were taken and she was started with intravenous Zosyn and received 1 dose of vancomycin but will be getting intravenous doxycycline Has been getting intravenous fluid as well (2) Unresponsive state: Plan: Brought in unresponsive likely following a fall Differentials include infections/medications overdose/trauma or even alcohol intoxication Has been getting acetylcysteine intravenously, acetylcysteine level was 25 Ammonia level is normal Tox screen has been negative She is being intubated and management will be as per tool design engineer Appreciate tool design engineer input and recommendation (3) Transaminitis: Plan: History of alcoholism LFTs are high with normal INR High LFTs are secondary to alcoholism Will monitor (4) Alcoholic pancreatitis: Plan: Her lipase is negative but the CAT scan findings suggestive of chronic pancreatitis (5) Fall: Plan: History of fall and was found on the floor unresponsive by the EMS (6) Vertebral compression fracture: Plan: Has acute displaced fracture of the anterior inferior aspect of the T11 vertebral body Increased mild displacement and angulation of the previously seen fracture of the anterior inferior corner of the C3 vertebral body and right C5-C6 neuroforaminal narrowing with right C6 nerve root pressure Orthospine has been consulted Soft collar brace will be provided (7) Alcohol abuse: Plan: History of alcohol abuse Condition could be secondary to hepatic failure secondary to alcohol use Will give her intravenous Tylenol and also folic acid Observe for withdrawal symptoms while in the hospital she is given 20 strip hemoglobin is 13.6 no evidence of bleeding DVT prophylaxis Was found to have UGIB Heparin discontinued-Received one dose last evening CODE STATUS DNR/DNIthis was discussed in detail with the mother History of Present Illness Chief Complaint: Found unresponsive by the EMS at home likely following a fall Primary Care Provider: Tommy Saab MD She is a 59-year-old female with significant past medical history of alcoholism with alcohol-induced chronic pancreatitis, type 2 diabetes, hypertension, hyperlipidemia, chronic insomnia, sleep apnea with history of fall apparently was brought in today by the ESM totally unresponsive and found on the floor. No other history was obtainable and the being demented could not provide any other history to the EMS and he was not available in the emergency room. Called her mom who did not know much about what happened but now she knows that she is here with sepsis, fall and unresponsive and required intubation. She was noted to have high temperature of 38 C tachycardia at presentation and remained totally unresponsive in the emergency room. She was evaluated by tool design engineer in the emergency room and going to be seen by spine surgery given the vertebral fracture as below. Allergies Allergy/AdvReac Type Severity Reaction Status Date / Time benzoyl peroxide Allergy Mild SKIN RED Verified 05/31/25 00:23 AND IRRITATED Home Medications Medication Instructions Recorded Confirmed Type lactobacillus combination no.4 3 3,000 mmu cells PO QAM 10/11/18 07/19/25 History billion cell capsule (Probiotic) buspirone 10 mg tablet 10 mg PO TID 04/22/23 07/19/25 History calcium 600 mg (as 1 tab PO BID 04/22/23 07/19/25 History carbonate)-vitamin D3 5 mcg (200 unit) tablet (Calcium 600 + D(3)) gabapentin 300 mg capsule 900 mg PO HS 04/22/23 07/19/25 History metformin 500 mg tablet,extended 2,000 mg PO QAM 04/22/23 07/19/25 History release 24 hr thiamine HCl (vitamin B1) 100 mg 100 mg PO QAM #15 tabs 04/22/23 07/19/25 Rx tablet insulin lispro 100 unit/mL 5 - 7 unit subcut DIRECTED 12/27/24 07/19/25 History subcutaneous pen chlorpheniramine maleate 4 mg 0 mg PO BID 05/31/25 07/19/25 History tablet coenzyme Q10 100 mg capsule 100 mg PO DAILY 05/31/25 07/19/25 History (CoQ-10) insulin glargine 100 unit/mL (3 0 unit subcut HS 05/31/25 07/19/25 History mL) subcutaneous pen (Lantus Solostar U-100 Insulin) magnesium chloride 64 mg 64 mg PO BID #60 tabs 06/03/25 07/19/25 Rx (magnesium chloride) tablet,delayed release (Mag 64) Past Med/Surg History Problem List (Updated 07/20/25 @ 11:18 by Ruben Ascencio MD) Coma Compression fracture of L5 vertebra Closed T11 fracture Closed C3 fracture CHI (closed head injury) (Acute) Sepsis (Acute) Altered mental status (Acute) Vertebral compression fracture Unresponsive state Sepsis Diabetic ulcer of right foot (Acute) Transaminitis (Acute) Weakness (Acute) Rhabdomyolysis UTI (urinary tract infection) Cellulitis of right foot due to methicillin-resistant Staphylococcus aureus Infection of right foot (Acute) Encephalopathy acute Acute confusion (Acute) Hyperglycemia (Acute) Hypomagnesemia (Acute) Hypoglycemia (Acute) Weakness Electrolyte imbalance Alcohol abuse GI bleed Altered mental state Metabolic acidosis Alcoholic pancreatitis DKA (diabetic ketoacidoses) Hyperglycemic crisis in diabetes mellitus Hypothermia (Acute) Acute kidney injury (Acute) Hyperglycemia (Acute) Myxedema coma (Acute) Hyponatremia (Acute) Fall (Acute) Diabetes (Chronic) Finger laceration (Acute) Hypertension (Chronic) Hypokalemia (Acute) Pancreatitis (Acute) Medical History (Updated 07/20/25 @ 11:18 by Ruben Ascencio MD) Rhabdomyolysis No significant past medical history Family History Other Family history non-contributory Social History Smoking Status: Unknown if ever smoked Second Hand Exposure: No; Do You Dip or Chew Tobacco: No; Preferred Language: Sinhala Communication Ability: Effective Natural Resources Specialist Required: No Beliefs That Will Affect Care: None Current Living Situation: Spouse current occupational status: employed How many Children do You have: 2 Feels Safe at Home: Yes Assistive Devices: None Review of Systems Review of Systems: Unobtainable due to cognitive status Physical Exam Physical Exam: Lying in bed unresponsive and intubated on mechanical vent Constitutional: well developed, well nourished and + ill appearing Eyes: Closed ENMT: external ear and nose normal, oropharynx normal Neck: trachea midline, no thyromegaly Respiratory: no respiratory distress Auscultation: + diminished lung sounds and + crackles (Bibasilarly) Cardiovascular: Rate/Rhythm: regular rate, regular rhythm and + tachycardic Heart Sounds: normal S1 and normal S2; no murmur Extremities: no edema Gastrointestinal (Abdomen): Inspection/Auscultation: normal bowel sounds; abdomen not distended Percussion/Palpation: abdomen soft Musculoskeletal: No acute arthritis involving any of the joint Neurologic: Remains unresponsive on mechanical vent Lymphatic: no cervical or axillary lymphadenopathy Results & Data Results & Data Vital Signs (Past 12 Hours) Vital Signs Temp Pulse Pulse Resp BP Pulse Ox O2 Del Method 07/19/25 13:30 139/89 07/19/25 13:30 139/89 07/19/25 13:30 139/89 07/19/25 13:17 119 H 19 100 07/19/25 13:15 134/82 07/19/25 13:11 121 H 24 100 07/19/25 13:00 148/92 H 07/19/25 12:45 167/100 H 07/19/25 12:30 128 H 18 99 07/19/25 12:30 139/88 07/19/25 12:25 154/95 H 07/19/25 12:25 131 H 07/19/25 12:00 208/128 H 07/19/25 11:51 93 Mechanical Vent 07/19/25 11:51 38 C H 130 H 16 190/110 H 100 Mechanical Vent 07/19/25 11:51 38 C H 132 H 16 07/19/25 11:51 135 H 16 Mechanical Vent 07/19/25 11:45 122/88 07/19/25 11:41 104/76 07/19/25 11:40 132 H 20 98 Mechanical Vent 07/19/25 11:40 132 H 20 98 07/19/25 11:37 175/133 H 07/19/25 11:32 133 H 8 L 104/76 98 Nasal Cannula O2 Flow Rate FiO2 07/19/25 13:30 07/19/25 13:30 07/19/25 13:30 07/19/25 13:17 07/19/25 13:15 07/19/25 13:11 07/19/25 13:00 07/19/25 12:45 07/19/25 12:30 07/19/25 12:30 07/19/25 12:25 07/19/25 12:25 07/19/25 12:00 07/19/25 11:51 07/19/25 11:51 15 07/19/25 11:51 45 07/19/25 11:51 07/19/25 11:45 07/19/25 11:41 07/19/25 11:40 45 07/19/25 11:40 45 07/19/25 11:37 07/19/25 11:32 Laboratory Results Short CBC 07/19/25 Range/Units 11:55 WBC 9.68 (4.8-10.8) K/ul Hgb 13.5 (12.0-16.0) g/dl Hct 39.7 (37.0-47.0) % Plt Count 199 (130-400) K/uL BMP 07/19/25 11:55 Sodium 144 Potassium 3.1 L Chloride 102 Carbon Dioxide 14 L BUN 14 Creatinine 0.55 L Glucose 184 H Calcium 8.1 L Cardiac Enzymes 07/19/25 Range/Units 11:55 Total Creatine Kinase 37 (26-192) U/L Liver Function 07/19/25 Range/Units 11:55 Total Bilirubin 1.0 (0.2-1.0) mg/dl Direct Bilirubin 0.2 (0-0.2) mg/dl AST 202 H (13-39) U/L ALT 74 H (7-52) U/L Alkaline Phosphatase 200 H (34-104) U/L Albumin 3.6 (3.4-5.0) gm/dl Urine 07/19/25 Range/Units Unknown Urine Color Yellow Urine Appearance Clear (Clear) Urine pH 5.5 (4.5-7.5) Ur Specific [place] 1.030 (1.000-1.030) Urine Protein 3+ H (Negative) Urine Glucose (UA) Negative (Negative) Medications Administered Current Inpatient Medications Fentanyl Citrate (Fentanyl Bolus From Bag) 50 mcg IV Q60M PRN PRN Reason: Pain or Agitation Stop: 08/02/25 11:44 Heparin Sodium (Porcine) (Heparin Sod 5,000 Unit/0.5 Ml Vial) 5,000 units SQ Q12 EARL Stop: 08/18/25 20:59 Fentanyl Citrate (Fentanyl Citrate) 2,500 mcg in 250 mls @ 5 mls/hr IV .Q50H EARL; Protocol Stop: 08/02/25 11:44 Last Admin: 07/19/25 11:54 Dose: 50 mcg/hr, 5 mls/hr Vancomycin HCl 1,500 mg/ (Sodium Chloride) 530 mls @ 200 mls/hr IV NOW ONE Stop: 07/19/25 14:25 Last Admin: 07/19/25 13:08 Dose: 200 mls/hr Propofol (Diprivan) 1,000 mg in 100 mls @ 4.194 mls/hr IV .[id number] EARL; Protocol Stop: 07/22/25 12:59 Last Admin: 07/19/25 12:56 Dose: 10 mcg/kg/min, 4.2 mls/hr Magnesium Sulfate/Dextrose (Magnesium Sulfate / D5w) 1 gm in 100 mls @ 100 mls/hr IV Q1H EARL Stop: 07/19/25 14:53 Last Admin: 07/19/25 13:34 Dose: 100 mls/hr Acetylcysteine 10,490 mg/ (Dextrose) 252.45 mls @ 200 mls/hr IV ONCE ONE; Protocol Stop: 07/19/25 14:44 Last Admin: 07/19/25 14:08 Dose: 200 mls/hr Acetylcysteine 3,500 mg/ (Dextrose) 517.5 mls @ 125 mls/hr IV ONCE ONE; Protocol Stop: 07/19/25 18:37 Acetylcysteine 6,990 mg/ (Dextrose) 1,034.95 mls @ 62.5 mls/hr IV ONCE ONE; Protocol Stop: 07/20/25 11:02 Potassium Chloride (K Oliver / Wtr) 10 meq in 100 mls @ 100 mls/hr IV Q1H EARL Stop: 07/19/25 15:59 Last Admin: 07/19/25 13:59 Dose: 100 mls/hr Folic Acid 1 mg/ Syringe 10 mls @ 5 mls/min IV QAM EARL Stop: 08/18/25 14:29 Pantoprazole Sodium (Protonix) 40 mg in 10 mls @ 5 mls/min IV DAILY EARL Stop: 08/18/25 13:59 Potassium Chloride/Dextrose/Sod Cl (D5nss + 20meq Kcl) 20 meq in 1,000 mls @ 100 mls/hr IV .Q10H EARL Stop: 07/22/25 13:59 Piperacillin Sod/Tazobactam Sod (Zosyn) 4.5 gm in 100 mls @ 25 mls/hr IV Q8H EARL; Protocol Stop: 07/24/25 16:59 Doxycycline Hyclate 100 mg/ (Dextrose) 100 mls @ 50 mls/hr IV Q12H EARL Stop: 07/24/25 14:14 Lactated Ringer's (Lr) 1,000 mls @ 125 mls/hr IV .Q8H EARL Stop: 07/22/25 14:14 Pantoprazole Sodium 80 mg/ (Dextrose) 120 mls @ 480 mls/hr IV NOW ONE Stop: 07/19/25 14:29 Pantoprazole Sodium 40 mg/ (Dextrose) 100 mls @ 20 mls/hr IV Q5H EARL Stop: 08/18/25 14:29 Miscellaneous Information (Vancomycin Consult Active) 1 each N/A UD PRN PRN Reason: Consult Stop: 08/18/25 11:46 Propofol (Propofol Bolus From Bag) 20 mg IV Q5M PRN PRN Reason: Sedation Stop: 07/22/25 12:48 Last Admin: 07/19/25 13:28 Dose: 20 mg Code Status & VTE Plan VTE Prophylaxis Plan VTE Prophylaxis will be ordered: Yes (5) Fall Encounter type: initial encounter Qualified Code(s): W19.XXXA - Unspecified fall, initial encounter
[2025-07-19] MEDS: LACTATED RINGER'S 1,000 ML IV SCH (14:34)
[2025-07-19] MEDS: FOLIC ACID 1 MG in SYRINGE 9.8 ML IV SCH (14:36)
[2025-07-19 14:56] LABS: Hematocrit (blood only) 40.9 % (37.0-47.0); Hemoglobin 13.2 g/dl (12.0-16.0); Mean Corpuscular Hemoglobin 36.6 pg (25.0-34.0); Mean Corpuscular Volume 113.3 fL (80.0-100.0); Platelet Count 196 K/uL (130-400); RDW Standard Deviation 60.7 fL (36.4-46.3); Red Blood Count 3.61 M/uL (4.20-5.40); White Blood Count 10.31 K/ul (4.8-10.8)
[2025-07-19 15:18] LABS: Anion Gap 25.0 (3-11); Blood Urea Nitrogen 13.0 mg/dl (6-23); Calcium 8.0 mg/dl (8.6-10.3); Carbon Dioxide 15.0 mmol/L (21-32); Chloride 102.0 mmol/L (98-107); Creatine Kinase 39.0 U/L (26-192); Creatinine Clr Calc Pharmacy 82.8 ml/min; Glucose 263.0 mg/dl (70-99(Fasting)); Potassium 3.8 mmol/L (3.5-5.1); Sodium 142.0 mmol/L (136-145)
[2025-07-19] MEDS ORDERED: GLUCOSE 40% GEL 15 GM TUBE PO PRN (15:29)
[2025-07-19] MEDS ORDERED: GLUCOSE 10 TAB/TUBE PO PRN (15:29)
[2025-07-19] MEDS ORDERED: CARBOHYDRATES FOR HYPOGLYCEMIA PO PRN (15:29)
[2025-07-19] MEDS ORDERED: GLUCAGON FOR INJ 1 MG VIAL SQ PRN (15:29)
[2025-07-19 15:32] LABS: Thyroid Stimulating Hormone 0.669 uIu/ml (0.300-4.500)
[2025-07-19] MEDS: D5NSS + 20MEQ KCL 20 MEQ/1,000 ML BAG IV SCH (15:58)
[2025-07-19] MEDS: DOXYCYCLINE HYCLATE 100 MG in DEXTROSE 5% MINI-B 100 ML IV SCH (15:58)
[2025-07-19] MEDS: PANTOprazole 40 MG in DEXTROSE 5% MINI-B 100 ML IV SCH (15:59)
[2025-07-19] MEDS ORDERED: PHARMACY GLYCEMIC MGMT CONSULT PRN (16:11)
[2025-07-19] MEDS ORDERED: MIDAZOLAM BOLUS FROM BAG IV PRN (16:16)
[2025-07-19] MEDS ORDERED: INSULIN ASPART PER UNIT CHARGE SC SCH (16:30)
[2025-07-19 17:12] LABS: Anion Gap 23.0 (3-11); Blood Urea Nitrogen 13.0 mg/dl (6-23); Calcium 7.5 mg/dl (8.6-10.3); Carbon Dioxide 15.0 mmol/L (21-32); Chloride 103.0 mmol/L (98-107); Creatinine Clr Calc Pharmacy 87.8 ml/min; Glucose 356.0 mg/dl (70-99(Fasting)); Magnesium 1.6 mg/dl (1.7-2.4); Potassium 3.9 mmol/L (3.5-5.1); Sodium 141.0 mmol/L (136-145)
[2025-07-19 17:13] LABS: Anion Gap 23.0 (3-11); Blood Urea Nitrogen 13.0 mg/dl (6-23); Calcium 7.5 mg/dl (8.6-10.3); Carbon Dioxide 15.0 mmol/L (21-32); Chloride 103.0 mmol/L (98-107); Creatinine Clr Calc Pharmacy 90.6 ml/min; Glucose 361.0 mg/dl (70-99(Fasting)); Magnesium 1.6 mg/dl (1.7-2.4); Potassium 3.9 mmol/L (3.5-5.1); Sodium 141.0 mmol/L (136-145)
[2025-07-19] MEDS: GADOBUTROL 30ML VIAL IV ONE (17:58)
[2025-07-19] MEDS: INSULIN REGULAR 250 UNITS in SODIUM CHLORIDE 0.9% 247.5 ML IV SCH (18:10)
[2025-07-19] MEDS: INSULIN ASPART PER UNIT CHARGE SC SCH (18:11)
[2025-07-19] MEDS: NovoLIN-R BOLUS FROM BAG IV ONE (18:11)
[2025-07-19] MEDS: PENDING 1/2NSS+20mEq KCL IVF SCH (18:21)
[2025-07-19] MEDS: MIDAZOLAM HCL 125 MG/250 ML BAG IV SCH (18:24)
[2025-07-19] MEDS: CALCIUM GLUCONATE 1,000 MG/60 ML BAG IV SCH (18:26)
[2025-07-19] MEDS: PIPERACILLIN/TAZOBACTAM 4.5 GM/100 ML BAG IV SCH (18:44)
--- NOTE | 2025-07-19 18:45 | Magnetic Resonance Report ---
MRI of the brain performed with and without IV contrast History: Seizure Comparison: None Technique: Multiplanar T1 weighted, axial T2/FLAIR, and susceptibility images were obtained without intravenous contrast. Following intravenous gadolinium based contrast administration, axial T2 weighted, diffusion, and T1-weighted images were obtained. Findings: No evidence for intracranial mass lesion, mass-effect, midline shift, or abnormal extra-axial fluid collection. Postcontrast images demonstrate no abnormal intracranial enhancement. The mesial temporal lobes appears symmetric without signal abnormality or restricted diffusion. The orbits are grossly unremarkable. Moderate generalized cerebral atrophy. No abnormally reduced diffusion or evidence for acute infarct. Normal intravascular flow voids. Bilateral pseudophakia. Bilateral mastoid air cell effusions. There is fluid in the nasopharynx. A small, simple area of fluid about the subgaleal region of the hide forehead near the midline, grossly unchanged, possibly related to prior hematoma, that was seen on 06/12/2025. Impression: Normal brain MRI with and without IV contrast Electronically signed by Kaushik Hadley 07-19-2025 6:45 PM
[2025-07-19] MEDS: SODIUM CHLOR 0.45% + 20MEQ KCL 20 MEQ/1,000 ML BAG IV SCH (19:00)
[2025-07-19] MEDS: ACETAMINOPHEN 500 MG TAB PO STA (20:12)
[2025-07-19] MEDS: HEPARIN SOD 5,000 UNIT/0.5 ML VIAL SQ SCH (20:47)
[2025-07-19 21:10] LABS: Blood Urea Nitrogen 12 mg/dl (6-23); Calcium 8.1 mg/dl (8.6-10.3); Carbon Dioxide 19 mmol/L (21-32); Chloride 103 mmol/L (98-107); Creatinine Clr Calc Pharmacy 82.8 ml/min; Glucose 365 mg/dl (70-99(Fasting))
[2025-07-19 21:29] LABS: Magnesium 1.7 mg/dl (1.7-2.4); Potassium 3.0 mmol/L (3.5-5.1); Sodium 140.0 mmol/L (136-145)
[2025-07-19 21:32] LABS: Hematocrit (blood only) 34.9 % (37.0-47.0); Hemoglobin 12.3 g/dl (12.0-16.0); Mean Corpuscular Hemoglobin 38.6 pg (25.0-34.0); Mean Corpuscular Volume 109.4 fL (80.0-100.0); Platelet Count 176 K/uL (130-400); RDW Standard Deviation 56.2 fL (36.4-46.3); Red Blood Count 3.19 M/uL (4.20-5.40); White Blood Count 9.25 K/ul (4.8-10.8)
[2025-07-19 22:08] LABS: Appearance Urine Clear (Clear); Bacteria Urine Automated None Seen (None Seen); Cast Urine Automated 0-2 /lpf (0-2); Epithelial Cell Urine Auto 0-2 /hpf (0-2); Glucose Urine UA 3+ (Negative); RBC Urine Automated >20 /hpf (0-2)
[2025-07-19] MEDS: POTASSIUM CHLORIDE 40 MEQ in D5W AND 1/2NSS 1,000 ML IV SCH (22:15)
[2025-07-19] MEDS ORDERED: Nursing to Pharmacy Communication SCH (22:15)
[2025-07-19] MEDS: POTASSIUM CHLORIDE 20 MEQ/15 ML UDC NG STA (22:40)
--- NOTE | 2025-07-19 23:33 | XRay Report ---
Exam(s): XR KUB EXAM: XR Abdomen, 1 View CLINICAL HISTORY: Reason for exam: eval OGT placement. TECHNIQUE: Frontal supine view of the abdomen. COMPARISON: No relevant prior studies available. FINDINGS: An orogastric tube is noted with its tip in the region of the stomach. Its side-port is at the level of the GE junction. Gastrointestinal tract: There is a nonspecific bowel gas pattern.. Intra-abdominal: Surgical clips are noted. There are calcifications overlying the pancreas. Bones/joints: There are degenerative changes in the spine.. IMPRESSION: An orogastric tube is noted with its tip in the region of the stomach. Its side-port is at the level of the GE junction. It should be further advanced into the stomach. Electronically signed by: Rich Negron MD 07/19/25 23:33 PM
[2025-07-20 01:09] LABS: Anion Gap 12 (3-11); Blood Urea Nitrogen 11 mg/dl (6-23); Calcium 8.6 mg/dl (8.6-10.3); Carbon Dioxide 23 mmol/L (21-32); Chloride 103 mmol/L (98-107); Creatinine Clr Calc Pharmacy 80.5 ml/min; Glucose 275 mg/dl (70-99(Fasting)); Potassium 3.3 mmol/L (3.5-5.1); Sodium 138 mmol/L (136-145)
[2025-07-20 01:17] LABS: Magnesium 2.2 mg/dl (1.7-2.4)
[2025-07-20] MEDS ORDERED: SODIUM PHOSPHATE 3 MMOL/1 ML INFUSION IV STA (02:41)
[2025-07-20] MEDS ORDERED: Nursing to Pharmacy Communication SCH ×2 (03:15→10:15)
[2025-07-20] MEDS: SODIUM CHLORIDE 0.9% IV ONE (03:20)
[2025-07-20] MEDS: SODIUM PHOSPHATE IV ONE (03:20)
[2025-07-20 03:27] LABS: Hematocrit (blood only) 37.0 % (37.0-47.0); Hemoglobin 12.2 g/dl (12.0-16.0); Immature Granulocytes # (auto) 0.03 K/uL (0.01-0.20); Immature Granulocytes % (auto) 0.4 %; Mean Corpuscular Hemoglobin 36.7 pg (25.0-34.0); Mean Corpuscular Volume 111.4 fL (80.0-100.0); Platelet Count 165 K/uL (130-400); RDW Standard Deviation 59.7 fL (36.4-46.3); Red Blood Count 3.32 M/uL (4.20-5.40); White Blood Count 7.30 K/ul (4.8-10.8)
[2025-07-20 03:46] LABS: Macrocytosis Present; Polychromasia 1+
[2025-07-20] MEDS: DEXTROSE 50% 50 ML SYRINGE IV PRN (06:10)
[2025-07-20 06:49] LABS: Alanine Aminotransferase 43.0 U/L (7-52); Albumin Globulin Ratio 1.4 (0.9-2); Alkaline Phosphatase 144.0 U/L (34-104); Anion Gap 8.0 (3-11); Bilirubin,Total 0.7 mg/dl (0.2-1.0); Blood Urea Nitrogen 8.0 mg/dl (6-23); Calcium 8.2 mg/dl (8.6-10.3); Carbon Dioxide 22.0 mmol/L (21-32); Chloride 108.0 mmol/L (98-107); Creatinine Clr Calc Pharmacy 100.7 ml/min; Globulin 2.1 gm/dl (2.5-4.0); Glucose 100.0 mg/dl (70-99(Fasting)); Magnesium 1.9 mg/dl (1.7-2.4); Sodium 138.0 mmol/L (136-145); Total Protein 5.1 gm/dl (6.0-8.3)
[2025-07-20 06:53] LABS: Potassium 4.2 mmol/L (3.5-5.1)
[2025-07-20 07:00] LABS: Thyroid Stimulating Hormone 3.993 uIu/ml (0.300-4.500)
[2025-07-20 07:18] LABS: Hemoglobin A1C 5.7 % (4.5-5.6)
[2025-07-20 07:39] LABS: iSTAT Art Bld Gas Base Excess -5.0 meg/L (-9-1.8); iSTAT Art Bld Gas pCO2 Correct 36 mmHg (35-46); iSTAT Art Bld Gas pH Corrected 7.359 (7.35-7.45); iSTAT Arterial Blood Gas pO2 C 111
[2025-07-20 08:43] LABS: Anion Gap 7.0 (3-11); Calcium 8.1 mg/dl (8.6-10.3); Carbon Dioxide 23.0 mmol/L (21-32); Chloride 106.0 mmol/L (98-107); Magnesium 1.8 mg/dl (1.7-2.4); Potassium 4.1 mmol/L (3.5-5.1); Sodium 136.0 mmol/L (136-145)
[2025-07-20 08:46] LABS: Hematocrit (blood only) 36.3 % (37.0-47.0); Hemoglobin 12.0 g/dl (12.0-16.0); Mean Corpuscular Hemoglobin 37.0 pg (25.0-34.0); Mean Corpuscular Volume 112.0 fL (80.0-100.0); Platelet Count 141 K/uL (130-400); RDW Standard Deviation 60.5 fL (36.4-46.3); Red Blood Count 3.24 M/uL (4.20-5.40); White Blood Count 6.78 K/ul (4.8-10.8)
[2025-07-20 08:49] LABS: Blood Urea Nitrogen 7.0 mg/dl (6-23); Creatinine Clr Calc Pharmacy 100.7 ml/min; Glucose 158.0 mg/dl (70-99(Fasting))
[2025-07-20] MEDS ORDERED: THIAMINE HCL 500 MG in SODIUM CHLORIDE 0.9% 50 ML IV SCH (09:00)
--- NOTE | 2025-07-20 09:01 | XRay Report ---
EXAM: XR chest 1V portable CLINICAL HISTORY: eval lines/tubes/lung reynolds TECHNIQUE: An X-ray image of the chest is obtained in AP projection. COMPARISON: CT chest and x-ray chest studies dated 07/19/2025. FINDINGS: Pulmonary Parenchyma: Lungs are clear bilaterally. No evidence of consolidation, collapse, or focal opacities. No pulmonary nodules are identified. No evidence of pleural effusion or pleural thickening. ETT was identified with its tip is seen about 3.5 cm from the joycelyn. NGT was identified, its tip is not included in the field, it is seen coursing off-midline and below the left diaphragm, and is reaching the left hypochondrium Heart and Mediastinum: Heart size and shape are normal. No mediastinal widening or masses. No hilar or mediastinal lymphadenopathy. Bony Thorax: Bony thorax appears intact without fractures or deformities. Soft Tissues: Soft tissues overlying the chest wall are unremarkable. IMPRESSION: 1. No acute cardiopulmonary abnormalities are identified. 2. ETT is adequately placed with its tip seen about 3.5 cm from the joycelyn. 3. NGT was identified; its tip is not included in the field, it is seen coursing off-midline and below the left diaphragm, and is reaching the left hypochondrium. 4. Bilateral clear costophrenic angles with the previously seen rim of pleural effusion and curvilinear thick basal atelectatic bands couldn't be clearly delineated based on current X-ray criteria. Electronically signed by Mikel Albert 07-20-2025 09:00 AM
[2025-07-20] MEDS: ENOXAPARIN INJ 40 MG/0.4 ML SYR SQ SCH (10:11)
[2025-07-20] MEDS: LACTATED RINGER'S 1,000 ML IV SCH (10:12)
--- NOTE | 2025-07-20 10:29 | Orthopedic Consultation ---
Date of Service July 20, 2025 Assessment & Plan (1) Closed C3 fracture: (2) Closed T11 fracture: (3) Compression fracture of L5 vertebra: History of Present Illness Reason for Consultation: T11 fracture, C3 fracture Requesting Physician: . Attending Physician: Dov Coleman MD 59-year-old female with significant past medical history of alcoholism with alcohol-induced chronic pancreatitis, type 2 diabetes, hypertension, hyperlipidemia, chronic insomnia, sleep apnea with history of fall apparently was brought in today by the ESM totally unresponsive and found on the floor. No other history was obtainable and the being demented could not provide any other history to the EMS and he was not available in the emergency room. Called her mom who did not know much about what happened but now she knows that she is here with sepsis, fall and unresponsive and required intubation. She was noted to have high temperature of 38 C tachycardia at presentation and remained totally unresponsive in the emergency room. Patient intubated in the ICU, unresponsive, unable to obtain any additional history. Exam: Unable to obtain any kind of motor or sensory exam, patient reveals ecchymosis in various areas including left abdominal region/flank area. CT scan of the cervical spine from July 19, 2025 Clinical history: Trauma Comparison is made to the prior CT dated 06/12/2025 Findings: There is increased displacement and angulation of the previously seen fracture of the anteroinferior corner of the C3 vertebral body, up to 2 mm. There is an unchanged old T1 compression fracture. No definite new fracture is seen. No listhesis is seen. No focal osseous lesion is evident. 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 There is no spinal stenosis. The neural foramen are patent At C3-4, there is a mild disc bulge. There is no spinal stenosis. The neural foramen are patent At C4-5, there is a disc bulge without spinal stenosis. There is mild left neural foramen narrowing At C5-6, there is a disc bulge without spinal stenosis. There is right neural foramen narrowing that may affect the right C6 nerve root At C6-7, there is a disc bulge without spinal stenosis. The neural foramen are patent At C7-T1, there is a disc bulge without spinal stenosis. The neural foramen are patent There are bilateral thyroid nodules. No foreign body is seen Impression: 1. Increased mild displacement and angulation of the previously seen fracture o f the anteroinferior corner of the C3 vertebral body 2. Unchanged old T1 compression fracture 3. Right C5-6 neural foramen narrowing that may affect the right C6 nerve root 4. Indeterminate thyroid nodules. A follow-up thyroid ultrasound could be obtained Review of CT scan images of the cervical spine, also of the abdominal CT scan from July 19, 2025, this is my separate interpretation, this reveals degenerative changes throughout the cervical spine, minimally displaced small fracture of the anterior inferior corner of C3, no evidence of listhesis or instability. 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 Remaining thoracic vertebra reveal anterior ossification.. There is a minimally displaced anterior superior endplate compression fracture of L5. Impression: History as noted with patient unresponsive and status post a fall, findings as noted on cervical and abdominal CT scan. Recommendations: Recommend soft collar for cervical spine, I do not believe this is a fracture indicating any instability can be followed with radiographic imaging in the future when the patient is more responsive. More notable finding is the fracture at T11 indicating an extension type injury, recommend thoracic CT scan when able, thoracolumbar brace support when the patient is out of bed, but while supine and intubated no brace needed at this time. Additional MRI imaging with the patient stable for this type of study. Allergies Allergy/AdvReac Type Severity Reaction Status Date / Time benzoyl peroxide Allergy Mild SKIN RED Verified 05/31/25 00:23 AND IRRITATED Home Medications Medication Instructions Recorded Confirmed Type lactobacillus combination no.4 3 3,000 mmu cells PO QAM 10/11/18 07/19/25 History billion cell capsule (Probiotic) buspirone 10 mg tablet 10 mg PO TID 04/22/23 07/19/25 History calcium 600 mg (as 1 tab PO BID 04/22/23 07/19/25 History carbonate)-vitamin D3 5 mcg (200 unit) tablet (Calcium 600 + D(3)) gabapentin 300 mg capsule 900 mg PO HS 04/22/23 07/19/25 History metformin 500 mg tablet,extended 2,000 mg PO QAM 04/22/23 07/19/25 History release 24 hr thiamine HCl (vitamin B1) 100 mg 100 mg PO QAM #15 tabs 04/22/23 07/19/25 Rx tablet insulin lispro 100 unit/mL 5 - 7 unit subcut DIRECTED 12/27/24 07/19/25 History subcutaneous pen chlorpheniramine maleate 4 mg 0 mg PO BID 05/31/25 07/19/25 History tablet coenzyme Q10 100 mg capsule 100 mg PO DAILY 05/31/25 07/19/25 History (CoQ-10) insulin glargine 100 unit/mL (3 0 unit subcut HS 05/31/25 07/19/25 History mL) subcutaneous pen (Lantus Solostar U-100 Insulin) magnesium chloride 64 mg 64 mg PO BID #60 tabs 06/03/25 07/19/25 Rx (magnesium chloride) tablet,delayed release (Mag 64) Past Med/Surg History Problem List (Updated 07/20/25 @ 10:43 by Gaston Orozco MD) Compression fracture of L5 vertebra Closed T11 fracture Closed C3 fracture CHI (closed head injury) (Acute) Sepsis (Acute) Altered mental status (Acute) Vertebral compression fracture Unresponsive state Sepsis Diabetic ulcer of right foot (Acute) Transaminitis (Acute) Weakness (Acute) Rhabdomyolysis UTI (urinary tract infection) Cellulitis of right foot due to methicillin-resistant Staphylococcus aureus Infection of right foot (Acute) Encephalopathy acute Acute confusion (Acute) Hyperglycemia (Acute) Hypomagnesemia (Acute) Hypoglycemia (Acute) Weakness Electrolyte imbalance Alcohol abuse GI bleed Altered mental state Metabolic acidosis Alcoholic pancreatitis DKA (diabetic ketoacidoses) Hyperglycemic crisis in diabetes mellitus Hypothermia (Acute) Acute kidney injury (Acute) Hyperglycemia (Acute) Myxedema coma (Acute) Hyponatremia (Acute) Fall (Acute) Diabetes (Chronic) Finger laceration (Acute) Hypertension (Chronic) Hypokalemia (Acute) Pancreatitis (Acute) Medical History (Updated 07/20/25 @ 10:43 by Gaston Orozco MD) Rhabdomyolysis No significant past medical history Family History Other Family history non-contributory Social History Smoking Status: Unknown if ever smoked Second Hand Exposure: No; Do You Dip or Chew Tobacco: No; Preferred Language: Togolese Communication Ability: Effective Groundskeeping Maintenance Worker Required: No Beliefs That Will Affect Care: None Current Living Situation: Spouse current occupational status: employed How many Children do You have: 2 Feels Safe at Home: Yes Assistive Devices: None Review of Systems All systems reviewed & are unremarkable except as noted in HPI & below. Physical Exam . Results & Data Results & Data Laboratory Results . Diagnostic Findings . PG Care Time/CCT Total # of Minutes Spent Total Time Spent with Patient: Total time spent is greater than 50% in coordination of care (as documented) at patient's floor/unit and/or counseling patient: Coding Level of Care Code 77634 IN/OBS CONSULT LVL 4,60M Diagnoses Closed C3 fracture S12.200A Closed T11 fracture S22.089A Compression fracture of L5 vertebra S32.050A
[2025-07-20] MEDS: THIAMINE HCL 500 MG in SODIUM CHLORIDE 0.9% 50 ML IV SCH (11:02)
[2025-07-20] MEDS: LANTUS PER UNIT CHARGE SC SCH (11:05)
--- NOTE | 2025-07-20 11:09 | Critical Care Progress Note ---
Date of Service July 20, 2025 Assessment & Plan (1) Altered mental state: (2) Transaminitis: (3) Alcohol abuse: (4) DKA (diabetic ketoacidoses): (5) Metabolic acidosis: (6) Coma: Plan 59-year-old female found in the field down on the ground. Intubated in the ER due to altered mental status and hypoxia. Transferred to ICU for further management. Neurologic: Start high-dose thiamine x 3 days. Continue maintain off sedation. Patient given a dose of Keppra yesterday due to possible seizure activity. EEG pending. MRI brain with and without contrast unremarkable. Neurology consult pending. CT head imaging without acute findings. Spinal fractures noted. Appreciate Ortho input. C-collar in place. Will need to consider transfer to tertiary center if patient does not have a more significant neurological response for continuous EEG. Pulmonary: Left greater than right infiltrate/atelectasis. Continue lung protective ventilation strategy. Doing well on SBT today, but unable to be extubated at this present time due to concerns of airway protection and low GCS. MRSA screen negative. Continue Zosyn. Can de-escalate or potentially discontinue depending on sputum and blood cultures. Chest x-ray today generally clear. Cardiovascular: Maintain MAP above 65. EKG was sinus tachycardia. No acute ischemic changes. Trope minimally elevated. Echo May 2025 within normal mild concentric LVH. Gastrointestinal: Transaminitis improving. Continue NAC protocol. Acetaminophen and salicylate level negative. Originally concern for possible GI bleeding, but no further blood noted from OG tube. Continue Protonix. GI consult canceled. Renal: Possible mild DKA, resolved. Monitor BMPs closely. Replace electrolytes as needed. Continue low-dose IV fluids. Infectious disease: Possible aspiration pneumonia. Continue Zosyn and consider de-escalation based on culture data. Hematologic: No acute issues. Scalp hematoma noted. Endocrine: TSH unremarkable. Monitor glucoses closely. DKA resolving. Peripheral IVs and [place] 08/05/2025 VTE prophylaxis: SCDs. Start subcu Lovenox 40 mg daily. CODE STATUS: Full Family at bedside: None Disposition: ICU I have personally spent 48 minutes of critical care time in the direct management of this patient. This is a life/limb threatening event. This includes time spent evaluating patient, direct bedside care, chart review, placing orders, interpretation of diagnostic studies, discussion with consultants, patient, and family members, as well as other required patient management activities. This time is exclusive of all separately billable procedures, and teaching time and separate from and in addition to any other critical care service time. Thank you for allowing us to participate in the care of this patient. Admission and Anticipated Discharge Date Admission Date: July 19, 2025 Subjective Patient has been weaned off all sedation. She does open eyes spontaneously, but is very sluggish. She is able to breathe on her own and is currently on a spontaneous breathing trial. Hemodynamically she is stable. She is requiring minimal vent support. Review of Systems Review of Systems: All systems reviewed & are unremarkable except as noted in HPI & below, Unobtainable due to endotracheal tube and Unobtainable due to reduced consciousness Physical Exam Physical Exam: Constitutional: Intubated. Multiple bruises. Eyes: Pupils are equal round and reactive to light. Conjunctivae are normal. Anicteric sclera. Ears nose, mouth and throat: Intubated. Neck: Trachea is midline. Visual inspection is normal. C-collar in place. Respiratory: Clear to auscultation bilaterally. No use of accessory muscles. No significant clubbing noted. Cardiovascular: Regular rate and rhythm. No murmurs. No edema. Gastrointestinal: Normal bowel sounds, soft, nontender and nondistended. No hepatosplenomegaly noted. Musculoskeletal: No cyanosis. Patient is able to move all extremities. Stre ngth is 5 out of 5 in the upper and lower extremities. Skin: No rashes, warm dry and intact. Neurologic: Patient spontaneously blinking and overbreathing the ventilator. She moves her toes spontaneously. She does not seem to withdraw from painful stimuli. Psychiatric: Unable to assess. Results & Data Results & Data Vital Signs (Past 12 Hours) Vital Signs Temp Pulse Resp BP Pulse Ox O2 Del Method FiO2 07/20/25 10:22 94 H 12 98 21 07/20/25 08:00 35.9 C L 87 15 100 07/20/25 07:30 113/68 07/20/25 07:30 36.2 C L 88 17 100 07/20/25 07:30 89 16 100 07/20/25 07:06 36.2 C L 88 15 100 07/20/25 06:30 36.2 C L 91 H 17 100 07/20/25 06:30 113/67 07/20/25 06:30 113/67 07/20/25 06:00 36.4 C L 89 19 100 07/20/25 06:00 107/66 07/20/25 06:00 107/66 07/20/25 06:00 107/66 07/20/25 05:30 97/62 L 07/20/25 05:21 36.5 C 89 14 99 07/20/25 05:00 36.6 C 91 H 12 99 Mechanical Vent 07/20/25 05:00 104/61 07/20/25 05:00 104/61 07/20/25 05:00 104/61 07/20/25 04:33 36.7 C 92 H 13 99 Mechanical Vent 07/20/25 04:30 102/59 L 07/20/25 04:30 102/59 L 07/20/25 04:24 36.6 C 93 H 12 100 07/20/25 04:06 36.7 C 90 14 100 Mechanical Vent 07/20/25 04:00 25 07/20/25 04:00 102/60 07/20/25 03:57 36.7 C 89 19 100 07/20/25 03:33 36.7 C 90 17 100 Mechanical Vent 07/20/25 03:30 99/64 L 07/20/25 03:27 36.7 C 96 H 12 100 07/20/25 03:22 89 18 100 25 07/20/25 03:12 36.7 C 93 H 11 L 100 Mechanical Vent 07/20/25 03:00 95/63 L 07/20/25 02:57 36.7 C 90 16 100 07/20/25 02:42 36.7 C 88 19 100 Mechanical Vent 07/20/25 02:30 102/65 07/20/25 02:30 102/65 07/20/25 02:15 36.7 C 91 H 20 100 07/20/25 02:09 36.7 C 92 H 22 100 Mechanical Vent 07/20/25 02:00 103/62 07/20/25 01:33 36.7 C 92 H 15 100 Mechanical Vent 07/20/25 01:30 107/63 07/20/25 01:03 36.7 C 88 14 100 07/20/25 01:00 36.7 C 92 H 18 100 07/20/25 01:00 102/61 07/20/25 00:33 36.7 C 90 14 96 07/20/25 00:30 107/64 07/20/25 00:30 107/64 07/20/25 00:24 36.7 C 91 H 12 100 Mechanical Vent 07/20/25 00:00 36.7 C 92 H 16 100 07/20/25 00:00 86 07/20/25 00:00 25 07/19/25 23:51 36.7 C 88 20 100 Mechanical Vent 07/19/25 23:43 88 20 100 07/19/25 23:30 103/64 07/19/25 23:30 103/64 07/19/25 23:18 36.8 C 90 17 100 Mechanical Vent Coding Level of Care Code 54126 CRITICAL CARE 1ST 30-74M Diagnoses Altered mental state R41.82 Transaminitis R74.01 Alcohol abuse F10.10 DKA (diabetic ketoacidoses) E13.10 Metabolic acidosis E87.2 Coma R40.20
--- NOTE | 2025-07-20 11:31 | Hospitalist Progress Note ---
Date of Service July 20, 2025 Assessment & Plan (1) Sepsis: (2) Unresponsive state: (3) Transaminitis: (4) Alcoholic pancreatitis: (5) Fall: (6) Vertebral compression fracture: (7) Alcohol abuse: Plan 59-year-old female with significant past medical history of alcoholism with alcohol-induced chronic pancreatitis, type 2 diabetes, hypertension, hyperlipidemia, chronic insomnia, sleep apnea with history of fall apparently was brought in today by the [facility] totally unresponsive and found on the floor. Neuro: #Metabolic Encephalopathy #Unresponsive #Sedation -patient intubated for airway protection -RASS -3 today -differential is broad, could be hepatic encephalopathy, delirium tremens with postictal state, Wernickes encephalopathy/Korsakoff syndrome, sepsis (no leukocytosis), other metabolic disturbance, anoxic brain injury (given posturing on arrival but MR unremarkable), other neurologic shock, less likely autoimmune Plan: -EEG ordered -monitor for posturing or other signs of anoxia -high dose thiamine, folic acid -replete phosphorus -check ESR/CRP to r/o autoimmune process Pulmonary: #Acute Hypoxic Respiratory Failure #Atelectasis #Intubation -continue lung protective ventilation strategy -daily SBP trials -low GCS so unable to extubate at this time Cardiac: #Type 2 OR #CAD -CAD noticed on imaging -troponins only marginally elevated GI: #Mild Hematemesis -Hgb stable -no more blood from NG tube -GI consult cancelled #Chronic Pancreatitis #Fatty Liver Disease #Alcohol Use -elevated LFTs in setting of fatty liver disease and alcohol use -could be contributing factor to overall presentation Plan: -if no improvement in mentation could consider starting lactulose -trend CIWA, monitor for withdrawal Renal: -n/a Endocrine: #Mild DKA -improved, transitioned to lantus and SSI Ortho: #L5 Fracture #T11 Fracture #Worsening C3 Fracture -ortho consult, appreciate recs I spent a total of 50 minutes in direct patient care, including [id number] time with the patient and/or family, reviewing medical records, ordering and reviewing diagnostic tests, and coordinating care with other healthcare providers. This time includes: history taking, physical examination, medical decision making, counseling, ECG interpretation, imaging interpretation, lab interpretation, orders, and education, excluding time spent in the performance of separately billed services. Admission and Anticipated Discharge Date Admission Date: July 19, 2025 Subjective Patient seen and examined at bedside. Patient unresponsive at this time. RASS - 3. Review of Systems Review of Systems: -unable to answer due to mental status Physical Exam Physical Exam: Gen: A&O sedated, intubated HEENT: NCAT, EOMI, not icteric. External ears normal. No rhinorrhea. Moist mucous membranes. Neck: Supple, full range of motion, no observable masses, No meningeal sign. Lungs: No Respiratory distress. CV: RRR, no edema. Abdomen: Soft, nondistended, No rebound tenderness. MSK: No joint swelling, no redness. Skin: No rashes, petechiae, lesions. Normal color per patient. Neuro: RASS -3 Results & Data Results & Data Vital Signs (Past 12 Hours) Vital Signs Temp Pulse Resp BP Pulse Ox O2 Del Method FiO2 07/20/25 10:22 94 H 12 98 21 07/20/25 08:00 35.9 C L 87 15 100 07/20/25 07:30 113/68 07/20/25 07:30 36.2 C L 88 17 100 07/20/25 07:30 89 16 100 07/20/25 07:06 36.2 C L 88 15 100 07/20/25 06:30 36.2 C L 91 H 17 100 07/20/25 06:30 113/67 07/20/25 06:30 113/67 07/20/25 06:00 36.4 C L 89 19 100 07/20/25 06:00 107/66 07/20/25 06:00 107/66 07/20/25 06:00 107/66 07/20/25 05:30 97/62 L 07/20/25 05:21 36.5 C 89 14 99 07/20/25 05:00 36.6 C 91 H 12 99 Mechanical Vent 07/20/25 05:00 104/61 07/20/25 05:00 104/61 07/20/25 05:00 104/61 07/20/25 04:33 36.7 C 92 H 13 99 Mechanical Vent 07/20/25 04:30 102/59 L 07/20/25 04:30 102/59 L 07/20/25 04:24 36.6 C 93 H 12 100 07/20/25 04:06 36.7 C 90 14 100 Mechanical Vent 07/20/25 04:00 25 07/20/25 04:00 102/60 07/20/25 03:57 36.7 C 89 19 100 07/20/25 03:33 36.7 C 90 17 100 Mechanical Vent 07/20/25 03:30 99/64 L 07/20/25 03:27 36.7 C 96 H 12 100 07/20/25 03:22 89 18 100 25 07/20/25 03:12 36.7 C 93 H 11 L 100 Mechanical Vent 07/20/25 03:00 95/63 L 07/20/25 02:57 36.7 C 90 16 100 07/20/25 02:42 36.7 C 88 19 100 Mechanical Vent 07/20/25 02:30 102/65 07/20/25 02:30 102/65 07/20/25 02:15 36.7 C 91 H 20 100 07/20/25 02:09 36.7 C 92 H 22 100 Mechanical Vent 07/20/25 02:00 103/62 07/20/25 01:33 36.7 C 92 H 15 100 Mechanical Vent 07/20/25 01:30 107/63 07/20/25 01:03 36.7 C 88 14 100 07/20/25 01:00 36.7 C 92 H 18 100 07/20/25 01:00 102/61 07/20/25 00:33 36.7 C 90 14 96 07/20/25 00:30 107/64 07/20/25 00:30 107/64 07/20/25 00:24 36.7 C 91 H 12 100 Mechanical Vent 07/20/25 00:00 36.7 C 92 H 16 100 07/20/25 00:00 86 07/20/25 00:00 07/19/25 23:51 36.7 C 88 20 100 Mechanical Vent 07/19/25 23:43 88 20 100 07/19/25 23:30 103/64 07/19/25 23:30 103/64 Laboratory Results -personally reviewed, no leukocytosis, VBG with mild respiratory alkalosis, creatinine at baseline, phos of 1.8 improved from 1.3 and replenishment ordered, LFTS mildly elevated in setting of chronic alcohol use, tox screen negative Medications Administered Dextrose (Dextrose 50% 50 Ml Syringe) 25 - 50 ml IV UD PRN; Protocol PRN Reason: Hypoglycemia Protocol Stop: 08/18/25 15:28 Last Admin: 07/20/25 06:57 Dose: 25 ml Documented By: [id number] Admin: 07/20/25 06:35 Dose: 25 ml Documented By: [id number] Admin: 07/20/25 06:10 Dose: 25 ml Documented By: [id number] Enoxaparin Sodium (Enoxaparin Inj 40 Mg/0.4 Ml Syr) 40 mg SQ QAM EARL Stop: 08/19/25 09:29 Last Admin: 07/20/25 10:11 Dose: 40 mg Documented By: CB Fentanyl Citrate (Fentanyl Citrate) 2,500 mcg in 250 mls @ 0 mls/hr IV .Q0M EARL; Protocol Stop: 08/02/25 11:44 Last Titration: 07/20/25 09:45 Dose: 0 mcg/hr, 0 mls/hr Documented By: CB Co-signed By: JB Titration: 07/20/25 07:05 Dose: 50 mcg/hr, 5 mls/hr Documented By: CB Co-signed By: [id number] Titration: 07/19/25 19:12 Dose: 50 mcg/hr, 5 mls/hr Documented By: CB Co-signed By: [id number] Admin: 07/19/25 11:54 Dose: 50 mcg/hr, 5 mls/hr Documented By: ECS Co-signed By: TNK Propofol (Diprivan) 1,000 mg in 100 mls @ 0 mls/hr IV .Q0M EARL; Protocol Stop: 07/22/25 12:59 Last Titration: 07/20/25 09:45 Dose: 0 mcg/kg/min, 0 mls/hr Documented By: Titration: 07/20/25 07:05 Dose: 20 mcg/kg/min, 8.4 mls/hr Documented By: CB Co-signed By: [id number] Admin: 07/20/25 06:19 Dose: 20 mcg/kg/min, 8.4 mls/hr Documented By: [id number] Co-signed By: MMG Titration: 07/20/25 06:18 Dose: Infused Documented By: [id number] Co-signed By: MMG Titration: 07/19/25 19:12 Dose: 20 mcg/kg/min, 8.4 mls/hr Documented By: CB Co-signed By: [id number] Admin: 07/19/25 18:23 Dose: 20 mcg/kg/min, 8.4 mls/hr Documented By: ERIN Co-signed By: ELIECER Titration: 07/19/25 18:23 Dose: Infused Documented By: ERIN Co-signed By: ELIECER Titration: 07/19/25 14:55 Dose: 15 mcg/kg/min, 6.3 mls/hr Documented By: Admin: 07/19/25 12:56 Dose: 10 mcg/kg/min, 4.2 mls/hr Documented By: ECS Co-signed By: ML Folic Acid 1 mg/ Syringe 10 mls @ 5 mls/min IV QAM EARL Stop: 08/18/25 14:29 Last Admin: 07/20/25 08:31 Dose: 5 mls/min Documented By: Admin: 07/19/25 14:36 Dose: 5 mls/min Documented By: ML Piperacillin Sod/Tazobactam Sod (Zosyn) 4.5 gm in 100 mls @ 25 mls/hr IV Q8H EARL; Protocol Stop: 07/24/25 16:59 Last Admin: 07/20/25 08:30 Dose: 25 mls/hr Documented By: Infusion: 07/20/25 05:11 Dose: Infused Documented By: [id number] Admin: 07/20/25 01:09 Dose: 25 mls/hr Documented By: [id number] Infusion: 07/19/25 22:46 Dose: Infused Documented By: [id number] Admin: 07/19/25 18:44 Dose: 25 mls/hr Documented By: ERIN Doxycycline Hyclate 100 mg/ (Dextrose) 100 mls @ 50 mls/hr IV Q12H EARL Stop: 07/24/25 14:14 Last Infusion: 07/20/25 04:23 Dose: Infused Documented By: [id number] Admin: 07/20/25 02:21 Dose: 50 mls/hr Documented By: [id number] Infusion: 07/19/25 20:08 Dose: Infused Documented By: [id number] Admin: 07/19/25 15:58 Dose: 50 mls/hr Documented By: ERIN Insulin Human Regular 250 (units/ Sodium Chloride) 250 mls @ 0 mls/hr IV .Q0M EARL; Protocol Stop: 08/18/25 16:14 Last Titration: 07/20/25 07:31 Dose: 0 units/hr, 0 mls/hr Documented By: ERIN Co-signed By: JB Titration: 07/20/25 07:30 Dose: 5.8 units/hr, 5.8 mls/hr Documented By: ERIN Co-signed By: [email or web address] Titration: 07/20/25 07:05 Dose: 0 units/hr, 0 mls/hr Documented By: CB Co-signed By: [id number] Titration: 07/20/25 06:00 Dose: 0 units/hr, 0 mls/hr Documented By: [id number] Co-signed By: MMG Titration: 07/20/25 05:00 Dose: 9.6 units/hr, 9.6 mls/hr Documented By: [id number] Co-signed By: TMG Titration: 07/20/25 04:00 Dose: 12 units/hr, 12 mls/hr Documented By: [id number] Co-signed By: TMG Titration: 07/20/25 03:00 Dose: 12 units/hr, 12 mls/hr Documented By: [id number] Co-signed By: TLM Titration: 07/20/25 02:00 Dose: 14.2 units/hr, 14.2 mls/hr Documented By: [id number] Co-signed By: TLM Titration: 07/20/25 01:00 Dose: 14.2 units/hr, 14.2 mls/hr Documented By: [id number] Co-signed By: TLM Titration: 07/20/25 00:00 Dose: 14.2 units/hr, 14.2 mls/hr Documented By: [id number] Co-signed By: TLM Titration: 07/19/25 23:00 Dose: 14.2 units/hr, 14.2 mls/hr Documented By: [id number] Co-signed By: TLM Titration: 07/19/25 22:00 Dose: 14.2 units/hr, 14.2 mls/hr Documented By: [id number] Co-signed By: TLM Titration: 07/19/25 21:00 Dose: 14.2 units/hr, 14.2 mls/hr Documented By: [id number] Co-signed By: MMG Titration: 07/19/25 20:00 Dose: 11.8 units/hr, 11.8 mls/hr Documented By: [id number] Co-signed By: TLM Titration: 07/19/25 19:12 Dose: 8.4 units/hr, 8.4 mls/hr Documented By: ERIN Co-signed By: [id number] Admin: 07/19/25 18:10 Dose: 7 units/hr, 7 mls/hr Documented By: ERIN Co-signed By: ARIANAM Midazolam HCl (Versed) 125 mg in 250 mls @ 0 mls/hr IV .Q0M EARL; Protocol Stop: 08/18/25 16:29 Last Titration: 07/20/25 09:45 Dose: 0 mg/hr, 0 mls/hr Documented By: ERIN Co-signed By: JB Titration: 07/20/25 07:05 Dose: 1 mg/hr, 2 mls/hr Documented By: ERIN Co-signed By: [id number] Titration: 07/19/25 19:12 Dose: 1 mg/hr, 2 mls/hr Documented By: ERIN Co-signed By: [id number] Admin: 07/19/25 18:24 Dose: 1 mg/hr, 2 mls/hr Documented By: ERIN Co-signed By: ELIECER Thiamine HCl 500 mg/ Sodium (Chloride) 55 mls @ 210 mls/hr IV Q8H EARL Stop: 08/19/25 09:59 Last Infusion: 07/20/25 11:34 Dose: Infused Documented By: Admin: 07/20/25 11:02 Dose: 210 mls/hr Documented By: ERIN Lactated Ringer's (Lr) 1,000 mls @ 100 mls/hr IV .Q10H EARL Stop: 07/23/25 09:59 Last Admin: 07/20/25 10:12 Dose: 100 mls/hr Documented By: ERIN Insulin Aspart (Insulin Aspart Per Unit Charge) 0 units SC ACHS EARL Stop: 08/18/25 16:29 Last Admin: 07/20/25 11:33 Dose: Not Given Documented By: Admin: 07/20/25 07:00 Dose: Not Given Documented By: Admin: 07/19/25 21:21 Dose: Not Given Documented By: [id number] Admin: 07/19/25 18:11 Dose: Not Given Documented By: ERIN Co-signed By: ELIECER Insulin Glargine (Lantus Per Unit Charge) 10 units SC DAILY EARL Stop: 08/19/25 10:29 Last Admin: 07/20/25 11:05 Dose: 10 units Documented By: CB Co-signed By: ELIECER Propofol (Propofol Bolus From Bag) 20 mg IV Q5M PRN PRN Reason: Sedation Stop: 07/22/25 12:48 Last Admin: 07/19/25 14:54 Dose: 20 mg Documented By: SAVANNAH Co-signed By: FAVIAN Admin: 07/19/25 14:21 Dose: 20 mg Documented By: SAVANNAH Co-signed By: ROSIE Admin: 07/19/25 13:28 Dose: 20 mg Documented By: ECS Co-signed By: SAVANNAH Admin: 07/19/25 13:11 Dose: 20 mg Documented By: ECS Co-signed By: SAVANNAH (5) Fall Encounter type: initial encounter Qualified Code(s): W19.XXXA - Unspecified fall, initial encounter
[2025-07-20 13:24] LABS: Blood Urea Nitrogen 6.0 mg/dl (6-23); Calcium 8.3 mg/dl (8.6-10.3); Carbon Dioxide 24.0 mmol/L (21-32); Chloride 105.0 mmol/L (98-107); Creatinine Clr Calc Pharmacy 114.5 ml/min; Glucose 163.0 mg/dl (70-99(Fasting))
[2025-07-20 13:30] LABS: Anion Gap 8.0 (3-11); Magnesium 1.7 mg/dl (1.7-2.4); Potassium 3.9 mmol/L (3.5-5.1); Sodium 137.0 mmol/L (136-145)
--- NOTE | 2025-07-20 14:18 | Pharmacy Report ---
Pharmacy Glycemic Short Note 2 - Date of Service July 20, 2025 - Glycemic Short BSG Results (Last 24 hours): 07/19/25 07/19/25 07/19/25 14:43 15:46 15:47 Glucose 263 H POC Glucose 364 H* 357 H* 07/19/25 07/19/25 07/19/25 16:31 16:31 18:09 Glucose 356 H* 361 H* POC Glucose 355 H* 07/19/25 07/19/25 07/19/25 19:10 20:03 20:28 Glucose 365 H* POC Glucose 331 H* 371 H* 07/19/25 07/19/25 07/19/25 21:16 22:07 23:19 Glucose POC Glucose 332 H* 285 H 282 H 07/20/25 07/20/25 07/20/25 00:08 00:31 01:02 Glucose 275 H POC Glucose 257 H 229 H 07/20/25 07/20/25 07/20/25 02:01 03:06 03:11 Glucose POC Glucose 222 H 161 H 161 H 07/20/25 07/20/25 07/20/25 03:54 04:19 05:00 Glucose Cancelled POC Glucose 156 H 131 H 07/20/25 07/20/25 07/20/25 06:03 06:10 06:32 Glucose 100 H POC Glucose 91 106 H 07/20/25 07/20/25 07/20/25 06:52 07:25 08:18 Glucose 158 H POC Glucose 127 H 205 H 07/20/25 07/20/25 07/20/25 08:35 09:45 11:08 Glucose POC Glucose 131 H 122 H 118 H 07/20/25 07/20/25 12:26 12:34 Glucose 163 H POC Glucose 136 H OUTPATIENT ANTIDIABETIC REGIMEN: * Lantus 18 units HS, Lispro 5-7 units with meals, metformin 2 gm po daily ASSESSMENT: * 59 year old with PMHx significant for alcoholism, type 2 diabetes, htn, hld wi th history of fall. Was brought into hospital after being found on floor unresponsive. Patient intubated and started on insulin infusion on admission as concerns for DKA as well. Insulin infusion paused this AM as blood sugars trending downward. AG closed, provider okay with transitioning off insulin infusion. Dextrose fluids d/c, protonix drip d/c - likely will see further improvement in blood sugars. * Will start conservatively with insulin and trial Lantus 10 units daily for now. Will d/c insulin drip and start novolog Q4 hr checks for NPO status PLAN FOR INPATIENT GLYCEMIC CONTROL: * Hold outpatient oral diabetes medications * Basal insulin * Lantus 10 units daily (d/c insulin drip) * Bolus insulin * NovoLog per scale ACHS or Q6hrs while NPO * Goal Range: Low 110 mg/dL - High 140 mg/dL * Correction Factor: 35 mg/dL/unit * Nutritional / Prandial insulin per carb ratio of 1 unit per 11 grams CHO consumed
[2025-07-20] MEDS ORDERED: POTASSIUM PHOS 3 MMOL/1 ML INFUSION IV STA (14:37)
[2025-07-20] MEDS: MAGNESIUM SULFATE / D5W 1 GM/100 ML BAG IV SCH (14:50)
[2025-07-20] MEDS: POTASSIUM PHOSPHATE 15 MMOL in SODIUM CHLORIDE 0.9% 250 ML IV ONE (15:01)
[2025-07-20] MEDS: INSULIN ASPART PER UNIT CHARGE SC SCH (15:52)
--- NOTE | 2025-07-20 16:15 | Discharge Summary ---
Discharge Summary Date of Service July 20, 2025 Principal Dx & Hospital Course #1 = Principal Diagnosis (1) Sepsis: (2) Unresponsive state: (3) Transaminitis: (4) Alcoholic pancreatitis: (5) Fall: (6) Vertebral compression fracture: (7) Alcohol abuse: Plan 59-year-old female with significant past medical history of alcoholism with alcohol-induced chronic pancreatitis, type 2 diabetes, hypertension, hyperlipidemia, chronic insomnia, sleep apnea with history of fall apparently was brought in today by the E[facility] totally unresponsive and found on the floor. Neuro: #Metabolic Encephalopathy #Unresponsive #Sedation -patient intubated for airway protection -RASS -3 today -differential is broad, could be hepatic encephalopathy, delirium tremens with postictal state, Wernickes encephalopathy/Korsakoff syndrome, sepsis (no leukocytosis), other metabolic disturbance, anoxic brain injury (given posturing on arrival but MR unremarkable), other neurologic shock, less likely autoimmune Plan: -EEG ordered -monitor for posturing or other signs of anoxia -high dose thiamine, folic acid -replete phosphorus -check ESR/CRP to r/o autoimmune process Pulmonary: #Acute Hypoxic Respiratory Failure #Atelectasis #Intubation -continue lung protective ventilation strategy -daily SBP trials -low GCS so unable to extubate at this time Cardiac: #Type 2 [place] #CAD -CAD noticed on imaging -troponins only marginally elevated GI: #Mild Hematemesis -Hgb stable -no more blood from NG tube -GI consult cancelled #Chronic Pancreatitis #Fatty Liver Disease #Alcohol Use -elevated LFTs in setting of fatty liver disease and alcohol use -could be contributing factor to overall presentation Plan: -if no improvement in mentation could consider starting lactulose -trend CIWA, monitor for withdrawal Renal: -n/a Endocrine: #Mild DKA -improved, transitioned to lantus and SSI Ortho: #L5 Fracture #T11 Fracture #Worsening C3 Fracture -ortho consult, appreciate recs Notes For Next Care Provider 59-year-old female with significant past medical history of alcoholism with alcohol-induced chronic pancreatitis, type 2 diabetes, hypertension, hyperlipidemia, chronic insomnia, sleep apnea with history of fall apparently was brought in today by the [facility] totally unresponsive and found on the floor. Intubated in ED for poor GCS and airway protection, admitted to ICU. Given thiamine, folic acid, fluids without improvement in mental status. No overt signs or symptoms of infectious process. Cultures negative. Mild DKA treated and transitioned to subq insulin. Imaging unrevealing, MR brain w/ and w/o contrast without acute process. Posturing noted on exam. Unresponsiveness did not improve throughout hospital stay, requiring minimal sedation. Concern for delirium tremens vs. subclinical seizures at this time given alcohol use, no ability to do EEG or have in person neurology evaluation at [facility]. On 07/20/2025 patient transferred [place] [facility] [place] management. To do: [ ] 24 hr EEG [ ] likely needs repeat CT head given concern for anoxia 2/2 posturing Medication Changes From Visit -insulin regiment Admission HPI Per Admitting Provider She is a 59-year-old female with significant past medical history of alcoholism with alcohol-induced chronic pancreatitis, type 2 diabetes, hypertension, hyperlipidemia, chronic insomnia, sleep apnea with history of fall apparently was brought in today by the [facility] totally unresponsive and found on the floor. No other history was obtainable and the being demented could not provide any other history to the EMS and he was not available in the emergency room. Called her mom who did not know much about what happened but now she knows that she is here with sepsis, fall and unresponsive and required intubation. She was noted to have high temperature of 38 C tachycardia at presentation and remained totally unresponsive in the emergency room. She was evaluated by hitting coach in the emergency room and going to be seen by spine surgery given the vertebral fracture as below. Discharge Exam Gen: A&O sedated, intubated HEENT: NCAT, EOMI, not icteric. External ears normal. No rhinorrhea. Moist mucous membranes. Neck: Supple, full range of motion, no observable masses, No meningeal sign. Lungs: No Respiratory distress. CV: RRR, no edema. Abdomen: Soft, nondistended, No rebound tenderness. MSK: No joint swelling, no redness. Skin: No rashes, petechiae, lesions. Normal color per patient. Neuro: RASS -3 Updated Medication List Medication Instructions Recorded Confirmed Type buspirone 10 mg tablet 10 mg PO TID 04/22/23 07/19/25 History gabapentin 300 mg capsule 900 mg PO HS 04/22/23 07/19/25 History metformin 500 mg tablet,extended 2,000 mg PO QAM 04/22/23 07/19/25 History release 24 hr thiamine HCl (vitamin B1) 100 mg 100 mg PO QAM #15 tabs 04/22/23 07/19/25 Rx tablet insulin lispro 100 unit/mL 5 - 7 unit subcut DIRECTED 12/27/24 07/19/25 History subcutaneous pen insulin glargine 100 unit/mL (3 0 unit subcut HS 05/31/25 07/19/25 History mL) subcutaneous pen (Lantus Solostar U-100 Insulin) Hospital Stay Data Consultations 07/19/25 13:29 ED Decision to Admit Stat 07/19/25 14:02 Consult [employer] Travel Trailers Routine 07/19/25 14:34 Consult Orthopedic Spine Surgery Routine 07/20/25 11:04 Consult Neurology Routine 07/20/25 15:44 Burn CD for patient Stat Diagnostic Imagining Performed 07/19/25 11:43 CT abd pelvis IV con only Stat CT cervical spine wo con Stat CT chest diagnostic w con Stat CT head/brain wo con Stat 07/19/25 12:09 CT facial bones wo con Stat 07/19/25 16:13 MR brain seizure wo/w con Urgent Pending Results Patient Have Any Pending Studies at Discharge: No Discharge Instructions Given to Patient (Per Discharging Provider) Diagnoses: Unresponsiveness 2/2 Metabolic Encephalopathy of Unknown Etiology, Alcohol Use, Chronic Pancreatitis, DKA Follow Ups: PCP, neurology, pulmonology Incidental Findings: L5/L2/T1/C3 fractures, fatty liver, worsening pancreatitis, left kidney stone, uterine leiomyomas, right adnexal lesion, bladder thickening, thyroid nodules, bilateral atelctasis, CAD, forehead hematoma, osteoarthritis, CAD 1. Transfer to [facility] ICU for further workup. Total Time Total Time Spent Total Time Spent (In Minutes): I spent a total of 35 minutes in direct patient care, including [id number] time with the patient and/or family, reviewing medical records, ordering and reviewing diagnostic tests, and coordinating care with other healthcare providers. This time includes: history taking, physical examination, medical decision making, counseling, ECG interpretation, imaging interpretation, lab interpretation, orders, and education, excluding time spent in the performance of separately billed services.
[2025-07-20 16:19] VITALS: BP 140/84; PULSE 91; RESP 10; TEMP 98.6; O2SAT 99
[2025-07-20] MEDS ORDERED: PANTOprazole 40 MG in SYRINGE BID IV SCH (21:00)
--- NOTE | 2025-07-20 21:48 | Electroencephalogram ---
EEG Procedure Note Date of Service July 20, 2025 Start / End Times Start Time: 1221 End Time: [address] Ascencio History A 59 yo F w encephalopathy. EEG performed for evaluation of epileptiform activity. Home Medication List Medication Instructions Recorded Confirmed Type buspirone 10 mg tablet 10 mg PO TID 04/22/23 07/19/25 History gabapentin 300 mg capsule 900 mg PO HS 04/22/23 07/19/25 History metformin 500 mg tablet,extended 2,000 mg PO QAM 04/22/23 07/19/25 History release 24 hr thiamine HCl (vitamin B1) 100 mg 100 mg PO QAM #15 tabs 04/22/23 07/19/25 Rx tablet insulin lispro 100 unit/mL 5 - 7 unit subcut DIRECTED 12/27/24 07/19/25 H istory subcutaneous pen insulin glargine 100 unit/mL (3 0 unit subcut HS 05/31/25 07/19/25 History mL) subcutaneous pen (Lantus Solostar U-100 Insulin) Inpatient Medication List Discontinued Medications Acetaminophen (Acetaminophen 1000 Mg/100 Ml Iv) Confirm Administered Dose 1,000 mg IV .STK-MED ONE Stop: 07/19/25 11:31 Last Admin: 07/19/25 13:10 Dose: Not Given Documented By: ECS Acetaminophen (Acetaminophen 500 Mg Tab) 1,000 mg PO NOW STA Stop: 07/19/25 18:16 Last Admin: 07/19/25 20:12 Dose: Not Given Documented By: [id number] Dextrose (Dextrose 50% 50 Ml Syringe) 25 - 50 ml IV UD PRN; Protocol PRN Reason: Hypoglycemia Protocol Stop: 08/18/25 15:28 Last Admin: 07/20/25 06:57 Dose: 25 ml Documented By: [id number] Admin: 07/20/25 06:35 Dose: 25 ml Documented By: [id number] Admin: 07/20/25 06:10 Dose: 25 ml Documented By: [id number] Enoxaparin Sodium (Enoxaparin Inj 40 Mg/0.4 Ml Syr) 40 mg SQ QAM [facility] Stop: 08/19/25 09:29 Last Admin: 07/20/25 10:11 Dose: 40 mg Documented By: CB Gadobutrol (Gadobutrol 30ml Vial) 6.5 ml IV ONCE ONE Stop: 07/19/25 17:59 Last Admin: 07/19/25 17:58 Dose: 6.5 ml Documented By: AN Heparin Sodium (Porcine) (Heparin Sod 5,000 Unit/0.5 Ml Vial) 5,000 units SQ Q12 E[facility] Stop: 08/18/25 20:59 Last Admin: 07/19/25 20:47 Dose: 5,000 units Documented By: [id number] Acetaminophen (Ofirmev) 1,000 mg in 100 mls @ 400 mls/hr IV NOW STA Stop: 07/19/25 11:57 Last Infusion: 07/19/25 12:15 Dose: Infused Documented By: Admin: 07/19/25 11:40 Dose: 400 mls/hr Documented By: ECS Sodium Chloride (Nss) 1,000 mls @ 999 mls/hr IV .Q1H1M E[facility]L Stop: 07/19/25 13:45 Last Infusion: 07/19/25 15:28 Dose: Infused Documented By: Admin: 07/19/25 12:59 Dose: 999 mls/hr Documented By: Infusion: 07/19/25 12:59 Dose: Infused Documented By: Admin: 07/19/25 11:39 Dose: 999 mls/hr Documented By: ECS Fentanyl Citrate (Fentanyl Citrate) 2,500 mcg in 250 mls @ 0 mls/hr IV .Q0M [facility]; Protocol Stop: 08/02/25 11:44 Last Titration: 07/20/25 16:43 Dose: Infused Documented By: CB Co-signed By: JLM Titration: 07/20/25 09:45 Dose: 0 mcg/hr, 0 mls/hr Documented By: CB Co-signed By: JB Titration: 07/20/25 07:05 Dose: 50 mcg/hr, 5 mls/hr Documented By: CB Co-signed By: [id number] Titration: 07/19/25 19:12 Dose: 50 mcg/hr, 5 mls/hr Documented By: CB Co-signed By: [id number] Admin: 07/19/25 11:54 Dose: 50 mcg/hr, 5 mls/hr Documented By: ECS Co-signed By: [id number] Piperacillin Sod/Tazobactam Sod (Zosyn) 4.5 gm in 120 mls @ 240 mls/hr IV NOW ONE Stop: 07/19/25 12:16 Last Infusion: 07/19/25 13:29 Dose: Infused Documented By: Admin: 07/19/25 12:30 Dose: 240 mls/hr Documented By: ECS Vancomycin HCl 1,500 mg/ (Sodium Chloride) 530 mls @ 200 mls/hr IV NOW ONE Stop: 07/19/25 14:25 Last Infusion: 07/19/25 18:41 Dose: Infused Documented By: Admin: 07/19/25 13:08 Dose: 200 mls/hr Documented By: ECS Sodium Chloride (Nss) 500 mls @ 999 mls/hr IV .Q31M ONE Stop: 07/19/25 12:39 Last Infusion: 07/19/25 15:28 Dose: Infused Documented By: Admin: 07/19/25 12:30 Dose: 999 mls/hr Documented By: ECS Propofol (Diprivan) 1,000 mg in 100 mls @ 0 mls/hr IV .Q0M [facility]; Protocol Stop: 07/22/25 12:59 Last Titration: 07/20/25 14:27 Dose: Infused Documented By: Titration: 07/20/25 09:45 Dose: 0 mcg/kg/min, 0 mls/hr Documented By: Titration: 07/20/25 07:05 Dose: 20 mcg/kg/min, 8.4 mls/hr Documented By: CB Co-signed By: [id number] Admin: 07/20/25 06:19 Dose: 20 mcg/kg/min, 8.4 mls/hr Documented By: [id number] Co-signed By: MMG Titration: 07/20/25 06:18 Dose: Infused Documented By: [id number] Co-signed By: MMG Titration: 07/19/25 19:12 Dose: 20 mcg/kg/min, 8.4 mls/hr Documented By: CB Co-signed By: [id number] Admin: 07/19/25 18:23 Dose: 20 mcg/kg/min, 8.4 mls/hr Documented By: CB Co-signed By: JLM Titration: 07/19/25 18:23 Dose: Infused Documented By: CB Co-signed By: JLM Titration: 07/19/25 14:55 Dose: 15 mcg/kg/min, 6.3 mls/hr Documented By: Admin: 07/19/25 12:56 Dose: 10 mcg/kg/min, 4.2 mls/hr Documented By: ECS Co-signed By: ML Magnesium Sulfate/Dextrose (Magnesium Sulfate / D5w) 1 gm in 100 mls @ 100 mls/hr IV Q1H [facility] Stop: 07/19/25 14:53 Last Infusion: 07/19/25 16:15 Dose: Infused Documented By: Admin: 07/19/25 14:46 Dose: 100 mls/hr Documented By: Infusion: 07/19/25 14:34 Dose: Infused Documented By: Admin: 07/19/25 13:34 Dose: 100 mls/hr Documented By: ML Acetylcysteine 10,490 mg/ (Dextrose) 252.45 mls @ 200 mls/hr IV ONCE ONE; Protocol Stop: 07/19/25 14:44 Last Infusion: 07/19/25 16:15 Dose: Infused Documented By: Admin: 07/19/25 14:08 Dose: 200 mls/hr Documented By: ML Acetylcysteine 3,500 mg/ (Dextrose) 517.5 mls @ 125 mls/hr IV ONCE ONE; Protocol Stop: 07/19/25 18:37 Last Infusion: 07/19/25 20:12 Dose: Infused Documented By: [id number] Admin: 07/19/25 15:59 Dose: 125 mls/hr Documented By: ERIN Acetylcysteine 6,990 mg/ (Dextrose) 1,034.95 mls @ 62.5 mls/hr IV ONCE ONE; Protocol Stop: 07/20/25 11:02 Last Infusion: 07/20/25 12:45 Dose: Infused Documented By: Admin: 07/19/25 20:19 Dose: 62.5 mls/hr Documented By: [id number] Potassium Chloride (K Oliver / Wtr) 10 meq in 100 mls @ 100 mls/hr IV Q1H [facility] Stop: 07/19/25 15:59 Last Infusion: 07/19/25 17:24 Dose: Infused Documented By: Infusion: 07/19/25 16:15 Dose: 0 mls/hr Documented By: Admin: 07/19/25 15:20 Dose: 100 mls/hr Documented By: Infusion: 07/19/25 15:19 Dose: Infused Documented By: Admin: 07/19/25 13:59 Dose: 100 mls/hr Documented By: SAVANNAH Folic Acid 1 mg/ Syringe 10 mls @ 5 mls/min IV QAM EARL Stop: 08/18/25 14:29 Last Admin: 07/20/25 08:31 Dose: 5 mls/min Documented By: Admin: 07/19/25 14:36 Dose: 5 mls/min Documented By: SAVANNAH Pantoprazole Sodium (Protonix) 40 mg in 10 mls @ 5 mls/min IV DAILY EARL Stop: 08/18/25 13:59 Last Admin: 07/19/25 14:19 Dose: Not Given Documented By: ML Potassium Chloride/Dextrose/Sod Cl (D5nss + 20meq Kcl) 20 meq in 1,000 mls @ 100 mls/hr IV .Q10H [facility] Stop: 07/22/25 13:59 Last Infusion: 07/19/25 17:24 Dose: Infused Documented By: Infusion: 07/19/25 16:02 Dose: 0 mls/hr Documented By: Admin: 07/19/25 15:58 Dose: 100 mls/hr Documented By: ERIN Piperacillin Sod/Tazobactam Sod (Zosyn) 4.5 gm in 100 mls @ 25 mls/hr IV Q8H [facility]; Protocol Stop: 07/24/25 16:59 Last Infusion: 07/20/25 12:40 Dose: Infused Documented By: Admin: 07/20/25 08:30 Dose: 25 mls/hr Documented By: Infusion: 07/20/25 05:11 Dose: Infused Documented By: [id number] Admin: 07/20/25 01:09 Dose: 25 mls/hr Documented By: [id number] Infusion: 07/19/25 22:46 Dose: Infused Documented By: [id number] Admin: 07/19/25 18:44 Dose: 25 mls/hr Documented By: ERIN Doxycycline Hyclate 100 mg/ (Dextrose) 100 mls @ 50 mls/hr IV Q12H [facility] Stop: 07/24/25 14:14 Last Admin: 07/20/25 14:52 Dose: 50 mls/hr Documented By: Infusion: 07/20/25 04:23 Dose: Infused Documented By: [id number] Admin: 07/20/25 02:21 Dose: 50 mls/hr Documented By: [id number] Infusion: 07/19/25 20:08 Dose: Infused Documented By: [id number] Admin: 07/19/25 15:58 Dose: 50 mls/hr Documented By: ERIN Lactated Ringer's (Lr) 1,000 mls @ 125 mls/hr IV .Q8H [facility] Stop: 07/22/25 14:14 Last Infusion: 07/19/25 18:34 Dose: Infused Documented By: Infusion: 07/19/25 18:34 Dose: 0 mls/hr Documented By: Admin: 07/19/25 14:34 Dose: 125 mls/hr Documented By: ML Pantoprazole Sodium 80 mg/ (Dextrose) 120 mls @ 480 mls/hr IV NOW ONE Stop: 07/19/25 14:29 Last Infusion: 07/19/25 14:54 Dose: Infused Documented By: Admin: 07/19/25 14:39 Dose: 480 mls/hr Documented By: ML Pantoprazole Sodium 40 mg/ (Dextrose) 100 mls @ 20 mls/hr IV Q5H [facility] Stop: 08/18/25 14:29 Last Infusion: 07/20/25 10:24 Dose: Infused Documented By: Admin: 07/20/25 08:30 Dose: 8 mg/hr, 20 mls/hr Documented By: Infusion: 07/20/25 07:20 Dose: Infused Documented By: Admin: 07/20/25 02:20 Dose: 8 mg/hr, 20 mls/hr Documented By: [id number] Infusion: 07/20/25 02:20 Dose: Infused Documented By: [id number] Admin: 07/19/25 21:25 Dose: 8 mg/hr, 20 mls/hr Documented By: [id number] Infusion: 07/19/25 20:59 Dose: Infused Documented By: [id number] Admin: 07/19/25 15:59 Dose: 8 mg/hr, 20 mls/hr Documented By: ERIN Insulin Human Regular 250 (units/ Sodium Chloride) 250 mls @ 0 mls/hr IV .Q0M [facility]; Protocol Stop: 08/18/25 16:14 Last Titration: 07/20/25 12:45 Dose: Infused Documented By: ERIN Co-signed By: [email or web address] Titration: 07/20/25 07:31 Dose: 0 units/hr, 0 mls/hr Documented By: ERIN Co-signed By: [id number] Titration: 07/20/25 07:30 Dose: 5.8 units/hr, 5.8 mls/hr Documented By: ERIN Co-signed By: JBH Titration: 07/20/25 07:05 Dose: 0 units/hr, 0 mls/hr Documented By: CB Co-signed By: [id number] Titration: 07/20/25 06:00 Dose: 0 units/hr, 0 mls/hr Documented By: [id number] Co-signed By: [email or web address] Titration: 07/20/25 05:00 Dose: 9.6 units/hr, 9.6 mls/hr Documented By: [id number] Co-signed By: TMG Titration: 07/20/25 04:00 Dose: 12 units/hr, 12 mls/hr Documented By: [id number] Co-signed By: TMG Titration: 07/20/25 03:00 Dose: 12 units/hr, 12 mls/hr Documented By: [id number] Co-signed By: TLM Titration: 07/20/25 02:00 Dose: 14.2 units/hr, 14.2 mls/hr Documented By: [id number] Co-signed By: TLM Titration: 07/20/25 01:00 Dose: 14.2 units/hr, 14.2 mls/hr Documented By: [id number] Co-signed By: TLM Titration: 07/20/25 00:00 Dose: 14.2 units/hr, 14.2 mls/hr Documented By: [id number] Co-signed By: TLM Titration: 07/19/25 23:00 Dose: 14.2 units/hr, 14.2 mls/hr Documented By: [id number] Co-signed By: TLM Titration: 07/19/25 22:00 Dose: 14.2 units/hr, 14.2 mls/hr Documented By: [id number] Co-signed By: TLM Titration: 07/19/25 21:00 Dose: 14.2 units/hr, 14.2 mls/hr Documented By: [id number] Co-signed By: MMG Titration: 07/19/25 20:00 Dose: 11.8 units/hr, 11.8 mls/hr Documented By: [id number] Co-signed By: TLM Titration: 07/19/25 19:12 Dose: 8.4 units/hr, 8.4 mls/hr Documented By: ERIN Co-signed By: [id number] Admin: 07/19/25 18:10 Dose: 7 units/hr, 7 mls/hr Documented By: ERIN Co-signed By: ELIECER Midazolam HCl (Versed) 125 mg in 250 mls @ 0 mls/hr IV .Q0M [facility]; Protocol Stop: 08/18/25 16:29 Last Titration: 07/20/25 16:43 Dose: Infused Documented By: ERIN Co-signed By: ELIECER Titration: 07/20/25 09:45 Dose: 0 mg/hr, 0 mls/hr Documented By: ERIN Co-signed By: JB Titration: 07/20/25 07:05 Dose: 1 mg/hr, 2 mls/hr Documented By: ERIN Co-signed By: [id number] Titration: 07/19/25 19:12 Dose: 1 mg/hr, 2 mls/hr Documented By: ERIN Co-signed By: [id number] Admin: 07/19/25 18:24 Dose: 1 mg/hr, 2 mls/hr Documented By: ERIN Co-signed By: ELIECER Magnesium Sulfate/Dextrose (Magnesium Sulfate / D5w) 1 gm in 100 mls @ 100 mls /hr IV Q2H [facility] Stop: 07/20/25 00:29 Last Infusion: 07/20/25 01:08 Dose: Infused Documented By: [id number] Admin: 07/19/25 23:37 Dose: 100 mls/hr Documented By: [id number] Infusion: 07/19/25 23:31 Dose: Infused Documented By: [id number] Admin: 07/19/25 22:31 Dose: 100 mls/hr Documented By: [id number] Infusion: 07/19/25 22:11 Dose: Infused Documented By: [id number] Infusion: 07/19/25 22:00 Dose: 100 mls/hr Documented By: [id number] Admin: 07/19/25 20:22 Dose: 50 mls/hr Documented By: [id number] Infusion: 07/19/25 20:22 Dose: Infused Documented By: [id number] Admin: 07/19/25 18:26 Dose: 50 mls/hr Documented By: ERIN Calcium Gluconate () 1,000 mg in 60 mls @ 240 mls/hr IV Q15M [facility] Stop: 07/19/25 17:59 Last Infusion: 07/19/25 20:12 Dose: Infused Documented By: [id number] Admin: 07/19/25 18:40 Dose: 240 mls/hr Documented By: Infusion: 07/19/25 18:40 Dose: Infused Documented By: Admin: 07/19/25 18:26 Dose: 240 mls/hr Documented By: ERIN Potassium Chloride/Sodium Chloride (1/2 Nss + 20meq Kcl 1000ml) 20 meq in 1,000 mls @ 125 mls/hr IV .Q8H [facility] Stop: 07/22/25 18:29 Last Infusion: 07/20/25 01:21 Dose: Infused Documented By: [id number] Infusion: 07/19/25 22:00 Dose: 0 mls/hr Documented By: [id number] Admin: 07/19/25 19:00 Dose: 125 mls/hr Documented By: [id number] Potassium Chloride (K Oliver / Wtr) 10 meq in 100 mls @ 100 mls/hr IV Q1H [facility] Stop: 07/20/25 01:59 Last Infusion: 07/20/25 02:18 Dose: Infused Documented By: [id number] Admin: 07/20/25 01:08 Dose: 100 mls/hr Documented By: [id number] Infusion: 07/20/25 01:05 Dose: Infused Documented By: [id number] Admin: 07/20/25 00:05 Dose: 100 mls/hr Documented By: [id number] Infusion: 07/20/25 00:01 Dose: Infused Documented By: [id number] Admin: 07/19/25 23:01 Dose: 100 mls/hr Documented By: [id number] Infusion: 07/19/25 22:59 Dose: Infused Documented By: [id number] Admin: 07/19/25 21:59 Dose: 100 mls/hr Documented By: [id number] Potassium Chloride 40 meq/ (Dextrose/Sodium Chloride) 1,020 mls @ 175 mls/hr IV .Q5H50M [facility] Stop: 07/22/25 21:59 Last Admin: 07/20/25 10:27 Dose: Not Given Documented By: Infusion: 07/20/25 09:30 Dose: Infused Documented By: Admin: 07/20/25 04:21 Dose: 175 mls/hr Documented By: [id number] Infusion: 07/20/25 04:05 Dose: Infused Documented By: [id number] Admin: 07/19/25 22:15 Dose: 175 mls/hr Documented By: [id number] Sodium Phosphate 28 mmol/ (Sodium Chloride) 509.3333 mls @ 100 mls/hr IV ONE ONE Stop: 07/20/25 08:05 Last Infusion: 07/20/25 08:37 Dose: Infused Documented By: Admin: 07/20/25 03:20 Dose: 100 mls/hr Documented By: [id number] Thiamine HCl 500 mg/ Sodium (Chloride) 55 mls @ 210 mls/hr IV Q8H [facility] Stop: 08/19/25 09:59 Last Infusion: 07/20/25 11:34 Dose: Infused Documented By: Admin: 07/20/25 11:02 Dose: 210 mls/hr Documented By: ERIN Lactated Ringer's (Lr) 1,000 mls @ 100 mls/hr IV .Q10H [facility] Stop: 07/23/25 09:59 Last Admin: 07/20/25 10:12 Dose: 100 mls/hr Documented By: ERIN Magnesium Sulfate/Dextrose (Magnesium Sulfate / D5w) 1 gm in 100 mls @ 50 mls/hr IV Q2H [facility] Stop: 07/20/25 20:44 Last Admin: 07/20/25 14:50 Dose: 50 mls/hr Documented By: ERIN Potassium Phosphate 15 mmol/ (Sodium Chloride) 255 mls @ 88 mls/hr IV ONE ONE Stop: 07/20/25 17:38 Last Admin: 07/20/25 15:01 Dose: 88 mls/hr Documented By: ERIN Insulin Aspart (Insulin Aspart Per Unit Charge) 0 units SC ACHS [facility] Stop: 08/18/25 16:29 Last Admin: 07/20/25 11:33 Dose: Not Given Documented By: Admin: 07/20/25 07:00 Dose: Not Given Documented By: Admin: 07/19/25 21:21 Dose: Not Given Documented By: [id number] Admin: 07/19/25 18:11 Dose: Not Given Documented By: ERIN Co-signed By: ELIECER Insulin Aspart (Insulin Aspart Per Unit Charge) 0 units SC Q4 [facility] Stop: 08/19/25 15:59 Last Admin: 07/20/25 15:52 Dose: 2 units Documented By: ERIN Co-signed By: ALIA Insulin Glargine (Lantus Per Unit Charge) 10 units SC DAILY [facility] Stop: 08/19/25 10:29 Last Admin: 07/20/25 11:05 Dose: 10 units Documented By: ERIN Co-signed By: ELIECER Insulin Human Regular (Novolin-R Bolus From Bag) 7 units IV ONE ONE Stop: 07/19/25 16:31 Last Admin: 07/19/25 18:11 Dose: 7 units Documented By: ERIN Co-signed By: ELIECER Ioversol (Optiray 320 100ml) 94 ml IV ONCE ONE Stop: 07/19/25 12:36 Last Admin: 07/19/25 12:35 Dose: 94 ml Documented By: MARCIE Levetiracetam (Levetiracetam 500 Mg/5 Ml Vial) 2,800 mg 40 mg/kg (2800 mg) IV NOW STA Stop: 07/19/25 16:14 Last Admin: 07/19/25 16:48 Dose: 2,800 mg Documented By: ERIN Lorazepam (Lorazepam 2 Mg/1 Ml Vial) 0.25 mg IV NOW STA Stop: 07/19/25 18:10 Last Admin: 07/19/25 19:06 Dose: Not Given Documented By: ERIN Miscellaneous (Pending 1/2nss+20meq Kcl Ivf) 1 each N/A Q2H [facility] Stop: 08/18/25 16:14 Last Admin: 07/19/25 22:05 Dose: Not Given Documented By: [id number] Admin: 07/19/25 19:19 Dose: 1 each Documented By: [id number] Admin: 07/19/25 18:21 Dose: Not Given Documented By: ERIN Miscellaneous (Insulin Drip Communication - Pending Order) 1 each N/A NOW ONE Stop: 07/20/25 10:01 Last Admin: 07/20/25 13:16 Dose: Not Given Documented By: ERIN Ondansetron HCl (Ondansetron Inj 2 Mg/Ml 2 Ml Vial) Confirm Administered Dose 4 mg .ROUTE .STK-MED ONE Stop: 07/19/25 11:40 Last Admin: 07/19/25 11:40 Dose: 4 mg Documented By: NELIDA Piperacillin Sod/Tazobactam Sod (Piperacillin/Tazo 4.5 Gm/D5w 100ml) Confirm Administered Dose 4.5 gm IV .STK-MED ONE Stop: 07/19/25 11:50 Last Admin: 07/19/25 13:30 Dose: Not Given Documented By: ECS Potassium Chloride (Potassium Chloride 20 Meq/15 Ml Udc) 40 meq NG NOW STA Stop: 07/19/25 22:18 Last Admin: 07/19/25 22:40 Dose: 40 meq Documented By: [id number] Propofol (Propofol Iv Emulsion 10 Mg/Ml 100 Ml Vial) Confirm Administered Dose 1,000 mg IV .STK-MED ONE Stop: 07/19/25 11:41 Last Admin: 07/19/25 13:10 Dose: Not Given Documented By: ECS Propofol (Propofol Bolus From Bag) 20 mg IV Q5M PRN PRN Reason: Sedation Stop: 07/22/25 12:48 Last Admin: 07/19/25 14:54 Dose: 20 mg Documented By: ML Co-signed By: ES Admin: 07/19/25 14:21 Dose: 20 mg Documented By: ML Co-signed By: ROSIE Admin: 07/19/25 13:28 Dose: 20 mg Documented By: ECS Co-signed By: ML Admin: 07/19/25 13:11 Dose: 20 mg Documented By: ECS Co-signed By: ML Description This is a 21 electrode EEG with a single channel dedicated to limited EKG. The electrodes were placed in accordance with the International 10-20 system. REPORT: At the onset of the EEG the patient is in an altered mental state. There is a loss of the normal anterior to posterior gradient. The background consist of generalized theta delta activity w frequent drip artifact. No sleep transients are seen. Interpretation This is an abnormal EEG due to generalized background slowing suggestive of a non specific encephalopathy.
[2025-07-21 10:50] LABS: iSTAT Art Bld Gas Base Excess -15.0 meg/L (-9-1.8); iSTAT Art Bld Gas pCO2 Correct 28 mmHg (35-46); iSTAT Art Bld Gas pH Corrected 7.253 (7.35-7.45); iSTAT Arterial Blood Gas pO2 C 159
--- NOTE | 2025-07-21 14:10 | Electrocardiogram Report ---
Test Reason : Blood Pressure : */* mmHG Vent. Rate : 138 BPM Atrial Rate : 138 BPM P-R Int : 126 ms QRS Dur : 100 ms QT Int : 306 ms P-R-T Axes : 48 -47 49 degrees QTcB Int : 463 ms Sinus tachycardia Left anterior fascicular block Minimal voltage criteria for LVH, may be normal variant ( [place] product ) Cannot rule out Inferior infarct (masked by fascicular block?) , age undetermined Abnormal ECG When compared with ECG of 12-Jun-2025 00:25, Left anterior fascicular block is now Present T wave inversion no longer evident in Inferior leads Confirmed by Cody Baker ([id number]) on 07/21/2025 2:10:02 PM Referred By: Confirmed By: Cody Baker
== END 2025-07-20 17:39 | disposition short-term general hospital (02) | DRG 871 ==
LOC: ED 11:32 → SUATTDRO 14:02 → 1E 14:02